=== PATIENT | female | born 1940 | race Caucasian/White ===

== ENCOUNTER → 2017-11-03 10:44 | Outpatient (CLI) | payer MEDICARE, SELFPAY ==
[2017-11-03 11:20] LABS: Absolute Lymphocyte Count 1.75 X10^3/ul (0.83-4.51); Absolute Neutrophil Count 3.2 X10^3/uL (2.0-7.7); Basophil# 0.01 X10^3/uL; Basophil% 0.2 % (0-1); Eosinophil# 0.13 X10^3/uL; Eosinophils% 2.4 % (0-5); Hematocrit 44.3 % (37-47); Hemoglobin 14.5 g/dl (12.0-15.0); Lymphocyte # 1.75 X10^3/ul (4.0); Lymphocyte % 32.1 % (19-41); Mean Corp Hgb Conc 32.7 g/gl (32-36); Mean Corpuscular Hgb 30.4 pg (27.0-32.0); Mean Corpuscular Volume 92.9 fL (81-99); Mean Platelet Vol. 10.4 fl (6.2-12.0); Monocyte# 0.38 X10^3/uL; Neutrophil # 3.17 X10^3/uL (2.7-7.7); Neutrophil % 58.1 % (47-70); Platelet Count 202 K/mm3 (150-450); RBC Distribution Width CV 13.4 % (11.6-14.6); RBC Distribution Width SD 45.2 fl (35.1-43.9); Red Blood Count 4.77 M/mm3 (4.2-5.4); White Blood Count 5.5 K/mm3 (4.4-11.0)
[2017-11-03 11:26] LABS: POSITIVE COUNT NO; POSITIVE DIFFERENTIAL NO; POSITIVE MORPHOLOGY NO
[2017-11-03 11:46] LABS: ALB/GLOB Ratio 0.9 RATIO (0.9-2.4); AST(SGOT) 18 U/L (15-37); Alanine Aminotransfer ALT/SGPT 24 U/L (12-78); Albumin, Serum 3.7 g/dL (3.4-5.0); Alkaline Phosphatase 88 U/L (45-117); Anion Gap 8 (5-15); BUN 14 mg/dL (7-18); BUN/Creat Ratio 12.4 RATIO (10-20); Calcium,Total 9.3 mg/dL (8.5-10.1); Chloride 106 mmol/L (98-107); Creatinine, Serum 1.13 mg/dL (0.55-1.02); EST Glomerular Filtration Rate 50 mL/min (>60); Est Glom Filt Rate - Afr Amer 60 mL/min (>60); Glucose 92 mg/dL (70-110); Potassium 3.8 mmol/L (3.5-5.1); Protein, Total 7.7 g/dL (6.4-8.2); Sodium Level 141 mmol/L (136-145)
== END ==
PROVIDERS: Family Provider Family Medicine; PCP Family Medicine; Visit Provider Internal Medicine Rheumatology
DX: M06.4 Inflammatory polyarthropathy (principal); I10 Essential (primary) hypertension; I25.10 Atherosclerotic heart disease of native coronary artery without angina pectoris; E03.9 Hypothyroidism, unspecified
CPT/HCPCS: 36415; 80053; 85025

== ENCOUNTER → 2017-12-07 15:24 | Outpatient (CLI) | payer MEDICARE, SELFPAY ==
[2017-12-07 17:51] LABS: T4 Free Direct 1.36 ng/dL (0.76-1.46); Thyroid Stim Hormone (TSH) 2.36 uIU/mL (0.358-3.74); Vitamin D,25 Hydroxy 38.1 ng/mL (29.95-100.01)
== END ==
PROVIDERS: Family Provider Family Medicine; PCP Family Medicine; Visit Provider Family Medicine
DX: I48.91 Unspecified atrial fibrillation (principal); E03.9 Hypothyroidism, unspecified; E55.9 Vitamin D deficiency, unspecified
CPT/HCPCS: 36415; 82306; 84439; 84443

== ENCOUNTER → 2017-12-27 12:55 | Outpatient (CLI) | payer MEDICARE, SELFPAY ==
--- NOTE | 2017-12-27 12:57 | CDU_ITS ---
Reason For Study: Carotid stenosis Rt. Velocities/BP Lt. Velocities/BP Prox CCA 86.8/15.8 cm/sec. Prox CCA 90.9/24.0 cm/sec. Mid CCA 82.7/15.8 cm/sec. Mid CCA 97.9/22.9 cm/sec. Dist CCA 70.9/14.7 cm/sec. Dist CCA 82.1/17.6 cm/sec. Prox ICA 59.2/21.7 cm/sec. Prox ICA 59.8/17.6 cm/sec. Mid ICA 62.1/16.6 cm/sec. Mid ICA 56.9/18.8 cm/sec. Dist ICA 87.9/27.3 cm/sec. Dist ICA 52.9/13.5 cm/sec. Rt. ICA/CCA = 1.1. Lt. ICA/CCA = .61. Prox ECA 63.3/3.5 cm/sec. Prox ECA 86.8/11.1 cm/sec. Rt. Vert. 81.5/17.7 cm/sec. Lt. Vert. 46.9/12.3 cm/sec. Right Extracranial There is intimal thickening but no significant atherosclerotic plaque noted in the right common carotid artery. There is intimal thickening but no significant atherosclerotic plaque noted in the right internal carotid artery. There is intimal thickening but no significant atherosclerotic plaque noted in the right external carotid artery. Antegrade flow is noted in the right vertebral artery. Left Extracranial There is intimal thickening but no significant atherosclerotic plaque noted in the left common carotid artery. There is intimal thickening but no significant atherosclerotic plaque noted in the left internal carotid artery. There is heterogeneous, irregular atherosclerotic plaque noted in the left external carotid artery. Antegrade flow is noted in the left vertebral artery. There is heterogeneous, irregular atherosclerotic plaque noted in the left bulb. Procedure Carotid Duplex [id number]. Exam performed in department. Interpretation Summary No significant atherosclerotic plaque or stenosis noted in the internal carotid arteries bilaterally. Flow within the vertebral arteries is antegrade bilaterally. Ordering Physician: Bon Abraham Referring Physician: Bon Abraham Performed By: Linda Rocha RVT
== END ==
PROVIDERS: Family Provider Family Medicine; PCP Family Medicine; Visit Provider Family Medicine
DX: I65.23 Occlusion and stenosis of bilateral carotid arteries (principal)
CPT/HCPCS: 93880

== ENCOUNTER → 2018-01-27 13:10 | Outpatient (CLI) | payer MEDICARE, SELFPAY ==
--- NOTE | 2018-01-27 13:13 | BI_ITS ---
MAMMOGRAPHY - BILATERAL SCREENING REASON FOR EXAM: Female, 77 years old. Routine annual screening examination. PERTINENT HISTORY: Non-contributory. TECHNIQUE: Digital bilateral breast eben (3D mammographic acquisition) in the CC and MLO projections. 2-D mediolateral oblique (MLO) and craniocaudad (CC) views of both breasts were obtained. CAD: Full Field Digital Mammography with Computer Added Detection was performed. COMPARISON: Comparison is made with prior study dated December 30, 2016 and December 29, 2015. FINDINGS: Breast Composition: The breasts are heterogeneously dense, which may obscure small masses. There are no dominant masses or suspicious calcifications. A pacemaker device is seen in the left axillary region. Stable bilateral vascular calcifications. No other significant abnormalities are identified. There has been no significant change since the prior study. BI/SCREENING MAMM (CAD), BILAT IMPRESSION: Stable bilateral screening mammogram. Yearly follow-up mammogram recommended. (A) ASSESSMENT CATEGORY: BIRADS Category 2: Benign. A letter regarding these results will be sent to the patient by the facility within 30 days. Approximately 10% of breast cancers are not detected by mammography. A normal mammogram should not delay biopsy of a clinically suspicious abnormality. [id number] Electronically Signed: Adam Fisher MD at 15:11 EDT Tel [phone], Service support ,
== END ==
PROVIDERS: Family Provider Family Medicine; PCP Family Medicine; Visit Provider Family Medicine
DX: Z12.31 Encounter for screening mammogram for malignant neoplasm of breast (principal)
CPT/HCPCS: 77063; 77067

== ENCOUNTER → 2018-04-17 09:21 | Outpatient (CLI) | payer MEDICARE, SELFPAY ==
[2018-04-17 12:12] LABS: Absolute Lymphocyte Count 1.22 X10^3/ul (0.83-4.51); Basophil# 0.01 X10^3/uL; Basophil% 0.3 % (0-1); Eosinophil# 0.13 X10^3/uL; Eosinophils% 3.4 % (0-5); Hematocrit 41.3 % (37-47); Lymphocyte # 1.22 X10^3/ul (4.0); Lymphocyte % 32.2 % (19-41); Mean Corp Hgb Conc 33.9 g/gl (32-36); Mean Corpuscular Hgb 31.5 pg (27.0-32.0); Mean Corpuscular Volume 92.8 fL (81-99); Mean Platelet Vol. 10.4 fl (6.2-12.0); Monocyte# 0.38 X10^3/uL; Neutrophil # 2.04 X10^3/uL (2.7-7.7); Neutrophil % 53.8 % (47-70); Platelet Count 221 K/mm3 (150-450); RBC Distribution Width CV 12.9 % (11.6-14.6); RBC Distribution Width SD 42.7 fl (35.1-43.9); Red Blood Count 4.45 M/mm3 (4.2-5.4); White Blood Count 3.8 K/mm3 (4.4-11.0)
[2018-04-17 12:13] LABS: ALB/GLOB Ratio 0.9 RATIO (0.9-2.4); AST(SGOT) 22 U/L (15-37); Alanine Aminotransfer ALT/SGPT 24 U/L (13-56); Albumin, Serum 3.5 g/dL (3.2-5.0); Alkaline Phosphatase 85 U/L (45-117); Anion Gap 8 (5-15); BUN 18 mg/dL (7-18); BUN/Creat Ratio 15.8 RATIO (10-20); Calcium,Total 8.9 mg/dL (8.5-10.1); Chloride 105 mmol/L (98-107); Creatinine, Serum 1.14 mg/dL (0.55-1.02); EST Glomerular Filtration Rate 49 mL/min (>60); Est Glom Filt Rate - Afr Amer 59 mL/min (>60); Globulin 3.9 g/dL (2.2-4.2); Glucose 93 mg/dL (74-106); Potassium 4.1 mmol/L (3.5-5.1); Protein, Total 7.4 g/dL (6.4-8.2); Sodium Level 141 mmol/L (136-145)
[2018-04-17 12:25] LABS: POSITIVE COUNT NO; POSITIVE DIFFERENTIAL NO; POSITIVE MORPHOLOGY NO
== END ==
PROVIDERS: Family Provider Family Medicine; PCP Family Medicine; Visit Provider Internal Medicine Rheumatology
DX: M06.4 Inflammatory polyarthropathy (principal); M16.0 Bilateral primary osteoarthritis of hip; I10 Essential (primary) hypertension; I25.10 Atherosclerotic heart disease of native coronary artery without angina pectoris; E03.9 Hypothyroidism, unspecified
CPT/HCPCS: 36415; 80053; 85025

== ENCOUNTER → 2018-06-27 06:42 | Outpatient (CLI) | payer MEDICARE, SELFPAY ==
--- NOTE | 2018-06-27 07:16 | RAD_ITS ---
STUDY: X-RAY CHEST REASON FOR EXAM: Female, 78 years old. Chest pain TECHNIQUE: PA and lateral views of the chest. COMPARISON: 03/07/2017 FINDINGS: There is a multilead permanent pacemaker. The lungs are clear and hyper expanded. There is no demonstrated pleural abnormality. Normal size heart. Coronary artery stent. Normal mediastinum and jewel. Normal visualized pulmonary arteries. Normal visualized aortic arch and descending thoracic aorta. Age-appropriate thoracic spine. Normal visualized ribs, clavicles, and shoulders. There is no demonstrated abnormality of the visualized soft tissue structures of the upper abdomen. RAD/Chest PA and Lateral IMPRESSION: Stable hyper inflation. Stable postsurgical changes. No pulmonary edema, congestive heart failure or confluent pneumonia. Electronically Signed: Angelica Ruiz MD at 23:55 EDT , Service support ,
--- NOTE | 2018-06-27 09:39 | STRESSREP ---
Stress Test Report Date: 06/27/2018 Procedure: Pharmacologic stress nuclear imaging study Indications: Chest pain; CAD; PCI; atrial fibrillation/flutter; permanent pacemaker Consent: Per the patient Procedure: The patient underwent pharmacologic (Regadenoson) evaluation with a peak heart rate of 127 beats per minute (88 predicted maximal heart rate) and a peak blood pressure of 128/84 mmHg. The baseline ECG demonstrated atrial fibrillation/flutter. The peak pharmacologic ECG demonstrated no obvious ECG changes. There were occasional PVCs pretest and during recovery. There was no complaint of chest discomfort during pharmacologic infusion or recovery. The examination was discontinued secondary to completion of protocol. Impression: 1. Pharmacologic (Regadenoson) evaluation 2. Peak pharmacologic ECG with continued atrial fibrillation/flutter with no obvious ECG changes. 3. There were occasional PVCs pretest and during recovery 4. Nuclear images pending Myocardial perfusion imaging study: Technique: The patient was injected with 10.8 millicuries of technetium 99m Cardiolite and subsequently rest SPECT Cardiolite nuclear imaging was obtained in the horizontal long, vertical long, and short axis views. The patient underwent pharmacologic (Regadenoson) evaluation with a peak heart rate of 127 beats per minute (88 % percent predicted maximal heart rate) and a peak blood pressure of 128/84 mmHg. The patient was injected with 31.6 millicuries of technetium 99m Cardiolite and subsequently stress SPECT Cardiolite nuclear imaging was obtained in the horizontal long, vertical long, and short axis views. A gated Cardiolite study at peak stress was obtained. Interpretation: Rest and stress SPECT Cardiolite nuclear imaging status post realignment, normalization, and attenuation correction demonstrate at rest the appearance of extracardiac/gastrointestinal tracer uptake near the inferior segments. Otherwise, there appears to be relative uniform tracer uptake at rest and status post stress. There is end systolic thickening and brightening. The gated Cardiolite study demonstrates myocardial thickening and inward wall motion. The reported LVEF is 83 %. Impression: 1. Rest and stress SPECT Cardiolite nuclear imaging demonstrate at rest the appearance of extracardiac/gastrointestinal tracer uptake near the inferior segments, otherwise, there appears to be relative uniform tracer uptake at rest and stress with no myocardial perfusion changes considered diagnostic for stress-induced myocardial ischemia. 2. The gated Cardiolite study reports an LVEF of 83 %. This note was generated with [employer] software. It may contain incorrect words, spelling, and punctuation that were not noted in checking the note before signing.
--- NOTE | 2018-06-27 09:42 | STRESSREP_ITS ---
Stress Test Report Date: 06/27/2018 Procedure: Pharmacologic stress nuclear imaging study Indications: Chest pain; CAD; PCI; atrial fibrillation/flutter; permanent pacemaker Consent: Per the patient Procedure: The patient underwent pharmacologic (Regadenoson) evaluation with a peak heart rate of 127 beats per minute (88 predicted maximal heart rate) and a peak blood pressure of 128/84 mmHg. The baseline ECG demonstrated atrial fibrillation/flutter. The peak pharmacologic ECG demonstrated no obvious ECG changes. There were occasional PVCs pretest and during recovery. There was no complaint of chest discomfort during pharmacologic infusion or recovery. The examination was discontinued secondary to completion of protocol. Impression: 1. Pharmacologic (Regadenoson) evaluation 2. Peak pharmacologic ECG with continued atrial fibrillation/flutter with no obvious ECG changes. 3. There were occasional PVCs pretest and during recovery 4. Nuclear images pending Myocardial perfusion imaging study: Technique: The patient was injected with 10.8 millicuries of technetium 99m Cardiolite and subsequently rest SPECT Cardiolite nuclear imaging was obtained in the horizontal long, vertical long, and short axis views. The patient underwent pharmacologic (Regadenoson) evaluation with a peak heart rate of 127 beats per minute (88 % percent predicted maximal heart rate) and a peak blood pressure of 128/84 mmHg. The patient was injected with 31.6 millicuries of technetium 99m Cardiolite and subsequently stress SPECT Cardiolite nuclear imaging was obtained in the horizontal long, vertical long, and short axis views. A gated Cardiolite study at peak stress was obtained. Interpretation: Rest and stress SPECT Cardiolite nuclear imaging status post realignment, normalization, and attenuation correction demonstrate at rest the appearance of extracardiac/gastrointestinal tracer uptake near the inferior segments. Otherwise, there appears to be relative uniform tracer uptake at rest and status post stress. There is end systolic thickening and brightening. The gated Cardiolite study demonstrates myocardial thickening and inward wall motion. The reported LVEF is 83 %. Impression: 1. Rest and stress SPECT Cardiolite nuclear imaging demonstrate at rest the appearance of extracardiac/gastrointestinal tracer uptake near the inferior segments, otherwise, there appears to be relative uniform tracer uptake at rest and stress with no myocardial perfusion changes considered diagnostic for stress -induced myocardial ischemia. 2. The gated Cardiolite study reports an LVEF of 83 %. This note was generated with [employer] software. It may contain incorrect words, spelling, and punctuation that were not noted in checking the note before signing.
== END ==
PROVIDERS: Family Provider Family Medicine; PCP Family Medicine; Visit Provider Nurse Practitioner Family
DX: R07.9 Chest pain, unspecified (principal); I25.10 Atherosclerotic heart disease of native coronary artery without angina pectoris; I48.0 Paroxysmal atrial fibrillation; Z98.61 Coronary angioplasty status
CPT/HCPCS: 71046; 78452; 93017; A9500; A4216; J2785

== ENCOUNTER → 2018-10-05 12:08 | Outpatient (CLI) | payer MEDICARE, SELFPAY ==
[2018-10-05 14:16] LABS: Absolute Lymphocyte Count 1.42 X10^3/ul (0.83-4.51); Absolute Neutrophil Count 3.6 X10^3/uL (2.0-7.7); Basophil# 0.01 X10^3/uL; Basophil% 0.2 % (0-1); Eosinophils% 1.7 % (0-5); Hematocrit 38.2 % (37-47); Hemoglobin 12.2 g/dl (12.0-15.0); Lymphocyte # 1.42 X10^3/ul (4.0); Lymphocyte % 24.2 % (19-41); Mean Corp Hgb Conc 31.9 g/gl (32-36); Mean Corpuscular Hgb 29.6 pg (27.0-32.0); Mean Corpuscular Volume 92.7 fL (81-99); Mean Platelet Vol. 10.1 fl (6.2-12.0); Monocyte# 0.69 X10^3/uL; Monocyte% 11.8 % (0-10); Neutrophil # 3.64 X10^3/uL (2.7-7.7); Neutrophil % 61.9 % (47-70); Platelet Count 284 K/mm3 (150-450); RBC Distribution Width CV 13.1 % (11.6-14.6); RBC Distribution Width SD 44.6 fl (35.1-43.9); Red Blood Count 4.12 M/mm3 (4.2-5.4); White Blood Count 5.9 K/mm3 (4.4-11.0)
[2018-10-05 14:20] LABS: POSITIVE COUNT NO; POSITIVE DIFFERENTIAL NO; POSITIVE MORPHOLOGY NO
[2018-10-05 14:29] LABS: ALB/GLOB Ratio 0.8 RATIO (0.9-2.4); AST(SGOT) 13 U/L (15-37); Alanine Aminotransfer ALT/SGPT 19 U/L (13-56); Albumin, Serum 3.2 g/dL (3.2-5.0); Alkaline Phosphatase 72 U/L (45-117); Anion Gap 9 (5-15); BUN 18 mg/dL (7-18); BUN/Creat Ratio 17.1 RATIO (10-20); Calcium,Total 9.1 mg/dL (8.5-10.1); Chloride 105 mmol/L (98-107); Creatinine, Serum 1.05 mg/dL (0.55-1.02); EST Glomerular Filtration Rate 54 mL/min (>60); Est Glom Filt Rate - Afr Amer 65 mL/min (>60); Globulin 4.2 g/dL (2.2-4.2); Glucose 119 mg/dL (74-106); Potassium 3.8 mmol/L (3.5-5.1); Protein, Total 7.4 g/dL (6.4-8.2); Sodium Level 143 mmol/L (136-145)
== END ==
PROVIDERS: Family Provider Family Medicine; PCP Family Medicine; Referring Provider Internal Medicine Rheumatology; Visit Provider Internal Medicine Rheumatology
DX: M06.4 Inflammatory polyarthropathy (principal)
CPT/HCPCS: 36415; 80053; 85025

== ENCOUNTER → 2019-01-02 12:03 | Outpatient (CLI) | payer MEDICARE, SELFPAY ==
[2018-12-27 13:12] VITALS: BMI 22.8
[2019-01-02 14:00] LABS: Absolute Lymphocyte Count 1.68 X10^3/ul (0.83-4.51); Absolute Neutrophil Count 3.5 X10^3/uL (2.0-7.7); Basophil# 0.02 X10^3/uL; Basophil% 0.3 % (0-1); Eosinophils% 1.7 % (0-5); Hematocrit 37.9 % (37-47); Hemoglobin 11.7 g/dl (12.0-15.0); Lymphocyte # 1.68 X10^3/ul (4.0); Lymphocyte % 28.6 % (19-41); Mean Corp Hgb Conc 30.9 g/gl (32-36); Mean Corpuscular Hgb 29.2 pg (27.0-32.0); Mean Corpuscular Volume 94.5 fL (81-99); Monocyte# 0.61 X10^3/uL; Monocyte% 10.4 % (0-10); Neutrophil # 3.45 X10^3/uL (2.7-7.7); Neutrophil % 58.8 % (47-70); Platelet Count 264 K/mm3 (150-450); RBC Distribution Width SD 46.2 fl (35.1-43.9); Red Blood Count 4.01 M/mm3 (4.2-5.4); White Blood Count 5.9 K/mm3 (4.4-11.0)
[2019-01-02 14:07] LABS: POSITIVE COUNT NO; POSITIVE DIFFERENTIAL NO; POSITIVE MORPHOLOGY NO
[2019-01-02 14:25] LABS: ALB/GLOB Ratio 0.8 RATIO (0.9-2.4); AST(SGOT) 12 U/L (15-37); Alanine Aminotransfer ALT/SGPT 21 U/L (13-56); Albumin, Serum 3.2 g/dL (3.2-5.0); Alkaline Phosphatase 90 U/L (45-117); Anion Gap 7 (5-15); BUN 18 mg/dL (7-18); BUN/Creat Ratio 19.8 RATIO (10-20); Chloride 105 mmol/L (98-107); Creatinine, Serum 0.91 mg/dL (0.55-1.02); EST Glomerular Filtration Rate 64 mL/min (>60); Est Glom Filt Rate - Afr Amer 77 mL/min (>60); Glucose 122 mg/dL (74-106); Potassium 4.1 mmol/L (3.5-5.1); Protein, Total 7.2 g/dL (6.4-8.2); Sodium Level 141 mmol/L (136-145); T4 Free Direct 1.58 ng/dL (0.76-1.46); Thyroid Stim Hormone (TSH) 0.13 uIU/mL (0.358-3.74)
== END ==
PROVIDERS: Family Provider Family Medicine; PCP Family Medicine; Referring Provider Internal Medicine Rheumatology; Visit Provider Internal Medicine Rheumatology
DX: M06.4 Inflammatory polyarthropathy (principal); M16.0 Bilateral primary osteoarthritis of hip; I10 Essential (primary) hypertension; I25.10 Atherosclerotic heart disease of native coronary artery without angina pectoris; E03.9 Hypothyroidism, unspecified
CPT/HCPCS: 80053; 84439; 84443; 85025

== ENCOUNTER → 2019-01-16 | Outpatient (CLI) | payer MEDICARE, SELFPAY ==
[2018-12-27 13:12] VITALS: BMI 22.8
--- NOTE | 2019-01-16 14:04 | ECHOD_ITS ---
Reason For Study: ARRHYTHMIA Procedure This was a 2D Doppler, Color Flow transthoracic echocardiogram. Exam performed in department. Left Ventricle Normal LV size. Left ventricular systolic function is normal. The estimated ejection fraction is 60 %. Unable to assess diastolic dysfunction. No regional wall motion abnormalities noted. Right Ventricle Normal RV size. Normal systolic function. Atria The left atrium is severely enlarged. The right atrium is mildly enlarged. No doppler evidence for ASD. Mitral Valve There is no mitral annular calcification. Normal mitral valve. Moderate (2+) mitral valve insufficiency. Tricuspid Valve Normal tricuspid valve. Moderate (2+) tricuspid valve insufficiency. Right ventricular systolic pressure estimated to be 28 mmHg. Aortic Valve Trisinus/trileaflet aortic valve. Mild diffuse aortic valve thickening. Mild focal aortic valve calcification. Mild aortic stenosis. Trivial aortic valve insufficiency. Pulmonic Valve The pulmonic valve is not well visualized. Trivial pulmonic valve insufficiency. Great Vessels Normal sized aortic root. Pericardium/Pleural Trivial pericardial effusion. There are no echocardiographic indications of cardiac tamponade. MMode/2D Measurements & Calculations LVIDd: 4.1 cm IVSd: 0.91 cm LVOT diam: 1.8 cm LVIDs: 3.0 cm LVPWd: 0.88 cm LVOT area: 2.6 cm2 RVDd: 2.9 cm FS: 28.3 % Ao root diam: 3.0 cm LAV(MOD-bp): 59.5 ml LA A4 area: 20.3 cm2 LAV(MOD-bp) Indexed: 38.9 ml/m2 LAV(MOD-sp2): 53.3 ml LAV(MOD-sp4): 54.3 ml LA dimension(2D): 3.7 cm RA A4 area: 14.4 cm2 Time Measurements MV dec time: 0.15 sec Doppler Measurements & Calculations MV E max pavan: 89.2 cm/sec Ao V2 max: 98.7 cm/sec AI max pavan: 430.6 cm/sec Ao max P.9 mmHg AI max P.2 mmHg LARISA(V,D): 1.6 cm2 AI dec slope: 254.4 cm/sec2 AI P1/2t: 495.7 msec LV V1 max: 62.7 cm/sec PA V2 max: 61.9 cm/sec PI end-d pavan: 79.4 cm/sec LV V1 max P.6 mmHg TR max pavan: 249.0 cm/sec TR max P.8 mmHg Interpretation Summary Left ventricular systolic function is normal. The estimated ejection fraction is 60 %. The left atrium is severely enlarged. The right atrium is mildly enlarged. Moderate (2+) mitral valve insufficiency. Moderate (2+) tricuspid valve insufficiency. Mild aortic stenosis. Trivial aortic valve insufficiency. Trivial pulmonic valve insufficiency. Trivial pericardial effusion. There are no echocardiographic indications of cardiac tamponade. Right ventricular systolic pressure estimated to be 28 mmHg. Unable to assess diastolic dysfunction. Ordering Physician: Nixon Moreno/Marcus Malhotra Referring Physician: BRIDGETTE REILLY Performed By: Natacha Gutierrez, SAYRA, RVT
== END | disposition home or self-care (01) ==
LOC: CVS 14:01
PROVIDERS: Family Provider Family Medicine; PCP Family Medicine; Referring Provider Nurse Practitioner Family; Visit Provider Nurse Practitioner Family
DX: I25.10 Atherosclerotic heart disease of native coronary artery without angina pectoris (principal); I48.91 Unspecified atrial fibrillation; I10 Essential (primary) hypertension; R53.83 Other fatigue; Z95.0 Presence of cardiac pacemaker
CPT/HCPCS: 93306

== ENCOUNTER 2019-02-03 23:03 | Emergency (ER) | payer MEDICARE, SELFPAY ==
[2018-12-27 13:12] VITALS: BMI 22.8
[2019-02-03 23:06] VITALS: BP 145/101; PULSE 120; RESP 16; TEMP 36.6; O2SAT 987; BMI 23.0
--- NOTE | 2019-02-03 23:22 | ED.VIS.GEN ---
History of Present Illness Chief Complaint: Edema Informant: Patient Narrative: Patient stated that today she noticed some swelling and discomfort in her left lateral foot and ankle. She has never had this before. No injury. It does not significantly hurt to move. She is some ice which helped it. Current severity is mild. Worsened by nothing. - Past Medical History (1) Atrial fibrillation Status: Chronic (2) Coronary atherosclerosis of [place] coronary vessel Status: Chronic (3) Coronary atherosclerosis of [place] coronary vessel Status: Chronic Comment: S/P stenting to LAD in January 2007; (4) Diabetes mellitus type 2, controlled Status: Chronic (5) Dizziness Status: Chronic (6) Fatigue Status: Chronic (7) History of gastroesophageal reflux (GERD) Status: Chronic (8) History of left heart catheterization Status: Chronic Comment: also 01/2007,06/2007,07/2008 (9) History of percutaneous transluminal coronary angioplasty Status: Chronic Comment: Stent to mid LAD (10) History of permanent cardiac pacemaker placement Status: Chronic (11) Hyperlipidemia Status: Chronic (12) Hypertension Status: Chronic (13) Mitral valve disorder Status: Chronic (14) Occlusion and stenosis of carotid 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 Status: Chronic (15) Paroxysmal atrial fibrillation Status: Chronic (16) Presence of cardiac pacemaker Status: Chronic (17) Sick sinus syndrome Status: Chronic (18) History of transient ischemic attack (TIA) Status: Resolved (19) UTI (urinary tract infection) Status: Resolved Past Medical History - Allergies and Home Meds Allergies/Adverse Reactions: Allergies Penicillins Allergy (Verified 02/03/19 23:09) Hives Yavstdj-Giy-Did Reductase Inhibitor Adverse Reaction (Intermediate, Verified 02/03/19 23:09) myalgias Primary Care Physician: Bon Abraham MD [Primary Care Provider] - Prior records reviewed: Yes Past Medical History: - - Reviewed Surgical History: no surgical history Smoking Status: Never smoker Alcohol: None Drugs: None Review of Systems General: Denies: Chills, Fever, Sweats Eyes: Denies: Visual changes - bilaterally, Diplopia ENT: Denies: Rhinorrhea, Sore throat Cardiovascular: Denies: Chest pain, Palpitations Respiratory: Denies: Dyspnea, Cough, Dyspnea on exertion Gastrointestinal: Denies: Abdominal pain, Nausea, Vomiting, Diarrhea, Melena, Hematochezia Genitourinary: Denies: Dysuria, Hematuria, Frequency Musculoskeletal: Reports: Extremity Pain. Denies: Back pain Skin: Denies: Rash, Wounds Neurological: Denies: Headache, Weakness, Numbness Physical Exam Vital Signs/Narrative: Vital Signs Temp Pulse Resp BP Pulse Ox 02/03/19 23:06 97.9 F 120 H 16 145/101 H 987 General: Well nourished, Well developed, No Acute Distress Head: Normocephalic, Atraumatic Eyes: Perrl, EOMI ENT: Moist mucous membranes, No rhinorrhea Neck: Supple, Nontender Cardiovascular: Regular rate, Regular rhythm, No murmurs Respiratory: No distress, CTA bilaterally, Chest nontender Abdomen: Soft, Nontender, Nondistended, Normal bowel sounds Back: Nontender, Normal Inspection Extremities: Nontender, No edema Skin: Normal color, No rash, - - Patient has a very mild cellulitis on the left lateral ankle. Foot exam is normal. Normal pulses. The cellulitis area measures 4 x 5 cm. Neurological: Alert, Oriented x3, Cranial nerves II-XII grossly intact, Normal Strength, Normal Sensation Psychological: Normal affect, Normal Mood Diagnostic/Tx/Re-eval - Medical Decision Making Patient nontoxic resting comfortably. Will be given Keflex. I do not feel she needs lab work or imaging or IV fluids. She is not septic. She refused x-ray. I do not think she has in traumatic injury. I do not think she needs Bactrim. On the low suspicion for MRSA. This appears like a mild skin cellulitis. She understands it may get worse and that she will need to follow-up or return if it does. She will use Tylenol ED Disposition - Plan for ED Patient: Disposition: [facility] Diagnosis: Ankle cellulitis Instructions: Cellulitis - Causes,Symptoms,Treating Prescriptions: Cephalexin [Keflex] 500 mg PO Q6 #40 cap Referrals: Bon Abraham MD [Primary Care Provider] -
--- NOTE | 2019-02-03 23:25 | ED.DCSUM_ITS ---
History of Present Illness Chief Complaint: Edema Informant: Patient Narrative: Patient stated that today she noticed some swelling and discomfort in her left lateral foot and ankle. She has never had this before. No injury. It does not significantly hurt to move. She is some ice which helped it. Current severity is mild. Worsened by nothing. - Past Medical History (1) Atrial fibrillation Status: Chronic (2) Coronary atherosclerosis of [place] coronary vessel Status: Chronic (3) Coronary atherosclerosis of [place] coronary vessel Status: Chronic Comment: S/P stenting to LAD in January 2007; (4) Diabetes mellitus type 2, controlled Status: Chronic (5) Dizziness Status: Chronic (6) Fatigue Status: Chronic (7) History of gastroesophageal reflux (GERD) Status: Chronic (8) History of left heart catheterization Status: Chronic Comment: also 01/2007,06/2007,07/2008 (9) History of percutaneous transluminal coronary angioplasty Status: Chronic Comment: Stent to mid LAD (10) History of permanent cardiac pacemaker placement Status: Chronic (11) Hyperlipidemia Status: Chronic (12) Hypertension Status: Chronic (13) Mitral valve disorder Status: Chronic (14) Occlusion and stenosis of carotid 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 Status: Chronic (15) Paroxysmal atrial fibrillation Status: Chronic (16) Presence of cardiac pacemaker Status: Chronic (17) Sick sinus syndrome Status: Chronic (18) History of transient ischemic attack (TIA) Status: Resolved (19) UTI (urinary tract infection) Status: Resolved Past Medical History - Allergies and Home Meds Allergies/Adverse Reactions: Allergies Penicillins Allergy (Verified 02/03/19 23:09) Hives Uemvvot-Lxn-Xwf Reductase Inhibitor Adverse Reaction (Intermediate, Verified 02/03/19 23:09) myalgias Primary Care Physician: Bon Abraham MD [Primary Care Provider] - Prior records reviewed: Yes Past Medical History: - - Reviewed Surgical History: no surgical history Smoking Status: Never smoker Alcohol: None Drugs: None Review of Systems General: Denies: Chills, Fever, Sweats Eyes: Denies: Visual changes - bilaterally, Diplopia ENT: Denies: Rhinorrhea, Sore throat Cardiovascular: Denies: Chest pain, Palpitations Respiratory: Denies: Dyspnea, Cough, Dyspnea on exertion Gastrointestinal: Denies: Abdominal pain, Nausea, Vomiting, Diarrhea, Melena, Hematochezia Genitourinary: Denies: Dysuria, Hematuria, Frequency Musculoskeletal: Reports: Extremity Pain. Denies: Back pain Skin: Denies: Rash, Wounds Neurological: Denies: Headache, Weakness, Numbness Physical Exam Vital Signs/Narrative: Vital Signs Temp Pulse Resp BP Pulse Ox 02/03/19 23:06 97.9 F 120 H 16 145/101 H 987 General: Well nourished, Well developed, No Acute Distress Head: Normocephalic, Atraumatic Eyes: Perrl, EOMI ENT: Moist mucous membranes, No rhinorrhea Neck: Supple, Nontender Cardiovascular: Regular rate, Regular rhythm, No murmurs Respiratory: No distress, CTA bilaterally, Chest nontender Abdomen: Soft, Nontender, Nondistended, Normal bowel sounds Back: Nontender, Normal Inspection Extremities: Nontender, No edema Skin: Normal color, No rash, - - Patient has a very mild cellulitis on the left lateral ankle. Foot exam is normal. Normal pulses. The cellulitis area measures 4 x 5 cm. Neurological: Alert, Oriented x3, Cranial nerves II-XII grossly intact, Normal Strength, Normal Sensation Psychological: Normal affect, Normal Mood Diagnostic/Tx/Re-eval - Medical Decision Making Patient nontoxic resting comfortably. Will be given Keflex. I do not feel she needs lab work or imaging or IV fluids. She is not septic. She refused x-ray. I do not think she has in traumatic injury. I do not think she needs Bactrim. On the low suspicion for MRSA. This appears like a mild skin cellulitis. She understands it may get worse and that she will need to follow-up or return if it does. She will use Tylenol ED Disposition - Plan for ED Patient: Disposition: [facility] Diagnosis: Ankle cellulitis Instructions: Cellulitis - Causes,Symptoms,Treating Prescriptions: Cephalexin [Keflex] 500 mg PO Q6 #40 cap Referrals: Bon Abraham MD [Primary Care Provider] -
[2019-02-03] MEDS: Cephalexin 250 MG Capsule 500 MG PO (23:30)
[2019-02-03 23:47] VITALS: BP 141/78; PULSE 87; RESP 21; O2SAT 98
== END 2019-02-03 23:46 | disposition home or self-care (01) ==
LOC: ED 23:32
PROVIDERS: Emergency Provider Emergency Medicine; Family Provider Family Medicine; PCP Family Medicine
DX: L03.116 Cellulitis of left lower limb (principal); I25.10 Atherosclerotic heart disease of native coronary artery without angina pectoris; E11.9 Type 2 diabetes mellitus without complications; K21.9 Gastro-esophageal reflux disease without esophagitis; E78.5 Hyperlipidemia, unspecified; I10 Essential (primary) hypertension; I05.9 Rheumatic mitral valve disease, unspecified; I65.29 Occlusion and stenosis of unspecified carotid artery; I48.0 Paroxysmal atrial fibrillation; I49.5 Sick sinus syndrome; Z86.73 Personal history of transient ischemic attack (TIA), and cerebral infarction without residual deficits; Z87.440 Personal history of urinary (tract) infections; Z95.5 Presence of coronary angioplasty implant and graft; Z95.0 Presence of cardiac pacemaker; Z79.82 Long term (current) use of aspirin; Z79.01 Long term (current) use of anticoagulants; Z79.899 Other long term (current) drug therapy
CPT/HCPCS: 99283

== ENCOUNTER → 2019-02-16 13:28 | Outpatient (CLI) | payer MEDICARE, SELFPAY ==
[2018-12-27 13:12] VITALS: BMI 22.8
[2019-02-03 23:06] VITALS: BMI 23.0
--- NOTE | 2019-02-16 13:32 | BI_ITS ---
MAMMOGRAPHY - BILATERAL SCREENING REASON FOR EXAM: Female, 78 years old. Routine annual screening examination. PERTINENT HISTORY: Non-contributory. TECHNIQUE: Digital bilateral breast eben (3D mammographic acquisition) in the CC and MLO projections. 2-D mediolateral oblique (MLO) and craniocaudad (CC) views of both breasts were obtained. CAD: Full Field Digital Mammography with Computer Added Detection was performed. COMPARISON: Comparison is made with prior study dated January 27, 2018 and December 30, 2016. FINDINGS: Breast Composition: The breasts are heterogeneously dense, which may obscure small masses. There are no dominant masses or suspicious calcifications. Stable bilateral secretory calcifications. A battery pack from a pacemaker is seen in the left axillary region. No other significant abnormalities are identified. There has been no significant change since the prior study. BI/SCREENING MAMM (CAD), BILAT IMPRESSION: Stable bilateral screening mammogram. Yearly follow-up mammogram recommended. (A) ASSESSMENT CATEGORY: BIRADS Category 2: Benign. A letter regarding these results will be sent to the patient by the facility within 30 days. Approximately 10% of breast cancers are not detected by mammography. A normal mammogram should not delay biopsy of a clinically suspicious abnormality. [id number] Electronically Signed: Adam Fisher, at 15:11 EDT , Service support ,
== END ==
PROVIDERS: Family Provider Family Medicine; PCP Family Medicine; Referring Provider Family Medicine; Visit Provider Family Medicine
DX: Z12.31 Encounter for screening mammogram for malignant neoplasm of breast (principal)
CPT/HCPCS: 77063; 77067

== ENCOUNTER → 2019-02-27 13:51 | Outpatient (CLI) | payer MEDICARE, SELFPAY ==
[2019-02-03 23:06] VITALS: BMI 23.0
[2019-02-27 16:07] LABS: Hemoglobin A1c 6.9 % (4.2-6.3)
[2019-02-27 16:24] LABS: T4 Free Direct 1.32 ng/dL (0.76-1.46)
== END ==
PROVIDERS: Family Provider Family Medicine; PCP Family Medicine; Referring Provider Family Medicine; Visit Provider Family Medicine
DX: R73.01 Impaired fasting glucose (principal); E03.9 Hypothyroidism, unspecified
CPT/HCPCS: 36415; 83036; 84439; 84443

== ENCOUNTER → 2019-03-14 | Outpatient (CLI) | payer MEDICARE, SELFPAY ==
--- NOTE | 2019-03-14 14:10 | VDLE_ITS ---
Reason For Study: Swelling, Redness LLE RIGHT LEFT CFV is compressible, spontaneous, phasic, GSV is normal. competent and demonstrates normal CFV is compressible, spontaneous, phasic, augmentation. competent, and demonstrates normal Procedure augmentation. Exam performed in department. FV is compressible, spontaneous, phasic, A preliminary report was called and/or faxed competent and demonstrates normal to Dr. Elam. augmentation. POP V is compressible, spontaneous, phasic, competent and demonstrates normal augmentation. T/P Trunk is compressible. PTV is compressible. LT PerV is compressible. Interpretation Summary Deep veins of the left lower extremity are patent and compressible segmentally. There is no evidence of left lower extremity deep vein thrombosis. Valvular competence appears intact within the proximal deep venous system on the left . The left greater saphenous vein appears patent and compressible segmentally. Ordering Physician: Hellen Elam Referring Physician: Bon Abraham Performed By: Kristin Moreno, SAYRA, RVT
== END | disposition home or self-care (01) ==
LOC: CVS 14:07
PROVIDERS: Family Provider Family Medicine; PCP Family Medicine; Referring Provider Family Medicine; Visit Provider Family Medicine
DX: M79.89 Other specified soft tissue disorders (principal)
CPT/HCPCS: 93971

== ENCOUNTER → 2019-05-03 11:40 | Outpatient (CLI) | payer MEDICARE, SELFPAY ==
[2019-04-02 15:02] VITALS: BMI 23.0
[2019-05-03 14:13] LABS: Absolute Lymphocyte Count 1.71 X10^3/uL (0.83-4.51); Absolute Neutrophil Count 3.7 X10^3/uL (2.0-7.7); Basophil# 0.03 X10^3/uL; Basophil% 0.5 % (0-1); Eosinophil# 0.07 X10^3/uL; Eosinophils% 1.2 % (0-5); Hematocrit 38.2 % (37-47); Lymphocyte # 1.71 X10^3/ul (4.0); Lymphocyte % 28.3 % (19-41); Mean Corp Hgb Conc 31.4 g/dL (32-36); Mean Platelet Vol. 10.1 fl (6.2-12.0); Monocyte# 0.54 X10^3/uL; Monocyte% 8.9 % (0-10); NRBC Flagged by Analyzer 0 % (0-5); Neutrophil # 3.69 X10^3/uL (2.7-7.7); Neutrophil % 60.9 % (47-70); Platelet Count 299 K/mm3 (150-450); RBC Distribution Width CV 14.1 % (11.6-14.6); RBC Distribution Width SD 45.4 fl (35.1-43.9); Red Blood Count 4.29 M/mm3 (4.2-5.4); White Blood Count 6.1 K/mm3 (4.4-11.0)
[2019-05-03 14:22] LABS: ALB/GLOB Ratio 0.7 RATIO (0.9-2.4); AST(SGOT) 12 U/L (15-37); Alanine Aminotransfer ALT/SGPT 16 U/L (13-56); Albumin, Serum 3.1 g/dL (3.2-5.0); Alkaline Phosphatase 90 U/L (45-117); Anion Gap 9 (5-15); BUN 15 mg/dL (7-18); Calcium,Total 9.4 mg/dL (8.5-10.1); Chloride 103 mmol/L (98-107); Creatinine, Serum 0.88 mg/dL (0.55-1.02); EST Glomerular Filtration Rate 66 mL/min (>60); Est Glom Filt Rate - Afr Amer 80 mL/min (>60); Globulin 4.6 g/dL (2.2-4.2); Glucose 106 mg/dL (74-106); Potassium 3.7 mmol/L (3.5-5.1); Protein, Total 7.7 g/dL (6.4-8.2); Sodium Level 141 mmol/L (136-145)
== END ==
PROVIDERS: Family Provider Family Medicine; PCP Family Medicine; Referring Provider Internal Medicine Rheumatology; Visit Provider Internal Medicine Rheumatology
DX: M06.4 Inflammatory polyarthropathy (principal); M16.0 Bilateral primary osteoarthritis of hip; I10 Essential (primary) hypertension; I25.10 Atherosclerotic heart disease of native coronary artery without angina pectoris; E03.9 Hypothyroidism, unspecified
CPT/HCPCS: 36415; 80053; 85025

== ENCOUNTER 2019-05-11 13:00 | Outpatient (RCR) | payer MEDICARE, SELFPAY ==
[2019-04-02 15:02] VITALS: BMI 23.0
--- NOTE | 2019-04-24 12:53 | HP.PTEVAL ---
Patient's Visit Information ARNIE COKER is a 78 year old F referred to Physical Therapy by Bon Abraham MD with a diagnosis of chronic vertigo. Date of Evaluation: 04/24/19 Physical Therapist: [place], DILMA, OCS, CSCS - Visit Plan Frequency: 1x/Week Duration: 4-6 Weeks Plan: weekly as needed x 4-6 for positional treatments adn balance if needed. - Subjective Findings: Intermittent dizzyness. Looking up makes her dizzy, spinning adn lasts as long as she is looking up. If looks back down it goes away. Feels mostly good in between episode. Sometimes gets dizzy with walking and lasts all day to a little while. Been dizzy daily for long time and has had this for a year. Insidious onset. Uses walker all the time and has for a year or longer due to OA to stay stable. Cannot walk wellw ithout it not due to dizzyness but OA in hips and kneesbone on bone. Sleeps great lying on R side because she spins if lies other directions. Not employed. Would work around house and yard a lot more due to OA and dizzyness. Spends day doing light housework but needs frequent breaks from standing due to OA. Basic ADLs are mostly I with dressing adn bathroom and cooking a little bit. Lives with daughter. Steps at home to basement with railing. - Objective Walks with wh walker mod I, slow and doesn't use wheels but lifts walker. Trasnfers slow but I and careful with head movement. Safe with walker on firm flat surface. Unable to tolerate FGA due to OA/dizzyness. Able to ambulate with extreme care adn short steps wtihout AD but poor confidence. C/s AROM WFL and symmetricala dn without pain. - R hallpike. + L hallpike for 10 second up torsional nystagmus. Treated with L David then - L Hallpike. 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 Rehabilitation Potential: Good - Anticipated Interventions Patient/Client Instruction: Educate patient on: Condition, Plan of Care For the Purpose of:: To increase tolerance to activity/condition/position, To improve ability of physical actions for home/community/work/leisure Comment: adaptation and balance as needed. For the Purpose of:: To increase tolerance to activity/condition/position, To improve ability of physical actions for home/community/work/leisure Thank you for the opportunity to evaluate your patient. For Medicare and Medicare HMO plans, please review the plan of care and approve it. It will need to be FAXED BACK to us at [phone] for Medicare purposes. For Medicare only, by signing this I certify the plan of care. Please let me know if there are questions or concerns regarding this plan of care. Physician Signature: Date:
--- NOTE | 2019-05-11 13:27 | HP.PTDCSUM ---
HP - PT D/C Summary It has been my pleasure to treat ARNIE COKER under orders from Bon Abraham MD, for the diagnosis of chronic vertigo for a total of 2 visit(s). Discharge Date: 05/11/19 Please see the following information for a summary of their discharge status. - Subjective Subjective: No dizzyness. Near 100% better. No spinning but head might feel funny at times. Balance is normal, needs walker due to OA. Can turn head and walk without difficulty. - Overall Improvement % Improvement: 99 - Objective Objective/Function: - R hallpike,. Slight + L hallpike and treated with David. Gait is safe with wh walker and looks better than last session(not lifting walker and more confident). She does not wish to have balance treated or further f/u for dizzyness(99% better) - Goals Goal 1:: abolish vertigo for 3 days Goal Progress: Goal Met Goal 2:: Pateint feel dizzyness is 90% better and able to increase activtly levels Goal Progress: Goal Met Goal 3:: DHI down by 20% Goal Progress: Goal Met - Plan Plan: d/c pt request - D/C Information Discharge Comments: Pt doing well and wants to be discharged vs further f/u to ensure complete abolishment of dizzyness. If there are questions or concerns regarding this patient's physical therapy, please feel free to call me at [phone]. Thank you for the referral of this patient. Sincerely, Espinoza Park, DPT, OCS, CSCS
== END 2019-05-11 19:00 | disposition home or self-care (01) ==
LOC: PT 13:00
PROVIDERS: Family Provider Family Medicine; PCP Family Medicine; Referring Provider Family Medicine; Visit Provider Family Medicine
DX: H81.10 Benign paroxysmal vertigo, unspecified ear (principal)
CPT/HCPCS: 97110; 97162; 97530

== ENCOUNTER → 2019-12-05 14:06 | Outpatient (CLI) | payer MEDICARE, SELFPAY ==
[2019-04-02 15:02] VITALS: BMI 23.0
[2019-12-05 14:12] LABS: Bacteria 0 SEEN /hpf (None Seen)
[2019-12-05 15:47] LABS: Absolute Lymphocyte Count 1.06 X10^3/uL (0.83-4.51); Basophil# 0.05 X10^3/uL; Eosinophils% 9.6 % (0-5); Hematocrit 39.2 % (37-47); Hemoglobin 12.8 g/dL (12.0-15.0); Lymphocyte # 1.06 X10^3/ul (4.0); Lymphocyte % 20.3 % (19-41); Mean Corp Hgb Conc 32.7 g/dL (32-36); Mean Corpuscular Hgb 28.6 pg (27.0-32.0); Mean Corpuscular Volume 87.5 fL (81-99); Mean Platelet Vol. 9.7 fl (6.2-12.0); Monocyte# 0.58 X10^3/uL; Monocyte% 11.1 % (0-10); NRBC Flagged by Analyzer 0 % (0-5); Neutrophil % 57.6 % (47-70); Platelet Count 346 K/mm3 (150-450); RBC Distribution Width SD 41.4 fl (35.1-43.9); Red Blood Count 4.48 M/mm3 (4.2-5.4); White Blood Count 5.2 K/mm3 (4.4-11.0)
[2019-12-05 16:01] LABS: Vitamin D,25 Hydroxy 47.9 ng/mL
[2019-12-05 16:18] LABS: ALB/GLOB Ratio 0.7 RATIO (0.9-2.4); AST(SGOT) 14 U/L (15-37); Alanine Aminotransfer ALT/SGPT 20 U/L (13-56); Albumin, Serum 2.9 g/dL (3.2-5.0); Alkaline Phosphatase 70 U/L (45-117); Anion Gap 6 (5-15); BUN 23 mg/dL (7-18); BUN/Creat Ratio 20.9 RATIO (10-20); Calcium,Total 9.6 mg/dL (8.5-10.1); Chloride 104 mmol/L (98-107); EST Glomerular Filtration Rate 51 mL/min (>60); Est Glom Filt Rate - Afr Amer 62 mL/min (>60); Globulin 4.4 g/dL (2.2-4.2); Glucose 164 mg/dL (74-106); Iron 32 ug/dL (50-170); Magnesium 2.1 mg/dL (1.6-2.6); Potassium 3.9 mmol/L (3.5-5.1); Protein, Total 7.3 g/dL (6.4-8.2); Sodium Level 138 mmol/L (136-145); T4 Free Direct 1.46 ng/dL (0.76-1.46); Thyroid Stim Hormone (TSH) 0.96 uIU/mL (0.358-3.74)
[2019-12-05 17:05] LABS: Color, Urine Yellow (Yellow); Glucose, Dipstick Normal (Normal); Ketone-Dipstick Negative (Negative); Leukocyte Esterase-Dipstick 25 /ul (Negative); Nitrite-Dipstick Negative (Negative); Occult Blood-Urine 250 /ul (Negative); Protein-Dipstick 30 mg/dl (Negative); Specific Gravity, Urine 1.025 (1.002-1.030); Urine Clarity Sl. Cloudy (Clear); Urine Urobilinogen Normal (Normal)
[2019-12-05 17:10] LABS: Urine Bilirubin Dipstick 1 mg/dL (Negative)
[2019-12-05 18:03] LABS: Red Blood Cells-Urine 50-100 SEEN /hpf (0-5)
[2019-12-05 18:04] LABS: Mucous, Urine RARE /hpf (<or=2+); Squamous Epithelial Cells - UA 0-5 SEEN /hpf (5-10); White Blood Cells 0-5 SEEN /hpf (0-5)
== END ==
PROVIDERS: PCP Family Medicine; Visit Provider Family Medicine
DX: R73.01 Impaired fasting glucose (principal); E03.9 Hypothyroidism, unspecified; I10 Essential (primary) hypertension; E55.9 Vitamin D deficiency, unspecified; I48.91 Unspecified atrial fibrillation; R35.0 Frequency of micturition
CPT/HCPCS: 36415; 80053; 81001; 82306; 83540; 83735; 84439; 84443; 85025; 87086; 87088; 87186

== ENCOUNTER → 2020-07-23 16:25 | Outpatient (CLI) | payer MEDICARE, SELFPAY ==
[2019-12-21 15:04] VITALS: BMI 20.4
[2020-07-23 17:23] LABS: Absolute Lymphocyte Count 1.81 X10^3/uL (0.83-4.51); Absolute Neutrophil Count 3.3 X10^3/uL (2.0-7.7); Basophil# 0.03 X10^3/uL; Basophil% 0.5 % (0-1); Eosinophil# 0.14 X10^3/uL; Eosinophils% 2.3 % (0-5); Hematocrit 40.7 % (37-47); Hemoglobin 12.9 g/dL (12.0-15.0); Lymphocyte # 1.81 X10^3/ul (4.0); Mean Corp Hgb Conc 31.7 g/dL (32-36); Mean Corpuscular Hgb 29.4 pg (27.0-32.0); Mean Corpuscular Volume 92.7 fL (81-99); Mean Platelet Vol. 10.3 fl (6.2-12.0); Monocyte# 0.69 X10^3/uL; Monocyte% 11.4 % (0-10); NRBC Flagged by Analyzer 0 % (0-5); Neutrophil # 3.33 X10^3/uL (2.7-7.7); Neutrophil % 55.3 % (47-70); Platelet Count 278 K/mm3 (150-450); RBC Distribution Width CV 13.1 % (11.6-14.6); RBC Distribution Width SD 44.2 fl (35.1-43.9); Red Blood Count 4.39 M/mm3 (4.2-5.4)
[2020-07-23 18:08] LABS: Vitamin B12 740 pg/mL (211-911); Vitamin D,25 Hydroxy 42.6 ng/mL
[2020-07-23 18:13] LABS: Iron 36 ug/dL (50-170); T4 Free Direct 1.27 ng/dL (0.76-1.46); Thyroid Stim Hormone (TSH) 1.34 uIU/mL (0.358-3.74)
== END ==
PROVIDERS: PCP Family Medicine; Visit Provider Family Medicine
DX: E03.9 Hypothyroidism, unspecified (principal); N18.9 Chronic kidney disease, unspecified; E55.9 Vitamin D deficiency, unspecified; D64.9 Anemia, unspecified
CPT/HCPCS: 36415; 82306; 82607; 83540; 84439; 84443; 85025

== ENCOUNTER → 2020-12-17 15:11 | Outpatient (CLI) | payer MEDICARE, SELFPAY ==
[2019-12-21 15:04] VITALS: BMI 20.4
[2020-12-17 16:56] LABS: Absolute Lymphocyte Count 1.86 X10^3/uL (0.83-4.51); Absolute Neutrophil Count 2.8 X10^3/uL (2.0-7.7); Basophil# 0.02 X10^3/uL; Basophil% 0.4 % (0-1); Eosinophil# 0.14 X10^3/uL; Eosinophils% 2.6 % (0-5); Hematocrit 41.3 % (37-47); Hemoglobin 13.1 g/dL (12.0-15.0); Lymphocyte # 1.86 X10^3/ul (4.0); Lymphocyte % 34.4 % (19-41); Mean Corp Hgb Conc 31.7 g/dL (32-36); Mean Corpuscular Hgb 28.3 pg (27.0-32.0); Mean Corpuscular Volume 89.2 fL (81-99); Mean Platelet Vol. 10.3 fl (6.2-12.0); Monocyte# 0.55 X10^3/uL; Monocyte% 10.2 % (0-10); NRBC Flagged by Analyzer 0 % (0-5); Neutrophil # 2.81 X10^3/uL (2.7-7.7); Platelet Count 296 K/mm3 (150-450); RBC Distribution Width CV 13.9 % (11.6-14.6); RBC Distribution Width SD 45.1 fl (35.1-43.9); Red Blood Count 4.63 M/mm3 (4.2-5.4); White Blood Count 5.4 K/mm3 (4.4-11.0)
[2020-12-17 17:31] LABS: Vitamin B12 429 pg/mL (211-911); Vitamin D,25 Hydroxy 36.2 ng/mL
[2020-12-17 17:40] LABS: ALB/GLOB Ratio 0.8 RATIO (0.9-2.4); AST(SGOT) 17 U/L (15-37); Alanine Aminotransfer ALT/SGPT 18 U/L (13-56); Albumin, Serum 3.3 g/dL (3.2-5.0); Alkaline Phosphatase 103 U/L (45-117); Anion Gap 6 (5-15); BUN 20 mg/dL (7-18); BUN/Creat Ratio 18.9 RATIO (10-20); Calcium,Total 9.1 mg/dL (8.5-10.1); Chloride 106 mmol/L (98-107); Creatinine, Serum 1.06 mg/dL (0.55-1.02); EST Glomerular Filtration Rate 53 mL/min (>60); Est Glom Filt Rate - Afr Amer 64 mL/min (>60); Globulin 4.3 g/dL (2.2-4.2); Glucose 157 mg/dL (74-106); Iron 46 ug/dL (50-170); Magnesium 2.4 mg/dL (1.6-2.6); Potassium 3.6 mmol/L (3.5-5.1); Protein, Total 7.6 g/dL (6.4-8.2); Sodium Level 141 mmol/L (136-145); T4 Free Direct 1.43 ng/dL (0.76-1.46); Thyroid Stim Hormone (TSH) 0.55 uIU/mL (0.358-3.74)
== END ==
PROVIDERS: PCP Family Medicine; Visit Provider Family Medicine
DX: E03.9 Hypothyroidism, unspecified (principal); E55.9 Vitamin D deficiency, unspecified; N18.30 Chronic kidney disease, stage 3 unspecified; D64.9 Anemia, unspecified
CPT/HCPCS: 36415; 80053; 82306; 82607; 83540; 83735; 84439; 84443; 85025

== ENCOUNTER 2022-03-08 10:23 | Emergency (ER) | payer MEDICARE, SELFPAY ==
[2022-03-08 10:24] VITALS: BP 158/106; PULSE 79; RESP 18; TEMP 37.2; O2SAT 98; BMI 21.7
--- NOTE | 2022-03-08 10:39 | CT_ITS ---
HISTORY: RLQ pain. TECHNIQUE: Helically acquired images were obtained of the abdomen and pelvis without oral or IV contrast. A radiation dose optimization technique was used for this scan. 423 images. COMPARISON: 01/12/2017. FINDINGS: LOWER CHEST: Cardiomegaly with pacemaker. Mild pericardial effusion. Mild septal thickening with bronchiectasis. Calcified granulomas in the lower lobes. BOWEL: Bowel nondilated. Appendix not identified. No focal pericolonic inflammatory change. PERITONEUM: No significant free fluid. LIVER: Unremarkable. GALLBLADDER/BILIARY TREE: Gallbladder present. SPLEEN: Calcified granulomas. PANCREAS: Atrophic. KIDNEYS AND URETERS: No nephrolithiasis. Bilateral extrarenal pelves with mild hydronephrosis but no hydroureter on the right. ADRENAL GLANDS: No nodules. VESSELS: No abdominal aortic aneurysm. Atherosclerosis of the abdominal aorta and its major branches. PELVIC ORGANS: Unremarkable. ABDOMINAL WALL: Tiny fat-containing umbilical hernia. BONES: Severe bilateral hip arthritis. CT/Abdomen/Pelvis without Cont IMPRESSION: Mild right hydronephrosis without obstructing ureteral calculus identified. Mild pericardial effusion. Mild interstitial opacities in the lung bases, which may be secondary to mild interstitial edema or inflammation. Electronically Signed: Wanda Ramirez MD at 11:56 EDT ,
--- NOTE | 2022-03-08 10:43 | EX.ED.DYSGE1 ---
HPI History of Present Illness Chief Complaint: Abd Pain Informant: patient Onset/Context/Timing Onset: Today Current Severity: Mild Maximum Severity: Moderate Narrative Narrative: Patient presents secondary to right lower quadrant abdominal pain. She states shortly after she got up this morning she had rather abrupt sharp pain in the right lower quadrant. It is only eased slightly. She did have some dry heaves. No fever or chills. She has no urinary or bowel symptoms. [facility] Medical History (Updated 03/08/22 @ 14:[address] Jael Araujo MD) Atherosclerotic heart disease of [place] coronary artery without angina pectoris Atrial fibrillation Diabetes mellitus type 2, controlled Essential hypertension History of gastroesophageal reflux (GERD) History of left heart catheterization (08/16/06) History of transient ischemic attack (TIA) Irritable bowel syndrome (IBS) Longstanding persistent atrial fibrillation Mitral valve disorder Occlusion and stenosis of carotid 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 Paroxysmal atrial fibrillation Presence of cardiac pacemaker Presence of stent in coronary artery (~01/25/07) Pure hypercholesterolemia Sick sinus syndrome UTI (urinary tract infection) Home Medications aspirin 81 mg PO DAILY@0800 01/03/15 [History Last Taken Unknown] cyanocobalamin (vitamin B-12) 500 mcg PO DAILY 01/03/15 [History Last Taken Unknown] omega-3 fatty acids-fish oil 2 ea PO DAILY 01/03/15 [History Last Taken Unknown] calcium citrate 315 mg calcium-vitamin D3 6.25 mcg (250 unit) tablet 1 tab PO DAILY 12/21/19 [History Last Taken Unknown] cholecalciferol (vitamin D3) 25 mcg (1,000 unit) capsule 25 mcg PO DAILY 12/21/19 [History Last Taken Unknown] lactobacillus combination no.9 4 billion cell capsule 4,000 mmu cells PO DAILY 12/21/19 [History Last Taken Unknown] levothyroxine 75 mcg tablet 75 mcg PO .COMPLEX 12/21/19 [History Last Taken Unknown] multivitamin 1 tab PO DAILY 12/21/19 [History Last Taken Unknown] nitroglycerin 0.4 mg sublingual tablet 0.4 mg SUBLINGUAL Q5-15M PRN #100 tab 06/17/20 [Rx Last Taken Unknown] metoprolol succinate 50 mg tablet,extended release 24 hr 50 mg PO DAILY #90 tab 08/28/20 [Rx Last Taken Unknown] rivaroxaban 15 mg tablet 15 mg PO DAILY #90 tab 01/21/22 [Rx Last Taken Unknown] isosorbide mononitrate 30 mg tablet,extended release 24 hr 30 mg PO DAILY #90 tab 02/16/22 [Rx Last Taken Unknown] cephalexin 500 mg PO Q12 #6 cap 03/08/22 [Rx Last Taken Unknown] Allergy/AdvReac Type Severity Reaction Status Date / Time Penicillins Allergy Hives Verified 03/08/22 10:26 [id number]-[id number] Reductase AdvReac Intermediate myalgias Verified 03/08/22 10:26 Inhibitor [Uhhwjyo-Rri-Vjg Reductase Inhibitor] Family History Father , Age 72 Diabetes Myocardial infarction Mother CAD (coronary artery disease) Diabetes Hypertension Brother CAD (coronary artery disease) COPD (chronic obstructive pulmonary disease) Primary pulmonary fibrosis Brother Kidney disease Brother CAD (coronary artery disease) Sister Cancer Sister CVA (cerebral vascular accident) Surgical History History of percutaneous transluminal coronary angioplasty (08/16/06) History of permanent cardiac pacemaker placement (~03/2015) Presence of coronary angioplasty implant and graft (~01/25/07) Social History Smoking Status: Never smoker alcohol intake: never caffeine: No ROS ROS ED Constitutional Constitutional ED: Denies chills or fever(s) Eyes Eyes: Denies change in vision ENT ENT ED: Denies sore throat Cardiovascular Cardiovascular: Denies chest pain Respiratory/Chest Respiratory/Chest: Denies cough or dyspnea Gastrointestinal Gastrointestinal: Reports abdominal pain and nausea; Denies diarrhea or vomiting Genitourinary Genitourinary ED: Denies dysuria or hematuria Musculoskeletal Musculoskeletal: Denies back pain Integumentary Denies rash Neurologic Neurologic: Denies headache(s) or weakness Allergic/Immunologic Allergic/Immunologic ED: Denies urticaria EXAM Physical Exam Const Vital Signs: 03/08/22 10:24 Temperature 98.9 F Temperature Source Temporal Pulse Rate 79 Respiratory Rate 18 Blood Pressure 158/106 H Blood Pressure Mean 123 Pulse Ox 98 Oxygen Delivery Method Room Air Positive well nourished and well developed General Appearance ED: well developed HEENT Reports moist mucous membranes Eyes PERRL and EOMs intact bilaterally Neck supple Chest Wall inspection of chest normal and palpation of chest normal Resp normal respiratory effort and clear to auscultation bilaterally Cardio regular rate and regular rhythm GI GI Narrative: No palpable hernia. Auscultation: hypoactive bowel sounds Palpation: soft and tender RLQ Extremity normal to inspection Neuro oriented x3 Sensorium / Orientation: alert Psych mental status grossly normal Skin no rashes or lesions noted MDM MDM MDM Narrative Medical decision making narrative: Lab work, urinalysis, CT flank obtained. Patient given 2 mg of morphine for pain along with Zofran and IV fluids. Lab Data Attestation: I reviewed the patient's lab results. Labs: Laboratory Results - last 24 hr 03/08/22 03/08/22 03/08/22 11:00 11:00 13:05 WBC 8.1 RBC 4.58 Hgb 13.9 Hct 42.0 MCV 91.7 MCH 30.3 MCHC 33.1 RDW Std Deviation 46.5 H RDW Coeff of Baltazar 13.8 Plt Count 250 MPV 10.3 Immature Gran % (Auto) 0.500 Neut % (Auto) 81.1 H Lymph % (Auto) 12.9 L [place] % (Auto) 4.5 Eos % (Auto) 0.6 Baso % (Auto) 0.4 Absolute Neuts (auto) 6.6 Absolute Lymphs (auto) 1.04 Nucleated RBC % 0 Sodium 140 Potassium 4.2 Chloride 108 H Carbon Dioxide 26.0 Anion Gap 6 BUN 24 H Creatinine 1.16 H Estim Creat Clear Calc 32.00 Est GFR (MDRD) Af Amer 58 L Est GFR (MDRD) Non-Af 48 L BUN/Creatinine Ratio 20.7 H Glucose 140 H Calcium 9.5 Urine Color Nicolasa Urine Clarity Clear Urine pH 6.0 Ur Specific [place] 1.025 Urine Protein 100 H Urine Glucose (UA) Normal Urine Ketones Negative Urine Occult Blood 250 H Urine Nitrite Negative Urine Bilirubin Negative Urine Urobilinogen Normal Ur Leukocyte Esterase 25 H Urine RBC 25-50 SEEN Urine WBC 0-5 SEEN Ur Squamous Epith Cells 0-5 SEEN Urine Bacteria 2+ Urine Mucus 0 SEEN Radiography Diagnostic Testing: Clinical Impression(s) from Imaging Studies Abdomen/Pelvis CT 03/08/22 10:39 IMPRESSION: Mild right hydronephrosis without obstructing ureteral calculus identified. Mild pericardial effusion. Mild interstitial opacities in the lung bases, which may be secondary to mild interstitial edema or inflammation. Electronically Signed: Wanda Ramirez MD at 11:56 EDT , Treatment and Re-Evaluation Narrative: On repeat evaluation patient feeling much improved. She denies pain at this time. Lab work reveals normal CBC. Chemistry studies reveal normal renal function. Urinalysis does show blood with 25-50 RBCs and 2+ bacteria. No white cells are noted and no nitrates. No crystals appreciated. CT of the abdomen and pelvis shows right hydronephrosis but no evidence of a definite calculus. I did discuss with the patient that she may have a noncalcified kidney stone or may have passed 1 recently. With patient having 2+ bacteria I also discussed the possibility of hemorrhagic cystitis although I do not see white cells in her urine at this time. She is on Xarelto leading to easy her bleeding. She will be treated with 3 days of an antibiotic to clear the bacteria from her urine. She is to follow-up with her PCP later this week for repeat evaluation and ensure she is improving. She is given instructions for which to return to the emergency room. Discharge Plan Triage Chief Complaint: Abd Pain ED Provider: Jael Araujo Dx/Rx/DC Orders Clinical Impression: Acute right flank pain, Hematuria Instructions: ED Flank Pain, Uncertain Cause, ED Hematuria Prescriptions: New cephalexin 500 mg capsule 500 mg PO Q12 Qty: 6 RF: 0 No Action levothyroxine 75 mcg tablet 75 mcg PO .COMPLEX RF: 0 Adult 50 Plus Probiotic 4 billion cell capsule 4,000 mmu cells PO DAILY RF: 0 calcium citrate-vitamin D3 [Citracal + D Maximum] 315 mg- 250 unit tablet 1 tab PO DAILY RF: 0 multivitamin Tablet 1 tab PO DAILY RF: 0 cholecalciferol (vitamin D3) 25 mcg (1,000 unit) capsule 25 mcg PO DAILY RF: 0 cyanocobalamin (vitamin B-12) 1,000 MCG tablet 500 mcg PO DAILY RF: 0 aspirin 81 MG tablet,chewable 81 mg PO DAILY@0800 RF: 0 omega-3 fatty acids-fish oil 1 EACH capsule 2 ea PO DAILY RF: 0 nitroglycerin 0.4 mg tablet, sublingual 0.4 mg Sublingual Q5-15M PRN (Reason: Chest Pain) Qty: 100 RF: 3 metoprolol succinate 50 mg tablet extended release 24 hr 50 mg PO DAILY Qty: 90 RF: 3 rivaroxaban 15 mg tablet 15 mg PO DAILY Qty: 90 RF: 3 isosorbide mononitrate 30 mg tablet extended release 24 hr 30 mg PO DAILY Qty: 90 RF: 3 Primary Care Provider: Bon Abraham Referrals: Bon Abraham MD [Primary Care Provider] - 1 Week Disposition Disposition: Home, Self Care
[2022-03-08] MEDS: 0.9% Normal Saline 1,000 ML 150 ML IV (10:52)
[2022-03-08] MEDS: Morphine 2 MG/ML Syringe IV (10:53)
[2022-03-08] MEDS: Ondansetron 4 MG/2 ML Vial IV (10:53)
[2022-03-08 11:06] LABS: Absolute Lymphocyte Count 1.04 X10^3/uL (0.83-4.51); Absolute Neutrophil Count 6.6 X10^3/uL (2.0-7.7); Basophil# 0.03 X10^3/uL; Basophil% 0.4 % (0-1); Eosinophil# 0.05 X10^3/uL; Eosinophils% 0.6 % (0-5); Hemoglobin 13.9 g/dL (12.0-15.0); Lymphocyte # 1.04 X10^3/ul (0.83-4.51); Lymphocyte % 12.9 % (19-41); Mean Corp Hgb Conc 33.1 g/dL (32-36); Mean Corpuscular Hgb 30.3 pg (27.0-32.0); Mean Corpuscular Volume 91.7 fL (81-99); Mean Platelet Vol. 10.3 fl (6.2-12.0); Monocyte# 0.36 X10^3/uL; Monocyte% 4.5 % (0-10); NRBC Flagged by Analyzer 0 % (0-5); Neutrophil # 6.56 X10^3/uL (2.7-7.7); Neutrophil % 81.1 % (47-70); Platelet Count 250 K/mm3 (150-450); RBC Distribution Width CV 13.8 % (11.6-14.6); RBC Distribution Width SD 46.5 fl (35.1-43.9); Red Blood Count 4.58 M/mm3 (4.2-5.4); White Blood Count 8.1 K/mm3 (4.4-11.0)
[2022-03-08 11:19] LABS: Anion Gap 6 (5-15); BUN 24 mg/dL (7-18); BUN/Creat Ratio 20.7 RATIO (10-20); Calcium,Total 9.5 mg/dL (8.5-10.1); Chloride 108 mmol/L (98-107); Creatinine, Serum 1.16 mg/dL (0.55-1.02); EST Glomerular Filtration Rate 48 mL/min (>60); Est Glom Filt Rate - Afr Amer 58 mL/min (>60); Glucose 140 mg/dL (74-106); Potassium 4.2 mmol/L (3.5-5.1); Sodium Level 140 mmol/L (136-145)
[2022-03-08 13:10] LABS: Mucous, Urine 0 SEEN /hpf (<or=2+)
[2022-03-08 13:22] LABS: Color, Urine Amber (Yellow); Glucose, Dipstick Normal (Normal); Ketone-Dipstick Negative (Negative); Leukocyte Esterase-Dipstick 25 /ul (Negative); Nitrite-Dipstick Negative (Negative); Occult Blood-Urine 250 /ul (Negative); Protein-Dipstick 100 mg/dl (Negative); Specific Gravity, Urine 1.025 (1.002-1.030); Urine Bilirubin Dipstick Negative (Negative); Urine Clarity Clear (Clear); Urine Urobilinogen Normal (Normal)
[2022-03-08 13:29] LABS: Bacteria 2+ /hpf (None Seen); Red Blood Cells-Urine 25-50 SEEN /hpf (0-5); Squamous Epithelial Cells - UA 0-5 SEEN /hpf (5-10); White Blood Cells 0-5 SEEN /hpf (0-5)
[2022-03-08 14:24] VITALS: PULSE 75; RESP 19; O2SAT 99
[2022-03-08] MEDS: Cephalexin 250 MG Capsule 500 MG PO (14:31)
== END 2022-03-08 14:52 | disposition home or self-care (01) ==
PROVIDERS: Emergency Provider Emergency Medicine; PCP Family Medicine; Visit Provider Emergency Medicine
DX: R31.9 Hematuria, unspecified (principal); E11.9 Type 2 diabetes mellitus without complications; I10 Essential (primary) hypertension; R11.10 Vomiting, unspecified; E78.00 Pure hypercholesterolemia, unspecified; I25.10 Atherosclerotic heart disease of native coronary artery without angina pectoris
CPT/HCPCS: 74176; 80048; 81001; 85025; 96361; 96374; 96375; 99283; J7030; A4216; J2405

== ENCOUNTER 2022-03-13 14:18 | Emergency (ER) | payer MEDICARE, SELFPAY ==
[2022-03-13 14:19] VITALS: BP 155/79; PULSE 100; RESP 16; TEMP 36.4; O2SAT 99; BMI 21.7
--- NOTE | 2022-03-13 14:32 | CT_ITS ---
INDICATION: right flank pain AND HEMATURIA NOW RESOLVED EXAMINATION: CT ABDOMEN AND PELVIS WITHOUT CONTRAST - CT Abdomen And Pelvis W/O Contrast Injection TECHNIQUE: Helically acquired images were obtained of the abdomen and pelvis without oral or IV contrast. A radiation dose optimization technique was used for this scan. IV Contrast dosage and agent: None. Oral contrast: None. COMPARISON: 03/08/2022 FINDINGS: LOWER CHEST: Stable changes of bronchiectasis, no acute pulmonary findings. Stable trace pericardial effusion. LIVER: Homogeneous. No focal mass. GALLBLADDER AND BILIARY TREE: No calcified gallstones. No gallbladder distension or wall edema. No intra- or extrahepatic biliary ductal dilation. PANCREAS: No focal cystic or solid mass. SPLEEN: Normal size without focal cystic or solid mass. ADRENAL GLANDS: No nodules. KIDNEYS AND URETERS: Stable bilateral extrarenal pelves. Mild prominence of the right ureter with periureteric stranding. No calculus identified in the right ureter. PERITONEUM: No ascites or free air. BOWEL: Normal appendix. No stomach or bowel distension. Diffusely increased colonic fecal burden. LYMPH NODES: No enlarged mesenteric or retroperitoneal lymph nodes. VESSELS: Aorta is non-dilated. URINARY BLADDER: Unremarkable. REPRODUCTIVE ORGANS: No pelvic masses. ABDOMINAL WALL: Fat-containing umbilical hernia. BONES: No acute or aggressive abnormality.. Severe degenerative changes of the bilateral hips. CT/Abdomen/Pelvis without Cont IMPRESSION: Stable examination with abnormal appearance of the right ureter, no obstructing right ureteral calculus identified. Correlate to exclude ascending UTI. Consider urological consultation to evaluate for etiology of hematuria not demonstrated on this examination. Electronically Signed: Jesus Alberto Palacios MD at 16:04 EDT ,
--- NOTE | 2022-03-13 14:32 | EDS_ITS ---
HPI History of Present Illness Chief Complaint: Flank Pain Informant: patient Onset/Context/Timing Onset: Days Context: Gradual Onset Current Severity: Mild Maximum Severity: Moderate Narrative Narrative: Patient presents secondary to recurrent right flank pain. She was seen in the ER on March 08 after developing rather abrupt onset of right lower quadrant pain. She reports that she has been having intermittent hematuria. Work-up at that time indicated right-sided hydronephrosis but no obvious stone. Urinalysis revealed 2+ bacteria but no white cells. Blood was noted in her urinalysis. She was treated with 3 days of antibiotic. Patient states her pain improved until last evening and now complains of pain wrapping around the right flank region. She continues to note some blood in her urine. No fever or chills. No dysuria. She called her PCP for follow-up but they were unable to see her and they advised her to come back to the emergency room. [facility] Medical History Atherosclerotic heart disease of [place] coronary artery without angina pectoris Atrial fibrillation Diabetes mellitus type 2, controlled Essential hypertension History of gastroesophageal reflux (GERD) History of left heart catheterization (08/16/06) History of transient ischemic attack (TIA) Irritable bowel syndrome (IBS) Longstanding persistent atrial fibrillation Mitral valve disorder Occlusion and stenosis of carotid 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 Paroxysmal atrial fibrillation Presence of cardiac pacemaker Presence of stent in coronary artery (~01/25/07) Pure hypercholesterolemia Sick sinus syndrome UTI (urinary tract infection) Home Medications aspirin 81 mg PO DAILY@0800 01/03/15 [History Last Taken Unknown] cyanocobalamin (vitamin B-12) 500 mcg PO DAILY 01/03/15 [History Last Taken Unknown] omega-3 fatty acids-fish oil 2 ea PO DAILY 01/03/15 [History Last Taken Unknown] calcium citrate 315 mg calcium-vitamin D3 6.25 mcg (250 unit) tablet 1 tab PO DAILY 12/21/19 [History Last Taken Unknown] cholecalciferol (vitamin D3) 25 mcg (1,000 unit) capsule 25 mcg PO DAILY 12/21/19 [History Last Taken Unknown] lactobacillus combination no.9 4 billion cell capsule 4,000 mmu cells PO DAILY 12/21/19 [History Last Taken Unknown] levothyroxine 75 mcg tablet 75 mcg PO .COMPLEX 12/21/19 [History Last Taken Unknown] multivitamin 1 tab PO DAILY 12/21/19 [History Last Taken Unknown] nitroglycerin 0.4 mg sublingual tablet 0.4 mg SUBLINGUAL Q5-15M PRN #100 tab 06/17/20 [Rx Last Taken Unknown] metoprolol succinate 50 mg tablet,extended release 24 hr 50 mg PO DAILY #90 tab 08/28/20 [Rx Last Taken Unknown] rivaroxaban 15 mg tablet 15 mg PO DAILY #90 tab 01/21/22 [Rx Last Taken Unknown] isosorbide mononitrate 30 mg tablet,extended release 24 hr 30 mg PO DAILY #90 tab 02/16/22 [Rx Last Taken Unknown] cephalexin 500 mg PO Q12 #6 cap 03/08/22 [Rx Last Taken Unknown] Allergy/AdvReac Type Severity Reaction Status Date / Time Penicillins Allergy Hives Verified 03/13/22 14:22 Chdxmyf-PBN-ByZ Reductase AdvReac Intermediate myalgias Verified 03/13/22 14:22 Inhibitor [Lmufjrh-Uic-Vgb Reductase Inhibitor] Family History Father , Age 72 Diabetes Myocardial infarction Mother CAD (coronary artery disease) Diabetes Hypertension Brother CAD (coronary artery disease) COPD (chronic obstructive pulmonary disease) Primary pulmonary fibrosis Brother Kidney disease Brother CAD (coronary artery disease) Sister Cancer Sister CVA (cerebral vascular accident) Surgical History History of percutaneous transluminal coronary angioplasty (08/16/06) History of permanent cardiac pacemaker placement (~03/2015) Presence of coronary angioplasty implant and graft (~01/25/07) Social History Smoking Status: Never smoker alcohol intake: never caffeine: No ROS ROS ED Constitutional Constitutional ED: Denies chills or fever(s) Eyes Eyes: Denies change in vision ENT ENT ED: Denies sore throat Cardiovascular Cardiovascular: Denies chest pain Respiratory/Chest Respiratory/Chest: Denies cough or dyspnea Gastrointestinal Gastrointestinal: Reports abdominal pain; Denies diarrhea, nausea or vomiting Genitourinary Genitourinary ED: Reports hematuria; Denies dysuria Musculoskeletal Musculoskeletal: Reports back pain Integumentary Denies rash Neurologic Neurologic: Denies headache(s) or weakness Allergic/Immunologic Allergic/Immunologic ED: Denies urticaria EXAM Physical Exam Const Vital Signs: 03/13/22 14:19 Temperature 97.5 F L Temperature Source Temporal Pulse Rate 100 Respiratory Rate 16 Blood Pressure 155/79 H Blood Pressure Mean 104 Pulse Ox 99 Oxygen Delivery Method Room Air Positive well nourished and well developed General Appearance ED: well developed HEENT Reports moist mucous membranes Eyes PERRL and EOMs intact bilaterally Neck supple Chest Wall inspection of chest normal and palpation of chest normal Resp normal respiratory effort and clear to auscultation bilaterally Cardio regular rate and regular rhythm GI non-tender Palpation: soft Back/Spine no CVA tenderness Extremity normal to inspection Neuro oriented x3 Sensorium / Orientation: alert Psych mental status grossly normal Skin no rashes or lesions noted MDM MDM MDM Narrative Medical decision making narrative: Patient was ordered pain medication but declined stating she is not having significant pain at this time. Lab work, urinalysis, CT flank obtained. Lab Data Attestation: I reviewed the patient's lab results. Labs: Laboratory Results - last 24 hr 03/13/22 03/13/22 03/13/22 14:45 14:45 15:54 WBC 4.7 RBC 4.85 Hgb 14.5 Hct 44.6 MCV 92.0 MCH 29.9 MCHC 32.5 RDW Std Deviation 46.5 H RDW Coeff of [place] 13.8 Plt Count 263 MPV 9.6 Immature Gran % (Auto) 0.400 Neut % (Auto) 57.3 Lymph % (Auto) 31.0 [place] % (Auto) 7.8 Eos % (Auto) 2.7 Baso % (Auto) 0.8 Absolute Neuts (auto) 2.7 Absolute Lymphs (auto) 1.47 Nucleated RBC % 0 Sodium 141 Potassium 3.5 Chloride 108 H Carbon Dioxide 27.0 Anion Gap 6 BUN 17 Creatinine 1.06 H Estim Creat Clear Calc 35.02 Est GFR (MDRD) Af Amer 64 Est GFR (MDRD) Non-Af 53 L BUN/Creatinine Ratio 16.0 Glucose 95 Calcium 9.5 Urine Color SEE COMMENT BELOW Urine Clarity Sl. Cloudy Urine pH 6.5 Ur Specific [place] 1.010 Urine Protein 30 H Urine Glucose (UA) Normal Urine Ketones Negative Urine Occult Blood 250 H Urine Nitrite Negative Urine Bilirubin Negative Urine Urobilinogen Normal Ur Leukocyte Esterase 25 H Urine RBC 25-50 SEEN Urine WBC 0-5 SEEN Ur Squamous Epith Cells 0 SEEN Urine Bacteria 0 SEEN Urine Mucus 0 SEEN Radiography Diagnostic Testing: Clinical Impression(s) from Imaging Studies Abdomen/Pelvis CT 03/13/22 14:32 IMPRESSION: Stable examination with abnormal appearance of the right ureter, no obstructing right ureteral calculus identified. Correlate to exclude ascending UTI. Consider urological consultation to evaluate for etiology of hematuria not demonstrated on this examination. Electronically Signed: Jesus Alberto Palacios MD at 16:04 EDT Reading Location ID and State: [facility] / [place] Tel , Service support , Treatment and Re-Evaluation Narrative: Lab work unremarkable with normal renal function. Urinalysis continues to show 25-50 RBCs but no bacteria noted on today's sample. CT flank shows stable exam with abnormal appearance of the right ureter. There is no evidence of ureteral calculus. Test results discussed with patient and family at bedside. I will refer her to urology for follow-up. This time she has normal renal function with no sign of infection. I did note that she has quite a bit of stool on the right side of her abdomen and did recommend taking MiraLAX or something similar to help clean her out. This may help control some of her pain. Return instructions provided. Discharge Plan Triage Chief Complaint: Flank Pain ED Provider: Jael Araujo Dx/Rx/DC Orders Clinical Impression: Flank pain Instructions: ED Flank Pain, Uncertain Cause Prescriptions: No Action levothyroxine 75 mcg tablet 75 mcg PO .COMPLEX RF: 0 Adult 50 Plus Probiotic 4 billion cell capsule 4,000 mmu cells PO DAILY RF: 0 calcium citrate-vitamin D3 [Citracal + D Maximum] 315 mg- 250 unit tablet 1 tab PO DAILY RF: 0 multivitamin Tablet 1 tab PO DAILY RF: 0 cholecalciferol (vitamin D3) 25 mcg (1,000 unit) capsule 25 mcg PO DAILY RF: 0 cyanocobalamin (vitamin B-12) 1,000 MCG tablet 500 mcg PO DAILY RF: 0 aspirin 81 MG tablet,chewable 81 mg PO DAILY@0800 RF: 0 omega-3 fatty acids-fish oil 1 EACH capsule 2 ea PO DAILY RF: 0 cephalexin 500 mg capsule 500 mg PO Q12 Qty: 6 RF: 0 nitroglycerin 0.4 mg tablet, sublingual 0.4 mg Sublingual Q5-15M PRN (Reason: Chest Pain) Qty: 100 RF: 3 metoprolol succinate 50 mg tablet extended release 24 hr 50 mg PO DAILY Qty: 90 RF: 3 rivaroxaban 15 mg tablet 15 mg PO DAILY Qty: 90 RF: 3 isosorbide mononitrate 30 mg tablet extended release 24 hr 30 mg PO DAILY Qty: 90 RF: 3 Primary Care Provider: Bon Abraham Referrals: Segun Yeh MD [STAFF PHYSICIAN] - As Needed Bon Abraham MD [Primary Care Provider] - Disposition Disposition: Home, Self Care
--- NOTE | 2022-03-13 14:54 | ED.RN ---
Addendum entered by Dedrick Og 03/13/22 14:56: Morphine wasted with AYUSH Galeano. Original Note: Patient is not having any pain at this time and would like to hold off on morphine and zofran. Dr. Araujo notified.
[2022-03-13 14:57] LABS: Absolute Lymphocyte Count 1.47 X10^3/uL (0.83-4.51); Absolute Neutrophil Count 2.7 X10^3/uL (2.0-7.7); Basophil# 0.04 X10^3/uL; Basophil% 0.8 % (0-1); Eosinophil# 0.13 X10^3/uL; Eosinophils% 2.7 % (0-5); Hematocrit 44.6 % (37-47); Hemoglobin 14.5 g/dL (12.0-15.0); Lymphocyte # 1.47 X10^3/ul (0.83-4.51); Mean Corp Hgb Conc 32.5 g/dL (32-36); Mean Corpuscular Hgb 29.9 pg (27.0-32.0); Mean Platelet Vol. 9.6 fl (6.2-12.0); Monocyte# 0.37 X10^3/uL; Monocyte% 7.8 % (0-10); NRBC Flagged by Analyzer 0 % (0-5); Neutrophil # 2.71 X10^3/uL (2.7-7.7); Neutrophil % 57.3 % (47-70); Platelet Count 263 K/mm3 (150-450); RBC Distribution Width CV 13.8 % (11.6-14.6); RBC Distribution Width SD 46.5 fl (35.1-43.9); Red Blood Count 4.85 M/mm3 (4.2-5.4); White Blood Count 4.7 K/mm3 (4.4-11.0)
[2022-03-13 15:13] LABS: Anion Gap 6 (5-15); BUN 17 mg/dL (7-18); Calcium,Total 9.5 mg/dL (8.5-10.1); Chloride 108 mmol/L (98-107); Creatinine, Serum 1.06 mg/dL (0.55-1.02); EST Glomerular Filtration Rate 53 mL/min (>60); Est Glom Filt Rate - Afr Amer 64 mL/min (>60); Estimated Creatinine Clearance 35.02 ml/min; Glucose 95 mg/dL (74-106); Potassium 3.5 mmol/L (3.5-5.1); Sodium Level 141 mmol/L (136-145)
[2022-03-13 16:01] LABS: Bacteria 0 SEEN /hpf (None Seen); Mucous, Urine 0 SEEN /hpf (<or=2+); Squamous Epithelial Cells - UA 0 SEEN /hpf (5-10)
[2022-03-13 16:04] LABS: Glucose, Dipstick Normal (Normal); Ketone-Dipstick Negative (Negative); Leukocyte Esterase-Dipstick 25 /ul (Negative); Nitrite-Dipstick Negative (Negative); Occult Blood-Urine 250 /ul (Negative); Protein-Dipstick 30 mg/dl (Negative); Urine Bilirubin Dipstick Negative (Negative); Urine Clarity Sl. Cloudy (Clear); Urine Urobilinogen Normal (Normal); Urine pH 6.5 (5.0 - 8.0)
[2022-03-13 16:30] LABS: Color, Urine SEE COMMENT BELOW (Yellow)
[2022-03-13 16:31] LABS: Red Blood Cells-Urine 25-50 SEEN /hpf (0-5); White Blood Cells 0-5 SEEN /hpf (0-5)
== END 2022-03-13 16:56 | disposition home or self-care (01) ==
PROVIDERS: Emergency Provider Emergency Medicine; PCP Family Medicine; Visit Provider Emergency Medicine
DX: R31.9 Hematuria, unspecified (principal); I48.0 Paroxysmal atrial fibrillation; I49.5 Sick sinus syndrome; E11.9 Type 2 diabetes mellitus without complications; I10 Essential (primary) hypertension; I25.10 Atherosclerotic heart disease of native coronary artery without angina pectoris; E78.00 Pure hypercholesterolemia, unspecified; Z86.73 Personal history of transient ischemic attack (TIA), and cerebral infarction without residual deficits; Z95.1 Presence of aortocoronary bypass graft; K58.9 Irritable bowel syndrome, unspecified; Z87.440 Personal history of urinary (tract) infections; Z79.82 Long term (current) use of aspirin; Z79.01 Long term (current) use of anticoagulants; Z79.899 Other long term (current) drug therapy; Z95.0 Presence of cardiac pacemaker; K21.9 Gastro-esophageal reflux disease without esophagitis; R10.9 Unspecified abdominal pain
CPT/HCPCS: 74176; 80048; 81001; 85025; 99283; A4216; J2405

== ENCOUNTER → 2022-04-05 | Outpatient (CLI) | payer MEDICARE, SELFPAY ==
--- NOTE | 2022-04-05 | CYSPIN_PTH ---
PATIENT: ARNIE COKER LOC: [facility] U#:[id number] AGE/SX: 81/F ROOM: RE04/05/[address]: Dr. Annalisa More MD : [id number] BED: DIS: 04/05/2022 SPEC #: [id number] RECD: 04/05/22 15:00 STATUS: CAROLINA GALLEGO #: [id number] ASHWIN: 04/05/22 00:[address]: Annalisa More DEPT: CYTOLOGY RECD BY: Faith Cabrera ENTERED: 04/06/22 07:03 SP TYPE: CYSPIN FL OTHR DR: Dr. Bon Abraham MD Tissues: Urine Procedures: Pap Stain (control) Special Stain Group II Cytospin Fluid HEADER OPERATION: Not noted PRE-OP DIAGNOSIS: Gross hematuria TISSUE SUBMITTED: Urine for cytology DIAGNOSIS CYTOLOGY Urine for cytology (cytospin): A few clusters of atypical urothelial cells noted. Acute inflammation. See comment. SJ:enoch 04/06/2022 COMMENT RBC?s are also noted in the specimen. Clinical correlation and appropriate follow up are necessary. CYTOLOGY STUDY Slides are reviewed. CYTOLOGY GROSS Received is 10 ml of cloudy brown fluid labeled with the patient's name and and designated per the requisition as urine. Submitted for cytology preparation. / enoch 04/05/2022 TC:3 CPT: 01956
[2022-04-05 16:08] LABS: Cytology, Body Fluid / CSF SEE PATHOLOGY REPORT
== END | disposition home or self-care (01) ==
PROVIDERS: PCP Family Medicine; Visit Provider Urology
DX: R31.0 Gross hematuria (principal)
CPT/HCPCS: 88108; 88313

== ENCOUNTER 2022-04-09 22:19 | Emergency (ER) | payer MEDICARE, SELFPAY ==
[2022-04-09 22:22] VITALS: BP 177/80; PULSE 47; RESP 18; TEMP 37.1; O2SAT 96; BMI 22.4
[2022-04-09] MEDS: Morphine 2 MG/ML Syringe IV (23:07)
[2022-04-09] MEDS: Ondansetron 4 MG/2 ML Vial IV (23:07)
[2022-04-09 23:21] LABS: Mucous, Urine 0 SEEN /hpf (<or=2+)
[2022-04-09 23:24] LABS: Absolute Lymphocyte Count 1.31 X10^3/uL (0.83-4.51); Absolute Neutrophil Count 5.3 X10^3/uL (2.0-7.7); Basophil# 0.04 X10^3/uL; Basophil% 0.5 % (0-1); Eosinophil# 0.15 X10^3/uL; Hematocrit 38.8 % (37-47); Hemoglobin 12.5 g/dL (12.0-15.0); Lymphocyte # 1.31 X10^3/ul (0.83-4.51); Lymphocyte % 17.8 % (19-41); Mean Corp Hgb Conc 32.2 g/dL (32-36); Mean Corpuscular Hgb 29.8 pg (27.0-32.0); Mean Corpuscular Volume 92.6 fL (81-99); Mean Platelet Vol. 9.9 fl (6.2-12.0); Monocyte% 6.8 % (0-10); NRBC Flagged by Analyzer 0 % (0-5); Neutrophil # 5.32 X10^3/uL (2.7-7.7); Neutrophil % 72.4 % (47-70); Platelet Count 263 K/mm3 (150-450); RBC Distribution Width CV 13.3 % (11.6-14.6); RBC Distribution Width SD 44.7 fl (35.1-43.9); Red Blood Count 4.19 M/mm3 (4.2-5.4); White Blood Count 7.4 K/mm3 (4.4-11.0)
[2022-04-09 23:40] LABS: Color, Urine Red (Yellow); Glucose, Dipstick Normal (Normal); Ketone-Dipstick 5 mg/dl (Negative); Leukocyte Esterase-Dipstick 100 /ul (Negative); Nitrite-Dipstick Negative (Negative); Occult Blood-Urine 250 /ul (Negative); Protein-Dipstick 500 mg/dl (Negative); Specific Gravity, Urine 1.015 (1.002-1.030); Urine Bilirubin Dipstick Negative (Negative); Urine Clarity Turbid (Clear); Urine Urobilinogen Normal (Normal); Urine pH 6.5 (5.0 - 8.0)
[2022-04-09 23:49] LABS: AST(SGOT) 17 U/L (15-37); Alanine Aminotransfer ALT/SGPT 15 U/L (13-56); Albumin, Serum 3.2 g/dL (3.2-5.0); Alkaline Phosphatase 83 U/L (45-117); Anion Gap 7 (5-15); BUN 20 mg/dL (7-18); BUN/Creat Ratio 18.5 RATIO (10-20); Bilirubin, Direct 0.14 mg/dL (0.00-0.30); Calcium,Total 9.4 mg/dL (8.5-10.1); Chloride 106 mmol/L (98-107); Creatinine, Serum 1.08 mg/dL (0.55-1.02); EST Glomerular Filtration Rate 52 mL/min (>60); Est Glom Filt Rate - Afr Amer 63 mL/min (>60); Estimated Creatinine Clearance 34.37 ml/min; Globulin 4.3 g/dL (2.2-4.2); Glucose 168 mg/dL (74-106); Lipase 67 U/L (73-393); Protein, Total 7.5 g/dL (6.4-8.2); Sodium Level 140 mmol/L (136-145)
[2022-04-09 23:56] LABS: Bacteria 3+ /hpf (None Seen); Red Blood Cells-Urine > 100 SEEN /hpf (0-5); Squamous Epithelial Cells - UA 0-5 SEEN /hpf (5-10); White Blood Cells 10-25 SEEN /hpf (0-5)
[2022-04-10 00:22] VITALS: RESP 18; O2SAT 97
[2022-04-10] MEDS: Ceftriaxone 1 GM/50 ML BAG IV (00:26)
--- NOTE | 2022-04-10 00:50 | EDS_ITS ---
HPI History of Present Illness Chief Complaint: Abd Pain Narrative Narrative: Patient is an 81-year-old female who has been having intermittent right lower quadrant abdominal pain for approximately 1 month. She has been seen in the ER secondary to this and has had [address] scan showed prominence of the right ureter without obvious obstructive process. Patient states that she is scheduled to have follow-up testing done next week. She states that over the last day she has been having increased pain in that same region and the pain is not improved with ypvp-[id number]-lwljfjp medication so she presents for evaluation. [facility] Medical History Atherosclerotic heart disease of [place] coronary artery without angina pectoris Atrial fibrillation Diabetes mellitus type 2, controlled Essential hypertension History of gastroesophageal reflux (GERD) History of left heart catheterization (08/16/06) History of transient ischemic attack (TIA) Irritable bowel syndrome (IBS) Longstanding persistent atrial fibrillation Mitral valve disorder Occlusion and stenosis of carotid 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 Paroxysmal atrial fibrillation Presence of cardiac pacemaker Presence of stent in coronary artery (~01/25/07) Pure hypercholesterolemia Sick sinus syndrome UTI (urinary tract infection) Home Medications aspirin 81 mg chewable tablet 81 mg PO DAILY@0800 01/03/15 [History Last Taken Unknown] cyanocobalamin (vitamin B-12) 1,000 mcg tablet 500 mcg PO DAILY 01/03/15 [History Last Taken Unknown] omega-3 fatty acids-fish oil 300 mg-1,000 mg capsule 2 ea PO DAILY 01/03/15 [History Last Taken Unknown] calcium citrate 315 mg calcium-vitamin D3 6.25 mcg (250 unit) tablet (Citracal + Vitamin D Maximum) 1 tab PO DAILY 12/21/19 [History Last Taken Unknown] lactobacillus combination no.9 4 billion cell capsule (Adult 50 Plus Probiotic) 4,000 mmu cells PO DAILY 12/21/19 [History Last Taken Unknown] levothyroxine 75 mcg tablet 75 mcg PO .COMPLEX 12/21/19 [History Last Taken Unknown] multivitamin 1 tab PO DAILY 12/21/19 [History Last Taken Unknown] metoprolol succinate 50 mg tablet,extended release 24 hr 50 mg PO DAILY #90 tabs 08/28/20 [Rx Last Taken Unknown] rivaroxaban 15 mg tablet 15 mg PO DAILY #90 tabs 01/21/22 [Rx Last Taken Unknown] isosorbide mononitrate 30 mg tablet,extended release 24 hr 30 mg PO DAILY #90 tabs 02/16/22 [Rx Last Taken Unknown] cholecalciferol (vitamin D3) 125 mcg (5,000 unit) tablet 125 mcg PO DAILY 03/18/22 [History Last Taken Unknown] nitroglycerin 0.4 mg sublingual tablet 0.4 mg sublingual Q5-15M PRN Chest Pain #100 tabs 03/18/22 [Rx Last Taken Unknown] sulfamethoxazole 800 mg-trimethoprim 160 mg tablet (Bactrim DS) 1 tab PO BID 7 days #14 tabs 04/10/22 [Rx Last Taken Unknown] Allergy/AdvReac Type Severity Reaction Status Date / Time Penicillins Allergy Hives Verified 04/09/22 22:25 Tyvlntv-ZFE-SdS Reductase AdvReac Intermediate myalgias Verified 04/09/22 22:25 Inhibitor [Gskgyup-Pjk-Mxo Reductase Inhibitor] Family History Father , Age 72 Diabetes Myocardial infarction Mother CAD (coronary artery disease) Diabetes Hypertension Brother CAD (coronary artery disease) COPD (chronic obstructive pulmonary disease) Primary pulmonary fibrosis Brother Kidney disease Brother CAD (coronary artery disease) Sister Cancer Sister CVA (cerebral vascular accident) Surgical History History of percutaneous transluminal coronary angioplasty (08/16/06) History of permanent cardiac pacemaker placement (~03/2015) Presence of coronary angioplasty implant and graft (~01/25/07) Social History Smoking Status: Never smoker alcohol intake: never caffeine: No ROS ROS ED Constitutional Constitutional ED: Denies chills or fever(s) ENT ENT ED: Denies sore throat Cardiovascular Cardiovascular: Denies chest pain Respiratory/Chest Respiratory/Chest: Denies cough or dyspnea Gastrointestinal Gastrointestinal: Reports abdominal pain; Denies diarrhea, nausea or vomiting Genitourinary Genitourinary ED: Reports hematuria; Denies dysuria Musculoskeletal Musculoskeletal: Denies back pain or myalgias Integumentary Denies rash Neurologic Neurologic: Denies headache(s) Hematologic/Lymphatic Hematologic/Lymphatic: Reports easy bleeding and easy bruising EXAM Physical Exam Const Vital Signs: 04/09/22 22:22 04/10/22 00:22 04/10/22 01:02 Temperature 98.7 F Temperature Source Oral Pulse Rate 47 L 74 Respiratory Rate 18 18 18 Blood Pressure 177/80 H 150/83 H Blood Pressure Mean 112 Pulse Ox 96 97 98 Oxygen Delivery Method Room Air Room Air Positive well nourished and well developed General Appearance ED: well developed Eyes PERRL and EOMs intact bilaterally Neck supple Resp normal respiratory effort and clear to auscultation bilaterally Cardio regular rate and regular rhythm Rate: other Other Details: Radial pulses are plus 2 out of 4 bilaterally are equal and symmetric GI non-distended GI Narrative: Abdomen is soft and nondistended with normoactive bowel sounds. There is mild pain with palpation in the suprapubic to right lower quadrant region without voluntary guarding or rigidity. No pulsatile mass or fluid wave Auscultation: normoactive bowel sounds Palpation: soft Back/Spine no CVA tenderness Extremity normal to inspection Neuro oriented x3 and CN's II-XII intact bilaterally Sensorium / Orientation: alert Psych mental status grossly normal Skin no rashes or lesions noted MDM MDM MDM Narrative Medical decision making narrative: Patient presented to the ER slightly hypertensive but otherwise with stable vitals. She reported this pain has been intermittent for approximately 1 month and she is already had 2 CT scans for it. Therefore do not feel need for emergent imaging studies but did elect to repeat basic blood work. Patient has no leukocytosis and no signs of acute kidney injury and there is no anemia present. Her urine does show +3 bacteria without contamination and a large keli unt of red blood cell. Patient typically has red blood cells in her urine but they are greater today. She does not have flank pain and therefore I feel the hematuria worsening is due to the infectious process. However as she does not have signs of acute kidney injury or urosepsis there is no need for admission. Patient was given Rocephin and the urine was sent for culture. As she has a penicillin allergy should be placed on Bactrim for home. She did report complete resolution of her pain with 2 mg of morphine in the ER. Therefore at this time as she has a stable H&H normal kidney function and no signs of urosepsis there is no need for further work-up and patient will be discharged and she can keep her outpatient appointments to further work-up the cause of her intermittent right lower quadrant pain Lab Data Attestation: I reviewed the patient's lab results. Labs: Laboratory Results - last 24 hr 04/09/22 04/09/22 04/09/22 23:15 23:15 23:15 WBC 7.4 RBC 4.19 L Hgb 12.5 Hct 38.8 MCV 92.6 MCH 29.8 MCHC 32.2 RDW Std Deviation 44.7 H RDW Coeff of [place] 13.3 Plt Count 263 MPV 9.9 Immature Gran % (Auto) 0.500 Neut % (Auto) 72.4 H Lymph % (Auto) 17.8 L [place] % (Auto) 6.8 Eos % (Auto) 2.0 Baso % (Auto) 0.5 Absolute Neuts (auto) 5.3 Absolute Lymphs (auto) 1.31 Nucleated RBC % 0 Sodium 140 Potassium 4.0 Chloride 106 Carbon Dioxide 27.0 Anion Gap 7 BUN 20 H Creatinine 1.08 H Estim Creat Clear Calc 34.37 Est GFR (MDRD) Af Amer 63 Est GFR (MDRD) Non-Af 52 L BUN/Creatinine Ratio 18.5 Glucose 168 H Calcium 9.4 Total Bilirubin 0.30 Direct Bilirubin 0.14 AST 17 ALT 15 Alkaline Phosphatase 83 Total Protein 7.5 Albumin 3.2 Globulin 4.3 H Lipase 67 L Urine Color Red Urine Clarity Turbid Urine pH 6.5 Ur Specific [place] 1.015 Urine Protein 500 H Urine Glucose (UA) Normal Urine Ketones 5 H Urine Occult Blood 250 H Urine Nitrite Negative Urine Bilirubin Negative Urine Urobilinogen Normal Ur Leukocyte Esterase 100 H Urine RBC > 100 SEEN Urine WBC 10-25 SEEN Ur Squamous Epith Cells 0-5 SEEN Urine Bacteria 3+ Urine Mucus 0 SEEN Discharge Plan Triage Chief Complaint: Abd Pain ED Provider: Chip Garrett Dx/Rx/DC Orders Clinical Impression: UTI (urinary tract infection), Diabetes mellitus type 2, controlled, 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 Instructions: Urinary Tract Infections in Women Prescriptions: New sulfamethoxazole-trimethoprim [Bactrim DS] 800-160 mg tablet 1 tab PO BID 7 Days Qty: 14 0RF No Action levothyroxine 75 mcg tablet 75 mcg PO .COMPLEX Rx Instructions: 75 mcg PO one tab PO Sun,M,T,Th,Sat and one half tab the other days; Adult 50 Plus Probiotic 4 billion cell capsule 4,000 mmu cells PO DAILY Rx Instructions: administer with a meal calcium citrate-vitamin D3 [Citracal + D Maximum] 315 mg- 250 unit tablet 1 tab PO DAILY multivitamin Tablet 1 tab PO DAILY cholecalciferol (vitamin D3) 125 mcg (5,000 unit) tablet 125 mcg PO DAILY nitroglycerin 0.4 mg tablet, sublingual 0.4 mg Sublingual Q5-15M PRN (Reason: Chest Pain) Qty: 100 3RF cyanocobalamin (vitamin B-12) 1,000 MCG tablet 500 mcg PO DAILY Label Comments: SUPPLEMENT aspirin 81 MG tablet,chewable 81 mg PO DAILY@0800 Label Comments: [facility] omega-3 fatty acids-fish oil 1 EACH capsule 2 ea PO DAILY Label Comments: SUPPLEMENT metoprolol succinate 50 mg tablet extended release 24 hr 50 mg PO DAILY Qty: 90 3RF rivaroxaban 15 mg tablet 15 mg PO DAILY Qty: 90 3RF isosorbide mononitrate 30 mg tablet extended release 24 hr 30 mg PO DAILY Qty: 90 3RF Primary Care Provider: Bon Abraham Referrals: Bon Abraham MD [Primary Care Provider] - Disposition Disposition: Home, Self Care Discharge Date/Time: 04/10/22 01:03
[2022-04-10 01:02] VITALS: BP 150/83; PULSE 74; RESP 18; O2SAT 98
== END 2022-04-10 01:03 | disposition home or self-care (01) ==
PROVIDERS: Emergency Provider Emergency Medicine; PCP Family Medicine; Visit Provider Emergency Medicine
DX: N39.0 Urinary tract infection, site not specified (principal); I48.0 Paroxysmal atrial fibrillation; E11.9 Type 2 diabetes mellitus without complications; I25.10 Atherosclerotic heart disease of native coronary artery without angina pectoris; R10.31 Right lower quadrant pain; Z79.01 Long term (current) use of anticoagulants; E78.00 Pure hypercholesterolemia, unspecified; I10 Essential (primary) hypertension; Z86.73 Personal history of transient ischemic attack (TIA), and cerebral infarction without residual deficits
CPT/HCPCS: 80048; 80076; 81001; 83690; 85025; 87086; 87088; 99283; J7030; A4216; J2405

== ENCOUNTER 2022-04-14 21:27 | Emergency (ER) | payer MEDICARE, SELFPAY ==
[2022-04-14 21:28] VITALS: BP 145/61; PULSE 60; RESP 15; TEMP 36.6; O2SAT 96; BMI 22.4
--- NOTE | 2022-04-14 22:46 | EKG12_ITS ---
Test Reason : abdominal pain Blood Pressure : / mmHG Vent. Rate : 061 BPM Atrial Rate : 061 BPM P-R Int : 194 ms QRS Dur : 082 ms QT Int : 418 ms P-R-T Axes : 047 004 -05 degrees QTc Int : 420 ms Normal sinus rhythm Normal ECG Confirmed by JORGE CLARK, KAIDEN ([id number]), online editor LISY COTTER ([id number]) on 04/17/2022 9:33:18 AM Referred By: Leigha Powell Confirmed By:KAIDEN PATEL MD
--- NOTE | 2022-04-14 22:46 | ED.VIS.GI ---
HPI HPI - GI History of Present Illness Chief Complaint: Abd Pain Informant: patient and family Abdominal Pain/Flank Pain Onset: Today Context: - (Unclear onset patient does not know) Timing: Continuous Quality: Aching Location: Right Flank Current Severity: Mild (Only in right lower quadrant) Maximum Severity: Severe Worsened by: Nothing Relieved by: Nothing (Only trying xelw-ncm-deknuay medications for pain) Nausea/Vomiting/Emesis GI Symptom: Positive for Nausea and Vomiting Diarrhea/Melena/Hematochezia GI Symptom: Negative for Diarrhea, Melena or Hematochezia Associated Symptoms Associated Symptoms: Positive for Hematuria; Negative for Dysuria, Frequency or Urgency Narrative Narrative: Patient is been having this pain in her right flank off and on almost every other day or so since the end of February, for the past 1.5 months. She has had multiple ER visits here for the same. Symptoms were recurrent tonight, same symptoms including nausea and vomiting associated with the right flank pain, she has had hematuria off and on today. The pain became severe so she asked to be brought to the ER because of this. Now without specific treatment, the pain is barely there and in her right lower quadrant only. It goes from her right low back around to her right lower quadrant when she has it. She has had CTs that showed abnormal right ureter without an obstruction or stone, she is on rivaroxaban as well as a baby aspirin, with a history of a remote stent multiple years ago and her coronary artery and persistent atrial fibrillation. She denies any new symptoms. She was put on an antibiotic when she was here last week for an abnormal urinalysis, no prescription pain medications. She is still taking the antibiotic. [facility] Medical History Atherosclerotic heart disease of [place] coronary artery without angina pectoris Atrial fibrillation Diabetes mellitus type 2, controlled Essential hypertension History of gastroesophageal reflux (GERD) History of left heart catheterization (08/16/06) History of transient ischemic attack (TIA) Irritable bowel syndrome (IBS) Longstanding persistent atrial fibrillation Mitral valve disorder Occlusion and stenosis of carotid 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 Paroxysmal atrial fibrillation Presence of cardiac pacemaker Presence of stent in coronary artery (~01/25/07) Pure hypercholesterolemia Sick sinus syndrome UTI (urinary tract infection) Home Medications aspirin 81 mg chewable tablet 81 mg PO DAILY@0800 01/03/15 [History Last Taken Unknown] cyanocobalamin (vitamin B-12) 1,000 mcg tablet 500 mcg PO DAILY 01/03/15 [History Last Taken Unknown] omega-3 fatty acids-fish oil 300 mg-1,000 mg capsule 2 ea PO DAILY 01/03/15 [History Last Taken Unknown] calcium citrate 315 mg calcium-vitamin D3 6.25 mcg (250 unit) tablet (Citracal + Vitamin D Maximum) 1 tab PO DAILY 12/21/19 [History Last Taken Unknown] lactobacillus combination no.9 4 billion cell capsule (Adult 50 Plus Probiotic) 4,000 mmu cells PO DAILY 12/21/19 [History Last Taken Unknown] levothyroxine 75 mcg tablet 75 mcg PO .COMPLEX 12/21/19 [History Last Taken Unknown] multivitamin 1 tab PO DAILY 12/21/19 [History Last Taken Unknown] metoprolol succinate 50 mg tablet,extended release 24 hr 50 mg PO DAILY #90 tabs 08/28/20 [Rx Last Taken Unknown] rivaroxaban 15 mg tablet 15 mg PO DAILY #90 tabs 01/21/22 [Rx Last Taken Unknown] isosorbide mononitrate 30 mg tablet,extended release 24 hr 30 mg PO DAILY #90 tabs 02/16/22 [Rx Last Taken Unknown] cholecalciferol (vitamin D3) 125 mcg (5,000 unit) tablet 125 mcg PO DAILY 03/18/22 [History Last Taken Unknown] nitroglycerin 0.4 mg sublingual tablet 0.4 mg sublingual Q5-15M PRN Chest Pain #100 tabs 03/18/22 [Rx Last Taken Unknown] hydrocodone-acetaminophen 5-325mg 5mg-325mg 1 - 2 tab PO Q6H PRN PRN Pain 3 days #18 TABLETS 04/15/22 [Rx Last Taken Unknown] sulfamethoxazole 800 mg-trimethoprim 160 mg tablet (Bactrim DS) 1 tab PO BID 5 days #10 tabs 04/15/22 [Rx Last Taken Unknown] Allergy/AdvReac Type Severity Reaction Status Date / Time Penicillins Allergy Hives Verified 04/14/22 21:28 [id number] Reductase AdvReac Intermediate myalgias Verified 04/14/22 21:28 Inhibitor [Jbopsjx-Upa-Trj Reductase Inhibitor] Family History Father , Age 72 Diabetes Myocardial infarction Mother CAD (coronary artery disease) Diabetes Hypertension Brother CAD (coronary artery disease) COPD (chronic obstructive pulmonary disease) Primary pulmonary fibrosis Brother Kidney disease Brother CAD (coronary artery disease) Sister Cancer Sister CVA (cerebral vascular accident) Surgical History History of percutaneous transluminal coronary angioplasty (08/16/06) History of permanent cardiac pacemaker placement (~03/2015) Presence of coronary angioplasty implant and graft (~01/25/07) Social History Smoking Status: Never smoker alcohol intake: never caffeine: No ROS ROS ED Constitutional Constitutional ED: Denies chills or fever(s) Eyes Eyes: Denies change in vision or diplopia ENT ENT ED: Denies rhinorrhea or sore throat Cardiovascular Cardiovascular: Denies chest pain or palpitations Respiratory/Chest Respiratory/Chest: Denies cough or dyspnea Gastrointestinal Gastrointestinal: Reports abdominal pain, nausea and vomiting; Denies diarrhea Genitourinary Genitourinary ED: Reports flank pain and hematuria; Denies dysuria Musculoskeletal Musculoskeletal: Reports back pain; Denies neck pain Integumentary Denies abscess or rash Neurologic Neurologic: Denies headache(s), paresthesias or weakness Psychiatric Psychiatric: Denies anxiety or suicidal thoughts EXAM Physical Exam Const Vital Signs: 04/14/22 21:28 Temperature 97.9 F Temperature Source Temporal Pulse Rate 60 Respiratory Rate 15 Blood Pressure 145/61 H Blood Pressure Mean 89 Pulse Ox 96 Oxygen Delivery Method Room Air Positive well nourished and well developed Constitutional Narrative: Well-appearing in no distress General Appearance ED: well developed and NAD HEENT Reports moist mucous membranes normocephalic and atraumatic Eyes PERRL and EOMs intact bilaterally Neck full ROM and supple Resp normal respiratory effort and clear to auscultation bilaterally Cardio regular rate, regular rhythm and no murmurs GI non-tender and non-distended Auscultation: normoactive bowel sounds Palpation: soft Back/Spine no CVA tenderness General Back: other FROM Extremity normal to inspection General Extremety ED: Negative for edema, pulses abnormal or tenderness General Extremity: Negative for edema or pulses abnormal Neuro oriented x3, CN's II-XII intact bilaterally and no sensory deficits noted Sensorium / Orientation: awake and alert Motor Exam: strength 5/5 throughout Skin no rashes or lesions noted and no wounds MDM MDM MDM Narrative Medical decision making narrative: Patient's creatinine is up slightly from 1.08-1.46, making her EGFR now 37. She has a scan scheduled for tomorrow afternoon that I think is a CT with delayed IV contrast. I am concerned about her getting this due to her kidney function being down a little. She was given a [place] here as well as some Zofran she is feeling much better. She does not have a leukocytosis but again her urine shows signs of infection worse than the last one, her culture was negative before that. Since that of having her discontinue the antibiotic and can have her continue until the culture comes back and I will give her a prescription to extend it, she has 2 days worth left after today. I discussed with Dr. More who she is following up with, she states before she goes for the scan, her office will call her in the morning and we are okay to discharge her home. She recommends continuing the anticoagulant she is on for now which we discussed. I am also given her a prescription for analgesic to use as needed. Lab Data Attestation: I reviewed the patient's lab results. Labs: Laboratory Results - last 24 hr 04/14/22 04/14/22 04/14/22 22:50 22:50 23:23 WBC 6.7 RBC 3.85 L Hgb 11.6 L Hct 34.9 L MCV 90.6 MCH 30.1 MCHC 33.2 RDW Std Deviation 44.0 H RDW Coeff of [place] 13.5 Plt Count 236 MPV 10.0 Immature Gran % (Auto) 0.400 Neut % (Auto) 80.8 H Lymph % (Auto) 12.4 L [place] % (Auto) 5.4 Eos % (Auto) 0.7 Baso % (Auto) 0.3 Absolute Neuts (auto) 5.4 Absolute Lymphs (auto) 0.83 Nucleated RBC % 0 Sodium 138 Potassium 4.2 Chloride 105 Carbon Dioxide 25.0 Anion Gap 8 BUN 23 H Creatinine 1.46 H Estim Creat Clear Calc 25.42 Est GFR (MDRD) Af Amer 44 L Est GFR (MDRD) Non-Af 37 L BUN/Creatinine Ratio 15.8 Glucose 128 H Calcium 9.4 Urine Color Yellow Urine Clarity Cloudy Urine pH 6.0 Ur Specific [place] 1.015 Urine Protein 100 H Urine Glucose (UA) Normal Urine Ketones 5 H Urine Occult Blood 250 H Urine Nitrite Negative Urine Bilirubin Negative Urine Urobilinogen Normal Ur Leukocyte Esterase 500 H Urine RBC > 100 SEEN Urine WBC 25-50 SEEN Ur Squamous Epith Cells 0-5 SEEN Amorphous Sediment 1+ Urine Bacteria 1+ Urine Mucus 0 SEEN Rhythm Strip Rhythm Strip: Sinus Rhythm Rate: 65 Ectopy: None EKG Initial EKG: Attestation: I personally reviewed and interpreted this EKG as follows: Interpretation: Sinus Rhythm and No Acute Injury Pattern Discharge Plan Triage Chief Complaint: Abd Pain ED Provider: Kendall Powell Dx/Rx/DC Orders Clinical Impression: Acute right flank pain, Abnormal computed tomography of ureter, Acute kidney injury, Current use of custodial anticoagulation, Hematuria Instructions: ED Flank Pain, Uncertain Cause Prescriptions: New hydrocodone-acetaminophen [hydrocodone-acetaminophen] 1 TABLET tablet 1 - 2 tab PO Q6H PRN PRN (Reason: Pain) 3 Days Qty: 18 0RF Continued levothyroxine 75 mcg tablet 75 mcg PO .COMPLEX Rx Instructions: 75 mcg PO one tab PO Sun,M,T,Th,Sat and one half tab the other days; Adult 50 Plus Probiotic 4 billion cell capsule 4,000 mmu cells PO DAILY Rx Instructions: administer with a meal calcium citrate-vitamin D3 [Citracal + D Maximum] 315 mg- 250 unit tablet 1 tab PO DAILY multivitamin Tablet 1 tab PO DAILY cholecalciferol (vitamin D3) 125 mcg (5,000 unit) tablet 125 mcg PO DAILY nitroglycerin 0.4 mg tablet, sublingual 0.4 mg Sublingual Q5-15M PRN (Reason: Chest Pain) Qty: 100 3RF cyanocobalamin (vitamin B-12) 1,000 MCG tablet 500 mcg PO DAILY Label Comments: SUPPLEMENT aspirin 81 MG tablet,chewable 81 mg PO DAILY@0800 Label Comments: [facility]ALTH omega-3 fatty acids-fish oil 1 EACH capsule 2 ea PO DAILY Label Comments: SUPPLEMENT sulfamethoxazole-trimethoprim [Bactrim DS] 800-160 mg tablet 1 tab PO BID 5 Days Qty: 10 0RF metoprolol succinate 50 mg tablet extended release 24 hr 50 mg PO DAILY Qty: 90 3RF rivaroxaban 15 mg tablet 15 mg PO DAILY Qty: 90 3RF isosorbide mononitrate 30 mg tablet extended release 24 hr 30 mg PO DAILY Qty: 90 3RF Primary Care Provider: Bon Abraham Referrals: Annalisa More MD [STAFF PHYSICIAN] - (Office should call you tomorrow for further instructions regarding your scan, make sure you talk to them before you get it.) Bon Abraham MD [Primary Care Provider] - Activity Restrictions/Additional Instructions: Continue your medications including antibiotic as previously prescribed. You may take one of the new prescription pain medications/pills as needed for pain. Avoid ibuprofen since you are on a blood thinner. Continue taking your antibiotic and when it is finished, start the new prescription which is the same 1, until you are told to discontinue it; otherwise, take it until completed. Disposition Disposition: Home, Self Care
[2022-04-14] MEDS: Ondansetron ODT 4 MG Tablet 8 MG PO (22:51)
[2022-04-14] MEDS: HYDROcodone Bitartrate/Apap 5/325 Tablet PO (22:52)
[2022-04-14 22:57] LABS: Absolute Lymphocyte Count 0.83 X10^3/uL (0.83-4.51); Absolute Neutrophil Count 5.4 X10^3/uL (2.0-7.7); Basophil# 0.02 X10^3/uL; Basophil% 0.3 % (0-1); Eosinophil# 0.05 X10^3/uL; Eosinophils% 0.7 % (0-5); Hematocrit 34.9 % (37-47); Hemoglobin 11.6 g/dL (12.0-15.0); Lymphocyte # 0.83 X10^3/ul (0.83-4.51); Lymphocyte % 12.4 % (19-41); Mean Corp Hgb Conc 33.2 g/dL (32-36); Mean Corpuscular Hgb 30.1 pg (27.0-32.0); Mean Corpuscular Volume 90.6 fL (81-99); Monocyte# 0.36 X10^3/uL; Monocyte% 5.4 % (0-10); NRBC Flagged by Analyzer 0 % (0-5); Neutrophil # 5.41 X10^3/uL (2.7-7.7); Neutrophil % 80.8 % (47-70); Platelet Count 236 K/mm3 (150-450); RBC Distribution Width CV 13.5 % (11.6-14.6); Red Blood Count 3.85 M/mm3 (4.2-5.4); White Blood Count 6.7 K/mm3 (4.4-11.0)
[2022-04-14 23:15] LABS: Anion Gap 8 (5-15); BUN 23 mg/dL (7-18); BUN/Creat Ratio 15.8 RATIO (10-20); Calcium,Total 9.4 mg/dL (8.5-10.1); Chloride 105 mmol/L (98-107); Creatinine, Serum 1.46 mg/dL (0.55-1.02); EST Glomerular Filtration Rate 37 mL/min (>60); Est Glom Filt Rate - Afr Amer 44 mL/min (>60); Estimated Creatinine Clearance 25.42 ml/min; Glucose 128 mg/dL (74-106); Potassium 4.2 mmol/L (3.5-5.1); Sodium Level 138 mmol/L (136-145)
[2022-04-14 23:38] LABS: Mucous, Urine 0 SEEN /hpf (<or=2+)
[2022-04-14 23:49] LABS: Color, Urine Yellow (Yellow); Glucose, Dipstick Normal (Normal); Ketone-Dipstick 5 mg/dl (Negative); Leukocyte Esterase-Dipstick 500 /ul (Negative); Nitrite-Dipstick Negative (Negative); Occult Blood-Urine 250 /ul (Negative); Protein-Dipstick 100 mg/dl (Negative); Specific Gravity, Urine 1.015 (1.002-1.030); Urine Bilirubin Dipstick Negative (Negative); Urine Clarity Cloudy (Clear); Urine Urobilinogen Normal (Normal)
[2022-04-14 23:58] LABS: Amorphous Sediment 1+; Bacteria 1+ /hpf (None Seen)
[2022-04-15] LABS: Red Blood Cells-Urine > 100 SEEN /hpf (0-5); White Blood Cells 25-50 SEEN /hpf (0-5)
[2022-04-15 00:01] LABS: Squamous Epithelial Cells - UA 0-5 SEEN /hpf (5-10)
== END 2022-04-15 00:26 | disposition home or self-care (01) ==
PROVIDERS: Emergency Provider Emergency Medicine; PCP Family Medicine; Visit Provider Emergency Medicine
DX: R10.9 Unspecified abdominal pain (principal); N17.9 Acute kidney failure, unspecified; I48.91 Unspecified atrial fibrillation; E11.9 Type 2 diabetes mellitus without complications; I10 Essential (primary) hypertension; Z79.01 Long term (current) use of anticoagulants; E78.00 Pure hypercholesterolemia, unspecified; R11.2 Nausea with vomiting, unspecified; R31.9 Hematuria, unspecified; I25.10 Atherosclerotic heart disease of native coronary artery without angina pectoris; Z95.5 Presence of coronary angioplasty implant and graft; Z86.73 Personal history of transient ischemic attack (TIA), and cerebral infarction without residual deficits; Z95.0 Presence of cardiac pacemaker
CPT/HCPCS: 80048; 81001; 85025; 87086; 87088; 93005; 99283; A4216

== ENCOUNTER → 2022-04-15 | Outpatient (CLI) | payer MEDICARE, SELFPAY ==
[2022-04-15 15:27] LABS: Anion Gap 6 (5-15); BUN 23 mg/dL (7-18); BUN/Creat Ratio 14.6 RATIO (10-20); Calcium,Total 9.5 mg/dL (8.5-10.1); Chloride 101 mmol/L (98-107); Creatinine, Serum 1.58 mg/dL (0.55-1.02); EST Glomerular Filtration Rate 33 mL/min (>60); Est Glom Filt Rate - Afr Amer 40 mL/min (>60); Glucose 89 mg/dL (74-106); Potassium 4.2 mmol/L (3.5-5.1); Sodium Level 135 mmol/L (136-145)
== END | disposition home or self-care (01) ==
LOC: CT 13:06
PROVIDERS: PCP Family Medicine; Referring Provider Urology; Visit Provider Urology
DX: R31.0 Gross hematuria (principal); N13.30 Unspecified hydronephrosis; R10.9 Unspecified abdominal pain
CPT/HCPCS: 36415; 80048

== ENCOUNTER 2022-04-22 15:57 | Observation (INO) | payer MEDICARE, SELFPAY ==
[2022-04-22] VITALS (13 sets, daily range): BP systolic 140–180; BP diastolic 58–89; PULSE 59–96; RESP 16; TEMP 35.5–37.4; O2SAT 92–98; BMI 21.4
[2022-04-22] MEDS: Lactated Ringers 1,000 ML 15 ML IV (08:46)
[2022-04-22] MEDS: Cefazolin 2 GM in 0.9% Normal Saline 100 ML IV (09:40)
--- NOTE | 2022-04-22 09:40 | CYSPIN_PTH ---
PATIENT: ARNIE COKER LOC: [facility] U#:[id number] AGE/SX: 81/F ROOM: [facility] RE04/22/[address]: Dr. Annalisa More MD : [id number] BED: 1 DIS: 04/25/2022 SPEC #: [id number] RECD: 04/22/22 10:50 STATUS: [place] REAleyda #: [id number] ASHWIN: 04/22/22 09:[address]: Annalisa More DEPT: CYTOLOGY RECD BY: Marianne Wesley ENTERED: 04/22/22 11:07 SP TYPE: CYSPIN FL OTHR DR: Dr. Bon Abraham MD Tissues: A - Urine B - Urine Procedures: Pap Stain (control) Special Stain Group II Cytospin Fluid HEADER OPERATION: Cysto, ureteroscopy, retro, stent, selective cytology PRE-OP DIAGNOSIS: Gross hematuria, renal insufficiency TISSUE SUBMITTED: A ? Urine, left ureter for cytology, B - Urine, right ureter for cytology DIAGNOSIS CYTOLOGY A. Urine, left ureter for cytology (cytospin): Clusters of mildly atypical urothelial cells noted. B. Urine, right ureter for cytology (cytospin): Clusters of atypical urothelial cells noted, highly suspicious for malignancy. SJ:enoch 04/22/2022 COMMENT Correlation with clinical, radiologic findings and appropriate follow up are necessary. Please make reference to previous specimen ([id number]) urine for cytology with diagnosis of ?a few clusters of atypical urothelial cells noted.? Case has been reviewed in consultation with Dr. Chapa who concurs with the above diagnosis. IDC:AM CYTOLOGY STUDY Slides are reviewed. CYTOLOGY GROSS A - Received is 4 ml of dark red cloudy fluid labeled with the patient's name and and designated per the requisition as urine. Submitted for cytology preparation. B - Received is 2 ml of light red cloudy fluid labeled with the patient's name and and designated per the requisition as urine. Submitted for cytology preparation. / enoch 04/22/2022 TC:5 CPT: 37811 x2
--- NOTE | 2022-04-22 10:49 | DCINST_ITS ---
Discharge Instructions Diet Discharge Diet: No restrictions Activity Discharge Activity: Return to Normal Activity Dressing / Incision Call your doctor if you observe: Fever of 101 or Higher, Inability to urinate and Inability to have a bowel movement Follow Up Care Please Follow Up With: Annalisa More MD When: Call the office for an appointment to be seen in 2 weeks Test Results: Test results from this visit will be discussed in further detail at your follow- up appointment, if applicable. Discharge Plan Admission Attending Provider: Annalisa More Primary Care Provider: Bon Abraham Discharge Orders/Prescriptions Prescriptions: New acetaminophen-codeine [acetaminophen-codeine] 300-30 mg tablet 1 - 2 tab PO Q6H PRN PRN (Reason: Pain Score 6-10/10) 3 Days Qty: 10 0RF phenazopyridine [phenazopyridine] 100 mg tablet 100 mg PO TID PRN (Reason: bladder spasms) Qty: 30 0RF Continued levothyroxine 75 mcg tablet 75 mcg PO .COMPLEX Rx Instructions: 75 mcg PO one tab PO Sun,M,,,Sat and one half tab the other days; Adult 50 Plus Probiotic 4 billion cell capsule 4,000 mmu cells PO DAILY Rx Instructions: administer with a meal calcium citrate-vitamin D3 [Citracal + D Maximum] 315 mg- 250 unit tablet 1 tab PO DAILY cholecalciferol (vitamin D3) 125 mcg (5,000 unit) tablet 125 mcg PO DAILY cyanocobalamin (vitamin B-12) 1,000 MCG tablet 500 mcg PO DAILY Label Comments: SUPPLEMENT aspirin 81 MG tablet,chewable 81 mg PO DAILY@0800 Label Comments: [facility] omega-3 fatty acids-fish oil 1 EACH capsule 2 ea PO DAILY Label Comments: SUPPLEMENT Xarelto 15 mg tablet 15 mg PO DAILY metoprolol succinate 50 mg tablet extended release 24 hr 50 mg PO DAILY Qty: 90 3RF isosorbide mononitrate 30 mg tablet extended release 24 hr 30 mg PO DAILY Qty: 90 3RF Referrals / Follow Up: Bon Abraham MD [Primary Care Provider] - Disposition Disposition (needs filled in before D/C Order can be placed): Home, Self Care
--- NOTE | 2022-04-22 10:52 | PCM.OPRPT ---
Problems Associated Problem List Diagnoses (1) Acute kidney injury: (2) Hematuria: (3) Hydronephrosis: Report of Operation Date of Procedure: 04/22/22 Pre-Operative Diagnosis: Gross hematuria, renal insufficiency, bilateral hydronephrosis Post-Operative Diagnosis: Same Surgery/Procedure Performed:: Cystoscopy with bilateral selective cytology, bilateral retrograde pyelograms, bilateral ureteral stent insertions Surgeon: Annalisa More Type of Anesthesia: General Specimen's removed: Bilateral urine for cytology Description of Procedure: The patient is an 81-year-old female whose been having gross hematuria with an increase in her creatinine. She was evaluated in the office with a cystoscopy which revealed no evidence of bladder mucosal abnormality. She now presents for further evaluation with bilateral selective cytologies, ureteroscopy and bilateral ureteral stent insertion. Informed consent was obtained. The patient was taken to the operating room and placed on the operating room table in a supine position. She was appropriately padded and secured to the table. Anesthesia monitored the head, neck, airway, IV access and vital signs throughout the case. Once anesthesia was appropriately ministered the patient was placed into dorsolithotomy position was prepped and draped in usual sterile fashion. A Ray-Keyur was inserted into the vaginal canal for reduction of her prolapse. At this time the cystoscope was inserted through the urethra under direct visualization into the urinary bladder. Using a 70 degree lens the bladder mucosa was once again visualized and found to be within normal limits. Using a Pollick catheter, and a 0.035 Glidewire, access to the distal left ureter was obtained. The ureteral meatus was very small. Contrast was injected in retrograde fashion under fluoroscopic visualization revealing no evidence of filling defect. At the ureteropelvic junction there is a very narrowed area of anatomy consistent with a UPJ obstruction. At this time the contrast was flushed and urine was sent for cytologic evaluation. The 0.035 Glidewire was then reinserted through the Pollick catheter which was removed. A 6 [place] 24 cm JJ stent was then placed over the Glidewire with good positioning and curling in the renal pelvis as well as the urinary bladder. This exact procedure was repeated on the patient's right side with the same findings. Both sides appear to be hydronephrotic, and urine flowed following placement of the stents. Bilateral bloody urine was obtained for the cytology. At this time the patient's bladder was emptied. The cystoscope was removed and the case was terminated. The gauze was removed from her vaginal canal. She was awakened and taken to the recovery room in good condition. There were no complications during this procedure. Grafts/Implants Used: 6 x 24 JJ stent x2 Complications None Admit VTE Documentation VTE Present on Admission: Yes VTE Mechan Device Prophylaxis: SCD's VTE Pharm Prophylaxis ordered?: Yes
[2022-04-22 14:42] LABS: Hemoglobin 11.5 g/dL (12.0-15.0); Mean Corp Hgb Conc 32.9 g/dL (32-36); Mean Corpuscular Hgb 30.2 pg (27.0-32.0); Mean Corpuscular Volume 91.9 fL (81-99); Mean Platelet Vol. 9.6 fl (6.2-12.0); Platelet Count 275 K/mm3 (150-450); RBC Distribution Width CV 13.6 % (11.6-14.6); RBC Distribution Width SD 45.4 fl (35.1-43.9); Red Blood Count 3.81 M/mm3 (4.2-5.4); White Blood Count 6.1 K/mm3 (4.4-11.0)
[2022-04-22 14:56] LABS: Anion Gap 5 (5-15); BUN 19 mg/dL (7-18); BUN/Creat Ratio 13.1 RATIO (10-20); Calcium,Total 9.1 mg/dL (8.5-10.1); Chloride 105 mmol/L (98-107); Creatinine, Serum 1.45 mg/dL (0.55-1.02); EST Glomerular Filtration Rate 37 mL/min (>60); Est Glom Filt Rate - Afr Amer 45 mL/min (>60); Glucose 136 mg/dL (74-106); Potassium 4.9 mmol/L (3.5-5.1); Sodium Level 136 mmol/L (136-145)
[2022-04-22] MEDS: proCHLORPERazine 10 MG/2 ML Vial 5 MG IV ×2 (16:24→20:25)
--- NOTE | 2022-04-22 16:48 | PN.HOSP_ITS ---
Documented by User: Kenzie Donnelly NP, [employer]END[employer]-C 04/22/22 17:06 Subjective Subjective Patient seen and examined in PACU. Underwent cystoscopy with bilateral ureteral stent placement. Notable hematuria. Patient drowsy. Hospitalist services consulted for medical management. Objective Data Objective Data Vital Signs: Vital Signs Temp Pulse Resp BP Pulse Ox O2 Del Method 98.9 F 59 L 16 170/58 H 92 Room Air 04/22/22 16:09 04/22/22 16:09 04/22/22 16:09 04/22/22 16:09 04/22/22 16:09 04/22/22 16:09 Oxygen Delivery Method Room Air Weight: 121 lb 4.068 oz Body Mass Index (BMI) 21.4 Intake & Output: Intake and Output for Last 24 Hours 04/20/22 04/21/22 04/22/22 23:59 23:59 23:59 Intake Total 110 / 110 Balance 110 / 110 Lab / Micro Data Result Diagrams: 04/22/22 14:38 04/22/22 14:38 Labs: Laboratory Results - last 24 hr 04/22/22 14:38: WBC 6.1, RBC 3.81 L, Hgb 11.5 L, Hct 35.0 L, MCV 91.9, MCH 30.2, MCHC 32.9, RDW Std Deviation 45.4 H, RDW Coeff of Baltazar 13.6, Plt Count 275, MPV 9.6 04/22/22 14:38: Sodium 136, Potassium 4.9, Chloride 105, Carbon Dioxide 26.0, Anion Gap 5, BUN 19 H, Creatinine 1.45 H, Estim Creat Clear Calc 25.60, Est GFR (MDRD) Af Amer 45 L, Est GFR (MDRD) Non-Af 37 L, BUN/Creatinine Ratio 13.1, Glucose 136 H, Calcium 9.1 Physical Exam Const Constitutional Narrative: Drowsy- post op/PACU HEENT normocephalic Mouth: dry mucous membranes Eyes PERRL, EOMs intact bilaterally and conjunctivae normal Neck no lymphadenopathy Resp normal respiratory effort and clear to auscultation bilaterally Cardio regular rate, regular rhythm and no murmurs Peripheral Pulses: pulses 2+ throughout GI normal to inspection, nondistended, normoactive bowel sounds, non-tender and non-distended Extremity normal to inspection Skin no rashes or lesions noted Lesions: no lesions Rashes: no rashes Trauma: no lacerations or abrasions Neuro CN's II-XII intact bilaterally, no focal motor deficits, no sensory deficits noted and deep tendon reflexes 2+ bilaterally Psych mental status grossly normal and affect normal Assessment & Plan Assessment/Plan (1) Presence of stent in coronary artery: (2) Longstanding persistent atrial fibrillation: (3) Pure hypercholesterolemia: PLAN: Plan 1. Gross hematuria, bilateral hydronephrosis-underwent cystoscopy with bilateral ureteral stent placement 04/22/2022. Management per urology. 2. Acute blood loss anemia-secondary to ongoing hematuria. Hold aspirin, Xar elto. Will discuss with cardiology. Trend BMP. 3. Chronic kidney disease stage IIIb-Baseline creatinine around 1.1. No BRAXTON. Trend BMP. 4. CAD with history of remote PCI (2006)-continue metoprolol. Hold aspirin, Xarelto. Allergy to statin. 5. Longstanding persistent atrial fibrillation-hold Xarelto as noted above. Continue metoprolol. 6. Sick sinus syndrome status post pacemaker placement 7. Hyperlipidemia-statin allergy. 8. Hypothyroidism-continue Synthroid regimen. DVT prophylaxis-SCDs This patient was seen by Kenzie Donnelly NP-Carlos under the supervision of Dr. Flores. Time spent examining patient, reviewing data and subsequent management of care: 13 minutes Documented by User: Dr. Michael Flores DO 04/22/22 17:35 Objective Data Lab / Micro Data Result Diagrams: 04/22/22 14:38 04/22/22 14:38 Assessment & Plan Assessment/Plan (1) Presence of stent in coronary artery: (2) Longstanding persistent atrial fibrillation: (3) Pure hypercholesterolemia: Charges/Coding Addendum Addendum: Patient was seen and examined independently of Kenzie Donnelly, I received a request for consultation with the hospitalist service by urology (Dr. More) following insertion of bilateral ureteral stents due to gross hematuria and bilateral kidney obstruction. Urology stated that they were not able to determine the etiology of the kidney obstruction, patient was seen in PACU after undergoing the procedure today. Patient's chronic medical problems include atrial fibrillation, coronary artery disease, mitral valve disease, type 2 diabetes controlled with diet, and stage IIIb chronic kidney disease. Patient appears comfortable at the time my examination. On examination she appeared somnolent in PACU, she does not appear to be in any distress-she awakens easily to verbal stimuli and answers questions appropriately. Vital signs as documented. Skin warm and dry and without overt rashes. Neck without JVD, thyroid appears normal, trachea is midline, neck is supple. Lungs clear, normal air movement was noted. Heart exam notable for regular rhythm, normal sounds and absence of murmurs, rubs or gallops. Abdomen unremarkable and without evidence of organomegaly, masses, or abdominal aortic enlargement, bowel sounds are present in all 4 quadrants, no abdominal tenderness was noted. Extremities nonedematous, no cyanosis was noted, no clubbing was noted. Neuro: Cranial nerves II through XII are grossly intact, no focal motor deficits were noted, sensation to light touch and pinprick is intact, motor exam 5/5 throughout. Psych: Patient is somnolent but answers questions appropriately to verbal cues, she does not appear anxious or depressed, she does not appear agitated. Impression: #1 paroxysmal atrial fibrillation-patient appears to be in sinus rhythm at this time, patient is usually on Xarelto but this will be held secondary to the patient's hematuria. #2 coronary artery disease-I recommended that her aspirin be held at this time due to her severe hematuria however. #3 mitral valve insufficiency-complicates care, management, recovery, and prognosis #4 hypothyroidism-patient is on Synthroid #5 hyperlipidemia-patient lists an allergy to statins due to myalgias, she is on omega-3 fatty acids #6 hematuria-etiology unclear, again I recommend holding Xarelto and aspirin at this time, patient will have labs monitored. Case was discussed with , I have reviewed Kenzie Donnelly's progress note including her medical assessment and plan of care and endorse it. Total clinical time spent by myself addressing the patient's medical issues, reviewing the data, and collaborating with the patient's care team: 25-minute Visit Charges Inpatient E&M: 84276 Subs Hosp L3
[2022-04-22] MEDS: Dextrose 5%-Lactated Ringers 1,000 ML 100 ML IV (18:27)
[2022-04-22] MEDS: Ondansetron 4 MG/2 ML Vial IV (18:40)
[2022-04-22] MEDS: 0.9% Saline Lock 10 ML Syringe IV ×3 (18:40→22:34)
[2022-04-22] MEDS: Cefazolin 1 GM/50 ML BAG IV (21:04)
[2022-04-22] MEDS: hydrALAZINE 20 MG/ML Vial 10 MG IV (22:31)
[2022-04-22] MEDS: Acetaminophen 325 MG Tablet 650 MG PO (22:34)
[2022-04-23 02:30] VITALS: BP 140/61; PULSE 102; RESP 16; TEMP 36.6; O2SAT 98
[2022-04-23] MEDS: Dextrose 5%-Lactated Ringers 1,000 ML 100 ML IV ×2 (04:00→15:03)
[2022-04-23] MEDS: Levothyroxine 75 MCG Tablet 37.5 MCG PO (04:59)
[2022-04-23] MEDS: Acetaminophen 325 MG Tablet 650 MG PO (05:00)
[2022-04-23 05:59] LABS: Absolute Lymphocyte Count 1.13 X10^3/uL (0.83-4.51); Absolute Neutrophil Count 7.4 X10^3/uL (2.0-7.7); Hematocrit 32.8 % (37-47); Hemoglobin 10.6 g/dL (12.0-15.0); Lymphocyte # 1.13 X10^3/ul (0.83-4.51); Lymphocyte % 12.2 % (19-41); Mean Corp Hgb Conc 32.3 g/dL (32-36); Mean Corpuscular Hgb 30.1 pg (27.0-32.0); Mean Corpuscular Volume 93.2 fL (81-99); Mean Platelet Vol. 9.6 fl (6.2-12.0); Monocyte# 0.71 X10^3/uL; Monocyte% 7.6 % (0-10); NRBC Flagged by Analyzer 0 % (0-5); Neutrophil # 7.41 X10^3/uL (2.7-7.7); Neutrophil % 79.7 % (47-70); Platelet Count 251 K/mm3 (150-450); RBC Distribution Width CV 13.9 % (11.6-14.6); RBC Distribution Width SD 46.7 fl (35.1-43.9); Red Blood Count 3.52 M/mm3 (4.2-5.4); White Blood Count 9.3 K/mm3 (4.4-11.0)
[2022-04-23 06:25] LABS: Anion Gap 7 (5-15); BUN 21 mg/dL (7-18); Calcium,Total 8.6 mg/dL (8.5-10.1); Chloride 105 mmol/L (98-107); Creatinine, Serum 1.62 mg/dL (0.55-1.02); EST Glomerular Filtration Rate 32 mL/min (>60); Est Glom Filt Rate - Afr Amer 39 mL/min (>60); Estimated Creatinine Clearance 22.91 ml/min; Glucose 237 mg/dL (74-106); Potassium 4.4 mmol/L (3.5-5.1); Sodium Level 135 mmol/L (136-145)
[2022-04-23 07:53] LABS: Cytology, Body Fluid / CSF SEE PATHOLOGY REPORT
[2022-04-23 07:54] LABS: Cytology, Body Fluid / CSF SEE PATHOLOGY REPORT
[2022-04-23 08:30] VITALS: BP 114/49; PULSE 66; RESP 18; TEMP 36.8; O2SAT 100
[2022-04-23 08:47] VITALS: PULSE 66
[2022-04-23] MEDS: Isosorbide Mononitrate 30 MG Tablet PO (08:47)
[2022-04-23] MEDS: Omega-3 Acid Ethyl Esters 1 GM Capsule 2 GM PO (08:47)
[2022-04-23] MEDS: Metoprolol(XL)Succ 50 MG Tablet PO (08:47)
[2022-04-23] MEDS: Cyanocobalamin 500 MCG Tablet PO (08:47)
--- NOTE | 2022-04-23 08:49 | PCM.PN.GU ---
Subjective Subjective Patient is sitting up in bed, feeling much better this morning. Her nausea and abdominal pain have resolved. Daughter is at bedside. She has not had anything to eat but has been drinking fluids without difficulty. Objective Data Objective Data Vital Signs: Vital Signs Temp Pulse Resp BP Pulse Ox O2 Del Method 98.2 F 66 18 114/49 L 100 Room Air 04/23/22 08:30 04/23/22 08:30 04/23/22 08:30 04/23/22 08:30 04/23/22 08:30 04/23/22 08:30 Oxygen Delivery Method Room Air Weight: 55 kg Body Mass Index (BMI) 21.4 Intake & Output: Intake and Output for Last 24 Hours 04/21/22 04/22/22 04/23/22 23:59 23:59 23:59 Intake Total 573.67 / 573.67 993.33 / 993.33 Output Total 400 / 400 Balance 573.67 / 573.67 593.33 / 593.33 Lab / Micro Data Result Diagrams: 04/23/22 05:44 04/23/22 05:44 Labs: Laboratory Results - last 24 hr 04/22/22 10:19: Miscellaneous Cytology SEE PATHOLOGY REPORT 04/22/22 10:26: Miscellaneous Cytology SEE PATHOLOGY REPORT 04/22/22 14:38: WBC 6.1, RBC 3.81 L, Hgb 11.5 L, Hct 35.0 L, MCV 91.9, MCH 30.2, MCHC 32.9, RDW Std Deviation 45.4 H, RDW Coeff of Baltazar 13.6, Plt Count 275, MPV 9.6 04/22/22 14:38: Sodium 136, Potassium 4.9, Chloride 105, Carbon Dioxide 26.0, Anion Gap 5, BUN 19 H, Creatinine 1.45 H, Estim Creat Clear Calc 25.60, Est GFR (MDRD) Af Amer 45 L, Est GFR (MDRD) Non-Af 37 L, BUN/Creatinine Ratio 13.1, Glucose 136 H, Calcium 9.1 04/23/22 05:44: WBC 9.3, RBC 3.52 L, Hgb 10.6 L, Hct 32.8 L, MCV 93.2, MCH 30.1, MCHC 32.3, RDW Std Deviation 46.7 H, RDW Coeff of Baltazar 13.9, Plt Count 251, MPV 9.6, Immature Gran % (Auto) 0.500, Neut % (Auto) 79.7 H, Lymph % (Auto) 12.2 L, [place] % (Auto) 7.6, Eos % (Auto) 0.0, Baso % (Auto) 0.0, Absolute Neuts (auto) 7.4, Absolute Lymphs (auto) 1.13, Nucleated RBC % 0 04/23/22 05:44: Sodium 135 L, Potassium 4.4, Chloride 105, Carbon Dioxide 23.0, Anion Gap 7, BUN 21 H, Creatinine 1.62 H, Estim Creat Clear Calc 22.91, Est GFR (MDRD) Af Amer 39 L, Est GFR (MDRD) Non-Af 32 L, BUN/Creatinine Ratio 13.0, Glucose 237 H, Calcium 8.6 Physical Exam Const alert, oriented x3 and no apparent distress General Appearance: cooperative and comfortable HEENT normocephalic and head/scalp atraumatic Eyes General Eye: normal appearance of both eyes Neck supple General: trachea midline Lymph Lymphatic: no lymphedema noted Chest inspection of chest normal Resp normal respiratory effort, normal air movement and no retractions Cardio regular rate GI soft to palpation, non-tender and non-distended Narrative: The urine is [place] in the catheter tubing with the CBI essentially off. Once the CBI is turned on and even to a slow drip she easily clears. The CBI rate was increased this morning. Bladder / Kidney Exam: catheter in place Back/Spine no CVA tenderness Extremity normal to inspection Skin no rashes or lesions noted Neuro oriented x3 and CN's II-XII intact bilaterally Psych mental status grossly normal, thought process normal and cooperative Assessment & Plan Assessment/Plan (1) Hydronephrosis: (2) Longstanding persistent atrial fibrillation: (3) Gross hematuria: PLAN: I feel that this is likely secondary to the upper collecting systems or the kidneys. The bladder is clear. This will make it more difficult to actively control with surgical intervention. With the bilateral stents in place, I was expecting that the creatinine would drop however this has not been the case yet. PLAN: Plan Continue to hold Xarelto and aspirin Diet today Continue CBI today Repeat labs in the morning Ultimately she will need to have ureteroscopy in approximately 2 weeks once the ureteral stents dilate the ureters enough to accommodate the ureteroscope. Imaging with contrast eventually would be helpful as well however her creatinine remains elevated. Continue supportive care Appreciate medicine input and management
[2022-04-23] MEDS: Cefazolin 1 GM/50 ML BAG IV ×2 (08:53→20:37)
--- NOTE | 2022-04-23 09:19 | PN.HOSP_ITS ---
Documented by User: Kenzie Donnelly NP, [employer] 04/23/22 09:23 Subjective Subjective Patient seen and examined. Resting in chair. Daughter at bedside. Patient denies pain. Reports mild lightheadedness upon standing to use the restroom this morning. Now resolved. Denies other symptoms or complaints. Objective Data Objective Data Vital Signs: Vital Signs Temp Pulse Resp BP Pulse Ox O2 Del Method 98.2 F 66 18 114/49 L 100 Room Air 04/23/22 08:30 04/23/22 08:47 04/23/22 08:30 04/23/22 08:30 04/23/22 08:30 04/23/22 08:30 Oxygen Delivery Method Room Air Weight: 121 lb 4.068 oz Body Mass Index (BMI) 21.4 Intake & Output: Intake and Output for Last 24 Hours 04/21/22 04/22/22 04/23/22 23:59 23:59 23:59 Intake Total 573.67 / 573.67 1485.00 / 1485.00 Output Total 400 / 400 Balance 573.67 / 573.67 1085.00 / 1085.00 Lab / Micro Data Result Diagrams: 04/23/22 05:44 04/23/22 05:44 Labs: Laboratory Results - last 24 hr 04/22/22 10:19: Miscellaneous Cytology SEE PATHOLOGY REPORT 04/22/22 10:26: Miscellaneous Cytology SEE PATHOLOGY REPORT 04/22/22 14:38: WBC 6.1, RBC 3.81 L, Hgb 11.5 L, Hct 35.0 L, MCV 91.9, MCH 30.2, MCHC 32.9, RDW Std Deviation 45.4 H, RDW Coeff of Baltazar 13.6, Plt Count 275, MPV 9.6 04/22/22 14:38: Sodium 136, Potassium 4.9, Chloride 105, Carbon Dioxide 26.0, Anion Gap 5, BUN 19 H, Creatinine 1.45 H, Estim Creat Clear Calc 25.60, Est GFR (MDRD) Af Amer 45 L, Est GFR (MDRD) Non-Af 37 L, BUN/Creatinine Ratio 13.1, Gluc ose 136 H, Calcium 9.1 04/23/22 05:44: WBC 9.3, RBC 3.52 L, Hgb 10.6 L, Hct 32.8 L, MCV 93.2, MCH 30.1, MCHC 32.3, RDW Std Deviation 46.7 H, RDW Coeff of Baltazar 13.9, Plt Count 251, MPV 9.6, Immature Gran % (Auto) 0.500, Neut % (Auto) 79.7 H, Lymph % (Auto) 12.2 L, [place] % (Auto) 7.6, Eos % (Auto) 0.0, Baso % (Auto) 0.0, Absolute Neuts (auto) 7.4, Absolute Lymphs (auto) 1.13, Nucleated RBC % 0 04/23/22 05:44: Sodium 135 L, Potassium 4.4, Chloride 105, Carbon Dioxide 23.0, Anion Gap 7, BUN 21 H, Creatinine 1.62 H, Estim Creat Clear Calc 22.91, Est GFR (MDRD) Af Amer 39 L, Est GFR (MDRD) Non-Af 32 L, BUN/Creatinine Ratio 13.0, Glucose 237 H, Calcium 8.6 Physical Exam Const alert, oriented x3 and no apparent distress Orientation / Consciousness: awake, oriented to person, oriented to place and oriented to time HEENT normocephalic and moist oral mucous membranes Eyes PERRL, EOMs intact bilaterally and conjunctivae normal Neck no lymphadenopathy Resp normal respiratory effort and clear to auscultation bilaterally Cardio regular rate, regular rhythm and no murmurs Peripheral Pulses: pulses 2+ throughout GI normal to inspection, nondistended, normoactive bowel sounds, non-tender and non-distended Extremity normal to inspection Skin no rashes or lesions noted Lesions: no lesions Rashes: no rashes Trauma: no lacerations or abrasions Neuro CN's II-XII intact bilaterally, no focal motor deficits, no sensory deficits noted and deep tendon reflexes 2+ bilaterally Psych mental status grossly normal and affect normal Assessment & Plan Assessment/Plan (1) Gross hematuria: PLAN: Plan 1. Gross hematuria, bilateral hydronephrosis-underwent cystoscopy with bilateral ureteral stent placement 04/22/2022.? Management per urology. 2.? Acute blood loss anemia-secondary to ongoing hematuria.? Hold aspirin, Xarelto. Hemoglobin stable. Trend CBC. 3. Chronic kidney disease stage IIIb-Baseline creatinine around 1.1.? Creatinine slightly increased this morning. If creatinine continues to trend upwards, may consider nephrology consult. 4. CAD with history of remote PCI (2006)-continue metoprolol.? Hold aspirin, Xarelto.? Allergy to statin. 5. Longstanding persistent atrial fibrillation-hold Xarelto as noted above.? Continue metoprolol. 6. Sick sinus syndrome status post pacemaker placement 7. Hyperlipidemia-statin allergy. 8. Hypothyroidism-continue Synthroid regimen. DVT prophylaxis-SCDs This patient was seen by Kenzie Donnelly NP-Carlos under the supervision of Dr. Flores. Time spent examining patient, reviewing data and subsequent management of care: 12 minutes Documented by User: Dr. Michael Flores, DO 04/23/22 12:27 Objective Data Lab / Micro Data Result Diagrams: 04/23/22 05:44 04/23/22 05:44 Assessment & Plan Assessment/Plan (1) Gross hematuria: Charges/Coding Addendum Addendum: Patient was seen and examined today independently of Kenzie Donnelly, her daughter was in the room during the time of my examination. Patient's cr eatinine is slightly worse than yesterday, her hemoglobin appears stable however. There is less blood in her Lee today. I talked briefly with Dr. Malhotra (her snailer) and he agreed that her aspirin and Xarelto would need to be held due to the hematuria. On examination she appeared in good health and spirits, she does not appear to be in any distress. Vital signs as documented. Skin warm and dry and without overt rashes. Neck without JVD, thyroid appears normal, trachea is midline, neck is supple. Lungs clear, normal air movement was noted. Heart exam notable for regular rhythm, normal sounds and absence of murmurs, rubs or gallops. Abdomen unremarkable and without evidence of organomegaly, masses, or abdominal aortic enlargement, bowel sounds are present in all 4 quadrants, no abdominal tenderness was noted. Extremities nonedematous, no cyanosis was noted, no clubbing was noted. Neuro: Cranial nerves II through XII are grossly intact, no focal motor deficits were noted, sensation to light touch and pinprick is intact, motor exam 5/5 throughout. Psych: Patient is alert and oriented x3, she does not appear anxious or depressed, she does not appear agitated. Impression: #1 coronary artery disease-for now, patient will remain off her aspirin, she will need to follow-up as an outpatient regarding resuming this medication due to her hematuria. #2 paroxysmal atrial fibrillation-patient is off Xarelto at this time, again she will have to follow-up with cardiology as to when to resume this medication. #3 hyperlipidemia-patient is on fish oil supplementation, she is allergic to a statin #4 type 2 diabetes-blood sugars will be monitored #5 hypothyroidism-patient is on Synthroid #6 chronic kidney disease stage IIIb, labs will be monitored #7 hematuria-etiology unclear, again patient's aspirin and Xarelto are being held at this time I reviewed Kenzie Andrzej's progress note including her medical assessment and plan of care and with the above additions endorse it. Total clinical time spent by myself addressing the patient's medical issues, reviewing the data, and collaborating with patient's care team: 25 minutes Visit Charges Inpatient E&M: [id number] Subs Hosp L3
--- NOTE | 2022-04-23 14:51 | CASEMGMT ---
AYUSH CM in to discuss CLEMONS form with patient. RN CM explained CLEMONS form, patient voiced understanding. Pt signed form and filed in chart. Pt provided with a copy of signed CLEMONS form. Patient had no further questions or concerns at this time.
[2022-04-23 15:06] VITALS: BP 139/52; PULSE 65; RESP 16; TEMP 36.7; O2SAT 99
[2022-04-23 20:33] VITALS: BP 132/65; PULSE 64; RESP 16; TEMP 36.8; O2SAT 98
[2022-04-24] MEDS: Dextrose 5%-Lactated Ringers 1,000 ML 100 ML IV ×3 (00:12→20:59)
[2022-04-24 02:41] VITALS: BP 121/73; PULSE 94; RESP 16; TEMP 37.1; O2SAT 96
[2022-04-24] MEDS: Levothyroxine 75 MCG Tablet PO (05:19)
[2022-04-24 06:59] LABS: Absolute Lymphocyte Count 1.45 X10^3/uL (0.83-4.51); Absolute Neutrophil Count 4.1 X10^3/uL (2.0-7.7); Basophil# 0.02 X10^3/uL; Basophil% 0.3 % (0-1); Eosinophil# 0.03 X10^3/uL; Eosinophils% 0.5 % (0-5); Hematocrit 32.5 % (37-47); Hemoglobin 10.3 g/dL (12.0-15.0); Lymphocyte # 1.45 X10^3/ul (0.83-4.51); Lymphocyte % 23.1 % (19-41); Mean Corp Hgb Conc 31.7 g/dL (32-36); Mean Corpuscular Hgb 30.1 pg (27.0-32.0); Mean Platelet Vol. 9.9 fl (6.2-12.0); Monocyte% 9.6 % (0-10); NRBC Flagged by Analyzer 0 % (0-5); Neutrophil # 4.14 X10^3/uL (2.7-7.7); Neutrophil % 65.9 % (47-70); Platelet Count 244 K/mm3 (150-450); RBC Distribution Width CV 14.1 % (11.6-14.6); RBC Distribution Width SD 48.3 fl (35.1-43.9); Red Blood Count 3.42 M/mm3 (4.2-5.4); White Blood Count 6.3 K/mm3 (4.4-11.0)
[2022-04-24 07:27] VITALS: BP 132/90; PULSE 96; RESP 16; TEMP 36.6; O2SAT 94
[2022-04-24 07:37] LABS: Anion Gap 2 (5-15); BUN 15 mg/dL (7-18); Chloride 110 mmol/L (98-107); Creatinine, Serum 1.25 mg/dL (0.55-1.02); EST Glomerular Filtration Rate 44 mL/min (>60); Est Glom Filt Rate - Afr Amer 53 mL/min (>60); Estimated Creatinine Clearance 29.69 ml/min; Glucose 126 mg/dL (74-106); Potassium 4.1 mmol/L (3.5-5.1); Sodium Level 142 mmol/L (136-145)
--- NOTE | 2022-04-24 08:50 | PN.URO_ITS ---
Subjective Subjective She is sitting up in bed eating breakfast. She feels much better this morning. No complaints of pain. No events overnight. Ready to get the catheter out and walk around. Objective Data Objective Data Vital Signs: Vital Signs Temp Pulse Resp BP Pulse Ox O2 Del Method 97.9 F 96 16 132/90 H 94 Room Air 04/24/22 07:27 04/24/22 07:27 04/24/22 07:27 04/24/22 07:27 04/24/22 07:27 04/24/22 07:27 Oxygen Delivery Method Room Air Weight: 55 kg Body Mass Index (BMI) 21.4 Intake & Output: Intake and Output for Last 24 Hours 04/22/22 04/23/22 04/24/22 23:59 23:59 23:59 Intake Total 573.67 / 573.67 3010.00 / 3010.00 308.33 / 308.33 Output Total 3700 / 3700 Balance 573.67 / 573.67 -690.00 / -690.00 308.33 / 308.33 Lab / Micro Data Result Diagrams: 04/24/22 06:07 04/24/22 06:07 Labs: Laboratory Results - last 24 hr 04/24/22 06:07: WBC 6.3, RBC 3.42 L, Hgb 10.3 L, Hct 32.5 L, MCV 95.0, MCH 30.1, MCHC 31.7 L, RDW Std Deviation 48.3 H, RDW Coeff of Baltazar 14.1, Plt Count 244, MPV 9.9, Immature Gran % (Auto) 0.600, Neut % (Auto) 65.9, Lymph % (Auto) 23.1, [place] % (Auto) 9.6, Eos % (Auto) 0.5, Baso % (Auto) 0.3, Absolute Neuts (auto) 4.1, Absolute Lymphs (auto) 1.45, Nucleated RBC % 0 04/24/22 06:07: Sodium 142, Potassium 4.1, Chloride 110 H, Carbon Dioxide 30.0, Anion Gap 2 L, BUN 15, Creatinine 1.25 H, Estim Creat Clear Calc 29.69, Est GFR (MDRD) Af Amer 53 L, Est GFR (MDRD) Non-Af 44 L, BUN/Creatinine Ratio 12.0, Glucose 126 H, Calcium 9.0 Physical Exam Const alert, oriented x3 and no apparent distress HEENT normocephalic and head/scalp atraumatic Eyes General Eye: normal appearance of both eyes Neck supple General: trachea midline Lymph Lymphatic: no lymphedema noted Chest inspection of chest normal Resp normal respiratory effort, normal air movement and no retractions Effort and Inspection: able to speak in complete sentences Cardio regular rate GI soft to palpation, non-tender and non-distended no CVA tenderness Narrative: Urine is more clear than yesterday, clears almost immediately with the CBI turned up. No clots. Back/Spine no CVA tenderness Extremity normal to inspection Skin no rashes or lesions noted Neuro oriented x3, CN's II-XII intact bilaterally and moves all extremities Psych mental status grossly normal Assessment & Plan Assessment/Plan (1) Gross hematuria: (2) Hydronephrosis: (3) Renal insufficiency: PLAN: Plan Hemoglobin is remaining stable and she will continue likely to have some hematuria with her bilateral ureteral stents. Plan to remove the Lee catheter, postvoid residual today Increase activity with ambulation in the [place] Creatinine is significantly improved today We will plan for CT urogram sometime next week can be done as an outpatient, continue plans for ureteroscopy in approximately 2 weeks will be scheduled as an outpatient
[2022-04-24] MEDS: Omega-3 Acid Ethyl Esters 1 GM Capsule 2 GM PO (10:04)
[2022-04-24] MEDS: Cefazolin 1 GM/50 ML BAG IV ×2 (10:04→21:09)
[2022-04-24 10:05] VITALS: BP 132/90; PULSE 96
[2022-04-24] MEDS: Metoprolol(XL)Succ 50 MG Tablet PO (10:05)
[2022-04-24] MEDS: Isosorbide Mononitrate 30 MG Tablet PO (10:06)
[2022-04-24] MEDS: Cyanocobalamin 500 MCG Tablet PO (10:06)
--- NOTE | 2022-04-24 11:28 | PCM.PN.HOSP ---
Documented by User: Kenzie Donnelly NP, FINE PATCHER-C 04/24/22 11:30 Subjective Subjective Patient seen and examined. Denies symptoms or complaints. Lee catheter to be removed. No ongoing concerns from medical standpoint. Continue to hold aspirin, anticoagulation. Objective Data Objective Data Vital Signs: Vital Signs Temp Pulse Resp BP Pulse Ox O2 Del Method 97.9 F 96 16 132/90 H 94 Room Air 04/24/22 07:27 04/24/22 10:05 04/24/22 07:27 04/24/22 10:05 04/24/22 07:27 04/24/22 07:27 Oxygen Delivery Method Room Air Weight: 121 lb 4.068 oz Body Mass Index (BMI) 21.4 Intake & Output: Intake and Output for Last 24 Hours 04/22/22 04/23/22 04/24/22 23:59 23:59 23:59 Intake Total 573.67 / 573.67 3010.00 / 3010.00 1356.66 / 1356.66 Output Total 3700 / 3700 Balance 573.67 / 573.67 -690.00 / -690.00 1356.66 / 1356.66 Lab / Micro Data Result Diagrams: 04/24/22 06:07 04/24/22 06:07 Labs: Laboratory Results - last 24 hr 04/24/22 06:07: WBC 6.3, RBC 3.42 L, Hgb 10.3 L, Hct 32.5 L, MCV 95.0, MCH 30.1, MCHC 31.7 L, RDW Std Deviation 48.3 H, RDW Coeff of Baltazar 14.1, Plt Count 244, MPV 9.9, Immature Gran % (Auto) 0.600, Neut % (Auto) 65.9, Lymph % (Auto) 23.1, Aiken % (Auto) 9.6, Eos % (Auto) 0.5, Baso % (Auto) 0.3, Absolute Neuts (auto) 4.1, Absolute Lymphs (auto) 1.45, Nucleated RBC % 0 04/24/22 06:07: Sodium 142, Potassium 4.1, Chloride 110 H, Carbon Dioxide 30.0, Anion Gap 2 L, BUN 15, Creatinine 1.25 H, Estim Creat Clear Calc 29.69, Est GFR (MDRD) Af Amer 53 L, Est GFR (MDRD) Non-Af 44 L, BUN/Creatinine Ratio 12.0, Glucose 126 H, Calcium 9.0 Physical Exam Const alert, oriented x3 and no apparent distress Orientation / Consciousness: awake, oriented to person, oriented to place and oriented to time HEENT normocephalic and moist oral mucous membranes Eyes PERRL, EOMs intact bilaterally and conjunctivae normal Neck no lymphadenopathy Resp normal respiratory effort and clear to auscultation bilaterally Cardio regular rate, regular rhythm and no murmurs Peripheral Pulses: pulses 2+ throughout GI normal to inspection, nondistended, normoactive bowel sounds, non-tender and non-distended Extremity normal to inspection Skin no rashes or lesions noted Lesions: no lesions Rashes: no rashes Trauma: no lacerations or abrasions Neuro CN's II-XII intact bilaterally, no focal motor deficits, no sensory deficits noted and deep tendon reflexes 2+ bilaterally Psych mental status grossly normal and affect normal Assessment & Plan Assessment/Plan (1) Gross hematuria: PLAN: Plan 1. Gross hematuria, bilateral hydronephrosis-underwent cystoscopy with bilateral ureteral stent placement 04/22/2022.? Management per urology. 2.? Acute blood loss anemia-secondary to ongoing hematuria.? Hold aspirin, Xarelto.? Hemoglobin stable.? Trend CBC. 3. Chronic kidney disease stage IIIb-Baseline creatinine around 1.1.? Initial creatinine above baseline, now improved. Trend BMP. 4. CAD with history of remote PCI (2006)-continue metoprolol.? Hold aspirin, Xarelto.? Allergy to statin. 5. Longstanding persistent atrial fibrillation-hold Xarelto as noted above.? Continue metoprolol. 6. Sick sinus syndrome status post pacemaker placement 7. Hyperlipidemia-statin allergy. 8. Hypothyroidism-continue Synthroid regimen. DVT prophylaxis-SCDs This patient was seen by MICKEY Hough under the supervision of Dr. Flores. Time spent examining patient, reviewing data and subsequent management of care: 12 minutes Documented by User: Dr. Michael Flores, 04/24/22 13:23 Objective Data Lab / Micro Data Result Diagrams: 04/24/22 06:07 04/24/22 06:07 Assessment & Plan Assessment/Plan (1) Gross hematuria: Charges/Coding Addendum Addendum: Patient was seen and examined today, her hemoglobin has remained stable, I talked briefly with urology about her care, urology stated that they would remove her catheter today and consider discharging her today or tomorrow. Patient's creatinine has improved-it appears that she is at her baseline at the present time. On examination she appeared in good health and spirits, she does not appear to be in any distress. Vital signs as documented. Skin warm and dry and without overt rashes. Neck without JVD, thyroid appears normal, trachea is midline, neck is supple. Lungs clear, normal air movement was noted. Heart exam notable for regular rhythm, normal sounds and absence of murmurs, rubs or gallops. Abdomen unremarkable and without evidence of organomegaly, masses, or abdominal aortic enlargement, bowel sounds are present in all 4 quadrants, no abdominal tenderness was noted. Extremities nonedematous, no cyanosis was noted, no clubbing was noted. Neuro: Cranial nerves II through XII are grossly intact, no focal motor deficits were noted, sensation to light touch and pinprick is intact, motor exam 5/5 throughout. Psych: Patient is alert and oriented x3, she does not appear anxious or depressed, she does not appear agitated. #1 paroxysmal atrial fibrillation-patient appears to be in sinus rhythm at this time, her Xarelto has been stopped due to her hematuria #2 coronary artery disease-patient's aspirin has been stopped due to her hematuria #3 mitral valve insufficiency-complicates care, management, recovery, and prognosis #4 hypothyroidism-patient is on Synthroid #5 hyperlipidemia-patient lists an allergy to statins due to myalgias, she is on omega-3 fatty acids #6 hematuria-etiology unclear I have reviewed Kenzie Donnelly's progress note including her medical assessment and plan of care and with the above additions endorse it. Total clinical time spent by myself addressing the patient's medical issues, reviewing the data, and collaborating with patient's care team: 25 minutes Visit Charges Inpatient E&M: 57889 Subs Hosp L3
[2022-04-24 14:00] VITALS: BP 130/79; PULSE 88; RESP 18; TEMP 36.7; O2SAT 97
[2022-04-24 20:00] VITALS: BP 135/70; PULSE 89; RESP 16; TEMP 37.2; O2SAT 98
[2022-04-25 02:00] VITALS: BP 153/74; PULSE 89; RESP 16; TEMP 37.3; O2SAT 97
[2022-04-25] MEDS: Levothyroxine 75 MCG Tablet PO (05:52)
[2022-04-25 06:21] LABS: Absolute Lymphocyte Count 1.53 X10^3/uL (0.83-4.51); Basophil# 0.02 X10^3/uL; Basophil% 0.3 % (0-1); Eosinophil# 0.16 X10^3/uL; Eosinophils% 2.5 % (0-5); Hematocrit 33.7 % (37-47); Hemoglobin 10.6 g/dL (12.0-15.0); Lymphocyte # 1.53 X10^3/ul (0.83-4.51); Lymphocyte % 23.6 % (19-41); Mean Corp Hgb Conc 31.5 g/dL (32-36); Mean Corpuscular Hgb 29.9 pg (27.0-32.0); Mean Corpuscular Volume 94.9 fL (81-99); Mean Platelet Vol. 9.8 fl (6.2-12.0); Monocyte# 0.77 X10^3/uL; Monocyte% 11.9 % (0-10); NRBC Flagged by Analyzer 0 % (0-5); Neutrophil # 3.97 X10^3/uL (2.7-7.7); Neutrophil % 61.1 % (47-70); Platelet Count 236 K/mm3 (150-450); RBC Distribution Width CV 13.6 % (11.6-14.6); RBC Distribution Width SD 47.5 fl (35.1-43.9); Red Blood Count 3.55 M/mm3 (4.2-5.4); White Blood Count 6.5 K/mm3 (4.4-11.0)
[2022-04-25] MEDS: Dextrose 5%-Lactated Ringers 1,000 ML 100 ML IV (06:52)
[2022-04-25 06:55] LABS: Anion Gap 4 (5-15); BUN 11 mg/dL (7-18); BUN/Creat Ratio 9.4 RATIO (10-20); Calcium,Total 8.8 mg/dL (8.5-10.1); Chloride 109 mmol/L (98-107); Creatinine, Serum 1.17 mg/dL (0.55-1.02); EST Glomerular Filtration Rate 47 mL/min (>60); Est Glom Filt Rate - Afr Amer 57 mL/min (>60); Estimated Creatinine Clearance 31.72 ml/min; Glucose 123 mg/dL (74-106); Potassium 3.9 mmol/L (3.5-5.1); Sodium Level 141 mmol/L (136-145)
--- NOTE | 2022-04-25 07:34 | CT_ITS ---
STUDY: CT ABDOMEN AND PELVIS WITH AND WITHOUT CONTRAST REASON FOR EXAM: Female, 81 years old. Hematuria RADIATION DOSAGE (If Supplied By Facility): CTDIvol = ( 14.95 ) mGy, DLP = ( 1736.67 ) mGycm TECHNIQUE: Transaxial images were obtained from the dome of the diaphragm to the symphysis pubis without oral contrast. IV 100mL Isovue-300 was administered. Sagittal and coronal images were reconstructed. Individualized dose optimization techniques were used for this CT. COMPARISON: 03/13/2022 FINDINGS: There are chronic interstitial fibrotic changes of the lung bases. Pacer leads seen along the base of the heart. Normal liver. Normal gallbladder and extrahepatic biliary system. Normal spleen. Normal pancreas. Normal bilateral adrenal glands. Bilateral JJ stents noted in satisfactory position. There is mild bilateral hydronephrosis and hydroureter along with mild periureteral inflammatory stranding likely due to the presence of the stents. No obstructing calculus is noted. Normal visualized stomach. Normal small intestine. Retained stool noted throughout the colon with scattered sigmoid diverticula but no CT evidence of acute diverticulitis. There is non-visualization of the appendix. There is diffuse atherosclerotic calcification of the abdominal aorta, without a demonstrated aneurysm. Normal inferior vena cava. Normal retroperitoneum. Normal urinary bladder. Uterus is present, the endometrium cannot be accurately evaluated with CT. There is a small umbilical hernia containing fat. Degenerative changes noted throughout the lumbar spine with a grade 1 spondylolisthesis at L4-5. Severe bilateral hip arthrosis with plain film changes of AVN including acetabular protrusio. No demonstrated fracture CT/CT Abd/Pelvis W/WO Contrast IMPRESSION: Bilateral JJ stents in satisfactory position. There is mild bilateral hydronephrosis and hydroureter with periureteral inflammatory stranding likely due to the stents. No obstructing stone is noted. Scattered colonic diverticulosis without CT evidence of acute diverticulitis Uterus is present, the endometrium cannot be accurately evaluated with CT. No free intraperitoneal fluid, air, or suspicious adenopathy Severe bilateral hip joint arthrosis with plain film changes of AVN. Electronically Signed: Aston Thompson MD at 8:49 EDT ,
[2022-04-25 08:15] VITALS: BP 140/78; PULSE 88; RESP 18; TEMP 36.7; O2SAT 98
--- NOTE | 2022-04-25 09:50 | PCM.PN.HOSP ---
Documented by User: Kenzie Donnelly NP, WHALE TRAINER-C 04/25/22 09:56 Subjective Subjective Plan for DC home per urology. Patient denies new symptoms or complaints. Voiding without difficulty. Okay for discharge home from hospitalist standpoint. Objective Data Objective Data Vital Signs: Vital Signs Temp Pulse Resp BP Pulse Ox O2 Del Method 98.0 F 88 18 140/78 H 98 Room Air 04/25/22 08:15 04/25/22 08:15 04/25/22 08:15 04/25/22 08:15 04/25/22 08:15 04/25/22 08:15 Oxygen Delivery Method Room Air Weight: 121 lb 4.068 oz Body Mass Index (BMI) 21.4 Intake & Output: Intake and Output for Last 24 Hours 04/23/22 04/24/22 04/25/22 23:59 23:59 23:59 Intake Total 3010.00 / 3010.00 2424.99 / 2424.99 921.67 / 921.67 Output Total 3700 / 3700 805 / 805 400 / 400 Balance -690.00 / -690.00 1619.99 / 1619.99 521.67 / 521.67 Lab / Micro Data Result Diagrams: 04/25/22 05:40 04/25/22 05:40 Labs: Laboratory Results - last 24 hr 04/25/22 05:40: WBC 6.5, RBC 3.55 L, Hgb 10.6 L, Hct 33.7 L, MCV 94.9, MCH 29.9, MCHC 31.5 L, RDW Std Deviation 47.5 H, RDW Coeff of Baltazar 13.6, Plt Count 236, MPV 9.8, Immature Gran % (Auto) 0.600, Neut % (Auto) 61.1, Lymph % (Auto) 23.6, [place] % (Auto) 11.9 H, Eos % (Auto) 2.5, Baso % (Auto) 0.3, Absolute Neuts (auto) 4.0, Absolute Lymphs (auto) 1.53, Nucleated RBC % 0 04/25/22 05:40: Sodium 141, Potassium 3.9, Chloride 109 H, Carbon Dioxide 28.0, Anion Gap 4 L, BUN 11, Creatinine 1.17 H, Estim Creat Clear Calc 31.72, Est GFR (MDRD) Af Amer 57 L, Est GFR (MDRD) Non-Af 47 L, BUN/Creatinine Ratio 9.4 L, Glucose 123 H, Calcium 8.8 Radiography Diagnostic Testing: Radiology Impression Abdomen/Pelvis CT 04/25/22 07:34 IMPRESSION: Bilateral JJ stents in satisfactory position. There is mild bilateral hydronephrosis and hydroureter with periureteral inflammatory stranding likely due to the stents. No obstructing stone is noted. Scattered colonic diverticulosis without CT evidence of acute diverticulitis Uterus is present, the endometrium cannot be accurately evaluated with CT. No free intraperitoneal fluid, air, or suspicious adenopathy Severe bilateral hip joint arthrosis with plain film changes of AVN. Electronically Signed: Aston Thompson MD at 8:49 EDT , Physical Exam Const alert, oriented x3 and no apparent distress Orientation / Consciousness: awake, oriented to person, oriented to place and oriented to time HEENT normocephalic and moist oral mucous membranes Eyes PERRL, EOMs intact bilaterally and conjunctivae normal Neck no lymphadenopathy Resp normal respiratory effort and clear to auscultation bilaterally Cardio regular rate, regular rhythm and no murmurs Peripheral Pulses: pulses 2+ throughout GI normal to inspection, nondistended, normoactive bowel sounds, non-tender and non-distended Extremity normal to inspection Skin no rashes or lesions noted Lesions: no lesions Rashes: no rashes Trauma: no lacerations or abrasions Neuro CN's II-XII intact bilaterally, no focal motor deficits, no sensory deficits noted and deep tendon reflexes 2+ bilaterally Psych mental status grossly normal and affect normal Assessment & Plan Assessment/Plan (1) Gross hematuria: PLAN: Plan 1. Gross hematuria, bilateral hydronephrosis-underwent cystoscopy with bilateral ureteral stent placement 04/22/2022.? Management per urology. 2.? Acute blood loss anemia-secondary to ongoing hematuria.? Hold aspirin, Xarelto.? Hemoglobin stable.? 3. Chronic kidney disease stage IIIb-Baseline creatinine around 1.1.? Initial creatinine above baseline, now back to baseline. 4. CAD with history of remote PCI (2006)-continue metoprolol.? Hold aspirin, Xarelto.? Allergy to statin. 5. Longstanding persistent atrial fibrillation-hold Xarelto as noted above.? Continue metoprolol. Follow-up with cardiology for ongoing discussion regarding anticoagulation. 6. Sick sinus syndrome status post pacemaker placement 7. Hyperlipidemia-statin allergy. 8. Hypothyroidism-continue Synthroid regimen. DVT prophylaxis-SCDs This patient was seen by Kenzie Donnelly NP-C under the supervision of Dr. Flores. Time spent examining patient, reviewing data and subsequent management of care: 12 minutes Documented by User: Dr. Michael Flores DO 04/25/22 11:28 Objective Data Lab / Micro Data Result Diagrams: 04/25/22 05:40 04/25/22 05:40 Assessment & Plan Assessment/Plan (1) Gross hematuria: Charges/Coding Addendum Addendum: She was seen and examined independently of Kenzie Donnelly, her hemoglobin is improved as well as her creatinine today on her labs. Patient had a CT of her abdomen and [id number] showed her stents in satisfactory position, there was mild bilateral hydronephrosis and hydroureter with periureteral ureteral inflammatory stranding likely due to stenting. No obstructing stone was noted. I talked briefly with urology before I ordered the CT today. On examination she appeared in good health and spirits, she does not appear to be in any distress. Vital signs as documented. Skin warm and dry and without overt rashes. Neck without JVD, thyroid appears normal, trachea is midline, neck is supple. Lungs clear, normal air movement was noted. Heart exam notable for regular rhythm, normal sounds and absence of murmurs, rubs or gallops. Abdomen unremarkable and without evidence of organomegaly, masses, or abdominal aortic enlargement, bowel sounds are present in all 4 quadrants, no abdominal tenderness was noted. Extremities nonedematous, no cyanosis was noted, no clubbing was noted. Neuro: Cranial nerves II through XII are grossly intact, no focal motor deficits were noted, sensation to light touch and pinprick is intact, motor exam 5/5 throughout. Psych: Patient is alert and oriented x3, she does not appear anxious or depressed, she does not appear agitated. #1 paroxysmal atrial fibrillation-patient appears to be in sinus rhythm at this time, her Xarelto has been stopped due to her hematuria, I instructed that the patient should not resume her Xarelto when she goes home, she should asked for direction from cardiology in the near future when to resume the Xarelto. I told her that it was my opinion if the stents were going to stay in for a prolonged period of time, after a couple of weeks she could resume her Xarelto and aspirin-again I asked for her to talk to Dr. Malhotra for guidance concerning this. #2 coronary artery disease-patient's aspirin has been stopped due to her hematuria #3 mitral valve insufficiency-complicates care, management, recovery, and prognosis #4 hypothyroidism-patient is on Synthroid #5 hyperlipidemia-patient lists an allergy to statins due to myalgias, she is on omega-3 fatty acids #6 hematuria-etiology unclear, patient's hemoglobin has remained stable #7 acute blood loss anemia-secondary to hematuria-mild, not requiring blood transfusion I have reviewed Kenzie Donnelly's progress note including her medical assessment and plan of care and with the above additions endorse it. Total clinical time spent by myself addressing the patient's medical issues, reviewing the data, and collaborating with patient's care team: 25 minutes Visit Charges Inpatient E&M: 60372 Subs Hosp L3
[2022-04-25] MEDS: Cefazolin 1 GM/50 ML BAG IV (10:23)
[2022-04-25 10:24] VITALS: PULSE 86
[2022-04-25] MEDS: Metoprolol(XL)Succ 50 MG Tablet PO (10:24)
[2022-04-25] MEDS: Omega-3 Acid Ethyl Esters 1 GM Capsule 2 GM PO (10:24)
[2022-04-25] MEDS: Isosorbide Mononitrate 30 MG Tablet PO (10:24)
[2022-04-25] MEDS: Cyanocobalamin 500 MCG Tablet PO (10:25)
--- NOTE | 2022-04-25 13:16 | DCINST_ITS ---
Discharge Instructions Diet Discharge Diet: No restrictions Activity Discharge Activity: Return to Normal Activity and May Shower Dressing / Incision Call your doctor if you observe: Fever of 101 or Higher, Inability to urinate and Inability to have a bowel movement Follow Up Care Please Follow Up With: Annalisa More MD When: call for appt Test Results: Test results from this visit will be discussed in further detail at your follow- up appointment, if applicable. Discharge Plan Admission Admit Date/Time: 04/22/22 15:57 Attending Provider: Annalisa More Primary Care Provider: Bon Abraham Consulting Providers: Michael Flores Discharge Orders/Prescriptions Prescriptions: New acetaminophen-codeine [acetaminophen-codeine] 300-30 mg tablet 1 - 2 tab PO Q6H PRN PRN (Reason: Pain Score 6-10/10) 3 Days Qty: 10 0RF phenazopyridine [phenazopyridine] 100 mg tablet 100 mg PO TID PRN (Reason: bladder spasms) Qty: 30 0RF Continued levothyroxine 75 mcg tablet 75 mcg PO .COMPLEX Rx Instructions: 75 mcg PO one tab PO Sun,M,T,Th,Sat and one half tab the other days; Adult 50 Plus Probiotic 4 billion cell capsule 4,000 mmu cells PO DAILY Rx Instructions: administer with a meal calcium citrate-vitamin D3 [Citracal + D Maximum] 315 mg- 250 unit tablet 1 tab PO DAILY cholecalciferol (vitamin D3) 125 mcg (5,000 unit) tablet 125 mcg PO DAILY cyanocobalamin (vitamin B-12) 1,000 MCG tablet 500 mcg PO DAILY Label Comments: SUPPLEMENT omega-3 fatty acids-fish oil 1 EACH capsule 2 ea PO DAILY Label Comments: SUPPLEMENT metoprolol succinate 50 mg tablet extended release 24 hr 50 mg PO DAILY Qty: 90 3RF isosorbide mononitrate 30 mg tablet extended release 24 hr 30 mg PO DAILY Qty: 90 3RF Discontinued aspirin 81 MG tablet,chewable 81 mg PO DAILY@0800 Label Comments: [facility] Xarelto 15 mg tablet 15 mg PO DAILY Referrals / Follow Up: Bon Abraham MD [Primary Care Provider] - Disposition Disposition (needs filled in before D/C Order can be placed): Home, Self Care
== END 2022-04-25 14:37 | disposition home or self-care (01) ==
LOC: MS3 18:10
PROVIDERS: Admitting Provider Urology; PCP Family Medicine; Referring Provider Urology; Visit Provider Urology
PROC: 0TJ98ZZ Inspection of Ureter, Via Natural or Artificial Opening Endoscopic (ICD-10-PCS; CPT 52352; principal; 2022-04-22 09:30)
DX: R31.0 Gross hematuria (principal); N17.9 Acute kidney failure, unspecified; E11.22 Type 2 diabetes mellitus with diabetic chronic kidney disease; I48.11 Longstanding persistent atrial fibrillation; N18.32 Chronic kidney disease, stage 3b; D62 Acute posthemorrhagic anemia; Z79.01 Long term (current) use of anticoagulants; I25.10 Atherosclerotic heart disease of native coronary artery without angina pectoris; E78.5 Hyperlipidemia, unspecified; N13.30 Unspecified hydronephrosis; E03.9 Hypothyroidism, unspecified; R32 Unspecified urinary incontinence; I10 Essential (primary) hypertension; K21.9 Gastro-esophageal reflux disease without esophagitis; K58.9 Irritable bowel syndrome, unspecified; Z95.5 Presence of coronary angioplasty implant and graft; Z95.0 Presence of cardiac pacemaker; Z79.899 Other long term (current) drug therapy; Z79.82 Long term (current) use of aspirin; Z79.890 Hormone replacement therapy
CPT/HCPCS: 52332; 00910; 36415; 74178; 76000; 80048; 85025; 85027; 88108; 88313; 96361; 96365; 96366; 96375; 99218; 99251; J7120; Q9967; A4216; C2617; G0378; G0463; J2405

== ENCOUNTER → 2022-05-20 | Outpatient (CLI) | payer MEDICARE, SELFPAY ==
[2022-05-20 15:00] LABS: Hemoglobin 11.7 g/dL (12.0-15.0); Mean Corp Hgb Conc 32.5 g/dL (32-36); Mean Corpuscular Hgb 29.8 pg (27.0-32.0); Mean Corpuscular Volume 91.6 fL (81-99); Platelet Count 269 K/mm3 (150-450); RBC Distribution Width CV 13.1 % (11.6-14.6); Red Blood Count 3.93 M/mm3 (4.2-5.4)
[2022-05-20 15:13] LABS: Anion Gap 4 (5-15); BUN 21 mg/dL (7-18); BUN/Creat Ratio 19.3 RATIO (10-20); Calcium,Total 9.2 mg/dL (8.5-10.1); Chloride 107 mmol/L (98-107); Creatinine, Serum 1.09 mg/dL (0.55-1.02); EST Glomerular Filtration Rate 51 mL/min (>60); Est Glom Filt Rate - Afr Amer 62 mL/min (>60); Glucose 143 mg/dL (74-106); Potassium 4.3 mmol/L (3.5-5.1); Sodium Level 140 mmol/L (136-145)
== END | disposition home or self-care (01) ==
PROVIDERS: PCP Family Medicine; Referring Provider Urology; Visit Provider Urology
DX: R31.0 Gross hematuria (principal)
CPT/HCPCS: 36415; 80048; 85027

== ENCOUNTER 2022-05-27 08:05 | Day surgery (SDC) | payer MEDICARE, SELFPAY ==
[2022-05-27] VITALS (7 sets, daily range): BP systolic 137–165; BP diastolic 65–80; PULSE 59–67; RESP 16–18; TEMP 36.1–36.7; O2SAT 94–99; BMI 20.7
[2022-05-27] MEDS: Lactated Ringers 1,000 ML 15 ML IV ×2 (08:47→12:07)
[2022-05-27] MEDS: Cefazolin 2 GM in 0.9% Normal Saline 100 ML IV (11:03)
--- NOTE | 2022-05-27 12:10 | OP.PCM_ITS ---
Report of Operation Date of Procedure: 05/27/22 Pre-Operative Diagnosis: Gross hematuria, bilateral hydronephrosis Post-Operative Diagnosis: Same Surgery/Procedure Performed:: Cystoscopy, bilateral ureteroscopy with bilateral retrograde pyelograms, bilateral ureteral stent removal and bilateral ureteral stent insertion Surgeon: Annalisa More Type of Anesthesia: General Description of Procedure: The patient is an 82-year-old female whose had gross hematuria and has already undergone cystoscopy with bilateral ureteral washings and bilateral ureteral stent insertions. She now presents for bilateral ureteroscopy for further evaluation. Informed consent was obtained. The patient was taken to the operating room and placed on the operating room table. Anesthesia monitored the head, neck, airway, IV access and vital signs throughout the case. Once anesthesia was appropriately administered, the patient was placed into dorsal lithotomy position was prepped and draped in usual sterile fashion. Her cystocele was reduced with 2 4 x 4's placed into her vagina. The cystoscope was inserted through the urethra under direct visualization and the ureteral stent was grasped and pulled to the urethral orifice from her right side. The stent was then intubated with a 0.035 Glidewire and the stent was removed. Ureteroscopy was performed over the wire which was then removed. The uretero scope was a flexible scope and access was obtained all the way to the renal pelvis without difficulty. Each calyx was directly visualized. The only abnormality identified was redundancy which was to be expected given the degree of hydronephrosis. A retrograde pyelogram was performed through the ureteroscope revealing continued hydronephrosis despite the stent. At this time the process was repeated on the patient's left side. The the calyces were less distended on the patient's left side. There was no evidence of mass, erythema or active bleeding in any portion of the collecting system on the patient's left side. The decision was made to replace the ureteral stents due to the degree of hydronephrosis and to proceed with work on emptying of the bladder in the office which is likely more difficult given her cystocele. A 0.035 Glidewire was inserted into each ureteral orifice and turn with positioning in the renal pelvis and a fresh 6 x 24 JJ stent was inserted over the wire. Good positioning on each side was obtained. At this time the patient's bladder was emptied. The cystoscope was removed. The gauze from the vagina was removed, both of them. The patient was then awakened and taken to the recovery room in good condition. There were no complications during this procedure. Grafts/Implants Used: 6 x 24 cm JJ stent x2 Complications None Admit VTE Documentation VTE Present on Admission: Yes VTE Mechan Device Prophylaxis: SCD's VTE Pharm Prophylaxis ordered?: No Reason prophylaxis not ordered:: Treatment Not Indicated
--- NOTE | 2022-05-27 12:15 | DCINST_ITS ---
Discharge Instructions Diet Discharge Diet: No restrictions Activity Discharge Activity: Return to Normal Activity Dressing / Incision Call your doctor if you observe: Fever of 101 or Higher, Inability to urinate and Inability to have a bowel movement Follow Up Care Please Follow Up With: Annalisa More MD When: Next week in the office for pessary fitting Test Results: Test results from this visit will be discussed in further detail at your follow- up appointment, if applicable. Discharge Plan Admission Attending Provider: Annalisa More Primary Care Provider: Bon Abraham Discharge Orders/Prescriptions Prescriptions: New cephalexin [cephalexin] 500 mg capsule 500 mg PO Q12 3 Days Qty: 6 0RF Continued Adult 50 Plus Probiotic 4 billion cell capsule 4,000 mmu cells PO DAILY Rx Instructions: administer with a meal calcium citrate-vitamin D3 [Citracal + D Maximum] 315 mg- 250 unit tablet 1 tab PO DAILY cholecalciferol (vitamin D3) 125 mcg (5,000 unit) tablet 125 mcg PO DAILY omega-3 fatty acids-fish oil 1 EACH capsule 2 ea PO DAILY Label Comments: SUPPLEMENT phenazopyridine 100 mg tablet 100 mg PO TID PRN (Reason: bladder spasms) Qty: 30 0RF levothyroxine [Synthroid] 75 mcg Tablet 75 mcg PO SUMOTUWETH levothyroxine [Synthroid] 75 mcg Tablet 37.5 mcg PO FRSA vitamin B complex Capsule 1 cap PO DAILY metoprolol succinate 50 mg tablet extended release 24 hr 50 mg PO DAILY Qty: 90 3RF isosorbide mononitrate 30 mg tablet extended release 24 hr 30 mg PO DAILY Qty: 90 3RF Referrals / Follow Up: Bon Abraham MD [Primary Care Provider] - Disposition Disposition (needs filled in before D/C Order can be placed): Home, Self Care
== END 2022-05-27 14:30 | disposition home or self-care (01) ==
LOC: SDC 08:08 → AC 08:08
PROVIDERS: PCP Family Medicine; Referring Provider Urology; Visit Provider Urology
PROC: (CPT 52353; principal; 2022-05-27 09:35)
DX: N13.30 Unspecified hydronephrosis (principal); I48.91 Unspecified atrial fibrillation; E11.9 Type 2 diabetes mellitus without complications; R31.0 Gross hematuria; I10 Essential (primary) hypertension; K21.9 Gastro-esophageal reflux disease without esophagitis; Z95.0 Presence of cardiac pacemaker; E78.00 Pure hypercholesterolemia, unspecified; N39.0 Urinary tract infection, site not specified; N28.9 Disorder of kidney and ureter, unspecified
CPT/HCPCS: 52332; 52351; 00910; 76000; J7120; C2617; J2405

== ENCOUNTER → 2022-06-17 | Outpatient (CLI) | payer MEDICARE, SELFPAY ==
--- NOTE | 2022-06-17 14:52 | US_ITS ---
STUDY: RENAL ULTRASOUND - COMPLETE REASON FOR EXAM: Female, 82 years old hydronephrosis. Bilateral ureteral stents. TECHNIQUE: Ultrasound evaluation of the kidneys was performed with real-time and static steele-scale imaging. COMPARISON: None. FINDINGS: RIGHT KIDNEY: Normal location of the right kidney, which is normal in size. The right kidney measures 8.4 cm. There is a normal cortex of the right kidney. The renal cortex measures 1.0 cm. There is no right renal mass or cyst. There are no right renal calculi. There is mild hydronephrosis of the right kidney. DISTAL RIGHT URETER: There is non-visualization of the distal right ureter. There is no demonstrated right ureterovesical junction calculus. There is no demonstrated right ureteral jet. LEFT KIDNEY: Normal location of the left kidney, which is normal in size. The left kidney measures 8.2 cm. There is a normal cortex of the left kidney. The renal cortex measures 2.8 cm. There is no left renal mass or cyst. There are no left renal calculi. There is no left hydronephrosis. The upper portion of the left ureteral stent is seen in the renal pelvis. DISTAL LEFT URETER: There is non-visualization of the distal left ureter. There is no demonstrated left ureterovesical junction calculus. There is no demonstrated left ureteral jet. BLADDER: The portable distended urinary bladder has a volume of 48 ml. No renal calculi or mass. Ureteral stents are seen within the urinary bladder. US/Kidney and Bladder IMPRESSION: 1. Ureteral stents. 2. Mild right hydronephrosis. 3. Left extrarenal pelvis versus mild hydronephrosis. Electronically Signed: Akira Chapman DO at 21:39 EDT Reading Location ID and State: [id number] Tel [phone], Service support ,
== END | disposition home or self-care (01) ==
PROVIDERS: PCP Family Medicine; Referring Provider Urology; Visit Provider Urology
DX: N13.30 Unspecified hydronephrosis (principal)
CPT/HCPCS: 76770

== ENCOUNTER → 2022-07-15 | Outpatient (CLI) | payer MEDICARE, SELFPAY ==
--- NOTE | 2022-07-15 11:46 | US_ITS ---
STUDY: RENAL ULTRASOUND - COMPLETE REASON FOR EXAM: Female, 82 years old. UTI TECHNIQUE: Ultrasound evaluation of the kidneys was performed with real-time and static steele-scale imaging. COMPARISON: None. FINDINGS: RIGHT KIDNEY: Normal location of the right kidney, which is normal in size. The right kidney measures 8.5 cm in length. There is a normal cortex of the right kidney. . There is mild hydronephrosis of the right kidney. DISTAL RIGHT URETER: There is non-visualization of the distal right ureter. There is no demonstrated right ureterovesical junction calculus. There is a visualized right ureteral jet. LEFT KIDNEY: Normal location of the left kidney, which is normal in size. The left kidney measures 8.5 cm in length. There is a normal cortex of the left kidney. There is no left renal mass or cyst. There are no left renal calculi. There is mild hydronephrosis of the left kidney. DISTAL LEFT URETER: There is non-visualization of the distal left ureter. There is no demonstrated left ureterovesical junction calculus. There is a visualized left ureteral jet. BLADDER: The distended urinary bladder has a volume of 196.1 ml. The empty urinary bladder has a volume of 60.7 ml. There is a normal wall thickness of the distended urinary bladder. There is a focal outpouching within the anterior bladder wall measuring up to 8.8 mm which appears to be a diverticulum. There is no demonstrated mass within the urinary bladder. There are no demonstrated bladder calculi. There is a shadowing echogenic focus posterior to the uterus which may better reflect uterine calcifications. There is fluid within the endometrial cavity. US/Kidney and Bladder IMPRESSION: Bilateral mild hydronephrosis. Fluid within the endometrial cavity, may be secondary to cervical stenosis. Electronically Signed: Danae Disla MD at 8:11 EDT ,
== END | disposition home or self-care (01) ==
PROVIDERS: PCP Family Medicine; Referring Provider Urology; Visit Provider Urology
DX: N39.0 Urinary tract infection, site not specified (principal)
CPT/HCPCS: 76770

== ENCOUNTER → 2022-08-04 | Outpatient (CLI) | payer MEDICARE, SELFPAY ==
--- NOTE | 2022-08-04 12:20 | CDU_ITS ---
Reason For Study: Lt Carotid Bruit Rt. Velocities/BP Lt. Velocities/BP Prox CCA 78/9 cm/sec. Prox CCA 97/17 cm/sec. Mid CCA 79/10 cm/sec. Mid CCA 84/19 cm/sec. Dist CCA 47/6 cm/sec. Dist CCA 81/15 cm/sec. Prox ICA 57/12 cm/sec. Prox ICA 51/12 cm/sec. Mid ICA 117/21 cm/sec. Mid ICA 69/20 cm/sec. Dist ICA 125/27 cm/sec. Dist ICA 80/23 cm/sec. Rt. ICA/CCA = 1.6. Lt. ICA/CCA = 0.9. Prox ECA 74 cm/sec. Prox ECA 91 cm/sec. Rt. Vert. 75/15 cm/sec. Lt. Vert. 41/9 cm/sec. Right Extracranial There is intimal thickening but no significant atherosclerotic plaque noted in the right common carotid artery. There is heterogeneous, irregular atherosclerotic plaque noted in the right internal carotid artery. The right internal carotid artery is very tortuous. There is intimal thickening but no significant atherosclerotic plaque noted in the right external carotid artery. Antegrade flow is noted in the right vertebral artery. Left Extracranial There is heterogeneous, smooth atherosclerotic plaque noted in the left common carotid artery. There is intimal thickening but no significant atherosclerotic plaque noted in the left internal carotid artery. The left internal carotid artery is very tortuous. There is heterogeneous, irregular atherosclerotic plaque noted in the left external carotid artery. Antegrade flow is noted in the left vertebral artery. Procedure Carotid Duplex [id number]. This is a Carotid Duplex examination using B-mode, color flow and specral Doppler. Exam performed in department. VL/Carotid Duplex Ultrasound Interpretation Summary Moderate (50-69%) stenosis right extracranial internal carotid. Normal left extracranial internal carotid. Patent and antegrade vertebrals bilaterally. Ordering Physician: Savana Leon Referring Physician: Bon Abraham Performed By: Kristin Moreno, SAYRA, RVT
== END | disposition home or self-care (01) ==
PROVIDERS: PCP Family Medicine; Referring Provider Physician Assistant Medical; Visit Provider Physician Assistant Medical
DX: R42 Dizziness and giddiness (principal)
CPT/HCPCS: 93880

== ENCOUNTER → 2022-09-22 | Outpatient (CLI) | payer MEDICARE, SELFPAY ==
[2022-09-22 13:10] LABS: Vitamin D,25 Hydroxy 38.7 ng/mL
[2022-09-22 13:20] LABS: ALB/GLOB Ratio 0.9 RATIO (0.9-2.4); AST(SGOT) 16 U/L (15-37); Alanine Aminotransfer ALT/SGPT 20 U/L (13-56); Albumin, Serum 3.6 g/dL (3.2-5.0); Alkaline Phosphatase 89 U/L (45-117); Anion Gap 8 (5-15); BUN 19 mg/dL (7-18); BUN/Creat Ratio 19.4 RATIO (10-20); Calcium,Total 9.8 mg/dL (8.5-10.1); Chloride 104 mmol/L (98-107); Creatinine, Serum 0.98 mg/dL (0.55-1.02); EST Glomerular Filtration Rate 58 mL/min (>60); Est Glom Filt Rate - Afr Amer 70 mL/min (>60); Globulin 4.2 g/dL (2.2-4.2); Glucose 96 mg/dL (74-106); Potassium 3.7 mmol/L (3.5-5.1); Protein, Total 7.8 g/dL (6.4-8.2); Sodium Level 140 mmol/L (136-145); T4 Free Direct 1.23 ng/dL (0.76-1.46); Thyroid Stim Hormone (TSH) 2.32 uIU/mL (0.358-3.74)
== END | disposition home or self-care (01) ==
LOC: BFHLAB 10:47
PROVIDERS: PCP Family Medicine; Visit Provider Family Medicine
DX: E03.9 Hypothyroidism, unspecified (principal); E55.9 Vitamin D deficiency, unspecified; R73.01 Impaired fasting glucose; N18.9 Chronic kidney disease, unspecified
CPT/HCPCS: 36415; 80053; 82306; 84439; 84443

== ENCOUNTER → 2022-10-21 | Outpatient (CLI) | payer MEDICARE, SELFPAY ==
[2022-10-21 15:15] LABS: Absolute Lymphocyte Count 1.76 X10^3/uL (0.83-4.51); Absolute Neutrophil Count 2.9 X10^3/uL (2.0-7.7); Basophil# 0.05 X10^3/uL; Basophil% 0.9 % (0-1); Eosinophil# 0.33 X10^3/uL; Eosinophils% 5.9 % (0-5); Hematocrit 40.1 % (37-47); Hemoglobin 12.7 g/dL (12.0-15.0); Lymphocyte # 1.76 X10^3/ul (0.83-4.51); Lymphocyte % 31.5 % (19-41); Mean Corp Hgb Conc 31.7 g/dL (32-36); Mean Corpuscular Hgb 28.7 pg (27.0-32.0); Mean Corpuscular Volume 90.5 fL (81-99); Mean Platelet Vol. 10.6 fl (6.2-12.0); Monocyte# 0.57 X10^3/uL; Monocyte% 10.2 % (0-10); NRBC Flagged by Analyzer 0 % (0-5); Neutrophil # 2.87 X10^3/uL (2.7-7.7); Neutrophil % 51.3 % (47-70); Platelet Count 252 K/mm3 (150-450); RBC Distribution Width CV 14.1 % (11.6-14.6); RBC Distribution Width SD 46.8 fl (35.1-43.9); Red Blood Count 4.43 M/mm3 (4.2-5.4); White Blood Count 5.6 K/mm3 (4.4-11.0)
[2022-10-21 16:14] LABS: Vitamin B12 329 pg/mL (211-911)
== END | disposition home or self-care (01) ==
PROVIDERS: PCP Family Medicine; Visit Provider Family Medicine
DX: F01.50 Vascular dementia, unspecified severity, without behavioral disturbance, psychotic disturbance, mood disturbance, and anxiety (principal)
CPT/HCPCS: 36415; 82607; 85025

== ENCOUNTER → 2022-10-28 | Outpatient (CLI) | payer MEDICARE, SELFPAY ==
--- NOTE | 2022-10-28 10:48 | ECHOD_ITS ---
Reason For Study: ASHD Procedure This was a 2D Doppler, Color Flow transthoracic echocardiogram. The exam was of adequate technical quality. Exam performed in department. Left Ventricle Normal size and thickness. Left ventricular systolic function is normal. The estimated ejection fraction is 65 %. Diastolic function is indeterminate. No regional wall motion abnormalities noted. Right Ventricle Normal RV size. ICD or pacer leads identified within the right ventricle. Normal systolic function. Atria The left atrium is mildly enlarged. Normal right atrium. ICD or pacer leads identified within the right atrium. No doppler evidence for ASD. Mitral Valve There is no mitral annular calcification. Normal mitral valve. Mild-Moderate (1-2+) mitral valve insufficiency. Tricuspid Valve Normal tricuspid valve. Mild tricuspid valve insufficiency. Right ventricular systolic pressure estimated to be 29 mmHg. Aortic Valve Trisinus/trileaflet aortic valve. Mild diffuse aortic valve thickening. Moderate focal aortic valve calcification. Mild aortic stenosis. Trivial aortic valve insufficiency. Pulmonic Valve The pulmonic valve is not well visualized. Trivial pulmonic valve insufficiency. Great Vessels Normal sized aortic root. Pericardium/Pleural No pericardial effusion. MMode/2D Measurements & Calculations LVIDd: 4.3 cm IVSd: 1.1 cm LVOT diam: 2.0 cm LVIDs: 2.9 cm LVPWd: 1.1 cm LVOT area: 3.1 cm2 RVDd: 3.1 cm FS: 33.0 % Ao root diam: 3.5 cm LAV(MOD-bp): 57.1 ml LVAd ap4: 16.1 cm2 LAV(MOD-bp) Indexed: 37.2 ml/m2 LVLd ap4: 6.5 cm LAV(MOD-sp2): 51.1 ml EDV(MOD-sp4): 34.4 ml LAV(MOD-sp4): 56.7 ml EDV(sp4-el): 34.0 ml LVAs ap4: 9.4 cm2 LVLs ap4: 5.9 cm ESV(MOD-sp4): 13.6 ml ESV(sp4-el): 12.7 ml EF(MOD-sp4): 60.3 % EF(sp4-el): 62.5 % LVAd ap2: 12.9 cm2 SV(MOD-sp4): 20.8 ml SV(MOD-sp2): 15.2 ml LVLd ap2: 6.3 cm EDV(MOD-sp2): 22.9 ml EDV(sp2-el): 22.3 ml LVAs ap2: 6.4 cm2 LVLs ap2: 5.4 cm ESV(MOD-sp2): 7.7 ml ESV(sp2-el): 6.4 ml EF(MOD-sp2): 66.3 % SV(sp4-el): 21.2 ml LA dimension(2D): 3.4 cm LA A4 area: 20.0 cm2 RA A4 area: 12.8 cm2 Time Measurements MV dec time: 0.24 sec Doppler Measurements & Calculations MV E max viraj: 53.4 cm/sec Lat Peak E' Viraj: 5.9 cm/sec Med Peak E' Viraj: 5.5 cm/sec MV A max viraj: 69.0 cm/sec E/E' lat: 9.1 E/E' med: 9.7 MV E/A: 0.77 Ao V2 max: 134.5 cm/sec LV V1 max: 73.9 cm/sec MV dec slope: 229.4 cm/sec2 Ao max P.2 mmHg LV V1 max P.2 mmHg Ao V2 mean: 93.8 cm/sec LV V1 mean P.1 mmHg Ao mean P.0 mmHg LV V1 mean: 48.8 cm/sec Ao V2 VTI: 34.8 cm LV V1 VTI: 18.5 cm AV (velocity ratio): 0.53 LARISA(I,D): 1.6 cm2 LARISA(V,D): 1.7 cm2 SV(LVOT): 56.7 ml PA V2 max: 75.7 cm/sec TR max viraj: 253.2 cm/sec TR max P.7 mmHg ECHO/Echo Complete Interpretation Summary Left ventricular systolic function is normal. The estimated ejection fraction is 65 %. The left atrium is mildly enlarged. Mild-Moderate (1-2+) mitral valve insufficiency. Mild tricuspid valve insufficiency. Mild aortic stenosis. Trivial aortic valve insufficiency. Trivial pulmonic valve insufficiency. Right ventricular systolic pressure estimated to be 29 mmHg. Diastolic function is indeterminate. Ordering Physician: Marcus Malhotra Referring Physician: Hellen Elam Performed By: Polly Booth, SAYRA, RVT
== END | disposition home or self-care (01) ==
PROVIDERS: PCP Family Medicine; Visit Provider Internal Medicine Cardiovascular Disease
DX: I25.10 Atherosclerotic heart disease of native coronary artery without angina pectoris (principal); I48.11 Longstanding persistent atrial fibrillation; I49.5 Sick sinus syndrome; Z95.5 Presence of coronary angioplasty implant and graft; E78.00 Pure hypercholesterolemia, unspecified; Z95.0 Presence of cardiac pacemaker; I05.9 Rheumatic mitral valve disease, unspecified; I35.0 Nonrheumatic aortic (valve) stenosis
CPT/HCPCS: 93306

== ENCOUNTER 2022-11-22 11:04 | Day surgery (SDC) | payer MEDICARE, SELFPAY ==
--- NOTE | 2022-11-18 11:22 | RAD_ITS ---
EXAM: XR CHEST, 2 VIEWS CLINICAL INDICATION: for PPM generator change TECHNIQUE: Frontal and lateral views of the chest. This report was created using [employer] report generation technology. COMPARISON: 06/27/2018. FINDINGS: LUNGS AND PLEURAL SPACES: Emphysema. No pneumothorax. No effusion. HEART: Unremarkable. Cardiac silhouette not enlarged. MEDIASTINUM: Central airways and mediastinal contour are unremarkable. BONES/JOINTS: Unremarkable. SOFT TISSUES: Unremarkable. TUBES, LINES AND DEVICES: No change pacemaker. RAD/Chest PA and Lateral IMPRESSION: 1. No change pacemaker. 2. Emphysema. No acute abnormality. Electronically Signed: Tony Carbajal MD at 2:04 EST ,
[2022-11-18 12:36] LABS: Hematocrit 40.2 % (37-47); Mean Corp Hgb Conc 32.3 g/dL (32-36); Mean Corpuscular Hgb 29.4 pg (27.0-32.0); Mean Platelet Vol. 10.6 fl (6.2-12.0); Platelet Count 237 K/mm3 (150-450); RBC Distribution Width SD 46.3 fl (35.1-43.9); Red Blood Count 4.42 M/mm3 (4.2-5.4); White Blood Count 5.6 K/mm3 (4.4-11.0)
[2022-11-18 12:46] LABS: Color, Urine Yellow (Yellow); Glucose, Dipstick Normal (Normal); Ketone-Dipstick 5 mg/dl (Negative); Leukocyte Esterase-Dipstick 500 /ul (Negative); Nitrite-Dipstick Positive (Negative); Occult Blood-Urine 25 /ul (Negative); Protein-Dipstick 30 mg/dl (Negative); Urine Bilirubin Dipstick 1 mg/dL (Negative); Urine Clarity Cloudy (Clear); Urine Urobilinogen Normal (Normal)
[2022-11-18 12:47] LABS: International Normalized Ratio 1.3; Prothrombin Time (Protime)PT. 15.8 SECONDS (11.7-14.9)
[2022-11-18 12:57] LABS: Bacteria 4+ /hpf (None Seen); Mucous, Urine 1+ /hpf (<or=2+); Red Blood Cells-Urine 0-5 SEEN /hpf (0-5); Squamous Epithelial Cells - UA 0-5 SEEN /hpf (5-10); White Blood Cells 50-100 SEEN /hpf (0-5)
[2022-11-18 13:13] LABS: Anion Gap 6 (5-15); BUN 20 mg/dL (7-18); BUN/Creat Ratio 18.7 RATIO (10-20); Calcium,Total 9.8 mg/dL (8.5-10.1); Chloride 107 mmol/L (98-107); Creatinine, Serum 1.07 mg/dL (0.55-1.02); EST Glomerular Filtration Rate 52 mL/min (>60); Est Glom Filt Rate - Afr Amer 63 mL/min (>60); Glucose 99 mg/dL (74-106); Potassium 3.6 mmol/L (3.5-5.1); Sodium Level 143 mmol/L (136-145)
--- NOTE | 2022-11-22 11:30 | HP_ITS ---
HPI HPI History of Present Illness Surgical H&P: Yes Details: ARNIE COKER, is a 82 F who presents to the office today for a cardiovascular outpatient follow-up visit. She has a history of coronary artery disease status post stenting to her LAD in January 2007,atrial fibrillation/flutter, SSS, s/p PPM placement (approaching LORI), valvular heart disease / aortic valve stenosis and mitral valve disorder, hyperlipidemia, and hypertension. At present time she presents in her wheelchair for further evaluation. Her daughter is with her. She states that she is becoming more forgetful over time. She did have her carotid artery duplex study performed on 08-04-2022. Per the report she had moderate stenosis in the right extracranial internal carotid. There was a normal left extracranial internal carotid. The vertebrals were reported as patent. Her device has reached LORI. She will be undergoing a generator change on 11/22/[address]amontes. From a cardiac standpoint, the patient is doing well. She denies any palpitations, chest pain, pressure or heaviness. She denies SOB, Orthopnea, and PND. She does not have bleeding issues; no blood in urine, stool or nosebleeds. She denies any decrease in energy level, myalgias, or claudication. She does not have edema, or sudden weight gain. She does have an occasional dizziness/lightheadedness. She denies syncopal or near syncopal episodes, and headaches. 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 Required: No Accompanied by: Daughter Is patient in pain?: No Allergies Penicillins Allergy (Verified 11/18/22 10:40) Hives Zbxpcie-VHH-CxR Reductase Inhibitor [Csxgwhk-Nny-Psg Reductase Inhibitor] Adverse Reaction (Intermediate, Verified 11/18/22 10:40) myalgias Medications calcium citrate 315 mg calcium-vitamin D3 6.25 mcg (250 unit) tablet (Citracal + Vitamin D Maximum) 1 tab PO DAILY 12/21/19 [History Confirmed 11/18/22] lactobacillus combination no.9 4 billion cell capsule (Adult 50 Plus Probiotic) 4,000 mmu cells PO DAILY 12/21/19 [History Confirmed 11/18/22] metoprolol succinate 50 mg tablet,extended release 24 hr 50 mg PO DAILY #90 tabs 08/28/20 [Rx Confirmed 11/18/22] cholecalciferol (vitamin D3) 125 mcg (5,000 unit) tablet 125 mcg PO DAILY 03/18/22 [History Confirmed 11/18/22] levothyroxine 75 mcg tablet (Synthroid) 37.5 mcg PO FRSA 05/25/22 [History Confirmed 11/18/22] levothyroxine 75 mcg tablet (Synthroid) 75 mcg PO SUMOTUWETH 05/25/22 [History Confirmed 11/18/22] vitamin B complex 1 cap PO DAILY 05/25/22 [History Confirmed 11/18/22] apixaban 2.5 mg tablet (Eliquis) 2.5 mg PO BID #60 tabs 07/01/22 [Rx Confirmed 11/18/22] omega-3 fatty acids 1,000 mg capsule 5,000 mg PO DAILY 07/01/22 [History Confirmed 11/18/22] phenazopyridine 100 mg tablet 100 mg PO TID PRN bladder spasms 10/15/22 [History Confirmed 11/18/22] PFS Medical History Atherosclerotic heart disease of [place] coronary artery without angina pectoris Atrial fibrillation Cardiology follow-up encounter Diabetes mellitus type 2, controlled Essential hypertension Forgetfulness Gross hematuria History of echocardiogram History of left heart catheterization (08/16/06) History of stress test History of transient ischemic attack (TIA) Hydronephrosis Irritable bowel syndrome (IBS) Longstanding persistent atrial fibrillation Mitral valve disorder Occlusion and stenosis of carotid 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 Paroxysmal atrial fibrillation Poor historian Presence of cardiac pacemaker Presence of stent in coronary artery (~01/25/07) Pure hypercholesterolemia Renal insufficiency Sick sinus syndrome Stenosis of right carotid artery Thyroid disease UTI (urinary tract infection) Walker as ambulation aid Wears glasses Surgical History History of cystoscopy History of percutaneous transluminal coronary angioplasty (08/16/06) History of permanent cardiac pacemaker placement (~03/2015) Presence of coronary angioplasty implant and graft (~01/25/07) Family History Father , Age 72 Diabetes Myocardial infarction Mother CAD (coronary artery disease) Diabetes Hypertension Brother CAD (coronary artery disease) COPD (chronic obstructive pulmonary disease) Primary pulmonary fibrosis Brother Kidney disease Brother CAD (coronary artery disease) Sister Cancer Sister CVA (cerebral vascular accident) Social History Smoking Status: Never smoker alcohol intake: never substance use type: does not use caffeine: No ROS Const Const: Negative for fatigue, weakness, headache(s), frequent falls, night sweats, daytime sleepiness, difficulty sleeping or excessive sweating Eyes Eyes: Negative for change in vision ( ) ENT ENT: Positive for dizziness (Intermittent. Daily. ) and balance problems (Uses walker); Negative for headache(s) Cardio Chest Pain: No Palpitations: No Edema: None Muscle aches with walking: None Resp Respiratory: Negative for SOB with activity, SOB at rest, SOB orthopnea\SOB lying down or Cough GI GI: Negative nausea, vomiting, heartburn or black,tarry stools : Negative for hematuria or frequent nighttime urination/ nocturia Musc Musc: Positive for joint pain (B/l hip and knee) and balance problems (Uses walker); Negative for muscle aches/ myalgia or muscle weakness Skin Skin: Negative non-healing lesions or rash Neuro Neuro: Positive for dizziness (Intermittent. Daily. ) and lightheadedness (Intermittent. Daily. ); Negative for near syncope, syncope, frequent falls, headache(s) or weakness Carlos Hematologic/Lymphatic: Negative for easy bleeding or easy bruising Endo Endo: Negative for fatigue or excessive sweating Psych Psych: Positive for depression (Slightly per daughter.); Negative for anxiety Allergy Allergy/Immunology: Negative for rash Cardiology Exam Const Appearance: cooperative, healthy appearing, comfortable, no acute distress, well developed, well groomed and other (examined in the wheelchair) Nutritional Appearance: thin Orientation: alert, awake and oriented x3 Head Head: normal to inspection, normocephalic and atraumatic Ears: hearing grossly normal bilaterally Nose: external nose normal Face and Sinus: face symmetric Eyes Eyelids: eyelids normal Conjunctivae: conjunctivae normal Pupils: PERRL EOM: EOM intact bilaterally Neck Neck: normal visual inspection and full ROM Carotids: normal carotid upstroke Chest Chest inspection: normal inspection of the chest, symmetric chest movement and normal respiratory effort Auscultation: Bilateral: Clear to Auscultation Cardio Palpation: normal PMI Rate: regular rate Rhythm: irregular rhythm Heart sounds: S1 normal and S2 normal GI GI: normal to inspection Neuro General: patient alert, patient awake, patient oriented x3 and moves all extremities Skin Skin: no rashes or lesions noted Extremities Pulses: Normal: Right Radial Pulse and Left Radial Pulse Lower Extremity Edema: None: Bilateral Psych Psychological: normal affect Supplemental Info Supplemental Information Echocardiogram 10/28/2022: Interpretation Summary Left ventricular systolic function is normal. The estimated ejection fraction is 65 %. The left atrium is mildly enlarged. Mild-Moderate (1-2+) mitral valve insufficiency. Mild tricuspid valve insufficiency. Mild aortic stenosis. Trivial aortic valve insufficiency. Trivial pulmonic valve insufficiency. Right ventricular systolic pressure estimated to be 29 mmHg. Diastolic function is indeterminate. Echocardiogram: 01-16-2019 Interpretation Summary Left ventricular systolic function is normal. The estimated ejection fraction is 60 %. The left atrium is severely enlarged. The right atrium is mildly enlarged. Moderate (2+) mitral valve insufficiency. Moderate (2+) tricuspid valve insufficiency. Mild aortic stenosis. Trivial aortic valve insufficiency. Trivial pulmonic valve insufficiency. Trivial pericardial effusion. There are no echocardiographic indications of cardiac tamponade. Right ventricular systolic pressure estimated to be 28 mmHg. Unable to assess diastolic dysfunction. Nuclear stress test from 06/27/18: Impression: 1. Pharmacologic (Regadenoson) evaluation 2. Peak pharmacologic ECG with continued atrial fibrillation/flutter with no obvious ECG changes. 3. There were occasional PVCs pretest and during recovery 4. Nuclear images pending Impression: 1. Rest and stress SPECT Cardiolite nuclear imaging demonstrate at rest the appearance of extracardiac/gastrointestinal tracer uptake near the inferior segments, otherwise, there appears to be relative uniform tracer uptake at rest and stress with no myocardial perfusion changes considered diagnostic for stress-induced myocardial ischemia. 2. The gated Cardiolite study reports an LVEF of 83 %. Carotid duplex ultrasound from 12/27/17: Interpretation Summary No significant atherosclerotic plaque or stenosis noted in the internal carotid arteries bilaterally. Flow within the vertebral arteries is antegrade bilaterally. Carotid artery duplex study: 08-04-2022 Moderate (50-69%) stenosis right extracranial internal carotid Normal left extracranial internal carotid Patent and antegrade vertebrals bilaterally Heart catheterization from May 2011: Showed ejection fraction 65%, left main as angiographically normal, proximal LAD with minimal luminal irregularities, proximal LAD stent as patent with diffuse minimal luminal irregularities, LCx with the proximal 25% stenosis, and RCA that was a large dominant vessel with proximal to mid diffuse minimal luminal irregularities. Labs: LDL Cholesterol 243 mg/dL (0-130) H HDL Cholesterol 57 mg/dL (40-) Triglycerides 112 mg/dL (-199) VLDL Cholesterol 22 mg/dL (5-40) Diagnostics: Electrocardiogram Cardiac Tilt Table Test Echocardiogram Stress Echocardiogram Stress Test NM Stress Test Pacemaker Check Chest X-Ray Venous Doppler Study Pulmonary: Pulmonary Function Test Assessment and Plan Assessment and Plan (1) Presence of stent in coronary artery: Status: Chronic Comment: PCI/Stent to mid LAD 01/25/07 Plan: Patient has a history of coronary artery disease with stent placement to her mid LAD in 2006. Her most recent stress test from 06/2018 was negative for ischemia. She appears stable at this time, and denies any recent symptoms or events. She will continue with her current medical therapy, along with aggressive risk factor and lifestyle modifications. (2) Longstanding persistent atrial fibrillation: Status: Chronic Plan: Patient has a history of longstanding persistent atrial fibrillation. She will continue metoprolol succinate 50 mg daily, and apixaban 2.5 mg twice daily. She will continue to monitor for any concerning symptoms of atrial fibrillation. (3) Sick sinus syndrome: Status: Chronic Plan: Patient has a history of sick sinus syndrome. She does have a permanent cardiac pacemaker for this. (4) Presence of cardiac pacemaker: Status: Chronic Plan: Patient's pacemaker has reached LORI. She will undergo generator change on 11/22/[address] Viramontes. (5) Aortic valve stenosis, nonrheumatic: Status: Acute Plan: Patient has a history of nonrheumatic aortic valve stenosis. Her most recent echocardiogram from 10/28/2022 demonstrated mild aortic valve stenosis. She appears stable at this time. We will continue to monitor this with history, exam, and echocardiograms as deemed appropriate. (6) Mitral valve disorder: Status: Chronic Plan: Patient has a history of mitral valve disorder. Her most recent echocardiogram from 10/28/2022 demonstrated mild to moderate 1-2+ mitral valve insufficiency. She appears stable at this time. We will continue to monitor this with history, exam, and echocardiograms as deemed appropriate. (7) Pure hypercholesterolemia: Status: Chronic Plan: Patient has a history of hypercholesterolemia. Her PCP monitors this. A copy of her lipid labs will be appreciated for continuity of care. Orders: Orders 12 Lead EKG performed by [facility] Today I48.2 - Chronic atrial fibrillation Plan Details Additional Comments: Patient will follow up in 3 months, or sooner if needed. Thank you for allowing me to participate in the care of your patient. Please don't hesitate to call if any issues arise. This note was generated using a voice recognition system and there may be incorrect words, spelling, or punctuation that were not noted when reviewing the office note prior to saving. Portions of this documentation were copied and pasted from previous office visit notes to provide a cohesive continuity of the history. The note has been reviewed, edited, and updated, as necessary. Follow Up: Keep as is (KR) COVID (Procedure Consent) Procedure Criteria Procedure Criteria: Yes Elective The surgeon/proceduralist and patient have discussed in detail the risk of exposure to and/or potential harm posed by the COVID-19 virus with having a surgery/procedure at this time versus the risk of? delaying the surgery/procedure. It is not possible to know either the risk of delaying the surgery or procedure or chance of getting an infection with perfect accuracy, but a joint decision was made between the patient and the surgeon/proceduralist ?to proceed at this time with the scheduled surgery/procedure as indicated on the consent form. Coding Level of Care Code Off vis,est,level 4 Diagnoses Presence of stent in coronary artery Z95.5 Longstanding persistent atrial fibrillation I48.11 Sick sinus syndrome I49.5 Presence of cardiac pacemaker Z95.0 Aortic valve stenosis, nonrheumatic I35.0 Mitral valve disorder I05.9 Pure hypercholesterolemia E78.00 Coding Level of Care Code Off vis,est,level 4 Diagnoses Presence of stent in coronary artery Z95.5 Longstanding persistent atrial fibrillation I48.11 Sick sinus syndrome I49.5 Presence of cardiac pacemaker Z95.0 Aortic valve stenosis, nonrheumatic I35.0 Mitral valve disorder I05.9 Pure hypercholesterolemia E78.00
--- NOTE | 2022-11-22 13:44 | CL.IE_ITS ---
Patient: ARNIE COKER Study Date: 11/22/2022 Performing: Antonio Viramontes MD : 1940 Age: 82 Gender: female PROCEDURES PERFORMED LP07-([id number])BATTERY REMOVAL+REPLACEMENT PACER-DUAL LEAD INDICATIONS Sinoatrial node dysfunction/Sick sinus syndrome PROCEDURE DETAILS The patient was brought to the Catheterization Lab in the postabsorptive nonsedated state. Informed consent was obtained prior to the procedure. Local anesthetic was given subcutaneously to the left subclavian region with Lidocaine 2%. Incision was made to the left subclavicular area. PPM generator was then interrogated by the head of advertising. PPM generator was attached to the lead(s) and inserted into the pocket. Device pocket was irrigated with antibiotic. Subcutaneous closure was completed with 3-0 Vicryl. Skin closure was completed with 4-0 Vicryl. Steri-strips applied to left subclavicular incision. Instrument, sponge, and needle counts were noted to be normal. The patient tolerated the procedure well. Estimated Blood Loss: 15 ml's IMPLANTED / EX-PLANTED DEVICES IMPLANTED DEVICE(S): PPM Generator - [employer]: [employer], Model # [employer] DR Model L111 , Serial # [id number] DEVICE PARAMETERS DEVICE PARAMETERS: Mode- DDDR Lower rate- 60 Upper rate- 120 CONCLUSIONS / RECOMMENDATIONS Device Conclusions: Successful implantation of a dual chamber pacemaker battery change and replacement Device Recommendations: Follow up with Primary Care Physician PROCEDURE MEDICATIONS Versed 1 mg IV Oxygen: 2 L/min via nasal cannula Antibiotic given in appropriate timeframe. Clindamycin 900 mg IV 11/22/2022 13:00:14 Signed By Antonio Viramontes MD On 11/22/2022 13:44:10 Antonio Viramontes MD
== END 2022-11-22 14:40 | disposition home or self-care (01) ==
LOC: CLSP 11:05
PROVIDERS: Nurse Practitioner Gerontology; PCP Family Medicine; Referring Provider Internal Medicine Cardiovascular Disease; Visit Provider Internal Medicine Cardiovascular Disease
DX: I48.11 Longstanding persistent atrial fibrillation (principal); I49.5 Sick sinus syndrome; E11.9 Type 2 diabetes mellitus without complications; Z95.5 Presence of coronary angioplasty implant and graft; E78.00 Pure hypercholesterolemia, unspecified; I08.0 Rheumatic disorders of both mitral and aortic valves; I25.10 Atherosclerotic heart disease of native coronary artery without angina pectoris; I49.3 Ventricular premature depolarization; Z95.0 Presence of cardiac pacemaker; E07.9 Disorder of thyroid, unspecified; I10 Essential (primary) hypertension
CPT/HCPCS: 33228; 36415; 71046; 80048; 81001; 85027; 85610; 99152; 99153; J7050

== ENCOUNTER → 2023-01-27 | Outpatient (CLI) | payer MEDICARE, SELFPAY ==
[2023-01-27 12:51] LABS: Absolute Lymphocyte Count 1.59 X10^3/uL (0.83-4.51); Basophil# 0.03 X10^3/uL; Basophil% 0.6 % (0-1); Eosinophil# 0.23 X10^3/uL; Eosinophils% 4.4 % (0-5); Hematocrit 39.4 % (37-47); Hemoglobin 12.5 g/dL (12.0-15.0); Lymphocyte # 1.59 X10^3/ul (0.83-4.51); Lymphocyte % 30.3 % (19-41); Mean Corp Hgb Conc 31.7 g/dL (32-36); Mean Corpuscular Hgb 29.2 pg (27.0-32.0); Mean Corpuscular Volume 92.1 fL (81-99); Mean Platelet Vol. 10.5 fl (6.2-12.0); Monocyte# 0.41 X10^3/uL; Monocyte% 7.8 % (0-10); NRBC Flagged by Analyzer 0 % (0-5); Neutrophil # 2.95 X10^3/uL (2.7-7.7); Neutrophil % 56.3 % (47-70); Platelet Count 259 K/mm3 (150-450); RBC Distribution Width CV 13.7 % (11.6-14.6); RBC Distribution Width SD 45.8 fl (35.1-43.9); Red Blood Count 4.28 M/mm3 (4.2-5.4); White Blood Count 5.2 K/mm3 (4.4-11.0)
[2023-01-27 13:34] LABS: Anion Gap 1 (5-15); BUN 21 mg/dL (7-18); BUN/Creat Ratio 22.7 RATIO (10-20); Calcium,Total 9.5 mg/dL (8.5-10.1); Chloride 109 mmol/L (98-107); Creatinine, Serum 0.93 mg/dL (0.55-1.02); EST Glomerular Filtration Rate 62 mL/min (>60); Est Glom Filt Rate - Afr Amer 75 mL/min (>60); Glucose 106 mg/dL (74-106); Potassium 3.7 mmol/L (3.5-5.1); Sodium Level 140 mmol/L (136-145); Thyroid Stim Hormone (TSH) 1.28 uIU/mL (0.358-3.74)
== END | disposition home or self-care (01) ==
LOC: LAB 11:53
PROVIDERS: PCP Family Medicine; Referring Provider Nurse Practitioner Gerontology; Visit Provider Nurse Practitioner Gerontology
DX: R42 Dizziness and giddiness (principal); R53.83 Other fatigue
CPT/HCPCS: 36415; 80048; 84443; 85025

== ENCOUNTER → 2023-05-05 | Outpatient (CLI) | payer MEDICARE, SELFPAY | END | disposition home or self-care (01) | LOC: LABSPEC 09:03 | PROVIDERS: PCP Nurse Practitioner Family; Referring Provider Nurse Practitioner Family; Visit Provider Nurse Practitioner Family | DX: N39.0 Urinary tract infection, site not specified (principal) | CPT/HCPCS: 87077; 87086; 87088; 87186 ==

== ENCOUNTER → 2023-05-26 | Outpatient (CLI) | payer MEDICARE, SELFPAY ==
--- NOTE | 2023-05-26 14:56 | US_ITS ---
INDICATION: HYDRONEPHROSIS abnormal uterine bleeding. EXAMINATION: Ultrasound US Pelvis Non-OB Complete TECHNIQUE: Transabdominal pelvic ultrasound was performed. Grayscale, spectral waveform, and color flow Doppler evaluation of the adnexa. COMPARISON: FINDINGS: UTERUS: 5.9 cm length. Mildly heterogeneous. No definite fibroids. ENDOMETRIUM: Not thickened. 1.0 cm. Small amount of fluid distending the endometrial canal. OVARIES: Not visualized. Bowel gas in the region limits evaluation. FREE FLUID: None. US/Pelvic (Non ) IMPRESSION: Fluid distended endometrial canal. Nonspecific abnormal in a postmenopausal patient. No significant endometrial thickening. Nonvisualized ovaries. Electronically Signed: Natacha López MD at 0:07 EDT ,
--- NOTE | 2023-05-26 14:56 | US_ITS ---
STUDY: RENAL ULTRASOUND - COMPLETE REASON FOR EXAM: Female, 83 years old. HYDRONEPHROSIS TECHNIQUE: Ultrasound evaluation of the kidneys was performed with real-time and static steele-scale imaging. COMPARISON: None. FINDINGS: RIGHT KIDNEY: Normal location of the right kidney, which is normal in size. The right kidney measures 9.8 x 3.5 x 4.5 cm. There is a normal cortex of the right kidney. The renal cortex measures 1.9 cm. There is no right renal mass or cyst. There are no right renal calculi. There is no right hydronephrosis. DISTAL RIGHT URETER: There is non-visualization of the distal right ureter. There is no demonstrated right ureterovesical junction calculus. There is a visualized right ureteral jet. LEFT KIDNEY: Normal location of the left kidney, which is normal in size. The left kidney measures 9.9 x 3.7 x 4.7 cm. There is a normal cortex of the left kidney. The renal cortex measures 1 cm. There is no left renal mass or cyst. There are no left renal calculi. Mild left renal pelvocaliectasis and prominent extrarenal pelvis. DISTAL LEFT URETER: There is non-visualization of the distal left ureter. There is no demonstrated left ureterovesical junction calculus. There is a visualized left ureteral jet. Diffusely increased cortical echoes and prominence of renal pyramids which may be nonspecific renal parenchymal disease . BLADDER: The distended urinary bladder has a volume of 82.12 ml. There is a normal wall thickness of the distended urinary bladder. There is no demonstrated mass within the urinary bladder. There are no demonstrated bladder calculi. US/Kidney and Bladder IMPRESSION: Findings suggestive of nonspecific renal parenchymal disease.. Clinical correlation recommended Mild left renal pelvocaliectasis and prominent extrarenal pelvis Electronically Signed: Umesh Wilkinson MD at 22:25 EDT ,
== END | disposition home or self-care (01) ==
LOC: US 14:55
PROVIDERS: PCP Nurse Practitioner Family; Referring Provider Urology; Visit Provider Urology
DX: R33.9 Retention of urine, unspecified (principal); N13.30 Unspecified hydronephrosis; N93.9 Abnormal uterine and vaginal bleeding, unspecified
CPT/HCPCS: 76770; 76856

== ENCOUNTER → 2023-06-22 | Outpatient (CLI) | payer MEDICARE, SELFPAY ==
--- NOTE | 2023-06-22 | EMB_PTH ---
PATIENT: ARNIE COKER LOC: [facility] U#:[id number] AGE/SX: 83/F ROOM: RE06/22/[address]: MICKEY Higgins : 1940 BED: DIS: 06/22/2023 SPEC #: [id number] RECD: 06/22/23 15:02 STATUS: CAROLINA JULIÁN #: [id number] ASHWIN: 06/22/23 00:[address]: Iris Pang NP DEPT: SURGICAL PATHOLOGY RECD BY: Marianne Wesley ENTERED: 06/23/23 09:03 SP TYPE: ENDOM BX/C MELO DR: MICKEY Salazar Tissues: Endometrium, NOS Procedures: Surgery Specimen Level IV HEADER OPERATION: Endometrial biopsy PRE-OP DIAGNOSIS: Abnormal ultrasound, fluid in endometrial canal TISSUE SUBMITTED: Endometrial tissue MICROSCOPIC DIAGNOSIS Endometrium, biopsy: Strips of benign superficial glandular mucosa and benign epithelial cyst. See comment. AM:enoch 06/24/2023 COMMENT The specimen primarily consists of mucoid-like material. Clinical correlation is suggested. MICROSCOPIC DESCRIPTION Slides are reviewed. GROSS DESCRIPTION Received is one container labeled with the patient's name and not further designated. The specimen consists of multiple irregular fragments of tian mucoid tissue that in aggregate measure 2.5 x 0.5 x 0.1 cm. The specimen is totally submitted in one cassette. / SJ:enoch 06/23/2023 TC:5 CPT: 30088
== END | disposition home or self-care (01) ==
LOC: LABSPEC 15:07
PROVIDERS: PCP Nurse Practitioner Family; Referring Provider Nurse Practitioner Women's Health; Visit Provider Nurse Practitioner Women's Health
DX: R93.9 Diagnostic imaging inconclusive due to excess body fat of patient (principal)
CPT/HCPCS: 88305

== ENCOUNTER → 2023-07-06 | Outpatient (CLI) | payer MEDICARE, SELFPAY ==
[2023-07-06 15:11] LABS: Absolute Lymphocyte Count 1.26 X10^3/uL (0.83-4.51); Absolute Neutrophil Count 5.1 X10^3/uL (2.0-7.7); Basophil# 0.06 X10^3/uL; Basophil% 0.8 % (0-1); Eosinophil# 0.13 X10^3/uL; Eosinophils% 1.8 % (0-5); Hemoglobin 11.1 g/dL (12.0-15.0); Lymphocyte # 1.26 X10^3/ul (0.83-4.51); Lymphocyte % 17.5 % (19-41); Mean Corp Hgb Conc 30.8 g/dL (32-36); Mean Corpuscular Hgb 31.4 pg (27.0-32.0); Mean Corpuscular Volume 101.7 fL (81-99); Mean Platelet Vol. 10.6 fl (6.2-12.0); Monocyte% 6.9 % (0-10); NRBC Flagged by Analyzer 0 % (0-5); Neutrophil # 5.13 X10^3/uL (2.7-7.7); Neutrophil % 71.3 % (47-70); Platelet Count 328 K/mm3 (150-450); RBC Distribution Width CV 13.6 % (11.6-14.6); RBC Distribution Width SD 51.1 fl (35.1-43.9); Red Blood Count 3.54 M/mm3 (4.2-5.4); White Blood Count 7.2 K/mm3 (4.4-11.0)
[2023-07-06 15:55] LABS: Hemoglobin A1c 7.2 % (3.8-5.6)
[2023-07-06 15:57] LABS: ALB/GLOB Ratio 0.9 RATIO (0.9-2.4); AST(SGOT) 25 U/L (15-37); Alanine Aminotransfer ALT/SGPT 34 U/L (13-56); Albumin, Serum 3.5 g/dL (3.2-5.0); Alkaline Phosphatase 88 U/L (45-117); Anion Gap 4 (5-15); BUN 29 mg/dL (7-18); BUN/Creat Ratio 17.1 RATIO (10-20); Calcium,Total 9.2 mg/dL (8.5-10.1); Chloride 111 mmol/L (98-107); EST Glomerular Filtration Rate 31 mL/min (>60); Est Glom Filt Rate - Afr Amer 37 mL/min (>60); Globulin 3.8 g/dL (2.2-4.2); Glucose 121 mg/dL (74-106); Potassium 4.6 mmol/L (3.5-5.1); Protein, Total 7.3 g/dL (6.4-8.2); Sodium Level 139 mmol/L (136-145)
[2023-07-06 18:49] LABS: BNP,B-Type NATRIURETIC PEPTIDE 208.9 pg/mL (0-100)
== END | disposition home or self-care (01) ==
PROVIDERS: Nurse Practitioner Gerontology; PCP Internal Medicine; Visit Provider Internal Medicine
DX: R06.02 Shortness of breath (principal); I48.20 Chronic atrial fibrillation, unspecified; E11.9 Type 2 diabetes mellitus without complications; R53.83 Other fatigue; I35.0 Nonrheumatic aortic (valve) stenosis; I10 Essential (primary) hypertension; Z95.0 Presence of cardiac pacemaker; I05.9 Rheumatic mitral valve disease, unspecified
CPT/HCPCS: 36415; 80053; 83036; 83880; 84443; 85025

== ENCOUNTER → 2023-07-13 | Outpatient (CLI) | payer MEDICARE, SELFPAY ==
[2023-07-13 16:20] LABS: Anion Gap 5 (5-15); BUN 44 mg/dL (7-18); BUN/Creat Ratio 21.8 RATIO (10-20); Calcium,Total 9.1 mg/dL (8.5-10.1); Chloride 107 mmol/L (98-107); Creatinine, Serum 2.02 mg/dL (0.55-1.02); EST Glomerular Filtration Rate 25 mL/min (>60); Est Glom Filt Rate - Afr Amer 30 mL/min (>60); Glucose 175 mg/dL (74-106); Potassium 4.5 mmol/L (3.5-5.1); Sodium Level 139 mmol/L (136-145)
== END | disposition home or self-care (01) ==
LOC: LAB 14:57
PROVIDERS: PCP Internal Medicine; Referring Provider Nurse Practitioner Gerontology; Visit Provider Nurse Practitioner Gerontology
DX: Z51.81 Encounter for therapeutic drug level monitoring (principal); Z79.899 Other long term (current) drug therapy
CPT/HCPCS: 36415; 80048

== ENCOUNTER → 2023-07-22 | Outpatient (CLI) | payer MEDICARE, SELFPAY | END | disposition home or self-care (01) | LOC: MTLAB 16:34 | PROVIDERS: PCP Internal Medicine; Referring Provider Internal Medicine; Visit Provider Internal Medicine | DX: K92.2 Gastrointestinal hemorrhage, unspecified (principal) | CPT/HCPCS: 82274 ==

== ENCOUNTER → 2023-07-27 | Outpatient (CLI) | payer MEDICARE, SELFPAY ==
[2023-07-27 11:32] LABS: Anion Gap 5 (5-15); BUN 39 mg/dL (7-18); BUN/Creat Ratio 23.6 RATIO (10-20); Calcium,Total 9.3 mg/dL (8.5-10.1); Chloride 111 mmol/L (98-107); Creatinine, Serum 1.65 mg/dL (0.55-1.02); EST Glomerular Filtration Rate 32 mL/min (>60); Est Glom Filt Rate - Afr Amer 38 mL/min (>60); Glucose 155 mg/dL (74-106); Potassium 4.4 mmol/L (3.5-5.1); Sodium Level 140 mmol/L (136-145)
== END | disposition home or self-care (01) ==
LOC: LAB 10:27
PROVIDERS: PCP Internal Medicine; Referring Provider Nurse Practitioner Gerontology; Visit Provider Nurse Practitioner Gerontology
DX: R79.89 Other specified abnormal findings of blood chemistry (principal)
CPT/HCPCS: 36415; 80048

== ENCOUNTER → 2023-08-17 | Outpatient (CLI) | payer MEDICARE, SELFPAY ==
[2023-08-17 16:35] LABS: Absolute Lymphocyte Count 1.62 X10^3/uL (0.83-4.51); Absolute Neutrophil Count 2.7 X10^3/uL (2.0-7.7); Basophil# 0.03 X10^3/uL; Basophil% 0.6 % (0-1); Eosinophil# 0.23 X10^3/uL; Eosinophils% 4.5 % (0-5); Hematocrit 33.9 % (37-47); Hemoglobin 10.9 g/dL (12.0-15.0); Lymphocyte # 1.62 X10^3/ul (0.83-4.51); Lymphocyte % 31.8 % (19-41); Mean Corp Hgb Conc 32.2 g/dL (32-36); Mean Corpuscular Hgb 31.8 pg (27.0-32.0); Mean Corpuscular Volume 98.8 fL (81-99); Monocyte# 0.47 X10^3/uL; Monocyte% 9.2 % (0-10); NRBC Flagged by Analyzer 0 % (0-5); Neutrophil # 2.72 X10^3/uL (2.7-7.7); Neutrophil % 53.5 % (47-70); Platelet Count 279 K/mm3 (150-450); RBC Distribution Width CV 13.5 % (11.6-14.6); RBC Distribution Width SD 48.5 fl (35.1-43.9); Red Blood Count 3.43 M/mm3 (4.2-5.4); White Blood Count 5.1 K/mm3 (4.4-11.0)
[2023-08-17 16:50] LABS: ALB/GLOB Ratio 0.9 RATIO (0.9-2.4); AST(SGOT) 19 U/L (15-37); Alanine Aminotransfer ALT/SGPT 26 U/L (13-56); Albumin, Serum 3.4 g/dL (3.2-5.0); Alkaline Phosphatase 81 U/L (45-117); Anion Gap 7 (5-15); BUN 21 mg/dL (7-18); BUN/Creat Ratio 13.3 RATIO (10-20); Calcium,Total 9.5 mg/dL (8.5-10.1); Chloride 110 mmol/L (98-107); Creatinine, Serum 1.58 mg/dL (0.55-1.02); EST Glomerular Filtration Rate 33 mL/min (>60); Est Glom Filt Rate - Afr Amer 40 mL/min (>60); Globulin 3.8 g/dL (2.2-4.2); Glucose 112 mg/dL (74-106); Potassium 4.3 mmol/L (3.5-5.1); Protein, Total 7.2 g/dL (6.4-8.2); Sodium Level 141 mmol/L (136-145)
== END | disposition home or self-care (01) ==
LOC: BIMLAB 15:32
PROVIDERS: PCP Internal Medicine; Referring Provider Internal Medicine; Visit Provider Internal Medicine
DX: K92.2 Gastrointestinal hemorrhage, unspecified (principal)
CPT/HCPCS: 36415; 80053; 85025

== ENCOUNTER → 2023-08-24 | Outpatient (CLI) | payer MEDICARE, SELFPAY ==
[2023-08-24 07:39] LABS: Mucous, Urine 0 SEEN /hpf (<or=2+)
[2023-08-24 08:29] LABS: Glucose, Dipstick Normal (Normal); Ketone-Dipstick 5 mg/dl (Negative); Leukocyte Esterase-Dipstick 500 /ul (Negative); Nitrite-Dipstick Negative (Negative); Occult Blood-Urine 250 /ul (Negative); Protein-Dipstick 30 mg/dl (Negative); Specific Gravity, Urine 1.025 (1.002-1.030); Urine Bilirubin Dipstick Negative (Negative); Urine Urobilinogen Normal (Normal)
[2023-08-24 08:37] LABS: Color, Urine Yellow (Yellow)
[2023-08-24 08:38] LABS: Red Blood Cells-Urine 10-25 SEEN /hpf (0-5); Urine Clarity Cloudy (Clear); White Blood Cells 50-100 SEEN /hpf (0-5)
[2023-08-24 08:39] LABS: Bacteria 3+ /hpf (None Seen); Squamous Epithelial Cells - UA 0-5 SEEN /hpf (5-10)
== END | disposition home or self-care (01) ==
LOC: LABSPEC 07:37
PROVIDERS: PCP Internal Medicine; Referring Provider Internal Medicine; Visit Provider Internal Medicine
DX: R31.0 Gross hematuria (principal)
CPT/HCPCS: 81001

== ENCOUNTER 2023-08-30 13:50 | Emergency (ER) | payer MEDICARE, SELFPAY ==
[2023-08-30 13:53] VITALS: BP 123/76; PULSE 105; RESP 18; TEMP 36.8; O2SAT 97
--- NOTE | 2023-08-30 14:20 | EDS_ITS ---
HPI History of Present Illness Chief Complaint: General Illness Narrative Narrative: 83-year-old female presenting to the emergency room with a chief complaint of chills and fatigue. Patient states on Tuesday she was diagnosed with a urinary tract infection and started on antibiotics on Tuesday. She states that last night she felt chilled blah. She took 2 Tylenol and went to bed. Daughter states that she was flushed and appeared to have had a fever. Today she is not had an appetite and continued to feel ill. She notes urinary frequency. She denies vomiting diarrhea. Chronic rhinorrhea. She notes that she is about 20 pounds heavier than she typically is and that has been present since May. She is not on a diuretic but notes lower leg swelling and abdominal swelling and states that she feels like she is retaining a lot of water. She has a history of persistent atrial fibrillation and has known coronary artery disease. She has a pacemaker due to sick sinus syndrome as well as diabetes mellitus. She has chronic GI bleed last hemoglobin of 10.9. She is following up with Dr. mistry in a month. [facility] Medical History (Updated 08/30/23 @ 18:[address] Tony Brito, ) Atherosclerotic heart disease of [place] coronary artery without angina pectoris Atrial fibrillation Cardiology follow-up encounter Dementia Diabetes mellitus type 2, controlled Essential hypertension Forgetfulness GI bleed Gross hematuria History of echocardiogram History of left heart catheterization (08/16/06) History of stress test History of transient ischemic attack (TIA) Hydronephrosis Irritable bowel syndrome (IBS) Irritable bowel syndrome with diarrhea Longstanding persistent atrial fibrillation Mitral valve disorder Occlusion and stenosis of carotid 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 Osteoarthritis Paroxysmal atrial fibrillation Poor historian Presence of cardiac pacemaker Presence of stent in coronary artery (~01/25/07) Pure hypercholesterolemia Renal insufficiency Sick sinus syndrome Stenosis of right carotid artery Thyroid disease UTI (urinary tract infection) Walker as ambulation aid Wears glasses Home Medications calcium citrate 315 mg calcium-vitamin D3 6.25 mcg (250 unit) tablet (Citracal + Vitamin D Maximum) 1 tab PO DAILY 12/21/19 [History Last Taken 05/26/22] lactobacillus combination no.9 4 billion cell capsule (Adult 50 Plus Probiotic) 4,000 mmu cells PO DAILY 12/21/19 [History Last Taken 05/26/22] cholecalciferol (vitamin D3) 125 mcg (5,000 unit) tablet 125 mcg PO DAILY 03/18/22 [History Last Taken 05/26/22] levothyroxine 75 mcg tablet (Synthroid) 37.5 mcg PO FRSA 05/25/22 [History Last Taken 05/26/22] levothyroxine 75 mcg tablet (Synthroid) 75 mcg PO SUMOTUWETH 05/25/22 [History Last Taken 05/26/22] vitamin B complex 1 cap PO DAILY 05/25/22 [History Last Taken 05/26/22] aspirin 81 mg tablet,delayed release (Adult Low Dose Aspirin) 81 mg PO DAILY 01/27/23 [History Last Taken Unknown] apixaban 2.5 mg tablet (Eliquis) 2.5 mg PO BID #180 tabs 06/02/23 [Rx Last Taken Unknown] metoprolol succinate 50 mg tablet,extended release 24 hr 50 mg PO DAILY #90 tabs 06/02/23 [Rx Last Taken Unknown] cranberry extract 500 mg capsule (Cranberry Concentrate) 500 mg PO BID 06/22/23 [History Last Taken Unknown] donepezil 10 mg tablet 10 mg PO QHS #90 tabs 08/17/23 [Rx Last Taken Unknown] ferrous sulfate 325 mg (65 mg iron) tablet 325 mg PO Q OTHER DAY #90 tabs 08/17/23 [Rx Last Taken Unknown] cephalexin 500 mg capsule 500 mg PO TID #21 caps 08/26/23 [Rx Last Taken Unknown] furosemide 40 mg tablet (Lasix) 40 mg PO BID #10 tabs 08/30/23 [Rx Last Taken Unknown] Allergy/AdvReac Type Severity Reaction Status Date / Time Penicillins Allergy Hives Verified 08/30/23 13:53 Acmrlat-ZZQ-IiD Reductase AdvReac Intermediate myalgias Verified 08/30/23 13:53 Inhibitor [Oszgati-Dwo-Piv Reductase Inhibitor] Family History Father , Age 72 Diabetes Myocardial infarction Mother CAD (coronary artery disease) Diabetes Hypertension Brother CAD (coronary artery disease) COPD (chronic obstructive pulmonary disease) Primary pulmonary fibrosis Brother Kidney disease Brother CAD (coronary artery disease) Sister Cancer Sister CVA (cerebral vascular accident) Surgical History History of cystoscopy History of percutaneous transluminal coronary angioplasty (08/16/06) History of permanent cardiac pacemaker placement (~03/2015) Presence of coronary angioplasty implant and graft (~01/25/07) Social History household members: family housing: house current occupational status: retired Smoking Status: Never smoker alcohol intake: never substance use type: does not use caffeine: No seatbelt use: always do you feel safe at home: Yes additional social history: Lives with Daughter- Danyel ROS ROS ED ROS Narrative fatigue Constitutional Constitutional ED: Reports chills, fever(s) and subjective; Denies weight loss Eyes Eyes: Denies change in vision or diplopia ENT ENT ED: Reports rhinorrhea; Denies ear pain or sore throat Cardiovascular Cardiovascular: Denies chest pain, orthopnea, palpitations or racing heartbeat Respiratory/Chest Respiratory/Chest: Denies cough, dyspnea or orthopnea Gastrointestinal Gastrointestinal: Reports other Details: anorexia ; Denies abdominal pain, diarrhea, nausea or vomiting Genitourinary Genitourinary ED: Reports hematuria and urinary frequency; Denies dysuria Musculoskeletal Musculoskeletal: Denies arthralgias, back pain or myalgias Integumentary Denies abscess or rash Neurologic Neurologic: Denies headache(s) or weakness Psychiatric Psychiatric: Denies anxiety, depression, suicidal ideation or suicidal thoughts Endocrine Endocrinology: Denies polydipsia, polyphagia or polyuria Allergic/Immunologic Allergic/Immunologic ED: Denies mouth swelling, tongue swelling or urticaria EXAM Physical Exam Const Vital Signs: 08/30/23 13:53 08/30/23 14:18 08/30/23 15:23 Temperature 98.2 F 98 F Temperature Source Temporal Oral Pulse Rate 105 H 71 Respiratory Rate 18 14 Respiratory Effort Normal Non-Labored Respiratory Pattern Normal Blood Pressure 123/76 H 129/61 H Blood Pressure Mean 91 83 Pulse Ox 97 Oxygen Delivery Method Room Air Room Air 08/30/23 15:24 Temperature 98 F Temperature Source Oral Pulse Rate 70 Respiratory Rate 17 Respiratory Effort Respiratory Pattern Blood Pressure 129/61 H Blood Pressure Mean 83 Pulse Ox 100 Oxygen Delivery Method Room Air Positive well nourished and well developed General Appearance ED: well developed HEENT Reports normocephalic, head/scalp atraumatic and moist mucous membranes Eyes PERRL and EOMs intact bilaterally Neck no lymphadenopathy, supple and no JVD Resp normal respiratory effort and clear to auscultation bilaterally Cardio regular rate, regular rhythm and no murmurs Rate: tachycardic GI normal to inspection, nondistended, normoactive bowel sounds and non-tender Palpation: soft Back/Spine no CVA tenderness and normal ROM Extremity normal to inspection General Extremety ED: Negative for edema General Extremity: Negative for edema Neuro oriented x3 and CN's II-XII intact bilaterally Sensorium / Orientation: alert Motor Exam: strength 5/5 throughout Psych mental status grossly normal Mood & Affect: Negative for depressed or tearful Skin no rashes or lesions noted and no wounds MDM MDM MDM Narrative Medical decision making narrative: Patient's white count is 7.8. Normal lactic acid. Creatinine 1.52 with a BUN of 19. Troponins lightly elevated at 95 with a second troponin at 98. Beta natruretic peptide needed at 456. Urinalysis shows some white blood cells but no bacteria negative nitrates. This shows improvement over her last urinalysis. The patient was noted to be in A-fib with RVR on the monitor. Nurses were going to administer some metoprolol but the patient converted back to a normal sinus rhythm. My independent interpretation of the chest x-ray is no acute process/no pulmonary edema. Patient most likely has some diastolic CHF which makes me wonder how much time she is spending in A-fib with RVR. I am going to discharge her home with some Lasix. I hope is that we get some of the fluid off of her (recall she has had a 20 pound weight gain since May). This will hopefully put less stress on the heart and lead to less time in A-fib. However I told them that if she is worsening or not improving she may require hospitalization. I have asked that she follow-up with cardiology. History & Record Review Discussion w/independent historian: Patient and Family Additional record(s) reviewed:: Prior outpatient record, Prior ED visit and Prior labs Lab Data Attestation: I reviewed the patient's lab results. Labs: Laboratory Results - last 24 hr 08/30/23 08/30/23 08/30/23 14:20 14:45 16:05 WBC 7.8 RBC 3.77 L Hgb 12.0 Hct 36.6 L MCV 97.1 MCH 31.8 MCHC 32.8 RDW Std Deviation 47.2 H RDW Coeff of [place] 13.4 Plt Count 279 MPV 10.0 Immature Gran % (Auto) 0.300 Neut % (Auto) 67.4 Lymph % (Auto) 21.3 [place] % (Auto) 7.5 Eos % (Auto) 3.1 Baso % (Auto) 0.4 Absolute Neuts (auto) 5.3 Absolute Lymphs (auto) 1.67 Nucleated RBC % 0 PT 23.7 H INR 2.1 APTT 86.2 H Sodium 144 Potassium 3.6 Chloride 113 H Carbon Dioxide 23.0 Anion Gap 8 BUN 19 H Creatinine 1.52 H Est GFR (MDRD) Af Amer 42 L Est GFR (MDRD) Non-Af 35 L BUN/Creatinine Ratio 12.5 Glucose 157 H Lactic Acid 1.5 Calcium 9.1 Total Bilirubin 0.40 Direct Bilirubin 0.10 AST 18 ALT 24 Alkaline Phosphatase 97 Troponin I High Sens 95 H 98 H B-Natriuretic Peptide 456.2 H Total Protein 7.1 Albumin 3.3 Globulin 3.8 Urine Color Yellow Urine Clarity Clear Urine pH 5.0 Ur Specific [place] 1.020 Urine Protein 15 H Urine Glucose (UA) Normal Urine Ketones Negative Urine Occult Blood 25 H Urine Nitrite Negative Urine Bilirubin Negative Urine Urobilinogen Normal Ur Leukocyte Esterase 500 H Urine RBC 0-5 SEEN Urine WBC 25-50 SEEN Ur Squamous Epith Cells 5-10 SEEN Urine Bacteria 0 SEEN Urine Mucus 0 SEEN Radiography Diagnostic Testing: Clinical Impression(s) from Imaging Studies Chest X-Ray 08/30/23 15:07 IMPRESSION: No acute cardiopulmonary process identified. Electronically Signed: Wanda Ramirez MD at 15:19 EST , EKG Initial EKG: Attestation: I personally reviewed and interpreted this EKG as follows: Comments: Atrial fibrillation with a ventricular rate of 131 bpm. No definitive features of ACS noted. Differential Diagnosis Chest pain/SOB: pulmonary embolism, ACS, pneumothorax, pneumonia, aortic dis section, CHF and COPD Discharge Plan Triage Chief Complaint: General Illness ED Provider: Tony Brito Dx/Rx/DC Orders Clinical Impression: Atrial fibrillation with rapid ventricular response, Fatigue, Diastolic congestive heart failure, Acute UTI Instructions: AFib, ED Heart Failure, Congestive (CHF) Prescriptions: New furosemide [Lasix] 40 mg tablet 40 mg PO BID Qty: 10 0RF No Action Adult 50 Plus Probiotic 4 billion cell capsule 4,000 mmu cells PO DAILY Rx Instructions: administer with a meal calcium citrate-vitamin D3 [Citracal + D Maximum] 315 mg- 250 unit tablet 1 tab PO DAILY cholecalciferol (vitamin D3) 125 mcg (5,000 unit) tablet 125 mcg PO DAILY aspirin [Adult Low Dose Aspirin] 81 mg tablet,delayed release (DR/EC) 81 mg PO DAILY Eliquis 2.5 mg tablet 2.5 mg PO BID Qty: 180 3RF metoprolol succinate 50 mg tablet extended release 24 hr 50 mg PO DAILY Qty: 90 3RF cranberry extract [Cranberry Concentrate] 500 mg capsule 500 mg PO BID Rx Instructions: administer with meals donepezil 10 mg tablet 10 mg PO QHS Qty: 90 3RF ferrous sulfate 325 mg (65 mg iron) tablet 325 mg PO Q OTHER DAY Qty: 90 3RF levothyroxine [Synthroid] 75 mcg Tablet 75 mcg PO SUMOTUWETH levothyroxine [Synthroid] 75 mcg Tablet 37.5 mcg PO FRSA vitamin B complex Capsule 1 cap PO DAILY cephalexin 500 mg capsule 500 mg PO TID Qty: 21 0RF Primary Care Provider: Whitney Padilla Referrals: Antonio Viramontes MD [Med Staff - Active Staff] - As soon as possible Whitney Padilla MD [Primary Care Provider] - As soon as possible Disposition Disposition: Home, Self Care
[2023-08-30 14:36] LABS: Absolute Lymphocyte Count 1.67 X10^3/uL (0.83-4.51); Absolute Neutrophil Count 5.3 X10^3/uL (2.0-7.7); Basophil# 0.03 X10^3/uL; Basophil% 0.4 % (0-1); Eosinophil# 0.24 X10^3/uL; Eosinophils% 3.1 % (0-5); Hematocrit 36.6 % (37-47); Lymphocyte # 1.67 X10^3/ul (0.83-4.51); Lymphocyte % 21.3 % (19-41); Mean Corp Hgb Conc 32.8 g/dL (32-36); Mean Corpuscular Hgb 31.8 pg (27.0-32.0); Mean Corpuscular Volume 97.1 fL (81-99); Monocyte# 0.59 X10^3/uL; Monocyte% 7.5 % (0-10); NRBC Flagged by Analyzer 0 % (0-5); Neutrophil # 5.28 X10^3/uL (2.7-7.7); Neutrophil % 67.4 % (47-70); Platelet Count 279 K/mm3 (150-450); RBC Distribution Width CV 13.4 % (11.6-14.6); RBC Distribution Width SD 47.2 fl (35.1-43.9); Red Blood Count 3.77 M/mm3 (4.2-5.4); White Blood Count 7.8 K/mm3 (4.4-11.0)
[2023-08-30 14:39] LABS: International Normalized Ratio 2.1; Prothrombin Time (Protime)PT. 23.7 SECONDS (11.7-14.9)
[2023-08-30 14:42] LABS: Partial Thromboplast Time 86.2 Seconds (24.1-36.2)
[2023-08-30 14:50] LABS: AST(SGOT) 18 U/L (15-37); Alanine Aminotransfer ALT/SGPT 24 U/L (13-56); Albumin, Serum 3.3 g/dL (3.2-5.0); Alkaline Phosphatase 97 U/L (45-117); Anion Gap 8 (5-15); BUN 19 mg/dL (7-18); BUN/Creat Ratio 12.5 RATIO (10-20); Calcium,Total 9.1 mg/dL (8.5-10.1); Chloride 113 mmol/L (98-107); Creatinine, Serum 1.52 mg/dL (0.55-1.02); EST Glomerular Filtration Rate 35 mL/min (>60); Est Glom Filt Rate - Afr Amer 42 mL/min (>60); Globulin 3.8 g/dL (2.2-4.2); Glucose 157 mg/dL (74-106); Potassium 3.6 mmol/L (3.5-5.1); Protein, Total 7.1 g/dL (6.4-8.2); Sodium Level 144 mmol/L (136-145); Troponin-I HS 95 pg/mL (3.0-54.0)
[2023-08-30 14:51] LABS: Bacteria 0 SEEN /hpf (None Seen); Mucous, Urine 0 SEEN /hpf (<or=2+)
[2023-08-30 14:52] LABS: Color, Urine Yellow (Yellow); Glucose, Dipstick Normal (Normal); Ketone-Dipstick Negative (Negative); Leukocyte Esterase-Dipstick 500 /ul (Negative); Nitrite-Dipstick Negative (Negative); Occult Blood-Urine 25 /ul (Negative); Protein-Dipstick 15 mg/dl (Negative); Urine Bilirubin Dipstick Negative (Negative); Urine Clarity Clear (Clear); Urine Urobilinogen Normal (Normal)
[2023-08-30 14:57] LABS: Lactic Acid 1.5 mmol/L (0.4-1.9)
[2023-08-30 14:58] LABS: Red Blood Cells-Urine 0-5 SEEN /hpf (0-5); Squamous Epithelial Cells - UA 5-10 SEEN /hpf (5-10); White Blood Cells 25-50 SEEN /hpf (0-5)
--- NOTE | 2023-08-30 15:07 | RAD_ITS ---
HISTORY: CAD. TECHNIQUE: XR Chest 1 View. COMPARISON: 11/18/2022. FINDINGS: CARDIOMEDIASTINAL BORDERS: Cardiac silhouette within normal limits in size with pacemaker again seen. Mediastinal contour unremarkable. LUNGS: Chronic mild biapical and bibasilar scarring. PLEURA: No pleural effusion or pneumothorax seen. OSSEOUS STRUCTURES: Unremarkable. RAD/Chest 1 View (Portable) IMPRESSION: No acute cardiopulmonary process identified. Electronically Signed: Wanda Ramirez MD at 15:19 EST ,
[2023-08-30 15:21] VITALS: BMI 24.7
[2023-08-30 15:23] VITALS: BP 129/61; PULSE 71; RESP 14; TEMP 36.6
[2023-08-30 15:24] VITALS: BP 129/61; PULSE 70; RESP 17; TEMP 36.6; O2SAT 100
[2023-08-30 16:10] LABS: BNP,B-Type NATRIURETIC PEPTIDE 456.2 pg/mL (0-100)
[2023-08-30 16:35] LABS: Troponin-I HS 98 pg/mL (3.0-54.0)
[2023-08-30] MEDS: Furosemide 100 MG/10 ML Vial 60 MG IV (18:02)
[2023-08-30 18:11] VITALS: BP 137/61; PULSE 72
== END 2023-08-30 18:26 | disposition home or self-care (01) ==
PROVIDERS: Emergency Provider Emergency Medicine; PCP Internal Medicine; Visit Provider Emergency Medicine
DX: I48.19 Other persistent atrial fibrillation (principal); I11.0 Hypertensive heart disease with heart failure; I50.30 Unspecified diastolic (congestive) heart failure; E11.9 Type 2 diabetes mellitus without complications; E78.00 Pure hypercholesterolemia, unspecified; Z95.0 Presence of cardiac pacemaker; N39.0 Urinary tract infection, site not specified; I25.10 Atherosclerotic heart disease of native coronary artery without angina pectoris; R53.83 Other fatigue; Z95.5 Presence of coronary angioplasty implant and graft; Z79.899 Other long term (current) drug therapy; Z79.82 Long term (current) use of aspirin; Z79.01 Long term (current) use of anticoagulants
CPT/HCPCS: 71045; 80048; 80076; 81001; 83605; 83880; 84484; 85025; 85610; 85730; 87040; 87077; 87086; 87088; 87186; 87428; 93005; 96374; 99285; A4216; J1940

== ENCOUNTER 2023-09-04 16:36 | Inpatient (IN) | payer MEDICARE, SELFPAY ==
[2023-09-04] VITALS (15 sets, daily range): BP systolic 101–164; BP diastolic 47–103; PULSE 70–132; RESP 16–22; TEMP 36.6–36.9; O2SAT 93–98; BMI 23.8
--- NOTE | 2023-09-04 16:49 | EKG12_ITS ---
Test Reason : WEAKNESS Blood Pressure : / mmHG Vent. Rate : 119 BPM Atrial Rate : 000 BPM P-R Int : 000 ms QRS Dur : 096 ms QT Int : 336 ms P-R-T Axes : 000 -01 197 degrees QTc Int : 472 ms Atrial fibrillation with rapid ventricular response with premature ventricular or aberrantly conducte d complexes Left ventricular hypertrophy with repolarization abnormality ( R in aVL ) Abnormal ECG Confirmed by BRIDGETT CLARK, RIC ([id number]), assignment desk editor LISY COTTER ([id number]) on 09/06/2023 10:41:21 AM Referred By: Confirmed By:RIC URIAS MD
--- NOTE | 2023-09-04 17:00 | EKG12_ITS ---
Test Reason : AFIB Blood Pressure : / mmHG Vent. Rate : 122 BPM Atrial Rate : 000 BPM P-R Int : 000 ms QRS Dur : 088 ms QT Int : 324 ms P-R-T Axes : 000 -07 162 degrees QTc Int : 461 ms Atrial fibrillation with rapid ventricular response Minimal voltage criteria for LVH, may be normal variant ( R in aVL ) ST & T wave abnormality, consider inferolateral ischemia Abnormal ECG Confirmed by BRIDGETT CLARK, RIC ([id number]), staff editor LISY COTTER ([id number]) on 09/06/2023 10:36:36 AM Referred By: Confirmed By:RIC URIAS MD
--- NOTE | 2023-09-04 17:04 | EDS_ITS ---
HPI <CORNELL Cárdenas - Last Filed: 09/04/23 19:20> History of Present Illness Chief Complaint: Weakness Narrative Narrative: 83-year-old female with past medical history of HTN, A-fib, pacemaker, dementia presents with increasing weakness. Her daughters live with her states she was here on 08/30 for weakness. A few days prior to that she was diagnosed with UTI and is taking Keflex. She has 1 dose left. Over the last couple days PFS <CORNELL Cárdenas - Last Filed: 09/04/23 19:20> [facility] Medical History (Updated 09/04/23 @ 18:10 by CORNELL Cárdenas) Atherosclerotic heart disease of [place] coronary artery without angina pectoris Atrial fibrillation Cardiology follow-up encounter Dementia Diabetes mellitus type 2, controlled Essential hypertension Forgetfulness GI bleed Gross hematuria History of echocardiogram History of left heart catheterization (08/16/06) History of stress test History of transient ischemic attack (TIA) Hydronephrosis Irritable bowel syndrome (IBS) Irritable bowel syndrome with diarrhea Longstanding persistent atrial fibrillation Mitral valve disorder Occlusion and stenosis of carotid 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 Osteoarthritis Paroxysmal atrial fibrillation Poor historian Presence of cardiac pacemaker Presence of stent in coronary artery (~01/25/07) Pure hypercholesterolemia Renal insufficiency Sick sinus syndrome Stenosis of right carotid artery Thyroid disease UTI (urinary tract infection) Walker as ambulation aid Wears glasses Home Medications calcium citrate 315 mg calcium-vitamin D3 6.25 mcg (250 unit) tablet (Citracal + Vitamin D Maximum) 1 tab PO DAILY 12/21/19 [History Last Taken 05/26/22] lactobacillus combination no.9 4 billion cell capsule (Adult 50 Plus Probiotic) 4,000 mmu cells PO DAILY 12/21/19 [History Last Taken 05/26/22] cholecalciferol (vitamin D3) 125 mcg (5,000 unit) tablet 125 mcg PO DAILY 03/18/22 [History Last Taken 05/26/22] levothyroxine 75 mcg tablet (Synthroid) 37.5 mcg PO FRSA 05/25/22 [History Last Taken 05/26/22] levothyroxine 75 mcg tablet (Synthroid) 75 mcg PO SUMOTUWETH 05/25/22 [History Last Taken 05/26/22] vitamin B complex 1 cap PO DAILY 05/25/22 [History Last Taken 05/26/22] aspirin 81 mg tablet,delayed release (Adult Low Dose Aspirin) 81 mg PO DAILY 01/27/23 [History Last Taken Unknown] apixaban 2.5 mg tablet (Eliquis) 2.5 mg PO BID #180 tabs 06/02/23 [Rx Last Taken Unknown] metoprolol succinate 50 mg tablet,extended release 24 hr 50 mg PO DAILY #90 tabs 06/02/23 [Rx Last Taken Unknown] cranberry extract 500 mg capsule (Cranberry Concentrate) 500 mg PO BID 06/22/23 [History Last Taken Unknown] donepezil 10 mg tablet 10 mg PO QHS #90 tabs 08/17/23 [Rx Last Taken Unknown] ferrous sulfate 325 mg (65 mg iron) tablet 325 mg PO Q OTHER DAY #90 tabs 08/17/23 [Rx Last Taken Unknown] cephalexin 500 mg capsule 500 mg PO TID #21 caps 08/26/23 [Rx Last Taken Unknown] furosemide 40 mg tablet (Lasix) 40 mg PO BID #10 tabs 08/30/23 [Rx Last Taken Unknown] Allergy/AdvReac Type Severity Reaction Status Date / Time Penicillins Allergy Hives Verified 09/04/23 16:42 [id number] Reductase AdvReac Intermediate myalgias Verified 09/04/23 16:42 Inhibitor [Clkboev-Xjj-Vnl Reductase Inhibitor] Family History Father , Age 72 Diabetes Myocardial infarction Mother CAD (coronary artery disease) Diabetes Hypertension Brother CAD (coronary artery disease) COPD (chronic obstructive pulmonary disease) Primary pulmonary fibrosis Brother Kidney disease Brother CAD (coronary artery disease) Sister Cancer Sister CVA (cerebral vascular accident) Surgical History History of cystoscopy History of percutaneous transluminal coronary angioplasty (08/16/06) History of permanent cardiac pacemaker placement (~03/2015) Presence of coronary angioplasty implant and graft (~01/25/07) Social History household members: family housing: house current occupational status: retired Smoking Status: Never smoker alcohol intake: never substance use type: does not use caffeine: No seatbelt use: always do you feel safe at home: Yes additional social history: Lives with Daughter- Danyel ROSALES <CORNELL Cárdenas - Last Filed: 09/04/23 19:20> ROS ED ROS Narrative Constitutional: Negative for fever, chills. CVS: Negative for palpitations, chest pain, syncope. Respiratory: Negative for shortness of breath. GI: Negative for abdominal pain, nausea, vomiting. : Negative for dysuria. EXAM <CORNELL Cárdenas - Last Filed: 09/04/23 19:20> Physical Exam Narrative Exam Narrative: CONST: Patient sitting in no acute distress. EYES: Normal inspection. NECK: Normal inspection. RESP: No respiratory distress, CTAB. CVS: Tachycardic irregularly irregular rhythm, no murmur, no gallop. ABD: Soft and nontender, no guarding or rebound, nondistended. SKIN: Color normal, no rash, warm, dry, intact. EXTREMITIES: Normal appearance, no pedal edema. NEURO: Alert, follows commands, face symmetric. Moving all extremities. PSYCH: Normal affect. Const Vital Signs: 09/04/23 16:37 09/04/23 16:42 09/04/23 16:44 Temperature 97.8 F 97.8 F Temperature Source Oral Oral Pulse Rate 110 H 132 H Respiratory Rate 18 18 Respiratory Effort Normal Non-Labored Respiratory Pattern Normal Blood Pressure 164/81 H 164/81 H Blood Pressure Mean 108 108 Pulse Ox 94 98 Oxygen Delivery Method Room Air Room Air 09/04/23 17:16 09/04/23 18:16 09/04/23 18:40 Temperature 98.4 F Temperature Source Oral Pulse Rate 132 H 119 H 92 Respiratory Rate 16 17 19 H Respiratory Effort Respiratory Pattern Blood Pressure 134/91 H 135/103 H 113/58 L Blood Pressure Mean 105 113 76 Pulse Ox 98 98 96 Oxygen Delivery Method Room Air Room Air Room Air <Dr. Delano Kang MD - Last Filed: 09/04/23 17:18> Physical Exam Const Vital Signs: 09/04/23 16:37 09/04/23 16:42 09/04/23 16:44 Temperature 97.8 F 97.8 F Temperature Source Oral Oral Pulse Rate 110 H 132 H Respiratory Rate 18 18 Respiratory Effort Normal Non-Labored Respiratory Pattern Normal Blood Pressure 164/81 H 164/81 H Blood Pressure Mean 108 108 Pulse Ox 94 98 Oxygen Delivery Method Room Air Room Air 09/04/23 17:16 09/04/23 18:16 09/04/23 18:40 Temperature 98.4 F Temperature Source Oral Pulse Rate 132 H 119 H 92 Respiratory Rate 16 17 19 H Respiratory Effort Respiratory Pattern Blood Pressure 134/91 H 135/103 H 113/58 L Blood Pressure Mean 105 113 76 Pulse Ox 98 98 96 Oxygen Delivery Method Room Air Room Air Room Air [facility] <CORNELL Cárdenas - Last Filed: 09/04/23 19:20> [facility] Narrative Medical decision making narrative: History gathered from: Patient's daughters Patient is taking Keflex for UTI and according to her daughters has become weaker. She has history of dementia. She appears well and nontoxic. She is in A-fib RVR between 100?140, otherwise normal vital signs. Other than A-fib her exam is benign and she takes metoprolol and Eliquis for this. Labs show white count of 7.9, hemoglobin 11.7, sodium 133, potassium 2.6, BUN 25, creatinine 1.87. Creatinine is around her baseline. Glucose is 148 with normal CO2 and anion gap. EKG is A-fib RVR with no ischemic changes and troponin is 44 which is lower than previous visit. UA shows no evidence of UTI. She was treated with IV fluids, Cardizem, and potassium replacement (40 mEqs p.o. and 20 mEq IV). Initially she was given Cardizem 10 mg bolus but rate did not change so she was given additional 15 mg bolus and still remains in A-fib RVR in the 120s so I ordered a Cardizem drip at 5 mg/hour. CXR shows no acute process no signs of fluid overload. Nurse tried to walk the patient and she could barely take a couple steps to the commode and almost fell she had to assist her to sitting position. Daughters state this is a change from her baseline and don't feel safe taking her home. Case was discussed with the hospitalist for admission. External records reviewed: Urine culture on 08/30/2023 shows Proteus penneri I have personally performed a face to face assessment of the patient and have reviewed the VIANEY Note. I performed a substantive portion of the visit including all aspects of the following. My cervantes findings include: History is 83-year-old female with generalized weakness. She and her 2 daughters live the other home daughters help take care of her. She recently had a UTI and was placed on Keflex. Daughters deny any vomiting or diarrhea. No fever. Just generalized weakness. Exam is [83-year-old female vital signs are able to his tachycardic heart rate 1 30-1 40 range A-fib RVR on the monitor. No distress. HEENT exam unremarkable. Lungs clear to auscultation bilaterally. Heart irregular irregular rate of 140 consistent with A-fib RVR. Abdomen soft nontender. Moving all 4 extremit ies. Nontender no edema. Neurologically she is awake and alert with no focal motor deficits.] Medical Decision Making [elderly female with generalized weakness. Recent UTI she was on Keflex but the urine culture showed resistance to cephalosporins. Currently she is in A-fib RVR. Screening labs will be obtained.] Other additions or changes: [None] Lab Data Labs: Laboratory Results - last 24 hr 09/04/23 09/04/23 16:46 17:54 WBC 7.9 RBC 3.82 L Hgb 11.7 L Hct 35.1 L MCV 91.9 MCH 30.6 MCHC 33.3 RDW Std Deviation 42.6 RDW Coeff of [place]ta[place] 12.7 Plt Count 294 MPV 10.3 Immature Gran % (Auto) 0.600 Neut % (Auto) 55.5 Lymph % (Auto) 28.2 [place] % (Auto) 14.4 H Eos % (Auto) 0.9 Baso % (Auto) 0.4 Absolute Neuts (auto) 4.4 Absolute Lymphs (auto) 2.22 Nucleated RBC % 0 Sodium 133 L Potassium 2.6 L* Chloride 97 L Carbon Dioxide 24.0 Anion Gap 12 BUN 25 H Creatinine 1.87 H Est GFR (MDRD) Af Amer 33 L Est GFR (MDRD) Non-Af 27 L BUN/Creatinine Ratio 13.4 Glucose 148 H Calcium 9.0 Magnesium 1.8 Troponin I High Sens 44 Urine Color Yellow Urine Clarity Sl. Cloudy Urine pH 6.0 Ur Specific [place] 1.010 Urine Protein Negative Urine Glucose (UA) Normal Urine Ketones Negative Urine Occult Blood 10 H Urine Nitrite Negative Urine Bilirubin Negative Urine Urobilinogen Normal Ur Leukocyte Esterase Negative Urine RBC 0 SEEN Urine WBC 0-5 SEEN Ur Squamous Epith Cells 0-5 SEEN Amorphous Sediment 1+ URATE Urine Bacteria 0 SEEN Urine Mucus 0 SEEN Radiography Diagnostic Testing: Clinical Impression(s) from Imaging Studies Chest X-Ray 09/04/23 17:35 IMPRESSION: No acute findings in the chest. Electronically Signed: Cristian Simmons MD at 18:01 EST , ED attending interpretation of 1-view chest x-ray shows normal heart size, left- sided pacemaker, no acute infiltrate, edema, or effusion. EKG Initial EKG: Attestation: I personally reviewed and interpreted this EKG as follows: Comments: A-fib RVR at 119 bpm, occasional PVCs No acute STEMI criteria Repeat EKG after Cardizem 10 mg bolus still shows A-fib RVR at 122 bpm. No changes <Dr. Delano Kang MD - Last Filed: 09/04/23 17:18> MDM MDM Narrative Medical decision making narrative: External records reviewed: Urine culture on 08/30/2023 shows Proteus penneri I have personally performed a face to face assessment of the patient and have reviewed the VIANEY Note. I performed a substantive portion of the visit including all aspects of the following. My cervantes findings include: History is 83-year-old female with generalized weakness. She and her 2 daughters live the other home daughters help take care of her. She recently had a UTI and was placed on Keflex. Daughters deny any vomiting or diarrhea. No fever. Just generalized weakness. Exam is [83-year-old female vital signs are able to his tachycardic heart rate 1 30-1 40 range A-fib RVR on the monitor. No distress. HEENT exam unremarkable. Lungs clear to auscultation bilaterally. Heart irregular irregular rate of 140 consistent with A-fib RVR. Abdomen soft nontender. Moving all 4 extremities. Nontender no edema. Neurologically she is awake and alert with no focal motor deficits.] Medical Decision Making [elderly female with generalized weakness. Recent UTI she was on Keflex but the urine culture showed resistance to cephalosporins. Currently she is in A-fib RVR. Screening labs will be obtained.] Other additions or changes: [None] History & Record Review Discussion w/independent historian: Patient and Family Additional record(s) reviewed:: Prior inpatient record, Prior outpatient record, Prior ED visit, Prior labs and No prior records Lab Data Attestation: I reviewed the patient's lab results. Lab results narrative: CBC shows a white count 7.9. H&H 11.7 and 35.1. Her baseline anemia. Platelet count 294. Labs: Laboratory Results - last 24 hr 09/04/23 09/04/23 16:46 17:54 WBC 7.9 RBC 3.82 L Hgb 11.7 L Hct 35.1 L MCV 91.9 MCH 30.6 MCHC 33.3 RDW Std Deviation 42.6 RDW Coeff of [place] 12.7 Plt Count 294 MPV 10.3 Immature Gran % (Auto) 0.600 Neut % (Auto) 55.5 Lymph % (Auto) 28.2 [place] % (Auto) 14.4 H Eos % (Auto) 0.9 Baso % (Auto) 0.4 Absolute Neuts (auto) 4.4 Absolute Lymphs (auto) 2.22 Nucleated RBC % 0 Sodium 133 L Potassium 2.6 L* Chloride 97 L Carbon Dioxide 24.0 Anion Gap 12 BUN 25 H Creatinine 1.87 H Est GFR (MDRD) Af Amer 33 L Est GFR (MDRD) Non-Af 27 L BUN/Creatinine Ratio 13.4 Glucose 148 H Calcium 9.0 Magnesium 1.8 Troponin I High Sens 44 Urine Color Yellow Urine Clarity Sl. Cloudy Urine pH 6.0 Ur Specific [place] 1.010 Urine Protein Negative Urine Glucose (UA) Normal Urine Ketones Negative Urine Occult Blood 10 H Urine Nitrite Negative Urine Bilirubin Negative Urine Urobilinogen Normal Ur Leukocyte Esterase Negative Urine RBC 0 SEEN Urine WBC 0-5 SEEN Ur Squamous Epith Cells 0-5 SEEN Amorphous Sediment 1+ URATE Urine Bacteria 0 SEEN Urine Mucus 0 SEEN Radiography Diagnostic Testing: Clinical Impression(s) from Imaging Studies Chest X-Ray 09/04/23 17:35 IMPRESSION: No acute findings in the chest. Electronically Signed: Cristian Simmons MD at 18:01 EST Reading Location ID and State: [facility] / [place] , Service support , Discharge Plan Triage Chief Complaint: Weakness ED Midlevel Provider: Sydni Watters ED Provider: Delano Kang Dx/Rx/DC Orders Clinical Impression: Generalized weakness, Atrial fibrillation with rapid ventricular response, Acute hypokalemia Prescriptions: No Action Adult 50 Plus Probiotic 4 billion cell capsule 4,000 mmu cells PO DAILY Rx Instructions: administer with a meal calcium citrate-vitamin D3 [Citracal + D Maximum] 315 mg- 250 unit tablet 1 tab PO DAILY cholecalciferol (vitamin D3) 125 mcg (5,000 unit) tablet 125 mcg PO DAILY aspirin [Adult Low Dose Aspirin] 81 mg tablet,delayed release (DR/EC) 81 mg PO DAILY Eliquis 2.5 mg tablet 2.5 mg PO BID Qty: 180 3RF metoprolol succinate 50 mg tablet extended release 24 hr 50 mg PO DAILY Qty: 90 3RF cranberry extract [Cranberry Concentrate] 500 mg capsule 500 mg PO BID Rx Instructions: administer with meals donepezil 10 mg tablet 10 mg PO QHS Qty: 90 3RF ferrous sulfate 325 mg (65 mg iron) tablet 325 mg PO Q OTHER DAY Qty: 90 3RF levothyroxine [Synthroid] 75 mcg Tablet 75 mcg PO SUMOTUWETH levothyroxine [Synthroid] 75 mcg Tablet 37.5 mcg PO FRSA vitamin B complex Capsule 1 cap PO DAILY furosemide [Lasix] 40 mg tablet 40 mg PO BID Qty: 10 0RF cephalexin 500 mg capsule 500 mg PO TID Qty: 21 0RF Primary Care Provider: Whitney Padilla Referrals: Whitney Padilla MD [Primary Care Provider] -
[2023-09-04 17:08] LABS: Absolute Lymphocyte Count 2.22 X10^3/uL (0.83-4.51); Absolute Neutrophil Count 4.4 X10^3/uL (2.0-7.7); Basophil# 0.03 X10^3/uL; Basophil% 0.4 % (0-1); Eosinophil# 0.07 X10^3/uL; Eosinophils% 0.9 % (0-5); Hematocrit 35.1 % (37-47); Hemoglobin 11.7 g/dL (12.0-15.0); Lymphocyte # 2.22 X10^3/ul (0.83-4.51); Lymphocyte % 28.2 % (19-41); Mean Corp Hgb Conc 33.3 g/dL (32-36); Mean Corpuscular Hgb 30.6 pg (27.0-32.0); Mean Corpuscular Volume 91.9 fL (81-99); Mean Platelet Vol. 10.3 fl (6.2-12.0); Monocyte# 1.13 X10^3/uL; Monocyte% 14.4 % (0-10); NRBC Flagged by Analyzer 0 % (0-5); Neutrophil # 4.36 X10^3/uL (2.7-7.7); Neutrophil % 55.5 % (47-70); Platelet Count 294 K/mm3 (150-450); RBC Distribution Width CV 12.7 % (11.6-14.6); RBC Distribution Width SD 42.6 fl (35.1-43.9); Red Blood Count 3.82 M/mm3 (4.2-5.4); White Blood Count 7.9 K/mm3 (4.4-11.0)
[2023-09-04] MEDS: 0.9% Normal Saline (1000mL) 1,000 ML 999 ML IV (17:22)
[2023-09-04] MEDS: dilTIAZem 25 MG/5 ML Vial IV BOLUS (17:23)
[2023-09-04 17:34] LABS: Anion Gap 12 (5-15); BUN 25 mg/dL (7-18); BUN/Creat Ratio 13.4 RATIO (10-20); Chloride 97 mmol/L (98-107); Creatinine, Serum 1.87 mg/dL (0.55-1.02); EST Glomerular Filtration Rate 27 mL/min (>60); Est Glom Filt Rate - Afr Amer 33 mL/min (>60); Glucose 148 mg/dL (74-106); Potassium 2.6 mmol/L (3.5-5.1); Sodium Level 133 mmol/L (136-145)
--- NOTE | 2023-09-04 17:35 | RAD_ITS ---
EXAM: XR CHEST, 1 VIEW CLINICAL INDICATION: weakness TECHNIQUE: Frontal view of the chest. COMPARISON: 08/30/2023 FINDINGS: LUNGS AND PLEURAL SPACES: Unremarkable. No consolidation or edema. No pneumothorax. No effusion. HEART: Unremarkable. Cardiac silhouette not enlarged. MEDIASTINUM: Central airways and mediastinal contour are unremarkable. BONES/JOINTS: Unremarkable. No acute fracture. SOFT TISSUES: Unremarkable. TUBES, LINES AND DEVICES: There is a left sided pacemaker battery pack. RAD/Chest 1 View (Portable) IMPRESSION: No acute findings in the chest. Electronically Signed: Cristian Simmons MD at 18:01 EST ,
[2023-09-04 17:43] LABS: Troponin-I HS 44 pg/mL (3.0-54.0)
[2023-09-04 17:58] LABS: Bacteria 0 SEEN /hpf (None Seen); Mucous, Urine 0 SEEN /hpf (<or=2+); Red Blood Cells-Urine 0 SEEN /hpf (0-5)
[2023-09-04 18:04] LABS: Color, Urine Yellow (Yellow); Glucose, Dipstick Normal (Normal); Ketone-Dipstick Negative (Negative); Leukocyte Esterase-Dipstick Negative /ul (Negative); Nitrite-Dipstick Negative (Negative); Occult Blood-Urine 10 /ul (Negative); Protein-Dipstick Negative (Negative); Urine Bilirubin Dipstick Negative (Negative); Urine Clarity Sl. Cloudy (Clear); Urine Urobilinogen Normal (Normal)
[2023-09-04] MEDS: Potassium Chloride Oral Tablet 20 MEQ 40 MEQ PO ×2 (18:08→22:33)
[2023-09-04 18:12] LABS: Squamous Epithelial Cells - UA 0-5 SEEN /hpf (5-10); White Blood Cells 0-5 SEEN /hpf (0-5)
[2023-09-04 18:13] LABS: Amorphous Sediment 1+ URATE
[2023-09-04] MEDS: dilTIAZem 25 MG/5 ML Vial 15 MG IV BOLUS (18:16)
[2023-09-04 18:22] LABS: Magnesium 1.8 mg/dL (1.6-2.6)
[2023-09-04] MEDS: Potassium Chloride 10mEq/100mL 10 MEQ/100 ML IV.SOLN. 100 MEQ IV BOLUS ×2 (19:09→20:12)
--- NOTE | 2023-09-04 19:14 | HP.PCM.HOS_ITS ---
HPI - General General Date of Admission: 09/04/23 Date of Service: 09/04/23 Chief Complaint: Generalized weakness with ambulatory dysfunction HPI Narrative ARNIE COKER, is a 83 F with a past medical history of essential hypertension, hyperlipidemia, hypothyroidism, diabetes mellitus type 2; of unknown control, coronary artery disease; status post stent (2006), history of sick sinus syndrome; status post permanent pacemaker placement, chronic atrial fibrillation: on metoprolol and apixaban, history of right carotid artery stenosis, history of TIA, history aortic and mitral valve stenosis (nonrheumatic), history of irritable bowel syndrome; of diarrheal type, GERD, chronic dementia; on donepezil and recent UTI; treated with oral Keflex who presents to [facility] ER complaining of generalized weakness with ambulatory dysfunction. Ms. Coker is not a reliable historian at this time as information was gathered from chart, medical staff and computer. According to the records her symptoms began approximately 5 days prior to admission when her daughter brought her in the ER here for worsening generalized weakness and fatigue on 08/30/2023 culminating in her being diagnosed with acute cystitis for which she was treated with oral Keflex. Then over the past 2 days the patient continued to deteriorate so her daughters brought her in for further evaluation and treatment. There was no report of fever chills. There was no report of fever, chills, nausea or vomiting.There was no report of fever, chills, nausea or vomiting. In the ER she was noted to have atrial fibrillation with rapid ventricular response in the 140 bpm range requiring treatment with IV Cardizem bolus and drip complicated by laboratory evidence of severe hypokalemia 2.6 mmol/L present on admission with an associated acute kidney injury with elevated creatinine of 1.87 mg/dL with a BUN of 25 mg/dL present on admission (up from her baseline creatinine of 1.52 mg/dL and BUN of 19 mg/dL last week). However, her urinalysis was negative for infection this admission but she did have clinical evidence of acute delirium in the setting of chronic dementia compounded by generalized weakness with ambulatory dysfunction. She was then admitted to the PCU for ongoing care for status and is expected to be greater than 48 hours. [facility] Medical History Atherosclerotic heart disease of [place] coronary artery without angina pectoris Atrial fibrillation Cardiology follow-up encounter Dementia Diabetes mellitus type 2, controlled Essential hypertension Forgetfulness GI bleed Gross hematuria History of echocardiogram History of left heart catheterization (08/16/06) History of stress test History of transient ischemic attack (TIA) Hydronephrosis Irritable bowel syndrome (IBS) Irritable bowel syndrome with diarrhea Longstanding persistent atrial fibrillation Mitral valve disorder Occlusion and stenosis of carotid 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 Osteoarthritis Paroxysmal atrial fibrillation Poor historian Presence of cardiac pacemaker Presence of stent in coronary artery (~01/25/07) Pure hypercholesterolemia Renal insufficiency Sick sinus syndrome Stenosis of right carotid artery Thyroid disease UTI (urinary tract infection) Walker as ambulation aid Wears glasses Home Medications calcium citrate 315 mg calcium-vitamin D3 6.25 mcg (250 unit) tablet (Citracal + Vitamin D Maximum) 1 tab PO DAILY supplement 12/21/19 [History Last Taken 09/04/23] lactobacillus combination no.9 4 billion cell capsule (Adult 50 Plus Probiotic) 4,000 mmu cells PO DAILY supplement 12/21/19 [History Last Taken 09/04/23] cholecalciferol (vitamin D3) 125 mcg (5,000 unit) tablet 125 mcg PO DAILY supplem 03/18/22 [History Last Taken 09/04/23] levothyroxine 75 mcg tablet (Synthroid) 37.5 mcg PO FRSA 05/25/22 [History Last Taken 05/26/22] levothyroxine 75 mcg tablet (Synthroid) 75 mcg PO SUMOTUWETH 05/25/22 [History Last Taken 05/26/22] vitamin B complex 1 cap PO DAILY supp 05/25/22 [History Last Taken 09/04/23] apixaban 2.5 mg tablet (Eliquis) 2.5 mg PO BID #180 tabs 06/02/23 [Rx Last Taken Unknown] metoprolol succinate 50 mg tablet,extended release 24 hr 50 mg PO DAILY #90 tabs 06/02/23 [Rx Last Taken Unknown] cranberry extract 500 mg capsule (Cranberry Concentrate) 500 mg PO DAILY supplement 06/22/23 [History Last Taken 09/04/23] donepezil 10 mg tablet 10 mg PO QHS #90 tabs 08/17/23 [Rx Last Taken Unknown] ferrous sulfate 325 mg (65 mg iron) tablet 325 mg PO Q OTHER DAY #90 tabs 08/17/23 [Rx Last Taken Unknown] cephalexin 500 mg capsule 500 mg PO TID #21 caps 08/26/23 [Rx Last Taken 09/04/23] furosemide 40 mg tablet (Lasix) 40 mg PO BID #10 tabs 08/30/23 [Rx Last Taken Unknown] Allergy/AdvReac Type Severity Reaction Status Date / Time Penicillins Allergy Hives Verified 09/04/23 16:42 [id number]-PyM Reductase AdvReac Intermediate myalgias Verified 09/04/23 16:42 Inhibitor [Jzsgtnv-Pcr-Oro Reductase Inhibitor] Family History Father , Age 72 Diabetes Myocardial infarction Mother CAD (coronary artery disease) Diabetes Hypertension Brother CAD (coronary artery disease) COPD (chronic obstructive pulmonary disease) Primary pulmonary fibrosis Brother Kidney disease Brother CAD (coronary artery disease) Sister Cancer Sister CVA (cerebral vascular accident) Surgical History History of cystoscopy History of percutaneous transluminal coronary angioplasty (08/16/06) History of permanent cardiac pacemaker placement (~03/2015) Presence of coronary angioplasty implant and graft (~01/25/07) Social History household members: family housing: house current occupational status: retired Smoking Status: Never smoker alcohol intake: never substance use type: does not use caffeine: No seatbelt use: always do you feel safe at home: Yes additional social history: Lives with Daughter- Danyel Billingsley Full review of systems was not possible at this time due to patient's dementia. Vital Signs Vital Signs Vital Signs: 09/04/23 16:37 09/04/23 16:42 09/04/23 16:44 Temperature 97.8 F 97.8 F Temperature Source Oral Oral Pulse Rate 110 H 132 H Respiratory Rate 18 18 Respiratory Effort Normal Non-Labored Respiratory Pattern Normal Blood Pressure 164/81 H 164/81 H Blood Pressure Mean 108 108 Pulse Ox 94 98 Oxygen Delivery Method Room Air Room Air 09/04/23 17:16 09/04/23 18:16 09/04/23 18:40 Temperature 98.4 F Temperature Source Oral Pulse Rate 132 H 119 H 92 Respiratory Rate 16 17 19 H Respiratory Effort Respiratory Pattern Blood Pressure 134/91 H 135/103 H 113/58 L Blood Pressure Mean 105 113 76 Pulse Ox 98 98 96 Oxygen Delivery Method Room Air Room Air Room Air Physical Exam Narrative Patient is pleasantly confused. Her daughters are present at the bedside documented history. Const alert, no apparent distress, average body habitus and well nourished General Appearance: cooperative Orientation / Consciousness: confused HEENT normocephalic, head/scalp atraumatic, hearing grossly normal bilaterally and moist oral mucous membranes Eyes PERRL, EOMs intact bilaterally and conjunctivae normal Neck no lymphadenopathy and supple Resp normal respiratory effort, no retractions and no use of accessory muscles Cardio Cardio Narrative: Irregularly irregular and tachycardic in the 120 bpm range while on Cardizem drip. GI normal to inspection, nondistended, normoactive bowel sounds, soft to palpation, non-tender and non-distended Extremity normal to inspection, full ROM and no clubbing, cyanosis or edema Skin Skin Narrative: Patient has no evidence of rash at this time. Neuro CN's II-XII intact bilaterally, moves all extremities and no focal motor deficits Sensorium / Orientation: awake, alert, oriented to person and oriented to place Speech: speech normal Motor Exam: strength 5/5 throughout Psych affect normal Results Medical Records Data Attestation: I reviewed the patient's medical records Lab / Micro Data Attestation: I reviewed the patient's lab results. 09/04/23 16:46 09/04/23 16:46 Labs: Laboratory Results - last 24 hr 09/04/23 16:46: WBC 7.9, RBC 3.82 L, Hgb 11.7 L, Hct 35.1 L, MCV 91.9, MCH 30.6, MCHC 33.3, RDW Std Deviation 42.6, RDW Coeff of Baltzaar 12.7, Plt Count 294, MPV 10.3, Immature Gran % (Auto) 0.600, Neut % (Auto) 55.5, Lymph % (Auto) 28.2, [place] % (Auto) 14.4 H, Eos % (Auto) 0.9, Baso % (Auto) 0.4, Absolute Neuts (auto) 4.4, Absolute Lymphs (auto) 2.22, Nucleated RBC % 0, Sodium 133 L, Potassium 2.6 L*, Chloride 97 L, Carbon Dioxide 24.0, Anion Gap 12, BUN 25 H, Creatinine 1.87 H, Est GFR (MDRD) Af Amer 33 L, Est GFR (MDRD) Non-Af 27 L, BUN/Creatinine Ratio 13.4, Glucose 148 H, Calcium 9.0, Magnesium 1.8, Troponin I High Sens 44 09/04/23 17:54: Urine Color Yellow, Urine Clarity Sl. Cloudy, Urine pH 6.0, Ur Specific [place] 1.010, Urine Protein Negative, Urine Glucose (UA) Normal, Urine Ketones Negative, Urine Occult Blood 10 H, Urine Nitrite Negative, Urine Bilirubin Negative, Urine Urobilinogen Normal, Ur Leukocyte Esterase Negative, Urine RBC 0 SEEN, Urine WBC 0-5 SEEN, Ur Squamous Epith Cells 0-5 SEEN, Amorphous Sediment 1+ URATE, Urine Bacteria 0 SEEN, Urine Mucus 0 SEEN Micro: Microbiology 09/04/23 17:06 Nasal Secretion SARS-CoV-2 & FLU Antigen (Rapid) - Final Imagaing Radiology Impression Chest X-Ray 09/04/23 17:35 IMPRESSION: No acute findings in the chest. Electronically Signed: Cristian Simmons MD at 18:01 EST Reading Location ID and State: [facility] / [place] , Service support , Assessment & Plan Assessment/Plan (1) Acute hypokalemia: (2) Atrial fibrillation with rapid ventricular response: (3) Fatigue: QUALIFIERS: Fatigue type: chronic, unspecified Qualified Code(s): R53.82 - Chronic fatigue, unspecified (4) Dementia: QUALIFIERS: Dementia behavioral or psychological symptom: without behavioral, psychotic, or mood disturbance or anxiety Dementia severity: moderate Dementia type: unspecified type Qualified Code(s): F03.B0 - Unspecified dementia, moderate, without behavioral disturbance, psychotic disturbance, mood disturbance, and anxiety PLAN: Plan 1. Acute severe hypokalemia of 2.6 mmol/L present on admission complicated by mild acute kidney injury with elevated creatinine of 1.87 mg/dL present on admission (up from baseline of 1.52 mg/dL last admission) - Admit to PCU. Given supplemental potassium chloride orally and IV and then recheck BMP in the a.m. to ensure improvement. Also volume resuscitate, place Lee and follow strict I's and O's. 2. Atrial fibrillation with rapid ventricular response of approximately 140 bpm present on admission - Continue IV Cardizem drip to keep heart rate less than or equal to 100 bpm. Serialize troponin. Continue metoprolol and apixaban as previous. 3. Acute delirium complicating chronic dementia arising from #1 and #2 - Resume supportive care began in the ER and monitor for improvement. Check TSH. 4. Generalized weakness with ambulatory dysfunction due to #1 - #3 - PT/OT and case management to consult and treat this admission without appreciated in advance. 5. Recent acute cystitis - She has basically completed her course of oral Keflex UA negative for infection this admission. 6. Essential hypertension - Continue home medications plus give as needed IV hydralazine for systolic blood pressure greater than 160 mmHg. 7. Hyperlipidemia - Resume statin and check lipid profile this admission. 8. Hypothyroidism - Continue Synthroid as previous. 9. Diabetes mellitus type 2; of unknown control - ADA/Cardiac diet. Fingerstick blood sugars before every meal and at bedtime + scale insulin. Check hemoglobin A1c to objectively assess quality of diabetic control. 10. History of sick sinus syndrome; status post permanent pacemaker placement - Noted. cafeteria monitor reveals appropriate pacer spikes. 11. DVT prophylaxis - Patient is already on Apixaban for #2 which will be continued. Total time: Approximately 55 minutes. Charges/Coding Visit Charges Inpatient E&M: 29361 Init Hosp L2
[2023-09-04] MEDS: Diltiazem 125 MG in Dextrose 5%-Water (100mL Bag) 100 ML CONT INF (19:21)
--- NOTE | 2023-09-04 21:00 | EKG12_ITS ---
Test Reason : NSR CONVERT Blood Pressure : / mmHG Vent. Rate : 070 BPM Atrial Rate : 070 BPM P-R Int : 192 ms QRS Dur : 086 ms QT Int : 418 ms P-R-T Axes : 069 -02 037 degrees QTc Int : 451 ms Normal sinus rhythm Nonspecific ST abnormality Abnormal ECG When compared with ECG of 04-SEP-2023 17:54, MANUAL COMPARISON REQUIRED, DATA IS UNCONFIRMED Confirmed by BRIDGETT CLARK, RIC ([id number]), managing editor LISY COTTER ([id number]) on 09/06/2023 7:13:40 AM Referred By: Rojo Confirmed By:RIC URIAS MD
[2023-09-04] MEDS: dilTIAZem CD 240 MG Capsule PO (21:47)
[2023-09-04] MEDS: Donepezil HCl 10 MG Tablet PO (21:47)
[2023-09-04] MEDS: APIXABAN 2.5 MG TABLET (WCH) PO (21:47)
[2023-09-04 21:55] LABS: Bedside Glucose 141 mg/dL (74-106)
[2023-09-05] VITALS (8 sets, daily range): BP systolic 102–149; BP diastolic 53–83; PULSE 71–107; RESP 18–20; TEMP 36.3–37.1; O2SAT 93–100; BMI 23.9
[2023-09-05] MEDS: Levothyroxine 75 MCG Tablet PO (04:29)
[2023-09-05 05:00] LABS: Absolute Lymphocyte Count 1.21 X10^3/uL (0.83-4.51); Absolute Neutrophil Count 5.1 X10^3/uL (2.0-7.7); Basophil# 0.02 X10^3/uL; Basophil% 0.3 % (0-1); Eosinophil# 0.03 X10^3/uL; Eosinophils% 0.4 % (0-5); Hematocrit 35.7 % (37-47); Hemoglobin 11.2 g/dL (12.0-15.0); Lymphocyte # 1.21 X10^3/ul (0.83-4.51); Lymphocyte % 16.1 % (19-41); Mean Corp Hgb Conc 31.4 g/dL (32-36); Mean Corpuscular Hgb 31.3 pg (27.0-32.0); Mean Corpuscular Volume 99.7 fL (81-99); Mean Platelet Vol. 10.3 fl (6.2-12.0); Monocyte# 1.13 X10^3/uL; Monocyte% 15.1 % (0-10); NRBC Flagged by Analyzer 0 % (0-5); Neutrophil # 5.07 X10^3/uL (2.7-7.7); Neutrophil % 67.6 % (47-70); Platelet Count 277 K/mm3 (150-450); RBC Distribution Width CV 12.7 % (11.6-14.6); RBC Distribution Width SD 46.6 fl (35.1-43.9); Red Blood Count 3.58 M/mm3 (4.2-5.4); White Blood Count 7.5 K/mm3 (4.4-11.0)
[2023-09-05 05:51] LABS: ALB/GLOB Ratio 0.8 RATIO (0.9-2.4); AST(SGOT) 23 U/L (15-37); Alanine Aminotransfer ALT/SGPT 17 U/L (13-56); Albumin, Serum 2.9 g/dL (3.2-5.0); Alkaline Phosphatase 75 U/L (45-117); Anion Gap 12 (5-15); BUN 22 mg/dL (7-18); BUN/Creat Ratio 13.7 RATIO (10-20); Calcium,Total 8.1 mg/dL (8.5-10.1); Chloride 104 mmol/L (98-107); Creatinine, Serum 1.61 mg/dL (0.55-1.02); EST Glomerular Filtration Rate 33 mL/min (>60); Est Glom Filt Rate - Afr Amer 39 mL/min (>60); Estimated Creatinine Clearance 22.29 ml/min; Globulin 3.7 g/dL (2.2-4.2); Glucose 142 mg/dL (74-106); Magnesium 1.7 mg/dL (1.6-2.6); Phosphorus 2.7 mg/dL (2.5-4.9); Potassium 4.2 mmol/L (3.5-5.1); Protein, Total 6.6 g/dL (6.4-8.2); Sodium Level 135 mmol/L (136-145); Thyroid Stim Hormone (TSH) 3.08 uIU/mL (0.358-3.74)
[2023-09-05] MEDS: Vitamin B Comp W-C Capsule 1 CAP PO (07:58)
[2023-09-05] MEDS: APIXABAN 2.5 MG TABLET (WCH) PO ×2 (07:59→21:17)
[2023-09-05] MEDS: Calcium Carb/Vitamin D 1 TABLET Tablet PO (07:59)
[2023-09-05] MEDS: Metoprolol(XL)Succ 50 MG Tablet PO (07:59)
[2023-09-05] MEDS: Cholecalciferol (Vit D3) 125 MCG CAPSULE (5,000 UNITS) PO (07:59)
--- NOTE | 2023-09-05 09:37 | PCM.PN.HOSP ---
Reason for Visit Reason for Visit: Diagnoses Hypokalemia (09/04/23) Unspecified dementia, moderate, without behavioral disturbance, psychotic disturbance, mood disturbance, and anxiety (09/04/23) Unspecified atrial fibrillation (09/04/23) Chronic fatigue, unspecified (09/04/23) Subjective Subjective Patient feeling generally weak and achy, also feeling tired. Patient's been having very poor p.o. intake recently Objective Data Objective Data Vital Signs: Vital Signs Temp Pulse Resp BP Pulse Ox O2 Del Method 98.2 F 107 H 20 H 110/68 100 Room Air 09/05/23 07:54 09/05/23 07:59 09/05/23 07:54 09/05/23 07:59 09/05/23 07:54 09/05/23 08:00 Oxygen Delivery Method Room Air Weight: 61.3 kg Body Mass Index (BMI) 23.9 Intake & Output: Intake and Output for Last 24 Hours 09/03/23 09/04/23 09/05/23 23:59 23:59 23:59 Intake Total 1265.74 / 1265.74 0 / 0 Output Total 300 / 300 Balance 1265.74 / 1265.74 -300 / -300 Lab / Micro Data 09/05/23 04:40 09/05/23 04:40 Labs: Laboratory Results - last 24 hr 09/04/23 16:46: WBC 7.9, RBC 3.82 L, Hgb 11.7 L, Hct 35.1 L, MCV 91.9, MCH 30.6, MCHC 33.3, RDW Std Deviation 42.6, RDW Coeff of [place] 12.7, Plt Count 294, MPV 10.3, Immature Gran % (Auto) 0.600, Neut % (Auto) 55.5, Lymph % (Auto) 28.2, [place] % (Auto) 14.4 H, Eos % (Auto) 0.9, Baso % (Auto) 0.4, Absolute Neuts (auto) 4.4, Absolute Lymphs (auto) 2.22, Nucleated RBC % 0, Sodium 133 L, Potassium 2.6 L*, Chloride 97 L, Carbon Dioxide 24.0, Anion Gap 12, BUN 25 H, Creatinine 1.87 H, Est GFR (MDRD) Af Amer 33 L, Est GFR (MDRD) Non-Af 27 L, BUN/Creatinine Ratio 13.4, Glucose 148 H, Calcium 9.0, Magnesium 1.8, Troponin I High Sens 44 09/04/23 17:54: Urine Color Yellow, Urine Clarity Sl. Cloudy, Urine pH 6.0, Ur Specific [place] 1.010, Urine Protein Negative, Urine Glucose (UA) Normal, Urine Ketones Negative, Urine Occult Blood 10 H, Urine Nitrite Negative, Urine Bilirubin Negative, Urine Urobilinogen Normal, Ur Leukocyte Esterase Negative, Urine RBC 0 SEEN, Urine WBC 0-5 SEEN, Ur Squamous Epith Cells 0-5 SEEN, Amorphous Sediment 1+ URATE, Urine Bacteria 0 SEEN, Urine Mucus 0 SEEN 09/04/23 21:07: POC Glucose 141 H 09/05/23 04:40: WBC 7.5, RBC 3.58 L, Hgb 11.2 L, Hct 35.7 L, MCV 99.7 H D, MCH 31.3, MCHC 31.4 L D, RDW Std Deviation 46.6 H, RDW Coeff of [place] 12.7, Plt Count 277, MPV 10.3, Immature Gran % (Auto) 0.500, Neut % (Auto) 67.6, Lymph % (Auto) 16.1 L, [place] % (Auto) 15.1 H, Eos % (Auto) 0.4, Baso % (Auto) 0.3, Absolute Neuts (auto) 5.1, Absolute Lymphs (auto) 1.21, Nucleated RBC % 0, Sodium 135 L, Potassium 4.2, Chloride 104, Carbon Dioxide 19.0 L, Anion Gap 12, BUN 22 H, Creatinine 1.61 H, Estim Creat Clear Calc 22.29, Est GFR (MDRD) Af Amer 39 L, Est GFR (MDRD) Non-Af 33 L, BUN/Creatinine Ratio 13.7, Glucose 142 H, Calcium 8.1 L, Phosphorus 2.7, Magnesium 1.7, Total Bilirubin 0.80, AST 23, ALT 17, Alkaline Phosphatase 75, Total Protein 6.6, Albumin 2.9 L, Globulin 3.7, Albumin/Globulin Ratio 0.8 L, TSH 3.08 Micro: Microbiology 09/04/23 17:45 Urine, Clean Catch Urine Culture - Preliminary Gram negative karo 09/04/23 17:06 Nasal Secretion SARS-CoV-2 & FLU Antigen (Rapid) - Final Radiography Diagnostic Testing: Radiology Impression Chest X-Ray 09/04/23 17:35 IMPRESSION: No acute findings in the chest. Electronically Signed: Cristian Simmons MD at 18:01 EST Reading Location ID and State: [facility] / [place] , Service support , Physical Exam Narrative General: Alert, limited affect HEENT: Atraumatic, normocephalic Eyes: Anicteric, normal conjunctiva, extraocular movements grossly intact Neck: Supple Respiratory: No wheezes or rhonchi, normal respiratory effort Cardiovascular: Regular rate GI: Soft, nontender, nondistended Extremities: No significant pitting edema Musculoskeletal: Moving all extremities Neuro: No overt focal neurological deficits Skin: No rashes appreciated Psych: Very limited affect Assessment & Plan Assessment/Plan (1) Acute hypokalemia: (2) Atrial fibrillation with rapid ventricular response: (3) Fatigue: QUALIFIERS: Fatigue type: chronic, unspecified Qualified Code(s): R53.82 - Chronic fatigue, unspecified (4) Dementia: QUALIFIERS: Dementia behavioral or psychological symptom: without behavioral, psychotic, or mood disturbance or anxiety Dementia severity: moderate Dementia type: unspecified type Qualified Code(s): F03.B0 - Unspecified dementia, moderate, without behavioral disturbance, psychotic disturbance, mood disturbance, and anxiety PLAN: Plan 1. Acute severe hypokalemia of 2.6 mmol/L present on admission complicated by acute kidney injury with elevated creatinine of 1.87 mg/dL present on admission (up from baseline of 1.52 mg/dL last admission) - Admit to PCU. Given supplemental potassium chloride orally and IV and then recheck BMP in the a.m. to ensure improvement. Also volume resuscitate, place Lee and follow strict I's and O's. -09/05: [place] improving and potassium normalized 2. Atrial fibrillation with rapid ventricular response of approximately 140 bpm present on admission - Continue IV Cardizem drip to keep heart rate less than or equal to 100 bpm. Serialize troponin. Continue metoprolol and apixaban as previous. -09/05: Given mag of 1.7, goal would be 2, will give mag replacement. TSH 3.08, on metoprolol 50 mg daily, off Cardizem drip, increase metoprolol to 75 mg 3. Acute delirium complicating chronic dementia arising from #1 and #2 - Resume supportive care began in the ER and monitor for improvement. Check TSH. -09/05: TSH within normal limits, patient mentating but has a very restricted affect and not eating well 4. Generalized weakness with ambulatory dysfunction due to #1 - #3 - PT/OT and case management to consult and treat this admission without appreciated in advance. -09/05: We will check vitamin D, B12, folate, TSH within normal limits, add Ensure 5. Recent acute cystitis - She has basically completed her course of oral Keflex UA negative for infection this admission. 6. Essential hypertension - Continue home medications plus give as needed IV hydralazine for systolic blood pressure greater than 160 mmHg. 7. Hyperlipidemia - Resume statin and check lipid profile this admission. 8. Hypothyroidism - Continue Synthroid as previous. 9. Diabetes mellitus type 2; of unknown control - ADA/Cardiac diet. Fingerstick blood sugars before every meal and at bedtime + scale insulin. Check hemoglobin A1c to objectively assess quality of diabetic control. 10. History of sick sinus syndrome; status post permanent pacemaker placement - Noted. night monitor reveals appropriate pacer spikes. 11. Hx CAD s/p stenting and TIA: continue home medications #DVT prophylaxis - Patient is already on Apixaban for #2 which will be continued. Total time: Approximately 36 minutes. Charges/Coding Visit Charges Inpatient E&M: 05743 Subs Hosp L2
--- NOTE | 2023-09-05 10:35 | CASEMGMT ---
RN CM Face to Face with patient for initial transition planning/care coordination assessment. RN CM introduced self and role at [facility]. Patient lying in bed, alert and oriented, daughter and sister at bedside. Patient willing to participate in assessment and is able to answer all questions appropriately. Care providers, pharmacy, and demographics verified. Patient wishes to discharge home, will monitor progress with therapy for safe discharge disposition. Patient states she has no further needs or concerns at this time. CM to follow for discharge planning needs that may arise. PCP: Valerie Specialists: Ana M private eye; Argenis urologist Preferred Pharmacy: [facility] Insurance: [employer] Prescription Benefit: yes Living Will/HPOA: none LNOK: daughters Living Arrangements: Patient lives with daughters in a single story home with 2 steps to enter. Patient was independent at home. Transportation: daughters DME/HHC: Patient has walker at home. No previous HHC or SNF, will monitor progress with therapy. Disposition Plan: TBD, anticipate HHC vs SNF pending progress with therapy. Kim OROZCO, RN, CM
[2023-09-05] MEDS: Magnesium Sulfate 2 GM in Dextrose 5%-Water (100mL Bag) 100 ML IV (10:59)
[2023-09-05] MEDS: Metoprolol(XL)Succ 25 MG Tablet PO (10:59)
[2023-09-05 12:12] LABS: Bedside Glucose 189 mg/dL (74-106)
[2023-09-05] MEDS: Ensure Plus High Protein 120 ML LIQUID PO (13:14)
[2023-09-05 13:24] LABS: Vitamin B12 > 2000 pg/mL (211-911)
--- NOTE | 2023-09-05 15:05 | CASEMGMT ---
Discharge Planning A list of?SNF providers including quality and resource use data and consistent with the patient's preferred geographic region, medical needs, and insurance network was created in [employer] Guide.? This list was provided to the SW. Jaida Davidson Discharge Planning Asst.
--- NOTE | 2023-09-05 15:19 | CASEMGMT ---
Patient did not do well with therapy. Therapy is recommending patient go to a [facility] for [facility] term rehab. SW met with patient. Introduced self and role at [facility]. SW explained therapy's recommendations to patient. Patient said she would be agreeable to go somewhere for short term rehab. SW explained the SNF list to patient and they need to pick 3 places. Patient asked that SW call one of her daughters. SW called patient's daughter Sydni. SW left her a voice mail letting her know therapy's recommendations. SW also explained the list and that SW will leave it in patient's room. SW also left SW's phone number. Leslie Ambrose MSW JOCELYNE
[2023-09-05 17:10] LABS: Bedside Glucose 182 mg/dL (74-106)
[2023-09-05] MEDS: Insulin Lispro 100 UNIT/ML INSULN.PEN SC ×2 (18:01→21:23)
[2023-09-05] MEDS: Acetaminophen 325 MG Tablet 650 MG PO (20:19)
[2023-09-05] MEDS: Donepezil HCl 10 MG Tablet PO (21:17)
[2023-09-05 23:14] LABS: Bedside Glucose 330 mg/dL (74-106)
[2023-09-06] VITALS (7 sets, daily range): BP systolic 92–125; BP diastolic 61–78; PULSE 55–121; RESP 14–18; TEMP 36.1–37.7; O2SAT 91–98; BMI 23.6
[2023-09-06 06:12] LABS: Absolute Lymphocyte Count 0.44 X10^3/uL (0.83-4.51); Absolute Neutrophil Count 6.8 X10^3/uL (2.0-7.7); Basophil# 0.02 X10^3/uL; Basophil% 0.3 % (0-1); Eosinophil# 0.01 X10^3/uL; Eosinophils% 0.1 % (0-5); Hematocrit 31.5 % (37-47); Hemoglobin 10.1 g/dL (12.0-15.0); Lymphocyte # 0.44 X10^3/ul (0.83-4.51); Lymphocyte % 5.5 % (19-41); Mean Corp Hgb Conc 32.1 g/dL (32-36); Mean Corpuscular Hgb 30.1 pg (27.0-32.0); Mean Platelet Vol. 10.5 fl (6.2-12.0); Monocyte# 0.57 X10^3/uL; Monocyte% 7.2 % (0-10); NRBC Flagged by Analyzer 0 % (0-5); Neutrophil # 6.83 X10^3/uL (2.7-7.7); Neutrophil % 86.1 % (47-70); POSITIVE DIFFERENTIAL YES; Platelet Count 282 K/mm3 (150-450); RBC Distribution Width CV 12.8 % (11.6-14.6); Red Blood Count 3.35 M/mm3 (4.2-5.4); White Blood Count 7.9 K/mm3 (4.4-11.0)
[2023-09-06 06:27] LABS: Differential Indicated SCAN CRITERIA MET
[2023-09-06] MEDS: Insulin Lispro 100 UNIT/ML INSULN.PEN SC ×4 (06:34→21:58)
[2023-09-06] MEDS: Levothyroxine 75 MCG Tablet PO (06:37)
[2023-09-06 06:47] LABS: Anion Gap 9 (5-15); BUN 32 mg/dL (7-18); BUN/Creat Ratio 18.7 RATIO (10-20); Calcium,Total 8.5 mg/dL (8.5-10.1); Chloride 103 mmol/L (98-107); Creatinine, Serum 1.71 mg/dL (0.55-1.02); EST Glomerular Filtration Rate 30 mL/min (>60); Est Glom Filt Rate - Afr Amer 37 mL/min (>60); Estimated Creatinine Clearance 20.98 ml/min; Glucose 205 mg/dL (74-106); Potassium 3.7 mmol/L (3.5-5.1); Sodium Level 135 mmol/L (136-145)
[2023-09-06 06:48] LABS: Differential Comment SCANNED
[2023-09-06 07:05] LABS: Bedside Glucose 181 mg/dL (74-106)
[2023-09-06] MEDS: Vitamin B Comp W-C Capsule 1 CAP PO (07:56)
[2023-09-06] MEDS: Cholecalciferol (Vit D3) 125 MCG CAPSULE (5,000 UNITS) PO (07:56)
[2023-09-06] MEDS: Calcium Carb/Vitamin D 1 TABLET Tablet PO (07:56)
[2023-09-06] MEDS: Metoprolol(XL)Succ 25 MG Tablet 75 MG PO (07:57)
[2023-09-06] MEDS: Ensure Plus High Protein 120 ML LIQUID PO ×3 (07:57→17:10)
[2023-09-06] MEDS: APIXABAN 2.5 MG TABLET (WCH) PO ×2 (07:57→21:51)
--- NOTE | 2023-09-06 08:11 | PN.HOSP_ITS ---
Reason for Visit Reason for Visit: Diagnoses Hypokalemia (09/04/23) Unspecified dementia, moderate, without behavioral disturbance, psychotic disturbance, mood disturbance, and anxiety (09/04/23) Unspecified atrial fibrillation (09/04/23) Chronic fatigue, unspecified (09/04/23) Subjective Subjective Reports sleeping well but also reports eating well, minimally engaged, knows she is in the hospital when asked the year she says 1981, when further questioned patient closes her eyes and stops answering questions verbally but will continue to follow commands Objective Data Objective Data Vital Signs: Vital Signs Temp Pulse Resp BP Pulse Ox O2 Del Method 99.8 F H 121 H 14 94/63 91 Room Air 09/06/23 07:51 09/06/23 07:57 09/06/23 07:51 09/06/23 07:57 09/06/23 07:51 09/06/23 07:51 Oxygen Delivery Method Room Air Weight: 60.5 kg Body Mass Index (BMI) 23.6 Intake & Output: Intake and Output for Last 24 Hours 09/04/23 09/05/23 09/06/23 23:59 23:59 23:59 Intake Total 1265.74 / 1265.74 894 / 894 120 / 120 Output Total 420 / 420 Balance 1265.74 / 1265.74 474 / 474 120 / 120 Lab / Micro Data 09/06/23 05:35 09/06/23 05:35 Labs: Laboratory Results - last 24 hr 09/05/23 04:40: Folate 86.40 H 09/05/23 11:05: POC Glucose 189 H 09/05/23 12:35: Vitamin B12 > 2000 H, Vitamin D 25-Hydroxy 32.0 09/05/23 16:10: POC Glucose 182 H 09/05/23 21:22: POC Glucose 330 H 09/06/23 05:35: WBC 7.9, RBC 3.35 L, Hgb 10.1 L, Hct 31.5 L, MCV 94.0 D, MCH 30.1, MCHC 32.1, RDW Std Deviation 44.0 H, RDW Coeff of Baltazar 12.8, Plt Count 282, MPV 10.5, Immature Gran % (Auto) 0.800, Neut % (Auto) 86.1 H, Lymph % (Auto) 5.5 L, Barrow % (Auto) 7.2, Eos % (Auto) 0.1, Baso % (Auto) 0.3, Absolute Neuts (auto) 6.8, Absolute Lymphs (auto) 0.44 L, Nucleated RBC % 0, Differential Comment SCANNED, Sodium 135 L, Potassium 3.7, Chloride 103, Carbon Dioxide 23.0, Anion Gap 9, BUN 32 H, Creatinine 1.71 H, Estim Creat Clear Calc 20.98, Est GFR (MDRD) Af Amer 37 L, Est GFR (MDRD) Non-Af 30 L, BUN/Creatinine Ratio 18.7, Glucose 205 H, Calcium 8.5 09/06/23 06:32: POC Glucose 181 H Micro: Microbiology 09/04/23 17:45 Urine, Clean Catch Urine Culture - Preliminary Gram negative karo 09/04/23 17:06 Nasal Secretion SARS-CoV-2 & FLU Antigen (Rapid) - Final Physical Exam Narrative General: Alert, limited affect HEENT: Atraumatic, normocephalic Eyes: Anicteric, normal conjunctiva, extraocular movements grossly intact Neck: Supple Respiratory: No wheezes or rhonchi, normal respiratory effort Cardiovascular: Regular rate GI: Soft, nontender, nondistended Extremities: No significant pitting edema Musculoskeletal: Moving all extremities Neuro: No overt focal neurological deficits Skin: No rashes appreciated Psych: Very limited affect Assessment & Plan Assessment/Plan (1) Acute hypokalemia: (2) Atrial fibrillation with rapid ventricular response: (3) Fatigue: QUALIFIERS: Fatigue type: chronic, unspecified Qualified Code(s): R53.82 - Chronic fatigue, unspecified (4) Dementia: QUALIFIERS: Dementia type: unspecified type Dementia severity: moderate Dementia behavioral or psychological symptom: without behavioral, psychotic, or mood disturbance or anxiety Qualified Code(s): F03.B0 - Unspecified dementia, moderate, without behavioral disturbance, psychotic disturbance, mood disturbance, and anxiety PLAN: Plan #Acute delirium complicating chronic dementia arising from #1 and #2 - Resume supportive care began in the ER and monitor for improvement. Check TSH. -09/05: TSH within normal limits, patient mentating but has a very restricted affect and not eating well #Generalized weakness with ambulatory dysfunction due to #1 - #3 - PT/OT and case management to consult and treat this admission without appreciated in advance. We will check vitamin D, B12, folate, add Ensure -09/06: Lab work-up fairly unremarkable, query if patient's donepezil could be leading some to her depression and insomnia or her dementia itself could be causing these problems. Patient does seem to have a component of hypoactive delirium however so we will stop donepezil and begin Abilify, continue suppor tive care. Patient will need placed #Acute severe hypokalemia of 2.6 mmol/L present on admission complicated by acute kidney injury with elevated creatinine of 1.87 mg/dL present on admission (up from baseline of 1.52 mg/dL last admission) - Admit to PCU. Given supplemental potassium chloride orally and IV and then recheck BMP in the a.m. to ensure improvement. Also volume resuscitate, place Lee and follow strict I's and O's. -09/05: [place] improving and potassium normalized -09/06: Worsened slightly today, will check kidney and bladder ultrasound and urine studies #Atrial fibrillation with rapid ventricular response of approximately 140 bpm present on admission - Continue IV Cardizem drip to keep heart rate less than or equal to 100 bpm. Serialize troponin. Continue metoprolol and apixaban as previous. -09/05: Given mag of 1.7, goal would be 2, will give mag replacement. TSH 3.08, on metoprolol 50 mg daily, off Cardizem drip, increase metoprolol to 75 mg -09/06: Continue metoprolol at higher dose, patient seems to start to have increased rate towards the a.m. before morning dose of metoprolol, will consider splitting metoprolol dose #Recent acute cystitis - She has basically completed her course of oral Keflex UA negative for infection this admission. #Essential hypertension - Continue home medications plus give as needed IV hydralazine for systolic blood pressure greater than 160 mmHg. #Hyperlipidemia - Resume statin and check lipid profile this admission. #Hypothyroidism - Continue Synthroid as previous. #Diabetes mellitus type 2; of unknown control - ADA/Cardiac diet. Fingerstick blood sugars before every meal and at bedtime + scale insulin. Check hemoglobin A1c to objectively assess quality of diabetic control. #History of sick sinus syndrome; status post permanent pacemaker placement - Noted. surveillance monitor reveals appropriate pacer spikes. #Hx CAD s/p stenting and TIA: continue home medications #DVT prophylaxis - Patient is already on Apixaban for #2 which will be continued. Total time: Approximately 36 minutes. Charges/Coding Visit Charges Inpatient E&M: 82085 Subs Hosp L2
--- NOTE | 2023-09-06 08:30 | US_ITS ---
INDICATION: worsened kidney function EXAMINATION: Ultrasound US Kidney(s) complete (eg, kidneys and bladder) TECHNIQUE: Chase scale and color doppler images were obtained of the kidneys. COMPARISON: 05/26/2023 FINDINGS: RIGHT KIDNEY: 11.1 x 4.2 x 4.4 cm. Prominent extrarenal pelvis without definite hydronephrosis. No shadowing calculus, focal lesion or perinephric collection is demonstrated. LEFT KIDNEY: 10.5 x 4.2 x 3.8 cm. There is no hydronephrosis. No shadowing calculus, focal lesion or perinephric collection is demonstrated. URINARY BLADDER: Nondistended for evaluation. US/Kidney and Bladder IMPRESSION: Prominent right extrarenal pelvis without giovanna hydronephrosis. No left hydronephrosis. Electronically Signed: Jesus Alberto Palacios MD at 17:14 EST ,
[2023-09-06] MEDS: ARIPiprazole 2 MG Tablet PO (09:54)
[2023-09-06] MEDS: Acetaminophen 325 MG Tablet 650 MG PO (10:04)
--- NOTE | 2023-09-06 10:19 | CASEMGMT ---
SW met with patient's daughters and patient. MARGARITA introduced self and role at [facility]. Patient's daughter had the list of [facility] facilities. Their choices were [facility], [place], [facility], and [facility]. Family also brought up Hospice. MARGARITA explained patient cannot have rehab and Hospice at the same time. Insurance will pay for one or the other. MARGARITA explained if patient goes to a retirement on Hospice she would have to pay for room and board and insurance would pay for the Hospice care. Family was going to talk with the doctor about what would be most appropriate. At this time family would like patient to get stronger so she can return home. SW will work on referrals. MARGARITA asked Jaida d/c planning official to send referrals to those facilities. Leslie CASANOVA
--- NOTE | 2023-09-06 10:36 | CASEMGMT ---
Discharge Planning Referral sent to [facility], [facility], and [facility] via [facility]. Jaida Davidson, Discharge Planning Asst.
[2023-09-06] MEDS: Ferrous Sulfate 325 MG Tablet PO (12:25)
[2023-09-06 12:49] LABS: Bedside Glucose 278 mg/dL (74-106)
--- NOTE | 2023-09-06 14:14 | CASEMGMT ---
[facility] accepted patient and they will start pre-cert. MARGARITA went to patient's room and notified patient as well as her two daughters. MARGARITA explained patient will stay in the hospital until her insurance approves her. MARGARITA explained this will likely be tomorrow. Patient will be able to wear regular clothes. Patient's daughters stated they will be here tomorrow. They do not want patient moved without them knowing. MARGARITA assured them this will not happen. Plan: [facility] pending insurance approval. Leslie CASANOVA
[2023-09-06] MEDS: Menthol/Lanolin/Calamine/Znox 113 GM Tube 1 APPLIC TOPICAL ×2 (14:30→21:52)
[2023-09-06 15:13] LABS: Mucous, Urine 0 SEEN /hpf (<or=2+); Squamous Epithelial Cells - UA 0 SEEN /hpf (5-10)
[2023-09-06 15:17] LABS: Color, Urine Yellow (Yellow); Glucose, Dipstick Normal (Normal); Ketone-Dipstick 5 mg/dl (Negative); Leukocyte Esterase-Dipstick 100 /ul (Negative); Nitrite-Dipstick Positive (Negative); Occult Blood-Urine 250 /ul (Negative); Protein-Dipstick 30 mg/dl (Negative); Urine Bilirubin Dipstick Negative (Negative); Urine Clarity Sl. Cloudy (Clear); Urine Urobilinogen Normal (Normal)
[2023-09-06 15:24] LABS: Red Blood Cells-Urine 25-50 SEEN /hpf (0-5)
[2023-09-06 15:25] LABS: Bacteria 2+ /hpf (None Seen); Coarse Granular Cast 0-5 SEEN /lpf (0-5 /lpf); Hyaline Cast 0-5 SEEN /lpf (0-5); White Blood Cells 10-25 SEEN /hpf (0-5)
[2023-09-06 15:33] LABS: Urea Nitrogen, Urine 773 mg/dL (NO RANGE EST.); Urine Chloride 23 mmol/L (Not Establ.); Urine Sodium 10 mmol/L (Not Establ.)
[2023-09-06 16:12] LABS: Osmolality, Urine 473 mOsm/KG
[2023-09-06] MEDS: levoFLOXacin IV 750 MG/150 ML BAG 100 MG IV (17:10)
[2023-09-06] MEDS: 0.9% Saline Lock 10 ML Syringe IV (17:10)
[2023-09-06 17:25] LABS: Bedside Glucose 296 mg/dL (74-106)
[2023-09-06] MEDS: Metoprolol(XL)Succ 25 MG Tablet PO (21:52)
[2023-09-06 23:21] LABS: Bedside Glucose 289 mg/dL (74-106)
[2023-09-07 03:25] VITALS: BP 152/84; PULSE 96; RESP 16; TEMP 36.5; O2SAT 98
[2023-09-07 05:53] VITALS: BMI 23.8
[2023-09-07] MEDS: Menthol/Lanolin/Calamine/Znox 113 GM Tube 1 APPLIC TOPICAL ×2 (06:23→14:16)
[2023-09-07] MEDS: Levothyroxine 75 MCG Tablet PO (06:23)
[2023-09-07] MEDS: Insulin Lispro 100 UNIT/ML INSULN.PEN SC ×2 (06:23→11:20)
[2023-09-07 06:52] LABS: Bedside Glucose 154 mg/dL (74-106)
[2023-09-07 07:09] VITALS: O2SAT 95
[2023-09-07 07:31] LABS: BUN 41 mg/dL (7-18); Glucose 166 mg/dL (74-106)
[2023-09-07 07:32] LABS: Anion Gap 8 (5-15); BUN/Creat Ratio 26.6 RATIO (10-20); Calcium,Total 8.8 mg/dL (8.5-10.1); Chloride 102 mmol/L (98-107); Creatinine, Serum 1.54 mg/dL (0.55-1.02); EST Glomerular Filtration Rate 34 mL/min (>60); Est Glom Filt Rate - Afr Amer 41 mL/min (>60); Potassium 3.7 mmol/L (3.5-5.1); Sodium Level 133 mmol/L (136-145)
[2023-09-07 07:59] LABS: Absolute Lymphocyte Count 1.68 X10^3/uL (0.83-4.51); Absolute Neutrophil Count 10.4 X10^3/uL (2.0-7.7); Basophil# 0.07 X10^3/uL; Basophil% 0.5 % (0-1); Eosinophil# 0.17 X10^3/uL; Eosinophils% 1.3 % (0-5); Hematocrit 31.6 % (37-47); Hemoglobin 10.2 g/dL (12.0-15.0); Lymphocyte # 1.68 X10^3/ul (0.83-4.51); Lymphocyte % 12.6 % (19-41); Mean Corp Hgb Conc 32.3 g/dL (32-36); Mean Corpuscular Hgb 30.8 pg (27.0-32.0); Mean Corpuscular Volume 95.5 fL (81-99); Mean Platelet Vol. 10.8 fl (6.2-12.0); Monocyte# 0.87 X10^3/uL; Monocyte% 6.5 % (0-10); NRBC Flagged by Analyzer 0 % (0-5); Neutrophil # 10.42 X10^3/uL (2.7-7.7); Neutrophil % 78.3 % (47-70); Platelet Count 301 K/mm3 (150-450); RBC Distribution Width CV 12.6 % (11.6-14.6); RBC Distribution Width SD 43.7 fl (35.1-43.9); Red Blood Count 3.31 M/mm3 (4.2-5.4); White Blood Count 13.3 K/mm3 (4.4-11.0)
[2023-09-07 08:28] VITALS: BP 137/77; PULSE 86; RESP 16; TEMP 36.6; O2SAT 96
[2023-09-07 08:32] VITALS: PULSE 86
[2023-09-07] MEDS: Vitamin B Comp W-C Capsule 1 CAP PO (08:32)
[2023-09-07] MEDS: Calcium Carb/Vitamin D 1 TABLET Tablet PO (08:32)
[2023-09-07] MEDS: Ensure Plus High Protein 120 ML LIQUID PO ×2 (08:32→11:20)
[2023-09-07] MEDS: Cholecalciferol (Vit D3) 125 MCG CAPSULE (5,000 UNITS) PO (08:32)
[2023-09-07] MEDS: ARIPiprazole 2 MG Tablet PO (08:32)
[2023-09-07] MEDS: APIXABAN 2.5 MG TABLET (WCH) PO (08:32)
[2023-09-07] MEDS: Metoprolol(XL)Succ 50 MG Tablet PO (08:32)
[2023-09-07] MEDS: 0.9% Normal Saline (250mL Bag) 250 ML 999 ML IV (10:46)
[2023-09-07 11:49] LABS: Bedside Glucose 283 mg/dL (74-106)
--- NOTE | 2023-09-07 13:24 | CASEMGMT ---
Patient was approved to go to [facility]. SW notified physician, RN, patient, and her daughter. Plan: d/c to [facility] under skilled level of care. Leslie CASANOVA
[2023-09-07 14:09] VITALS: BP 110/63; PULSE 74; RESP 18; TEMP 37.1; O2SAT 96
--- NOTE | 2023-09-07 14:26 | TREXTCAR_ITS ---
Diet Diet Order/Speech Therapy: 09/04/23 19:44 Diet: Consistent Carb - Calorie Controlled Food consistency:: Regular Liquid Consistency:: Regular/Thin How many daily calories?: 1800 calorie Routine Orders/Code Status Suppository Type: Dulcolax 10mg Suppository Frequency: Daily PRN Routine Lab Work: [facility] (3 days) Code Status: Full Code Therapies Physical Therapy: Eval and Treat Occupational Therapy: Eval and Treat Problem/Diagnosis (1) Acute hypokalemia: Status: Acute Code(s): E87.6 - Hypokalemia (2) Atrial fibrillation with rapid ventricular response: Status: Acute Code(s): I48.91 - Unspecified atrial fibrillation (3) Fatigue: Status: Inactive Code(s): R53.83 - Other fatigue (4) Dementia: Status: Chronic Code(s): F03.90 - Unspecified dementia, unspecified severity, without behavioral disturbance, psychotic disturbance, mood disturbance, and anxiety (5) Diabetes mellitus type 2, controlled: Status: Chronic Code(s): E11.9 - Type 2 diabetes mellitus without complications Comment: Pt states board[place]line (6) Essential hypertension: Status: Chronic Code(s): I10 - Essential (primary) hypertension (7) History of gastroesophageal reflux (GERD): Status: Chronic Code(s): Z87.19 - Personal history of other diseases of the digestive system (8) Increase in creatinine: Status: Acute Code(s): R79.89 - Other specified abnormal findings of blood chemistry (9) Presence of stent in coronary artery: Status: Chronic Code(s): Z95.5 - Presence of coronary angioplasty implant and graft Comment: PCI/Stent to mid LAD 01/25/07 (10) UTI (urinary tract infection): Status: Acute Code(s): N39.0 - Urinary tract infection, site not specified Plan #Acute hypoactive delirium complicating chronic dementia #Acute hypokalemia-resolved #Gram negative UTI #Atrial fibrillation with rapid ventricular #Essential hypertension #Hyperlipidemia #CKD unclear subtype #Hypothyroidism #Diabetes mellitus type 2 #History of sick sinus syndrome; status post permanent pacemaker placement #Hx CAD s/p stenting and TIA ARNIE COKER, is a 83 F with a past medical history of essential hypertension, hyperlipidemia, hypothyroidism, diabetes mellitus type 2; of unknown control, coronary artery disease; status post stent (2006), history of sick sinus syndrome; status post permanent pacemaker placement, chronic atrial fibrillation: on metoprolol and apixaban, history of right carotid artery stenosis, history of TIA, history aortic and mitral valve stenosis (nonrheumatic), history of irritable bowel syndrome; of diarrheal type, GERD, chronic dementia; on donepezil and recent UTI; treated with oral Keflex who presented to [facility] ER 09/04 complaining of generalized weakness with ambulatory dysfunction. Patient was found to have a creatinine of 1.87 and hypokalemia of 2.6 and additionally was in A-fib with RVR. She was on IV Cardizem and transition to oral metoprolol and she was given gentle hydration and her potassium was corrected. Patient reported generalized fatigue and not eating well and had very limited affect, also felt achy all over and had some hypoactive delirium on top of baseline dementia. Stopped her donepezil and started small dose of Abilify which significantly broadened affect compared to previous and helped appetite and help delirium and patient's general aches and pains did begin to improve. She had fluctuation in kidney function but did have urine studies that suggested patient slightly volume down so she was given very gentle hydration. Additionally she had increased glucose, a left shift on CBC, and a downtrend in BP with uptrend in heart rate and there is concern for recurrence of UTI. Repeated UA and urine culture and UA suggestive of UTI, she had been treated for recent UTI with Keflex however upon reviewing she had grown Proteus resistant to cefazolin, she is growing gram-negative rods again and suspect this is likely Proteus, given limited sensitivity profile and kidney function started on Levaquin. Discharge instructions as followed: DISCHARGE INSTRUCTIONS PLEASE READ *Please take this with you to your next doctors appointment* - Recommend repeating BMP to assess kidney function and potassium in 3 to 4 days -Would recommend discontinuing donepezil and continuing Abilify short-term as this is helped with appetite, mood, and affect. Can weigh risks and benefits of long-term use moving forward -Recommend to continue strawberry boost with meals -You will continue 50 mg of metoprolol daily and 25 mg will be added at bedtime as your heart rate is fairly well controlled during the day but in midmorning shortly before your a.m. dose of metoprolol heart rate starts going up again so dose will be split -You will be discharged on additional 5 days of Levaquin, you will take 750 mg every 48 hours with next dose 09/08 -You were found to be somewhat dehydrated so your Lasix have been held, would recommend resuming it in 2 days at 40 mg daily dose -Weigh yourself every day. A sudden weight gain can mean you are retaining fluid. Weigh yourself at the same time of day and in the same kind of clothes. Ideally, weigh yourself first thing in the morning after you empty your bladder, but before you eat breakfast. -Please call your physician if your weight goes up by more than 2 pounds in 1 day or 5 pounds in 1 week. This can be a sign that you are retaining more fluid than you should be. Clues to weight gain include checking your ankles for swelling, or noticing you are short of breath when you lie down -Please limit your sodium intake to less than 3 g/day. Here are tips: Limit canned, dried, packaged, and fast foods. Don't add salt to your food at the table. Season foods with herbs instead of salt when you cook. When you eat out, ask that the passenger vessel chef not add any salt to your dish. Don't eat fried or greasy foods. Be careful of bottled beverages. They can contain a lot of salt -Call 911 right away if you have: -Severe shortness of breath, such that you can't catch your breath even while resting -Severe chest pain that does not resolve with rest or nitroglycerin -[place], foamy mucus with cough and shortness of breath -An ongoing rapid or irregular heartbeat -Passing out or fainting -Stroke symptoms such as sudden numbness or weakness on one side of your face, arm, or leg or sudden confusion, trouble speaking or vision changes -Please call your primary care provider's office upon discharge to schedule a hospital follow up within 1 week. -For any concerning signs or symptoms please call 911 or proceed to the nearest emergency department Allergies/Procedures Done in Hospital Allergies Penicillins Allergy (Verified 09/04/23 16:42) Hives Acweugd-AFT-PwS Reductase Inhibitor [Yrwanms-Rmz-Ncl Reductase Inhibitor] Adverse Reaction (Intermediate, Verified 09/04/23 16:42) myalgias Type of Care/Length of Stay Estimated LOS: Convalescent Care Less Than 30 days Type of Care Needed: Skilled Rehab Potential: Fair Prognosis: Fair Additional Orders/Day of Discharge Day of Discharge: 09/07/23 Discharge Plan Admission Admit Date/Time: 09/04/23 19:41 Primary Reason for Your Visit: Weakness and fatigue Attending Provider: Chen Osuna Primary Care Provider: Whitney Padilla Consulting Providers: Jamie Santana Instructions Patient Instructions: ED Fall Prevention Additional Instructions / Restrictions: DISCHARGE INSTRUCTIONS PLEASE READ *Please take this with you to your next doctors appointment* - Recommend repeating BMP to assess kidney function in 3 to 4 days -Would recommend discontinuing donepezil and continuing Abilify short-term as this is helped with appetite, mood, and affect. Can weigh risks and benefits of long-term use moving forward -Recommend to continue strawberry boost with meals -You will continue 50 mg of metoprolol daily and 25 mg will be added at bedtime as your heart rate is fairly well controlled during the day but in midmorning shortly before your a.m. dose of metoprolol heart rate starts going up again so dose will be split -You will be discharged on additional 5 days of Levaquin, you will take 750 mg every 48 hours with next dose 09/08 -You were found to be somewhat dehydrated so your Lasix have been held, would recommend resuming it in 2 days at 40 mg daily dose -Weigh yourself every day. A sudden weight gain can mean you are retaining fluid. Weigh yourself at the same time of day and in the same kind of clothes. Ideally, weigh yourself first thing in the morning after you empty your bladder, but before you eat breakfast. -Please call your physician if your weight goes up by more than 2 pounds in 1 day or 5 pounds in 1 week. This can be a sign that you are retaining more fluid than you should be. Clues to weight gain include checking your ankles for swelling, or noticing you are short of breath when you lie down -Please limit your sodium intake to less than 3 g/day. Here are tips: Limit canned, dried, packaged, and fast foods. Don't add salt to your food at the table. Season foods with herbs instead of salt when you cook. When you eat out, ask that the passenger vessel chef not add any salt to your dish. Don't eat fried or greasy foods. Be careful of bottled beverages. They can contain a lot of salt -Call 911 right away if you have: -Severe shortness of breath, such that you can't catch your breath even while resting -Severe chest pain that does not resolve with rest or nitroglycerin -[place], foamy mucus with cough and shortness of breath -An ongoing rapid or irregular heartbeat -Passing out or fainting -Stroke symptoms such as sudden numbness or weakness on one side of your face, arm, or leg or sudden confusion, trouble speaking or vision changes -Please call your primary care provider's office upon discharge to schedule a hospital follow up within 1 week. -For any concerning signs or symptoms please call 911 or proceed to the nearest emergency department Discharge Orders/Prescriptions Prescriptions: New metoprolol succinate 25 mg Tablet Extended Release 24 Hr 25 mg PO QHS 30 Days Qty: 30 0RF Rx Instructions: In addition to daytime 50mg aripiprazole 2 mg Tablet 2 mg PO DAILY 7 Days Qty: 0 0RF Ensure Plus High Protein 0.08 gram-1.5 kcal/mL Liquid 120 ml PO TIDCM Qty: 0 0RF levofloxacin 750 mg tablet 750 mg PO Q48H 5 Days Qty: 3 0RF Rx Instructions: Next dose 09/08 Continued Adult 50 Plus Probiotic 4 billion cell capsule 4,000 mmu cells PO DAILY Rx Instructions: administer with a meal calcium citrate-vitamin D3 [Citracal + D Maximum] 315 mg- 250 unit tablet 1 tab PO DAILY cholecalciferol (vitamin D3) 125 mcg (5,000 unit) tablet 125 mcg PO DAILY Eliquis 2.5 mg tablet 2.5 mg PO BID Qty: 180 3RF metoprolol succinate 50 mg tablet extended release 24 hr 50 mg PO DAILY Qty: 90 3RF cranberry extract [Cranberry Concentrate] 500 mg capsule 500 mg PO DAILY Rx Instructions: administer with meals ferrous sulfate 325 mg (65 mg iron) tablet 325 mg PO Q OTHER DAY Qty: 90 3RF levothyroxine [Synthroid] 75 mcg Tablet 75 mcg PO SUMOTUWETH levothyroxine [Synthroid] 75 mcg Tablet 37.5 mcg PO FRSA vitamin B complex Capsule 1 cap PO DAILY Held furosemide [Lasix] 40 mg tablet 40 mg PO BID Qty: 10 0RF Hold Instructions: Resume on 09/09/23. Would resume at 40 mg daily Discontinued donepezil 10 mg tablet 10 mg PO QHS Qty: 90 3RF cephalexin 500 mg capsule 500 mg PO TID Qty: 21 0RF Patient Comments: Only has 1 pill left to take then antibiotic is complete Referrals / Follow Up: Whitney Padilla MD [Primary Care Provider] - Within 1 Week Disposition Disposition (needs filled in before D/C Order can be placed): [facility] (3) Fatigue Qualifiers: Fatigue type: chronic, unspecified Qualified Code(s): R53.82 - Chronic fatigue, unspecified (4) Dementia Qualifiers: Dementia behavioral or psychological symptom: without behavioral, psychotic, or mood disturbance or anxiety Dementia severity: moderate Dementia type: unspecified type Qualified Code(s): F03.B0 - Unspecified dementia, moderate, without behavioral disturbance, psychotic disturbance, mood disturbance, and anxiety
--- NOTE | 2023-09-07 15:21 | DS.PCM_ITS ---
Providers Date of Admission: 09/04/23 Date of Discharge: 09/07/23 Primary Care Physician: Dr. Whitney Padilla MD Reason For Visit: SEVERE HYPOKALEMIA, gen weakness Diagnosis Discharge Diagnosis (1) Acute hypokalemia: Status: Acute Code(s): E87.6 - Hypokalemia (2) Atrial fibrillation with rapid ventricular response: Status: Acute Code(s): I48.91 - Unspecified atrial fibrillation (3) Fatigue: Status: Inactive Code(s): R53.83 - Other fatigue Qualifiers: Fatigue type: chronic, unspecified Qualified Code(s): R53.82 - Chronic fatigue, unspecified (4) Dementia: Status: Chronic Code(s): F03.90 - Unspecified dementia, unspecified severity, without behavioral disturbance, psychotic disturbance, mood disturbance, and anxiety Qualifiers: Dementia type: unspecified type Dementia severity: moderate Dementia behavioral or psychological symptom: without behavioral, psychotic, or mood disturbance or anxiety Qualified Code(s): F03.B0 - Unspecified dementia, moderate, without behavioral disturbance, psychotic disturbance, mood disturbance, and anxiety (5) Diabetes mellitus type 2, controlled: Status: Chronic Code(s): E11.9 - Type 2 diabetes mellitus without complications (6) Essential hypertension: Status: Chronic Code(s): I10 - Essential (primary) hypertension (7) History of gastroesophageal reflux (GERD): Status: Chronic Code(s): Z87.19 - Personal history of other diseases of the digestive system (8) Increase in creatinine: Status: Acute Code(s): R79.89 - Other specified abnormal findings of blood chemistry (9) Presence of stent in coronary artery: Status: Chronic Code(s): Z95.5 - Presence of coronary angioplasty implant and graft (10) UTI (urinary tract infection): Status: Acute Code(s): N39.0 - Urinary tract infection, site not specified Plan #Acute hypoactive delirium complicating chronic dementia #Acute hypokalemia-resolved #Gram negative UTI #Atrial fibrillation with rapid ventricular #Essential hypertension #Hyperlipidemia #CKD unclear subtype #Hypothyroidism #Diabetes mellitus type 2 #History of sick sinus syndrome; status post permanent pacemaker placement #Hx CAD s/p stenting and TIA Medications at Discharge Home Medications calcium citrate 315 mg calcium-vitamin D3 6.25 mcg (250 unit) tablet (Citracal + Vitamin D Maximum) 1 tab PO DAILY supplement 12/21/19 lactobacillus combination no.9 4 billion cell capsule (Adult 50 Plus Probiotic) 4,000 mmu cells PO DAILY supplement 12/21/19 cholecalciferol (vitamin D3) 125 mcg (5,000 unit) tablet 125 mcg PO DAILY supplem 03/18/22 levothyroxine 75 mcg tablet (Synthroid) 37.5 mcg PO FRSA 05/25/22 levothyroxine 75 mcg tablet (Synthroid) 75 mcg PO SUMOTUWETH 05/25/22 vitamin B complex 1 cap PO DAILY supp 05/25/22 apixaban 2.5 mg tablet (Eliquis) 2.5 mg PO BID #180 tabs 06/02/23 metoprolol succinate 50 mg tablet,extended release 24 hr 50 mg PO DAILY #90 tabs 06/02/23 cranberry extract 500 mg capsule (Cranberry Concentrate) 500 mg PO DAILY supplement 06/22/23 ferrous sulfate 325 mg (65 mg iron) tablet 325 mg PO Q OTHER DAY #90 tabs 08/17/23 furosemide 40 mg tablet (Lasix) 40 mg PO BID #10 tabs 08/30/23 aripiprazole 2 mg tablet 2 mg PO DAILY 7 days #0 tabs 09/07/23 food supplemt, lactose-reduced 0.08 gram-1.5 kcal/mL oral liquid (Ensure Plus High Protein) 120 ml PO TIDCM #0 mL 09/07/23 levofloxacin 750 mg tablet 750 mg PO Q48H 5 days #3 tabs 09/07/23 metoprolol succinate 25 mg tablet,extended release 24 hr 25 mg PO QHS 30 days #30 tabs 09/07/23 Hospital Course Procedures - (Kidney and bladder US) Summary of Care Provided Minutes Spent on Discharge: 35 Hospital Course: ARNIE COKER, is a 83 F with a past medical history of essential hypertension, hyperlipidemia, hypothyroidism, diabetes mellitus type 2; of unknown control, coronary artery disease; status post stent (2006), history of sick sinus syndrome; status post permanent pacemaker placement, chronic atrial fibrillation: on metoprolol and apixaban, history of right carotid artery sten osis, history of TIA, history aortic and mitral valve stenosis (nonrheumatic), history of irritable bowel syndrome; of diarrheal type, GERD, chronic dementia; on donepezil and recent UTI; treated with oral Keflex who presented to [facility] ER 09/04 complaining of generalized weakness with ambulatory dysfunction. Patient was found to have a creatinine of 1.87 and hypokalemia of 2.6 and additionally was in A-fib with RVR. She was on IV Cardizem and transition to oral metoprolol and she was given gentle hydration and her potassium was corrected. Patient reported generalized fatigue and not eating well and had very limited affect, also felt achy all over and had some hypoacti ve delirium on top of baseline dementia. Stopped her donepezil and started small dose of Abilify which significantly broadened affect compared to previous and helped appetite and help delirium and patient's general aches and pains did begin to improve. She had fluctuation in kidney function but did have urine studies that suggested patient slightly volume down so she was given very gentle hydration. Additionally she had increased glucose, a left shift on CBC, and a downtrend in BP with uptrend in heart rate and there is concern for recurrence of UTI. Repeated UA and urine culture and UA suggestive of UTI, she had been treated for recent UTI with Keflex however upon reviewing she had grown Proteus resistant to cefazolin, she is growing gram-negative rods again and suspect this is likely Proteus, given limited sensitivity profile and kidney function started on Levaquin. Discharge instructions as followed: DISCHARGE INSTRUCTIONS PLEASE READ *Please take this with you to your next doctors appointment* - Recommend repeating BMP to assess kidney function and potassium in 3 to 4 days -Would recommend discontinuing donepezil and continuing Abilify short-term as this is helped with appetite, mood, and affect. Can weigh risks and benefits of long-term use moving forward -Recommend to continue strawberry boost with meals -You will continue 50 mg of metoprolol daily and 25 mg will be added at bedtime as your heart rate is fairly well controlled during the day but in midmorning shortly before your a.m. dose of metoprolol heart rate starts going up again so dose will be split -You will be discharged on additional 5 days of Levaquin, you will take 750 mg every 48 hours with next dose 09/08 -You were found to be somewhat dehydrated so your Lasix have been held, would recommend resuming it in 2 days at 40 mg daily dose -Weigh yourself every day. A sudden weight gain can mean you are retaining fluid. Weigh yourself at the same time of day and in the same kind of clothes. Ideally, weigh yourself first thing in the morning after you empty your bladder, but before you eat breakfast. -Please call your physician if your weight goes up by more than 2 pounds in 1 day or 5 pounds in 1 week. This can be a sign that you are retaining more fluid than you should be. Clues to weight gain include checking your ankles for swelling, or noticing you are short of breath when you lie down -Please limit your sodium intake to less than 3 g/day. Here are tips: Limit canned, dried, packaged, and fast foods. Don't add salt to your food at the table. Season foods with herbs instead of salt when you cook. When you eat out, ask that the executive chef assistant not add any salt to your dish. Don't eat fried or greasy foods. Be careful of bottled beverages. They can contain a lot of salt -Call 911 right away if you have: -Severe shortness of breath, such that you can't catch your breath even while resting -Severe chest pain that does not resolve with rest or nitroglycerin -[place], foamy mucus with cough and shortness of breath -An ongoing rapid or irregular heartbeat -Passing out or fainting -Stroke symptoms such as sudden numbness or weakness on one side of your face, arm, or leg or sudden confusion, trouble speaking or vision changes -Please call your primary care provider's office upon discharge to schedule a hospital follow up within 1 week. -For any concerning signs or symptoms please call 911 or proceed to the nearest emergency department Physical Exam Narrative General: Alert, affect broader, awake and in no acute distress HEENT: Atraumatic, normocephalic Eyes: Anicteric, normal conjunctiva, extraocular movements grossly intact Neck: Supple Respiratory: No wheezes or rhonchi, normal respiratory effort Cardiovascular: Regular rate GI: Soft, nontender, nondistended Extremities: No significant pitting edema Musculoskeletal: Moving all extremities Neuro: No overt focal neurological deficits Skin: No rashes appreciated Psych: Awake and alert, cooperative Weight / BMI Weight Weight: 60.9 kg Body Mass Index (BMI) 23.8 ABG / Lab / Microbiology Data 09/07/23 06:05 09/07/23 06:05 Laboratory: Laboratory Results - last 24 hr 09/06/23 15:00: Urine RBC 25-50 SEEN, Urine WBC 10-25 SEEN, Ur Squamous Epith Cells 0 SEEN, Urine Bacteria 2+, Hyaline Casts 0-5 SEEN, Coarse Granular Casts 0-5 SEEN, Urine Mucus 0 SEEN, Urine Osmolality 473, Ur Random Sodium 10, Urine Creatinine 214.00, Urine Potassium 34.0, Urine Chloride 23, Urine Urea Nitrogen 773 09/06/23 17:06: POC Glucose 296 H 09/06/23 21:58: POC Glucose 289 H 09/07/23 06:05: WBC 13.3 H, RBC 3.31 L, Hgb 10.2 L, Hct 31.6 L, MCV 95.5, MCH 30.8, MCHC 32.3, RDW Std Deviation 43.7, RDW Coeff of [place] 12.6, Plt Count 301, MPV 10.8, Immature Gran % (Auto) 0.800, Neut % (Auto) 78.3 H, Lymph % (Auto) 12.6 L, [place] % (Auto) 6.5, Eos % (Auto) 1.3, Baso % (Auto) 0.5, Absolute Neuts (auto) 10.4 H, Absolute Lymphs (auto) 1.68, Nucleated RBC % 0, Sodium 133 L, Potassium 3.7, Chloride 102, Carbon Dioxide 23.0, Anion Gap 8, BUN 41 H, Creatinine 1.54 H, Estim Creat Clear Calc 23.30, Est GFR (MDRD) Af Amer 41 L, Est GFR (MDRD) Non-Af 34 L, BUN/Creatinine Ratio 26.6 H, Glucose 166 H, Calcium 8.8 09/07/23 06:21: POC Glucose 154 H 09/07/23 11:19: POC Glucose 283 H Microbiology: Microbiology 09/07/23 13:30 Nasal Secretion SARS-CoV-2 Antigen (Rapid) - Final 09/06/23 15:00 Urine, Catheterized Urine Culture - Preliminary Gram negative karo 09/04/23 17:45 Urine, Clean Catch Urine Culture - Final Gram negative karo 09/04/23 17:06 Nasal Secretion SARS-CoV-2 & FLU Antigen (Rapid) - Final Radiography Diagnostic Testing: Radiology Impression Renal Ultrasound 09/06/23 08:30 IMPRESSION: Prominent right extrarenal pelvis without giovanna hydronephrosis. No left hydronephrosis. Electronically Signed: Jesus Alberto Palacios MD at 17:14 EST , D/C Instructions Discharge Diet: - (-DASH diet, 3000 mg sodium restriction, 2 L fluid restriction) Meaningful Use Info Meaningful Use Diagnoses (Choose all that apply): None applicable Discharge Plan Admission Admit Date/Time: 09/04/23 19:41 Primary Reason for Your Visit: Weakness and fatigue Attending Provider: Chen Osuna Primary Care Provider: Whitney Padilla Consulting Providers: Jamie Santana Instructions Patient Instructions: ED Fall Prevention Additional Instructions / Restrictions: DISCHARGE INSTRUCTIONS PLEASE READ *Please take this with you to your next doctors appointment* - Recommend repeating BMP to assess kidney function in 3 to 4 days -Would recommend discontinuing donepezil and continuing Abilify short-term as this is helped with appetite, mood, and affect. Can weigh risks and benefits of long-term use moving forward -Recommend to continue strawberry boost with meals -You will continue 50 mg of metoprolol daily and 25 mg will be added at bedtime as your heart rate is fairly well controlled during the day but in midmorning shortly before your a.m. dose of metoprolol heart rate starts going up again so dose will be split -You will be discharged on additional 5 days of Levaquin, you will take 750 mg every 48 hours with next dose 09/08 -You were found to be somewhat dehydrated so your Lasix have been held, would recommend resuming it in 2 days at 40 mg daily dose -Weigh yourself every day. A sudden weight gain can mean you are retaining fluid. Weigh yourself at the same time of day and in the same kind of clothes. Ideally, weigh yourself first thing in the morning after you empty your bladder, but before you eat breakfast. -Please call your physician if your weight goes up by more than 2 pounds in 1 day or 5 pounds in 1 week. This can be a sign that you are retaining more fluid than you should be. Clues to weight gain include checking your ankles for swelling, or noticing you are short of breath when you lie down -Please limit your sodium intake to less than 3 g/day. Here are tips: Limit canned, dried, packaged, and fast foods. Don't add salt to your food at the table. Season foods with herbs instead of salt when you cook. When you eat out, ask that the executive chef assistant not add any salt to your dish. Don't eat fried or greasy foods. Be careful of bottled beverages. They can contain a lot of salt -Call 911 right away if you have: -Severe shortness of breath, such that you can't catch your breath even while resting -Severe chest pain that does not resolve with rest or nitroglycerin -[place], foamy mucus with cough and shortness of breath -An ongoing rapid or irregular heartbeat -Passing out or fainting -Stroke symptoms such as sudden numbness or weakness on one side of your face, arm, or leg or sudden confusion, trouble speaking or vision changes -Please call your primary care provider's office upon discharge to schedule a hospital follow up within 1 week. -For any concerning signs or symptoms please call 911 or proceed to the nearest emergency department Discharge Orders/Prescriptions Prescriptions: New metoprolol succinate 25 mg Tablet Extended Release 24 Hr 25 mg PO QHS 30 Days Qty: 30 0RF Rx Instructions: In addition to daytime 50mg aripiprazole 2 mg Tablet 2 mg PO DAILY 7 Days Qty: 0 0RF Ensure Plus High Protein 0.08 gram-1.5 kcal/mL Liquid 120 ml PO TIDCM Qty: 0 0RF levofloxacin 750 mg tablet 750 mg PO Q48H 5 Days Qty: 3 0RF Rx Instructions: Next dose 09/08 Continued Adult 50 Plus Probiotic 4 billion cell capsule 4,000 mmu cells PO DAILY Rx Instructions: administer with a meal calcium citrate-vitamin D3 [Citracal + D Maximum] 315 mg- 250 unit tablet 1 tab PO DAILY cholecalciferol (vitamin D3) 125 mcg (5,000 unit) tablet 125 mcg PO DAILY Eliquis 2.5 mg tablet 2.5 mg PO BID Qty: 180 3RF metoprolol succinate 50 mg tablet extended release 24 hr 50 mg PO DAILY Qty: 90 3RF cranberry extract [Cranberry Concentrate] 500 mg capsule 500 mg PO DAILY Rx Instructions: administer with meals ferrous sulfate 325 mg (65 mg iron) tablet 325 mg PO Q OTHER DAY Qty: 90 3RF levothyroxine [Synthroid] 75 mcg Tablet 75 mcg PO SUMOTUWETH levothyroxine [Synthroid] 75 mcg Tablet 37.5 mcg PO FRSA vitamin B complex Capsule 1 cap PO DAILY Held furosemide [Lasix] 40 mg tablet 40 mg PO BID Qty: 10 0RF Hold Instructions: Resume on 09/09/23. Would resume at 40 mg daily Discontinued donepezil 10 mg tablet 10 mg PO QHS Qty: 90 3RF cephalexin 500 mg capsule 500 mg PO TID Qty: 21 0RF Patient Comments: Only has 1 pill left to take then antibiotic is complete Referrals / Follow Up: Whitney Padilla MD [Primary Care Provider] - Within 1 Week Disposition Disposition (needs filled in before D/C Order can be placed): Assisted Facility Charges/Coding Visit Charges Inpatient E&M: 24197 Disch Hosp >30min
--- NOTE | 2023-09-07 15:36 | CASEMGMT ---
Patient discharged to [facility] under skilled level of care on a convalescent stay. Physicians will transport patient via cot. Leslie CASANOVA
--- NOTE | 2023-09-07 15:55 | CASEMGMT ---
Discharge Planning Discharge orders, signed med list, covid results, and transport time sent to [facility] via [facility]. [facility] transport patient by cot at 5p. Nursing, SW, patient, and her daughters updated. Jaida Davidson, Discharge Planning Asst.
[2023-09-07 16:31] VITALS: BP 123/82; PULSE 72; RESP 16; O2SAT 98
--- NOTE | 2023-09-07 17:11 | PHA.DC.MR.R ---
Pharmacy [place] Med Reconciliation Pharmacy Service has performed discharge medication reconciliation for this patient. The patient's discharge medication list was reviewed for discrepancies and discrepancies were resolved. Medications at Discharge Home Medications calcium citrate 315 mg calcium-vitamin D3 6.25 mcg (250 unit) tablet (Citracal + Vitamin D Maximum) 1 tab PO DAILY supplement 12/21/19 lactobacillus combination no.9 4 billion cell capsule (Adult 50 Plus Probiotic) 4,000 mmu cells PO DAILY supplement 12/21/19 cholecalciferol (vitamin D3) 125 mcg (5,000 unit) tablet 125 mcg PO DAILY supplem 03/18/22 levothyroxine 75 mcg tablet (Synthroid) 37.5 mcg PO FRSA 05/25/22 levothyroxine 75 mcg tablet (Synthroid) 75 mcg PO SUMOTUWETH 05/25/22 vitamin B complex 1 cap PO DAILY supp 05/25/22 apixaban 2.5 mg tablet (Eliquis) 2.5 mg PO BID #180 tabs 06/02/23 metoprolol succinate 50 mg tablet,extended release 24 hr 50 mg PO DAILY #90 tabs 06/02/23 cranberry extract 500 mg capsule (Cranberry Concentrate) 500 mg PO DAILY supplement 06/22/23 ferrous sulfate 325 mg (65 mg iron) tablet 325 mg PO Q OTHER DAY #90 tabs 08/17/23 furosemide 40 mg tablet (Lasix) 40 mg PO BID #10 tabs 08/30/23 aripiprazole 2 mg tablet 2 mg PO DAILY 7 days #0 tabs 09/07/23 food supplemt, lactose-reduced 0.08 gram-1.5 kcal/mL oral liquid (Ensure Plus High Protein) 120 ml PO TIDCM #0 mL 09/07/23 levofloxacin 750 mg tablet 750 mg PO Q48H 5 days #3 tabs 09/07/23 metoprolol succinate 25 mg tablet,extended release 24 hr 25 mg PO QHS 30 days #30 tabs 09/07/23
== END 2023-09-07 16:56 | disposition skilled nursing facility (03) | DRG 309 ==
LOC: ED 19:19 → PCU 19:46
PROVIDERS: Physician Assistant; Admitting Provider Internal Medicine; Emergency Provider Emergency Medicine; PCP Internal Medicine; Visit Provider Internal Medicine
DX: I48.91 Unspecified atrial fibrillation (principal); N17.9 Acute kidney failure, unspecified; F05 Delirium due to known physiological condition; N39.0 Urinary tract infection, site not specified; E11.22 Type 2 diabetes mellitus with diabetic chronic kidney disease; E03.9 Hypothyroidism, unspecified; B96.89 Other specified bacterial agents as the cause of diseases classified elsewhere; F03.90 Unspecified dementia, unspecified severity, without behavioral disturbance, psychotic disturbance, mood disturbance, and anxiety; F32.A Depression, unspecified; I12.9 Hypertensive chronic kidney disease with stage 1 through stage 4 chronic kidney disease, or unspecified chronic kidney disease; N18.9 Chronic kidney disease, unspecified; E87.6 Hypokalemia; I25.10 Atherosclerotic heart disease of native coronary artery without angina pectoris; E78.5 Hyperlipidemia, unspecified; F41.9 Anxiety disorder, unspecified; Z82.3 Family history of stroke; Z95.5 Presence of coronary angioplasty implant and graft; Z79.01 Long term (current) use of anticoagulants; Z87.19 Personal history of other diseases of the digestive system; R79.89 Other specified abnormal findings of blood chemistry; Z95.0 Presence of cardiac pacemaker; Z86.73 Personal history of transient ischemic attack (TIA), and cerebral infarction without residual deficits; R53.82 Chronic fatigue, unspecified
CPT/HCPCS: 36415; 71045; 76770; 80048; 80053; 81001; 82306; 82436; 82570; 82607; 82746; 82962; 83735; 83935; 84100; 84133; 84300; 84443; 84484; 84540; 85025; 87077; 87086; 87088; 87186; 87428; 87811; 93005; 94762; 97162; 97166; 97530; 97535; 99285; J7030; J7050; A4216

== ENCOUNTER 2023-09-11 22:38 | Inpatient (IN) | payer MEDICARE, SELFPAY ==
[2023-09-11 22:39] VITALS: BP 139/73; PULSE 83; RESP 15; TEMP 36.2; O2SAT 97; BMI 25.6
--- NOTE | 2023-09-11 22:51 | EKG12_ITS ---
Test Reason : DYSRHYTHMIA Blood Pressure : / mmHG Vent. Rate : 081 BPM Atrial Rate : 081 BPM P-R Int : 174 ms QRS Dur : 088 ms QT Int : 318 ms P-R-T Axes : 070 002 003 degrees QTc Int : 369 ms Sinus rhythm with sinus arrhythmia with occasional Premature ventricular complexes Nonspecific ST and T wave abnormality Abnormal ECG Confirmed by BRIDGETT CLARK, RIC ([id number]), editorial clerk STANISLAW ALMARAZ ([id number]) on 09/12/2023 11:02:03 AM Referred By: Espinoza Garcia Confirmed By:RIC URIAS MD
--- NOTE | 2023-09-11 22:55 | EX.ED.DYSGE1 ---
HPI History of Present Illness Chief Complaint: General Illness Informant: patient, family, EMS and SNF Narrative Narrative: 83-year-old female presenting to the emergency room out of concern for dehydration. Patient was admitted twice recently first with UTI (Proteus specimen), diastolic CHF, and A-fib RVR. She was readmitted with hypokalemia potassium of 2.6 and A-fib RVR. Antibiotics were changed to Levaquin and when she read demonstrated a new UTI. Urine culture was obtained which grew 50-80 K colony-forming units of E. coli. Family states that on Tuesday states she seemed to be doing pretty well. When they saw her today she has not been eating or drinking as much. They noted some dry lips. Patient states her toe is bothering her. However she then states her heel is bothering her. No reported fevers. The Levaquin last dose is scheduled to be given tomorrow. She also started Abilify. The patient chronically has diarrhea. She is unsure if she is noticed any change in the frequency of it. Family notes that she did test positive for blood in her stool several visits ago and they are supposed to follow-up with Dr. Teague for colonoscopy. Patient denies any significant abdominal pain. 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 Atrial fibrillation Cardiology follow-up encounter Dementia Diabetes mellitus type 2, controlled Essential hypertension Forgetfulness Generalized weakness GI bleed Gross hematuria History of echocardiogram History of left heart catheterization (08/16/06) History of stress test History of transient ischemic attack (TIA) Hydronephrosis Irritable bowel syndrome (IBS) Irritable bowel syndrome with diarrhea Longstanding persistent atrial fibrillation Mitral valve disorder Occlusion and stenosis of carotid 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 Osteoarthritis Paroxysmal atrial fibrillation Poor historian Presence of cardiac pacemaker Presence of stent in coronary artery (~01/25/07) Pure hypercholesterolemia Renal insufficiency Sick sinus syndrome Stenosis of right carotid artery Thyroid disease UTI (urinary tract infection) Walker as ambulation aid Wears glasses Home Medications calcium citrate 315 mg calcium-vitamin D3 6.25 mcg (250 unit) tablet (Citracal + Vitamin D Maximum) 1 tab PO DAILY supplement 12/21/19 [History Last Taken 09/04/23] lactobacillus combination no.9 4 billion cell capsule (Adult 50 Plus Probiotic) 4,000 mmu cells PO DAILY supplement 12/21/19 [History Last Taken 09/04/23] cholecalciferol (vitamin D3) 125 mcg (5,000 unit) tablet 125 mcg PO DAILY supplem 03/18/22 [History Last Taken 09/04/23] levothyroxine 75 mcg tablet (Synthroid) 37.5 mcg PO FRSA 05/25/22 [History Last Taken 05/26/22] levothyroxine 75 mcg tablet (Synthroid) 75 mcg PO SUMOTUWETH 05/25/22 [History Last Taken 05/26/22] vitamin B complex 1 cap PO DAILY supp 05/25/22 [History Last Taken 09/04/23] apixaban 2.5 mg tablet (Eliquis) 2.5 mg PO BID #180 tabs 06/02/23 [Rx Last Taken Unknown] metoprolol succinate 50 mg tablet,extended release 24 hr 50 mg PO DAILY #90 tabs 06/02/23 [Rx Last Taken Unknown] cranberry extract 500 mg capsule (Cranberry Concentrate) 500 mg PO DAILY supplement 06/22/23 [History Last Taken 09/04/23] ferrous sulfate 325 mg (65 mg iron) tablet 325 mg PO Q OTHER DAY #90 tabs 08/17/23 [Rx Last Taken Unknown] furosemide 40 mg tablet (Lasix) 40 mg PO BID #10 tabs 08/30/23 [Rx Last Taken Unknown] aripiprazole 2 mg tablet 2 mg PO DAILY 7 days #0 tabs 09/07/23 [Rx Last Taken Unknown] food supplemt, lactose-reduced 0.08 gram-1.5 kcal/mL oral liquid (Ensure Plus High Protein) 120 ml PO TIDCM #0 mL 09/07/23 [Rx Last Taken Unknown] levofloxacin 750 mg tablet 750 mg PO Q48H 5 days #3 tabs 09/07/23 [Rx Last Taken Unknown] metoprolol succinate 25 mg tablet,extended release 24 hr 25 mg PO QHS 30 days #30 tabs 09/07/23 [Rx Last Taken Unknown] Allergy/AdvReac Type Severity Reaction Status Date / Time Penicillins Allergy Hives Verified 09/11/23 22:46 Yffzlwc-SUW-YbN Reductase AdvReac Intermediate myalgias Verified 09/11/23 22:46 Inhibitor [Mtxkhyz-Gzi-Tgb Reductase Inhibitor] Family History Father , Age 72 Diabetes Myocardial infarction Mother CAD (coronary artery disease) Diabetes Hypertension Brother CAD (coronary artery disease) COPD (chronic obstructive pulmonary disease) Primary pulmonary fibrosis Brother Kidney disease Brother CAD (coronary artery disease) Sister Cancer Sister CVA (cerebral vascular accident) Surgical History History of cystoscopy History of percutaneous transluminal coronary angioplasty (08/16/06) History of permanent cardiac pacemaker placement (~03/2015) Presence of coronary angioplasty implant and graft (~01/25/07) Social History household members: family housing: house current occupational status: retired Smoking Status: Never smoker alcohol intake: never substance use type: does not use caffeine: No seatbelt use: always do you feel safe at home: Yes additional social history: Lives with Daughter- Danyel ROS ROS ED ROS Narrative Not eating and drinking like normal Constitutional Constitutional ED: Denies chills, fever(s) or weight loss Eyes Eyes: Denies change in vision or diplopia ENT ENT ED: Reports other Details: Dry lips ; Denies ear pain, rhinorrhea or sore throat Cardiovascular Cardiovascular: Denies chest pain, orthopnea, palpitations or racing heartbeat Respiratory/Chest Respiratory/Chest: Denies cough, dyspnea or orthopnea Gastrointestinal Gastrointestinal: Denies abdominal pain, diarrhea, nausea or vomiting Genitourinary Genitourinary ED: Denies dysuria, hematuria or urinary frequency Musculoskeletal Musculoskeletal: Reports other Details: Left heel pain ; Denies arthralgias, back pain or myalgias Integumentary Denies abscess or rash Neurologic Neurologic: Denies headache(s) or weakness Psychiatric Psychiatric: Denies anxiety, depression, suicidal ideation or suicidal thoughts Endocrine Endocrinology: Denies polydipsia, polyphagia or polyuria Allergic/Immunologic Allergic/Immunologic ED: Denies mouth swelling, tongue swelling or urticaria EXAM Physical Exam Const Vital Signs: 09/11/23 22:39 09/11/23 22:45 09/12/23 01:49 Temperature 97.2 F L Temperature Source Temporal Pulse Rate 83 85 Respiratory Rate 15 16 Respiratory Effort Normal Non-Labored Respiratory Pattern Normal Blood Pressure 139/73 H 134/55 H Blood Pressure Mean 95 81 Pulse Ox 97 95 Oxygen Delivery Method Room Air Room Air 09/12/23 01:49 09/12/23 01:50 Temperature 98.5 F 98.5 F Temperature Source Oral Pulse Rate 85 Respiratory Rate 12 Respiratory Effort Respiratory Pattern Blood Pressure 134/55 H Blood Pressure Mean 81 Pulse Ox 99 Oxygen Delivery Method Room Air Positive well nourished and well developed General Appearance ED: well developed HEENT Reports normocephalic, head/scalp atraumatic and moist mucous membranes HEENT Narrative: No evidence of thrush. Eyes PERRL and EOMs intact bilaterally Neck no lymphadenopathy, supple and no JVD Resp normal respiratory effort and clear to auscultation bilaterally Cardio no murmurs Rhythm: abnormal rhythm irregularly irregular GI normal to inspection, nondistended, normoactive bowel sounds and non-tender Palpation: soft Back/Spine no CVA tenderness and normal ROM Extremity Extremity Narrative: Left foot-when asked directly if she has pain to palpation of the heel/Achilles she says yes however with the same palpation while she is talking she does not have any pain. I do not appreciate any swelling or erythema. Functionally Achilles is intact. There is evidence of onychomycosis of the second left toe. General Extremety ED: Negative for edema General Extremity: Negative for edema Neuro oriented x3 and CN's II-XII intact bilaterally Sensorium / Orientation: alert Motor Exam: strength 5/5 throughout Psych mental status grossly normal Mood & Affect: Negative for depressed or tearful Skin no rashes or lesions noted and no wounds MDM MDM MDM Narrative Medical decision making narrative: Patient's white count curiously returns elevated at 19.3. No bandemia. Creatinine is elevated 1.87 with a BUN of 38. Potassium 3.0. Lactic acid is normal. Urinalysis shows that the infection that was being treated with Levaquin has resolved. My independent interpretation of the chest x-ray is no acute process. A CT of the abdomen pelvis was performed given the elevated white blood cell count with no obvious explanation. This demonstrates changes consistent with colitis of the colon. Given that she was on Keflex and has now been on Levaquin and has a elevated white count at 19 with changes of colitis throughout the intestines makes me wonder about C. difficile colitis. Patient's not been able to give us a specimen. She has no history of C. difficile. Patient received a oral dose of potassium. She also received 500 cc normal saline. I am trying to be judicious with her fluids given her history of diastolic heart failure. History & Record Review Discussion w/independent historian: Patient and Family Lab Data Attestation: I reviewed the patient's lab results. Labs: Laboratory Results - last 24 hr 09/11/23 09/11/23 09/11/23 22:57 23:07 23:43 WBC 19.3 H RBC 3.87 L Hgb 11.8 L Hct 35.7 L MCV 92.2 MCH 30.5 MCHC 33.1 RDW Std Deviation 42.9 RDW Coeff of Baltazar 12.7 Plt Count 423 MPV 9.2 Immature Gran % (Auto) 4.200 H Neut % (Auto) 80.0 H Lymph % (Auto) 7.7 L [place] % (Auto) 7.4 Eos % (Auto) 0.1 Baso % (Auto) 0.6 Absolute Neuts (auto) 15.4 H Absolute Lymphs (auto) 1.49 Nucleated RBC % 0 Sodium 131 L Potassium 3.0 L Chloride 89 L Carbon Dioxide 32.0 Anion Gap 10 BUN 38 H Creatinine 1.87 H Estim Creat Clear Calc 19.19 Est GFR (MDRD) Af Amer 33 L Est GFR (MDRD) Non-Af 27 L BUN/Creatinine Ratio 20.3 H Glucose 223 H Lactic Acid 1.8 Calcium 9.0 Total Bilirubin 0.50 AST 16 ALT 29 Alkaline Phosphatase 82 Total Protein 7.0 Albumin 2.6 L Globulin 4.4 H Albumin/Globulin Ratio 0.6 L Urine Color Yellow Urine Clarity Clear Urine pH 5.0 Ur Specific [place] 1.020 Urine Protein 15 H Urine Glucose (UA) Normal Urine Ketones Negative Urine Occult Blood 150 H Urine Nitrite Negative Urine Bilirubin Negative Urine Urobilinogen Normal Ur Leukocyte Esterase 25 H Urine RBC 0 SEEN Urine WBC 0-5 SEEN Ur Squamous Epith Cells 5-10 SEEN Urine Bacteria 0 SEEN Urine Mucus 0 SEEN Radiography Diagnostic Testing: Clinical Impression(s) from Imaging Studies Chest X-Ray 09/11/23 23:20 IMPRESSION: No active disease. Electronically Signed: Dedrick Pelayo MD at 23:58 EST , Abdomen/Pelvis CT 09/12/23 00:19 IMPRESSION: Findings are most consistent with diffuse colitis. The patient likely has diarrhea. Mild hepatomegaly. Probable sludge in the gallbladder. Stable bilateral pelviectasis without significant hydronephrosis. Bilateral renal atrophy. Advanced degenerative change of the bilateral lateral hip joints. Could consider avascular necrosis. Degenerative change of the thoracolumbar spine. Electronically Signed: Jessica Harden MD at 1:00 EST , EKG Initial EKG: Attestation: I personally reviewed and interpreted this EKG as follows: Comments: Atrial fibrillation with a ventricular rate of 81 bpm. Discharge Plan Dx/Rx/DC Orders Clinical Impression: Colitis, Leukocytosis, Acute hypokalemia Disposition Disposition: Acute Care Hospital [facility]
[2023-09-11 23:04] LABS: Absolute Lymphocyte Count 1.49 X10^3/uL (0.83-4.51); Absolute Neutrophil Count 15.4 X10^3/uL (2.0-7.7); Basophil# 0.11 X10^3/uL; Basophil% 0.6 % (0-1); Eosinophil# 0.01 X10^3/uL; Eosinophils% 0.1 % (0-5); Hematocrit 35.7 % (37-47); Hemoglobin 11.8 g/dL (12.0-15.0); Lymphocyte # 1.49 X10^3/ul (0.83-4.51); Lymphocyte % 7.7 % (19-41); Mean Corp Hgb Conc 33.1 g/dL (32-36); Mean Corpuscular Hgb 30.5 pg (27.0-32.0); Mean Corpuscular Volume 92.2 fL (81-99); Mean Platelet Vol. 9.2 fl (6.2-12.0); Monocyte# 1.42 X10^3/uL; Monocyte% 7.4 % (0-10); NRBC Flagged by Analyzer 0 % (0-5); Neutrophil # 15.42 X10^3/uL (2.7-7.7); Platelet Count 423 K/mm3 (150-450); RBC Distribution Width CV 12.7 % (11.6-14.6); RBC Distribution Width SD 42.9 fl (35.1-43.9); Red Blood Count 3.87 M/mm3 (4.2-5.4); White Blood Count 19.3 K/mm3 (4.4-11.0)
[2023-09-11] MEDS: 0.9% Normal Saline (500mL Bag) 500 ML 1000 ML IV (23:12)
[2023-09-11 23:17] LABS: ALB/GLOB Ratio 0.6 RATIO (0.9-2.4); AST(SGOT) 16 U/L (15-37); Alanine Aminotransfer ALT/SGPT 29 U/L (13-56); Albumin, Serum 2.6 g/dL (3.2-5.0); Alkaline Phosphatase 82 U/L (45-117); Anion Gap 10 (5-15); BUN 38 mg/dL (7-18); BUN/Creat Ratio 20.3 RATIO (10-20); Chloride 89 mmol/L (98-107); Creatinine, Serum 1.87 mg/dL (0.55-1.02); EST Glomerular Filtration Rate 27 mL/min (>60); Est Glom Filt Rate - Afr Amer 33 mL/min (>60); Estimated Creatinine Clearance 19.19 ml/min; Globulin 4.4 g/dL (2.2-4.2); Glucose 223 mg/dL (74-106); Sodium Level 131 mmol/L (136-145)
--- NOTE | 2023-09-11 23:20 | RAD_ITS ---
STUDY: X-RAY CHEST REASON FOR EXAM: Female, 83 years old. chf TECHNIQUE: Single AP portable view of the chest. COMPARISON: 09/04/2023 FINDINGS: Left subclavian pacemaker which is unchanged. The lungs are clear and expanded. Bilateral apical pleural thickening which is unchanged. There is moderate cardiac enlargement. Normal mediastinum and jewel. Normal visualized pulmonary arteries. There is atherosclerotic tortuosity of the aortic arch and descending thoracic aorta. Normal visualized thoracic spine. Normal visualized ribs, clavicles, and shoulders. There is no demonstrated abnormality of the visualized soft tissue structures of the upper abdomen. RAD/Chest 1 View (Portable) IMPRESSION: No active disease. Electronically Signed: Dedrick Pelayo MD at 23:58 EST ,
[2023-09-11 23:26] LABS: Bacteria 0 SEEN /hpf (None Seen); Mucous, Urine 0 SEEN /hpf (<or=2+); Red Blood Cells-Urine 0 SEEN /hpf (0-5)
[2023-09-11 23:30] LABS: Color, Urine Yellow (Yellow); Glucose, Dipstick Normal (Normal); Ketone-Dipstick Negative (Negative); Leukocyte Esterase-Dipstick 25 /ul (Negative); Nitrite-Dipstick Negative (Negative); Occult Blood-Urine 150 /ul (Negative); Protein-Dipstick 15 mg/dl (Negative); Urine Bilirubin Dipstick Negative (Negative); Urine Clarity Clear (Clear); Urine Urobilinogen Normal (Normal)
[2023-09-11] MEDS: 0.9% Normal Saline (500mL Bag) 500 ML 999 ML IV (23:44)
[2023-09-11 23:49] LABS: Squamous Epithelial Cells - UA 5-10 SEEN /hpf (5-10); White Blood Cells 0-5 SEEN /hpf (0-5)
[2023-09-12] VITALS (10 sets, daily range): BP systolic 134–162; BP diastolic 55–83; PULSE 72–86; RESP 12–16; TEMP 35.8–37.3; O2SAT 95–99; BMI 20.7
[2023-09-12 00:13] LABS: Lactic Acid 1.8 mmol/L (0.4-1.9)
--- NOTE | 2023-09-12 00:19 | CT_ITS ---
STUDY: CT ABDOMEN AND PELVIS WITHOUT CONTRAST REASON FOR EXAM: Female, 83 years old. Abdominal pain Worsening kidney function abdominal pain dehydration RADIATION DOSAGE (If Supplied By Facility): CTDIvol = ( 6.43 ) mGy, DLP = ( 311.51 ) mGycm TECHNIQUE: Transaxial images were obtained from the dome of the diaphragm to the symphysis pubis without oral contrast, and without intravenous contrast. Sagittal and coronal images were reconstructed. Individualized dose optimization techniques were used for this CT. COMPARISON: CT abdomen and pelvis April 25, 2022 FINDINGS: There is a small focus of calcific plaque within the left lung base. Interstitial markings are minimally prominent. There is a minimal focus of mucus plugging or peripheral bronchiectasis in the right lower lobe similar to the prior study. There is mild to moderate cardiac enlargement. There is coronary calcification. There are partially visualized pacer leads. There is a small pericardial effusion. There is an elongated appearance of the liver at the left hepatic lobe. There is a visualized focus of low-attenuation in the left hepatic lobe at the falciform fissure compatible focus of fatty infiltration stable since prior study. There is a slightly hyperdense appearance of the gallbladder which may represent sludge or stones. There is no evidence of inflammation. . Normal spleen. Normal pancreas. Normal bilateral adrenal glands. There is a distended appearance of the right renal pelvis similar to the prior study. The right-sided double-J stent has been removed since prior study. There is no hydronephrosis. There is left renal extrarenal pelvis or pelviectasis. Stable since prior study. There is mild bilateral atrophy. Normal visualized stomach. Normal small intestine. There is a mild wall thickened appearance of the colon with distention and air-fluid levels with a featureless appearance of the descending colon and sigmoid. There is wall thickening of the rectum. There is visualized air-fluid level within the rectum. There is presacral stranding. The appendix is visualized and appears normal. There is diffuse atherosclerotic calcification of the abdominal aorta with elongation and tortuosity, but without a demonstrated aneurysm. Normal inferior vena cava. Normal retroperitoneum. Normal urinary bladder. There is atrophy of the uterus. Normal abdominal wall. Advanced degenerative change of the bilateral hip joints with severe narrowing remodeling of the acetabulum and heterotopic bone formation without fracture is visualized degenerative change of the lumbar spine. At L4-L5 there is slight anterolisthesis. There is a broad disc bulge and mild neural foramina narrowing mild central stenosis. There is degenerative change at L5-S1 with mild neural foramina narrowing minimal central stenosis. CT/Abdomen/Pelvis without Cont IMPRESSION: Findings are most consistent with diffuse colitis. The patient likely has diarrhea. Mild hepatomegaly. Probable sludge in the gallbladder. Stable bilateral pelviectasis without significant hydronephrosis. Bilateral renal atrophy. Advanced degenerative change of the bilateral lateral hip joints. Could consider avascular necrosis. Degenerative change of the thoracolumbar spine. Electronically Signed: Jessica Harden MD at 1:00 EST ,
[2023-09-12] MEDS: Potassium Chloride Oral Soln 20 MEQ/15 ML UDC 40 MEQ PO (01:52)
--- NOTE | 2023-09-12 02:00 | ED.RN ---
attempted to call report to residential for pt. update regarding admission, no answer at this time
--- NOTE | 2023-09-12 02:22 | HP.PCM.HOS_ITS ---
HPI - General General Date of Admission: 09/12/23 Date of Service: 09/12/23 Chief Complaint: looking dehydrated HPI Narrative ARNIE COKER, is a 83 F who presents after appearing listless and reportedly dehydrated at the long term. Family was concerned and brought the patient's to the hospital. Patient denies really much in the way of any complaints but other than saying that she has not been eating much. She is not aware if she is having any diarrhea. Patient presented here and had a CAT scan that showed colitis. Patient was just discharged here with A-fib and a urinary tract infection was discharged with levofloxacin. Patient received IV fluids in the emergency room. Patient was hypokalemic and did receive potassium as well. Patient has no prior history of CHF. FORMERLY [facility], [facility] Medical History Atherosclerotic heart disease of [place] coronary artery without angina pectoris Atrial fibrillation Cardiology follow-up encounter Dementia Diabetes mellitus type 2, controlled Essential hypertension Forgetfulness Generalized weakness GI bleed Gross hematuria History of echocardiogram History of left heart catheterization (08/16/06) History of stress test History of transient ischemic attack (TIA) Hydronephrosis Irritable bowel syndrome (IBS) Irritable bowel syndrome with diarrhea Longstanding persistent atrial fibrillation Mitral valve disorder Occlusion and stenosis of carotid 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 Osteoarthritis Paroxysmal atrial fibrillation Poor historian Presence of cardiac pacemaker Presence of stent in coronary artery (~01/25/07) Pure hypercholesterolemia Renal insufficiency Sick sinus syndrome Stenosis of right carotid artery Thyroid disease UTI (urinary tract infection) Walker as ambulation aid Wears glasses Home Medications calcium citrate 315 mg calcium-vitamin D3 6.25 mcg (250 unit) tablet (Citracal + Vitamin D Maximum) 1 tab PO DAILY supplement 12/21/19 [History Last Taken 09/04/23] lactobacillus combination no.9 4 billion cell capsule (Adult 50 Plus Probiotic) 4,000 mmu cells PO DAILY supplement 12/21/19 [History Last Taken 09/04/23] cholecalciferol (vitamin D3) 125 mcg (5,000 unit) tablet 125 mcg PO DAILY supplem 03/18/22 [History Last Taken 09/04/23] levothyroxine 75 mcg tablet (Synthroid) 37.5 mcg PO FRSA 05/25/22 [History Last Taken 05/26/22] levothyroxine 75 mcg tablet (Synthroid) 75 mcg PO SUMOTUWETH 05/25/22 [History Last Taken 05/26/22] vitamin B complex 1 cap PO DAILY supp 05/25/22 [History Last Taken 09/04/23] apixaban 2.5 mg tablet (Eliquis) 2.5 mg PO BID #180 tabs 06/02/23 [Rx Last Taken Unknown] metoprolol succinate 50 mg tablet,extended release 24 hr 50 mg PO DAILY #90 tabs 06/02/23 [Rx Last Taken Unknown] cranberry extract 500 mg capsule (Cranberry Concentrate) 500 mg PO DAILY supplement 06/22/23 [History Last Taken 09/04/23] ferrous sulfate 325 mg (65 mg iron) tablet 325 mg PO Q OTHER DAY #90 tabs 08/17/23 [Rx Last Taken Unknown] furosemide 40 mg tablet (Lasix) 40 mg PO BID #10 tabs 08/30/23 [Rx Last Taken Unknown] aripiprazole 2 mg tablet 2 mg PO DAILY 7 days #0 tabs 09/07/23 [Rx Last Taken Unknown] food supplemt, lactose-reduced 0.08 gram-1.5 kcal/mL oral liquid (Ensure Plus Hi gh Protein) 120 ml PO TIDCM #0 mL 09/07/23 [Rx Last Taken Unknown] levofloxacin 750 mg tablet 750 mg PO Q48H 5 days #3 tabs 09/07/23 [Rx Last Taken Unknown] metoprolol succinate 25 mg tablet,extended release 24 hr 25 mg PO QHS 30 days #30 tabs 09/07/23 [Rx Last Taken Unknown] Allergy/AdvReac Type Severity Reaction Status Date / Time Penicillins Allergy Hives Verified 09/11/23 22:46 Mbfrwjl-GRK-HaD Reductase AdvReac Intermediate myalgias Verified 09/11/23 22:46 Inhibitor [Txrzzvt-Fhg-Waz Reductase Inhibitor] Family History Father , Age 72 Diabetes Myocardial infarction Mother CAD (coronary artery disease) Diabetes Hypertension Brother CAD (coronary artery disease) COPD (chronic obstructive pulmonary disease) Primary pulmonary fibrosis Brother Kidney disease Brother CAD (coronary artery disease) Sister Cancer Sister CVA (cerebral vascular accident) Surgical History History of cystoscopy History of percutaneous transluminal coronary angioplasty (08/16/06) History of permanent cardiac pacemaker placement (~03/2015) Presence of coronary angioplasty implant and graft (~01/25/07) Social History household members: family housing: house current occupational status: retired Smoking Status: Never smoker alcohol intake: never substance use type: does not use caffeine: No seatbelt use: always do you feel safe at home: Yes additional social history: Lives with Daughter- Danyel ROSALES Narrative Limited due to confusion. Patient essentially denies any real complaints other than not eating much. All review of systems were negative except as mentioned above in the history of present illness and the other review of systems. Vital Signs Vital Signs Vital Signs: 09/11/23 22:39 09/11/23 22:45 09/12/23 01:49 Temperature 36.2 C L Temperature Source Temporal Pulse Rate 83 85 Respiratory Rate 15 16 Respiratory Effort Normal Non-Labored Respiratory Pattern Normal Blood Pressure 139/73 H 134/55 H Blood Pressure Mean 95 81 Pulse Ox 97 95 Oxygen Delivery Method Room Air Room Air 09/12/23 01:49 09/12/23 01:50 Temperature 36.9 C 36.9 C Temperature Source Oral Pulse Rate 85 Respiratory Rate 12 Respiratory Effort Respiratory Pattern Blood Pressure 134/55 H Blood Pressure Mean 81 Pulse Ox 99 Oxygen Delivery Method Room Air Weight Weight: 65.7 kg Body Mass Index (BMI) 25.6 Physical Exam Const Constitutional Narrative: Alert to self and place. Month is October here is switched years on me. HEENT normocephalic and head/scalp atraumatic HEENT Narrative: Greenish coating on her tongue. No evidence of any thrush in her oropharynx. Eyes Eyes Narrative: No icterus Neck no lymphadenopathy Neck Narrative: No thyromegaly Resp normal respiratory effort, no retractions, no use of accessory muscles and clear to auscultation bilaterally Cardio regular rate, regular rhythm, S1 normal heart sound and S2 normal heart sound GI normal to inspection, nondistended, normoactive bowel sounds, soft to palpation, non-tender and non-distended Extremity normal to inspection and no clubbing, cyanosis or edema Neuro Sensorium / Orientation: awake and alert Speech: speech normal Psych affect normal Results Lab / Micro Data Attestation: I reviewed the patient's lab results. 09/11/23 22:57 09/11/23 22:57 Labs: Laboratory Results - last 24 hr 09/11/23 22:57: WBC 19.3 H, RBC 3.87 L, Hgb 11.8 L, Hct 35.7 L, MCV 92.2, MCH 30.5, MCHC 33.1, RDW Std Deviation 42.9, RDW Coeff of Baltazar 12.7, Plt Count 423, MPV 9.2, Immature Gran % (Auto) 4.200 H, Neut % (Auto) 80.0 H, Lymph % (Auto) 7.7 L, [place] % (Auto) 7.4, Eos % (Auto) 0.1, Baso % (Auto) 0.6, Absolute Neuts (auto) 15.4 H, Absolute Lymphs (auto) 1.49, Nucleated RBC % 0, Sodium 131 L, Potassium 3.0 L, Chloride 89 L, Carbon Dioxide 32.0, Anion Gap 10, BUN 38 H, Creatinine 1.87 H, Estim Creat Clear Calc 19.19, Est GFR (MDRD) Af Amer 33 L, Est GFR (MDRD) Non-Af 27 L, BUN/Creatinine Ratio 20.3 H, Glucose 223 H, Calcium 9.0, Total Bilirubin 0.50, AST 16, ALT 29, Alkaline Phosphatase 82, Total Protein 7.0, Albumin 2.6 L, Globulin 4.4 H, Albumin/Globulin Ratio 0.6 L 09/11/23 23:07: Urine Color Yellow, Urine Clarity Clear, Urine pH 5.0, Ur Specific [place] 1.020, Urine Protein 15 H, Urine Glucose (UA) Normal, Urine Ketones Negative, Urine Occult Blood 150 H, Urine Nitrite Negative, Urine Bilirubin Negative, Urine Urobilinogen Normal, Ur Leukocyte Esterase 25 H, Urine RBC 0 SEEN, Urine WBC 0-5 SEEN, Ur Squamous Epith Cells 5-10 SEEN, Urine Bacteria 0 SEEN, Urine Mucus 0 SEEN 09/11/23 23:43: Lactic Acid 1.8 Imagaing Radiology Impression Chest X-Ray 09/11/23 23:20 IMPRESSION: No active disease. Electronically Signed: Dedrick Pelayo MD at 23:58 EST , Abdomen/Pelvis CT 09/12/23 00:19 IMPRESSION: Findings are most consistent with diffuse colitis. The patient likely has diarrhea. Mild hepatomegaly. Probable sludge in the gallbladder. Stable bilateral pelviectasis without significant hydronephrosis. Bilateral renal atrophy. Advanced degenerative change of the bilateral lateral hip joints. Could consider avascular necrosis. Degenerative change of the thoracolumbar spine. Electronically Signed: Jessica Harden MD at 1:00 EST , Assessment & Plan Assessment/Plan (1) Colitis: PLAN: Etiology unclear but concern for fulminant C. difficile colitis. Patient is currently on antibiotics for urinary tract infection with levofloxacin. Patient has a Karson score of 2 given her age as well as her leukocytosis of 19,000. Will treat her right now with vancomycin primary twice a day orally and IV metronidazole 500 3 times daily. Check stool for C. difficile, enteric pathogen's. Other possibility could be ischemic colitis given her age. Will check lactic acid. Not concerned about sepsis at this point in time. (2) Acute kidney injury: PLAN: Secondary to what I suspect is probably diarrhea the patient is unaware of any of that. But also not eating much. IV fluids. Patient had a creatinine of 1.3 on September 09 and now it is 1.87. Hold furosemide. IV fluids. Monitor. (3) Hypokalemia: PLAN: May be due to suspected diarrhea but also concomitant use of furosemide. Placed in the emergency room. Follow-up in the morning as well as check a magnesium level. Replace magnesium if that is low as well. PLAN: Plan Chronic conditions * A-fib: Continue with apixaban and metoprolol succinate. * Hypothyroidism: Continue levothyroxine * Dementia: Appears appropriate at this time though she does not know the date. Avoid potentiating medications that could exacerbate delirium. * Chronic malnutrition: Continue with Ensure. * Recent UTI: Patient is still to continue with levofloxacin as originally ordered but I would hold that in light of the concern for C. difficile colitis. VTE prophylaxis: Not indicated as patient is on apixaban. CODE STATUS: Addressed with the patient and her daughters at bedside. Patient is to be full CODE STATUS. Disposition: To be determined. Anticipate patient requiring hospitalization at least 2 days given severity of her underlying illness therefore requiring treatment with antibiotics as mentioned previously but also additional workup may be necessary. Patient will likely require return to a nursing home facility when she is medically stabilized. Charges/Coding Visit Charges Inpatient E&M: 34857 Init Hosp L3
[2023-09-12] MEDS: 0.9% Normal Saline (1000mL) 1,000 ML 150 ML IV ×4 (03:05→22:54)
[2023-09-12 03:18] LABS: Lactic Acid 1.7 mmol/L (0.4-1.9)
[2023-09-12] MEDS: metroNIDAZOLE 500 MG/100 ML BAG 100 MG IV (05:33)
[2023-09-12] MEDS: Vancomycin HCl 250 MG Capsule 500 MG PO (05:34)
[2023-09-12] MEDS: Levothyroxine 75 MCG Tablet PO (05:34)
[2023-09-12 06:40] LABS: Absolute Lymphocyte Count 1.25 X10^3/uL (0.83-4.51); Absolute Neutrophil Count 11.7 X10^3/uL (2.0-7.7); Basophil# 0.08 X10^3/uL; Basophil% 0.5 % (0-1); Eosinophil# 0.01 X10^3/uL; Eosinophils% 0.1 % (0-5); Hematocrit 33.8 % (37-47); Hemoglobin 10.9 g/dL (12.0-15.0); Lymphocyte # 1.25 X10^3/ul (0.83-4.51); Lymphocyte % 8.5 % (19-41); Mean Corp Hgb Conc 32.2 g/dL (32-36); Mean Corpuscular Hgb 30.1 pg (27.0-32.0); Mean Corpuscular Volume 93.4 fL (81-99); Mean Platelet Vol. 9.6 fl (6.2-12.0); Monocyte# 1.19 X10^3/uL; Monocyte% 8.1 % (0-10); NRBC Flagged by Analyzer 0 % (0-5); Neutrophil # 11.68 X10^3/uL (2.7-7.7); Neutrophil % 79.6 % (47-70); Platelet Count 403 K/mm3 (150-450); RBC Distribution Width CV 12.6 % (11.6-14.6); RBC Distribution Width SD 43.3 fl (35.1-43.9); Red Blood Count 3.62 M/mm3 (4.2-5.4); White Blood Count 14.7 K/mm3 (4.4-11.0)
[2023-09-12 07:18] LABS: Anion Gap 8 (5-15); BUN 36 mg/dL (7-18); BUN/Creat Ratio 21.7 RATIO (10-20); Calcium,Total 8.5 mg/dL (8.5-10.1); Chloride 97 mmol/L (98-107); Creatinine, Serum 1.66 mg/dL (0.55-1.02); EST Glomerular Filtration Rate 31 mL/min (>60); Est Glom Filt Rate - Afr Amer 38 mL/min (>60); Estimated Creatinine Clearance 21.61 ml/min; Glucose 195 mg/dL (74-106); Magnesium 2.1 mg/dL (1.6-2.6); Potassium 3.1 mmol/L (3.5-5.1); Sodium Level 135 mmol/L (136-145)
[2023-09-12] MEDS: Ensure Plus High Protein 120 ML LIQUID PO ×3 (08:27→16:51)
[2023-09-12] MEDS: Ferrous Sulfate 325 MG Tablet PO (08:27)
[2023-09-12] MEDS: Potassium Chloride Oral Tablet 20 MEQ 40 MEQ PO (09:40)
[2023-09-12] MEDS: Calcium Carb/Vitamin D 1 TABLET Tablet PO (09:41)
[2023-09-12] MEDS: Metoprolol(XL)Succ 50 MG Tablet PO (09:41)
[2023-09-12] MEDS: APIXABAN 2.5 MG TABLET (WCH) PO ×2 (09:42→22:54)
[2023-09-12] MEDS: Cholecalciferol (Vit D3) 125 MCG CAPSULE (5,000 UNITS) PO (09:42)
--- NOTE | 2023-09-12 11:56 | CASEMGMT ---
Discharge Planning Updates sent to [facility] via [employer]. Asked if new precert will be needed. Awaiting response. Jaida Davidson, Discharge Planning Asst.
[2023-09-12] MEDS: Vancomycin 125 MG/5 ML Susp PO.SYRINGE PO ×3 (12:27→23:00)
--- NOTE | 2023-09-12 12:51 | CASEMGMT ---
MARGARITA called patient's daughter Sydni and asked if the plan is for patient to return to [place] at discharge. They would like patient to go to TCU if a bed opens and if not they would like her to go back to [place]. Leslie Ambrose LEASE [employer]CHASE TRUCK DRIVER JOCELYNE
--- NOTE | 2023-09-12 14:45 | PN_ITS ---
Subjective Subjective Patient seen and examined. She had no active complaints. She was admitted with a complaint of dehydration and patient not eating much. CAT scan on admission showed colitis. Patient been eating or drinking much. She denies any fever, chills, palpitations, dizziness, nausea vomiting or any other symptoms. Review of systems otherwise negative. She has remained hemodynamically stable. WBC was elevated at 19 on admission but has now trended down to 14. Objective Data Objective Data Vital Signs: Vital Signs Temp Pulse Resp BP Pulse Ox O2 Del Method 97.7 F L 79 16 154/83 H 99 Room Air 09/12/23 09:39 09/12/23 09:41 09/12/23 09:39 09/12/23 09:41 09/12/23 09:39 09/12/23 10:00 Oxygen Delivery Method Room Air Weight: 117 lb Body Mass Index (BMI) 20.7 Intake & Output: Intake and Output for Last 24 Hours 09/10/23 09/11/23 09/12/23 23:59 23:59 23:59 Intake Total 500 / 500 0 / 2050 Output Total 600 / 600 Balance 500 / 500 1450 / 1450 Lab / Micro Data 09/12/23 05:25 09/12/23 05:25 Labs: Laboratory Results - last 24 hr 09/11/23 22:57: WBC 19.3 H, RBC 3.87 L, Hgb 11.8 L, Hct 35.7 L, MCV 92.2, MCH 30.5, MCHC 33.1, RDW Std Deviation 42.9, RDW Coeff of [place]tazar 12.7, Plt Count 423, MPV 9.2, Immature Gran % (Auto) 4.200 H, Neut % (Auto) 80.0 H, Lymph % (Auto) 7.7 L, [place] % (Auto) 7.4, Eos % (Auto) 0.1, Baso % (Auto) 0.6, Absolute Neuts (auto) 15.4 H, Absolute Lymphs (auto) 1.49, Nucleated RBC % 0, Sodium 131 L, Potassium 3.0 L, Chloride 89 L, Carbon Dioxide 32.0, Anion Gap 10, BUN 38 H, Creatinine 1.87 H, Estim Creat Clear Calc 19.19, Est GFR (MDRD) Af Amer 33 L, Est GFR (MDRD) Non-Af 27 L, BUN/Creatinine Ratio 20.3 H, Glucose 223 H, Calcium 9.0, Total Bilirubin 0.50, AST 16, ALT 29, Alkaline Phosphatase 82, Total Protein 7.0, Albumin 2.6 L, Globulin 4.4 H, Albumin/Globulin Ratio 0.6 L 09/11/23 23:07: Urine Color Yellow, Urine Clarity Clear, Urine pH 5.0, Ur Specific [place] 1.020, Urine Protein 15 H, Urine Glucose (UA) Normal, Urine Ketones Negative, Urine Occult Blood 150 H, Urine Nitrite Negative, Urine Bilirubin Negative, Urine Urobilinogen Normal, Ur Leukocyte Esterase 25 H, Urine RBC 0 SEEN, Urine WBC 0-5 SEEN, Ur Squamous Epith Cells 5-10 SEEN, Urine B acteria 0 SEEN, Urine Mucus 0 SEEN 09/11/23 23:43: Lactic Acid 1.8 09/12/23 02:28: Lactic Acid 1.7 09/12/23 05:25: WBC 14.7 H, RBC 3.62 L, Hgb 10.9 L, Hct 33.8 L, MCV 93.4, MCH 30.1, MCHC 32.2, RDW Std Deviation 43.3, RDW Coeff of [place]tazar 12.6, Plt Count 403, MPV 9.6, Immature Gran % (Auto) 3.200 H, Neut % (Auto) 79.6 H, Lymph % (Auto) 8.5 L, [place] % (Auto) 8.1, Eos % (Auto) 0.1, Baso % (Auto) 0.5, Absolute Neuts (auto) 11.7 H, Absolute Lymphs (auto) 1.25, Nucleated RBC % 0, Sodium 135 L, Potassium 3.1 L, Chloride 97 L, Carbon Dioxide 30.0, Anion Gap 8, BUN 36 H, Creatinine 1.66 H, Estim Creat Clear Calc 21.61, Est GFR (MDRD) Af Amer 38 L, Est GFR (MDRD) Non-Af 31 L, BUN/Creatinine Ratio 21.7 H, Glucose 195 H, Calcium 8.5, Magnesium 2.1 Micro: Microbiology 09/12/23 02:50 Stool Enteric Bacteriology - Final 09/12/23 02:50 Stool C. difficile GDH Antigen & Toxins - Final Toxigenic C. difficile 09/12/23 02:50 Stool C. difficile DNA Amplification - Final Radiography Diagnostic Testing: Radiology Impression Chest X-Ray 09/11/23 23:20 IMPRESSION: No active disease. Electronically Signed: Dedrick Pelayo MD at 23:58 EST , Abdomen/Pelvis CT 09/12/23 00:19 IMPRESSION: Findings are most consistent with diffuse colitis. The patient likely has diarrhea. Mild hepatomegaly. Probable sludge in the gallbladder. Stable bilateral pelviectasis without significant hydronephrosis. Bilateral renal atrophy. Advanced degenerative change of the bilateral lateral hip joints. Could consider avascular necrosis. Degenerative change of the thoracolumbar spine. Electronically Signed: Jessica Harden MD at 1:00 EST , Physical Exam Const alert, oriented x3 and no apparent distress Constitutional Narrative: frail HEENT normocephalic, head/scalp atraumatic and oropharynx normal Mouth: dry mucous membranes Neck no lymphadenopathy and supple Lymph Lymphatic: no lymphadenopathy noted and no lymphedema noted Resp normal respiratory effort, normal air movement and clear to auscultation bilaterally Cardio regular rate, regular rhythm, S1 normal heart sound, S2 normal heart sound and no murmurs GI normal to inspection, nondistended, normoactive bowel sounds, soft to palpation, non-tender and non-distended Extremity normal capillary refill, no clubbing, cyanosis or edema and no calf tenderness General Extremity: no tenderness to palpation of joints or extremities Skin General Skin Exam: no breakdown Neuro CN's II-XII intact bilaterally, no focal motor deficits, no sensory deficits noted and deep tendon reflexes 2+ bilaterally Speech: speech normal Motor Exam: general weakness Psych thought process normal Appearance: appropriate Assessment & Plan Assessment/Plan (1) Leukocytosis: (2) Colitis: (3) C. difficile colitis: PLAN: Plan #Acute C diff colitis * CT of the abdomen showed diffuse colitis. WBC was elevated at 19, but trended down to 14. Creatinine was also elevated but patient has chronically elevated creatinine. * C diff test positive for C diff toxin * will dc vancomycin 500mg q6 and IV metronidazole; patient has severe C diff, but doesnt qualify as fulminant C diff * will give PO vancomycin 125mb q6 * hydrate gently with iVF and monitor * #Hypokalemia: K is 3.1. Will replace and trend # CKD stage III:Cr today is 1.6, with a baseline of ~ 1.3. Will monitor and trend. #A-fib: Metoprolol and Eliquis #Hypothyroidism: On Synthroid #Chronic malnutrition: Ensure. #UTI. Was being treated for UTI on outpatient basis with levofloxacin but this has been discontinued in light of his C. difficile infection. #CHronic malnutrition: on ensur supplements DVT prophylaxis: on eliquis. Charges/Coding Visit Charges Inpatient E&M: 31215 Subs Hosp L3
--- NOTE | 2023-09-12 15:03 | CHAPLAIN ---
Type of Pastoral Visit _x__ Initial Visit ___ Follow-up Visit ___ On-call Visit ___ General Patient Visit ___ Spiritual Assessment ___ Family Conference ___ Bereavement ___ Rapid Response ___ Code Blue ___ Other (describe below) Pastoral Care Referral From _x__ Patient ___ Family ___ Nurse ___ Physician ___ Computer Lab Aide ___ Art Handler ___ Other (describe below) Sacrament/Intervention _x__ Active listening ___ Anointing ___ Gnosticism ___ Bereavement ___ Communion _x__ Kyleigh exploration ___ ___ Life review _x__ Prayer ___ Reconciliation ___ Sacrament of Sick _x__ Supportive presence ___ Wedding ___ Other (describe below) Pastoral Comments sat at bedside with the patient to listen to hear needs and story; pt repeats that she does not have worries and is content with her situation; pt has support from two daughters that live with her
[2023-09-12] MEDS: ARIPiprazole 2 MG Tablet PO (15:44)
[2023-09-12] MEDS: Metoprolol(XL)Succ 25 MG Tablet PO (22:59)
[2023-09-13] VITALS (9 sets, daily range): BP systolic 115–150; BP diastolic 48–85; PULSE 60–76; RESP 14–16; TEMP 36.5–37.3; O2SAT 98–99
[2023-09-13] MEDS: 0.9% Normal Saline (1000mL) 1,000 ML 150 ML IV ×4 (05:47→20:15)
[2023-09-13] MEDS: Vancomycin 125 MG/5 ML Susp PO.SYRINGE PO ×3 (05:47→18:17)
[2023-09-13] MEDS: Levothyroxine 75 MCG Tablet PO (05:47)
[2023-09-13 08:46] LABS: Absolute Lymphocyte Count 1.32 X10^3/uL (0.83-4.51); Absolute Neutrophil Count 7.4 X10^3/uL (2.0-7.7); Basophil# 0.06 X10^3/uL; Basophil% 0.6 % (0-1); Eosinophil# 0.14 X10^3/uL; Eosinophils% 1.4 % (0-5); Hematocrit 29.3 % (37-47); Hemoglobin 9.4 g/dL (12.0-15.0); Lymphocyte # 1.32 X10^3/ul (0.83-4.51); Lymphocyte % 13.1 % (19-41); Mean Corp Hgb Conc 32.1 g/dL (32-36); Mean Corpuscular Hgb 30.4 pg (27.0-32.0); Mean Corpuscular Volume 94.8 fL (81-99); Mean Platelet Vol. 9.2 fl (6.2-12.0); Monocyte# 0.75 X10^3/uL; Monocyte% 7.4 % (0-10); NRBC Flagged by Analyzer 0 % (0-5); Neutrophil # 7.44 X10^3/uL (2.7-7.7); Neutrophil % 73.9 % (47-70); Platelet Count 357 K/mm3 (150-450); RBC Distribution Width CV 12.7 % (11.6-14.6); RBC Distribution Width SD 44.2 fl (35.1-43.9); Red Blood Count 3.09 M/mm3 (4.2-5.4); White Blood Count 10.1 K/mm3 (4.4-11.0)
[2023-09-13] MEDS: Ensure Plus High Protein 120 ML LIQUID PO ×3 (09:13→18:17)
[2023-09-13] MEDS: APIXABAN 2.5 MG TABLET (WCH) PO ×2 (09:17→21:41)
[2023-09-13] MEDS: Calcium Carb/Vitamin D 1 TABLET Tablet PO (09:18)
[2023-09-13] MEDS: ARIPiprazole 2 MG Tablet PO (09:18)
[2023-09-13] MEDS: Metoprolol(XL)Succ 50 MG Tablet PO (09:18)
[2023-09-13] MEDS: Cholecalciferol (Vit D3) 125 MCG CAPSULE (5,000 UNITS) PO (09:18)
[2023-09-13 09:29] LABS: Anion Gap 6 (5-15); BUN 24 mg/dL (7-18); BUN/Creat Ratio 23.5 RATIO (10-20); Calcium,Total 8.1 mg/dL (8.5-10.1); Chloride 107 mmol/L (98-107); Creatinine, Serum 1.02 mg/dL (0.55-1.02); EST Glomerular Filtration Rate 55 mL/min (>60); Est Glom Filt Rate - Afr Amer 67 mL/min (>60); Estimated Creatinine Clearance 35.18 ml/min; Glucose 120 mg/dL (74-106); Potassium 3.2 mmol/L (3.5-5.1); Sodium Level 136 mmol/L (136-145)
--- NOTE | 2023-09-13 10:15 | PN_ITS ---
Subjective Subjective Patient seen and examined. She was resting calmly. She hasnt had any more diarrhea. Review of systems is otherwise negative. She has remained hemodynamically stable. WBC is trending downwards. Objective Data Objective Data Vital Signs: Vital Signs Temp Pulse Resp BP Pulse Ox O2 Del Method 97.7 F L 67 16 147/69 H 98 Room Air 09/13/23 09:07 09/13/23 09:18 09/13/23 09:07 09/13/23 09:18 09/13/23 09:07 09/13/23 09:09 Oxygen Delivery Method Room Air Weight: 117 lb Body Mass Index (BMI) 20.7 Intake & Output: Intake and Output for Last 24 Hours 09/11/23 09/12/23 09/13/23 23:59 23:59 23:59 Intake Total 500 / 500 4320 / 4320 1000 / 1000 Output Total 600 / 600 Balance 500 / 500 3720 / 3720 1000 / 1000 Lab / Micro Data 09/13/23 08:30 09/13/23 08:30 Labs: Laboratory Results - last 24 hr 09/13/23 08:30: WBC 10.1, RBC 3.09 L, Hgb 9.4 L, Hct 29.3 L, MCV 94.8, MCH 30.4, MCHC 32.1, RDW Std Deviation 44.2 H, RDW Coeff of Baltazar 12.7, Plt Count 357, MPV 9.2, Immature Gran % (Auto) 3.600 H, Neut % (Auto) 73.9 H, Lymph % (Auto) 13.1 L , [place] % (Auto) 7.4, Eos % (Auto) 1.4, Baso % (Auto) 0.6, Absolute Neuts (auto) 7.4, Absolute Lymphs (auto) 1.32, Nucleated RBC % 0, Sodium 136, Potassium 3.2 L , Chloride 107, Carbon Dioxide 23.0, Anion Gap 6, BUN 24 H, Creatinine 1.02, Estim Creat Clear Calc 35.18, Est GFR (MDRD) Af Amer 67, Est GFR (MDRD) Non-Af 55 L, BUN/Creatinine Ratio 23.5 H, Glucose 120 H, Calcium 8.1 L Micro: Microbiology 09/12/23 02:50 Stool Enteric Bacteriology - Final 09/12/23 02:50 Stool C. difficile GDH Antigen & Toxins - Final Toxigenic C. difficile 09/12/23 02:50 Stool C. difficile DNA Amplification - Final Physical Exam Const alert, oriented x3 and no apparent distress Constitutional Narrative: frail HEENT normocephalic, head/scalp atraumatic and oropharynx normal Mouth: dry mucous membranes Eyes Eyes Narrative: No icterus Neck no lymphadenopathy and supple Neck Narrative: No thyromegaly Lymph Lymphatic: no lymphadenopathy noted and no lymphedema noted Resp normal respiratory effort, normal air movement, no retractions, no use of accessory muscles and clear to auscultation bilaterally Cardio regular rate, regular rhythm, S1 normal heart sound, S2 normal heart sound and no murmurs GI normal to inspection, nondistended, normoactive bowel sounds, soft to palpation, non-tender and non-distended Extremity normal to inspection, normal capillary refill, no clubbing, cyanosis or edema and no calf tenderness General Extremity: no tenderness to palpation of joints or extremities Skin General Skin Exam: no breakdown Neuro CN's II-XII intact bilaterally, no focal motor deficits, no sensory deficits noted and deep tendon reflexes 2+ bilaterally Sensorium / Orientation: awake and alert Speech: speech normal Motor Exam: general weakness Psych thought process normal, cooperative and affect normal Appearance: appropriate Assessment & Plan Assessment/Plan (1) Leukocytosis: (2) Colitis: (3) C. difficile colitis: PLAN: Plan #Severe acute C diff colitis * CT of the abdomen showed diffuse colitis. wbc is down from 19 on admission to 10 today. * Cr has trended down also. * C diff test positive for C diff toxin * on PO vancomycin 125mb q6 * hydrate gently with iVF and monitor * #Hypokalemia: K is 3.2. Will replace and trend # CKD stage III:Cr today is down to 1.02, with a baseline of ~ 1.3. Will monitor and trend. #A-fib: Metoprolol and Eliquis #Hypothyroidism: On Synthroid #Chronic malnutrition: Ensure. #UTI. Was being treated for UTI on outpatient basis with levofloxacin but this has been discontinued in light of her C. difficile infection. #CHronic malnutrition: on ensure supplements DVT prophylaxis: on eliquis. Disposition; anticipate discharge over next 24-48 hours. Charges/Coding Visit Charges Inpatient E&M: 14978 Subs Hosp L2
[2023-09-13] MEDS: Potassium Chloride Oral Tablet 20 MEQ 40 MEQ PO (12:07)
--- NOTE | 2023-09-13 15:06 | CASEMGMT ---
MARGARITA sent updates to [facility] and asked that they start the pre-cert. Plan: d/c back to [facility] pending insurance approval. Leslie CASANOVA
[2023-09-13] MEDS: Menthol/Lanolin/Calamine/Znox 113 GM Tube 1 APPLIC TOPICAL ×2 (18:17→21:41)
[2023-09-13] MEDS: Metoprolol(XL)Succ 25 MG Tablet PO (21:41)
[2023-09-14] VITALS (8 sets, daily range): BP systolic 121–149; BP diastolic 53–82; PULSE 72–76; RESP 16; TEMP 36.6–37.4; O2SAT 98–100
[2023-09-14] MEDS: Vancomycin 125 MG/5 ML Susp PO.SYRINGE PO ×4 (00:14→17:28)
[2023-09-14] MEDS: 0.9% Normal Saline (1000mL) 1,000 ML 150 ML IV ×2 (04:11→11:45)
[2023-09-14] MEDS: 0.9% Saline Lock 10 ML Syringe IV (04:12)
[2023-09-14] MEDS: Levothyroxine 75 MCG Tablet PO (06:40)
[2023-09-14] MEDS: Metoprolol(XL)Succ 50 MG Tablet PO (08:36)
[2023-09-14] MEDS: APIXABAN 2.5 MG TABLET (WCH) PO (08:36)
[2023-09-14] MEDS: Ferrous Sulfate 325 MG Tablet PO (08:37)
[2023-09-14] MEDS: Cholecalciferol (Vit D3) 125 MCG CAPSULE (5,000 UNITS) PO (08:37)
[2023-09-14] MEDS: ARIPiprazole 2 MG Tablet PO (08:37)
[2023-09-14] MEDS: Calcium Carb/Vitamin D 1 TABLET Tablet PO (08:37)
[2023-09-14] MEDS: Ensure Plus High Protein 120 ML LIQUID PO ×4 (08:38→17:28)
[2023-09-14] MEDS: Menthol/Lanolin/Calamine/Znox 113 GM Tube 1 APPLIC TOPICAL ×3 (08:38→17:28)
[2023-09-14 08:41] LABS: Absolute Lymphocyte Count 1.19 X10^3/uL (0.83-4.51); Absolute Neutrophil Count 7.1 X10^3/uL (2.0-7.7); Basophil# 0.04 X10^3/uL; Basophil% 0.4 % (0-1); Eosinophils% 1.1 % (0-5); Hematocrit 29.2 % (37-47); Hemoglobin 9.3 g/dL (12.0-15.0); Lymphocyte # 1.19 X10^3/ul (0.83-4.51); Lymphocyte % 12.6 % (19-41); Mean Corp Hgb Conc 31.8 g/dL (32-36); Mean Corpuscular Hgb 30.2 pg (27.0-32.0); Mean Corpuscular Volume 94.8 fL (81-99); Mean Platelet Vol. 9.4 fl (6.2-12.0); Monocyte% 8.5 % (0-10); NRBC Flagged by Analyzer 0 % (0-5); Neutrophil # 7.06 X10^3/uL (2.7-7.7); Neutrophil % 74.5 % (47-70); Platelet Count 363 K/mm3 (150-450); RBC Distribution Width SD 44.7 fl (35.1-43.9); Red Blood Count 3.08 M/mm3 (4.2-5.4); White Blood Count 9.5 K/mm3 (4.4-11.0)
[2023-09-14 09:05] LABS: Anion Gap 5 (5-15); BUN 15 mg/dL (7-18); BUN/Creat Ratio 17.5 RATIO (10-20); Chloride 111 mmol/L (98-107); Creatinine, Serum 0.86 mg/dL (0.55-1.02); EST Glomerular Filtration Rate 67 mL/min (>60); Est Glom Filt Rate - Afr Amer 81 mL/min (>60); Estimated Creatinine Clearance 41.72 ml/min; Glucose 136 mg/dL (74-106); Potassium 3.5 mmol/L (3.5-5.1); Sodium Level 137 mmol/L (136-145)
--- NOTE | 2023-09-14 13:16 | CASEMGMT ---
Patient was approved to return to [facility]. Physician will discharge patient today. Plan: d/c back to [facility] today under skilled level of care. Leslie Ang
--- NOTE | 2023-09-14 14:31 | PCM.TXEXTCAR ---
Diet Diet Order/Speech Therapy: 09/12/23 02:37 Diet: Regular - General Food consistency:: Regular Liquid Consistency:: Regular/Thin Is pt able to select menu?: Yes Routine Orders/Code Status Code Status: Full Code Wound(s) left buttock: Wound Type: Pressure Injury Therapies Weight Bearing: Full weight bearing Physical Therapy: Eval and Treat Occupational Therapy: Eval and Treat Problem/Diagnosis (1) Leukocytosis: Status: Acute Code(s): D72.829 - Elevated white blood cell count, unspecified (2) Colitis: Status: Acute Code(s): K52.9 - Noninfective gastroenteritis and colitis, unspecified (3) C. difficile colitis: Status: Acute Code(s): A04.72 - Enterocolitis due to Clostridium difficile, not specified as recurrent Plan 1. C. difficile colitis #2 hypokalemia #3 chronic kidney disease stage III #4 chronic A-fib Allergies/Procedures Done in Hospital Allergies Penicillins Allergy (Verified 09/11/23 22:46) Hives [id number] Reductase Inhibitor [Yonqzci-Upn-Ibb Reductase Inhibitor] Adverse Reaction (Intermediate, Verified 09/11/23 22:46) myalgias Procedures: None Type of Care/Length of Stay Estimated LOS: Convalescent Care Less Than 30 days Type of Care Needed: Skilled Rehab Potential: Good Prognosis: Good Additional Orders/Day of Discharge H&P will serve as current which was dated: 09/12/23 Day of Discharge: 09/14/23 Dietary and Speech Recommendations Dietitian Recommendations/Changes: Continue Regular diet to optimize oral intakes. Continue 120mL EPHP TID to provide supplemental energy and weight stabilization. Discharge Plan Admission Admit Date/Time: 09/12/23 02:07 Primary Reason for Your Visit: C. difficile colitis Attending Provider: Michael Flores Primary Care Provider: Whitney Padilla Consulting Providers: Espinoza Garcia; Anai Ortega Instructions Additional Instructions / Restrictions: Stop date for p.o. vancomycin 09/25/2023 Discharge Orders/Prescriptions Prescriptions: New acetaminophen 325 mg Tablet 650 mg PO Q6H PRN PRN (Reason: Pain 1-10 Or Fever >100.7) Qty: 0 0RF vancomycin [Firvanq] 25 mg/mL Recon Soln 125 mg PO Q6 Qty: 10 0RF Rx Instructions: stop date 09/25/23 Continued Adult 50 Plus Probiotic 4 billion cell capsule 4,000 mmu cells PO DAILY Rx Instructions: administer with a meal calcium citrate-vitamin D3 [Citracal + D Maximum] 315 mg- 250 unit tablet 1 tab PO DAILY cholecalciferol (vitamin D3) 125 mcg (5,000 unit) tablet 125 mcg PO DAILY Eliquis 2.5 mg tablet 2.5 mg PO BID Qty: 180 3RF metoprolol succinate 50 mg tablet extended release 24 hr 50 mg PO DAILY Qty: 90 3RF cranberry extract [Cranberry Concentrate] 500 mg capsule 500 mg PO DAILY Rx Instructions: administer with meals ferrous sulfate 325 mg (65 mg iron) tablet 325 mg PO Q OTHER DAY Qty: 90 3RF levothyroxine [Synthroid] 75 mcg Tablet 75 mcg PO SUMOTUWETH levothyroxine [Synthroid] 75 mcg Tablet 37.5 mcg PO FRSA vitamin B complex Capsule 1 cap PO DAILY metoprolol succinate 25 mg Tablet Extended Release 24 Hr 25 mg PO QHS 30 Days Qty: 30 0RF Rx Instructions: In addition to daytime 50mg aripiprazole 2 mg Tablet 2 mg PO DAILY 7 Days Qty: 0 0RF Ensure Plus High Protein 0.08 gram-1.5 kcal/mL Liquid 120 ml PO TIDCM Qty: 0 0RF furosemide [Lasix] 40 mg tablet 40 mg PO BID Qty: 10 0RF Hold Instructions: Resume on 09/09/23. Would resume at 40 mg daily Discontinued levofloxacin 750 mg tablet 750 mg PO Q48H 5 Days Qty: 3 0RF Rx Instructions: Next dose 09/08 Referrals / Follow Up: Whitney Padilla MD [Primary Care Provider] - Disposition Disposition (needs filled in before D/C Order can be placed): [facility]
--- NOTE | 2023-09-14 14:43 | PCM.DC.SUM ---
Providers Date of Admission: 09/12/23 Date of Discharge: 09/14/23 Primary Care Physician: Dr. Whitney Padilla MD Reason For Visit: COLITIS Diagnosis Discharge Diagnosis (1) Leukocytosis: Status: Resolved Code(s): D72.829 - Elevated white blood cell count, unspecified (2) Colitis: Status: Acute Code(s): K52.9 - Noninfective gastroenteritis and colitis, unspecified (3) C. difficile colitis: Status: Acute Code(s): A04.72 - Enterocolitis due to Clostridium difficile, not specified as recurrent Plan 1. C. difficile colitis #2 hypokalemia #3 chronic kidney disease stage III #4 chronic A-fib Medications at Discharge Home Medications calcium citrate 315 mg calcium-vitamin D3 6.25 mcg (250 unit) tablet (Citracal + Vitamin D Maximum) 1 tab PO DAILY supplement 12/21/19 lactobacillus combination no.9 4 billion cell capsule (Adult 50 Plus Probiotic) 4,000 mmu cells PO DAILY supplement 12/21/19 cholecalciferol (vitamin D3) 125 mcg (5,000 unit) tablet 125 mcg PO DAILY supplem 03/18/22 levothyroxine 75 mcg tablet (Synthroid) 37.5 mcg PO FRSA 05/25/22 levothyroxine 75 mcg tablet (Synthroid) 75 mcg PO SUMOTUWETH 05/25/22 vitamin B complex 1 cap PO DAILY supp 05/25/22 apixaban 2.5 mg tablet (Eliquis) 2.5 mg PO BID #180 tabs 06/02/23 metoprolol succinate 50 mg tablet,extended release 24 hr 50 mg PO DAILY #90 tabs 06/02/23 cranberry extract 500 mg capsule (Cranberry Concentrate) 500 mg PO DAILY supplement 06/22/23 ferrous sulfate 325 mg (65 mg iron) tablet 325 mg PO Q OTHER DAY #90 tabs 08/17/23 furosemide 40 mg tablet (Lasix) 40 mg PO BID #10 tabs 08/30/23 aripiprazole 2 mg tablet 2 mg PO DAILY 7 days #0 tabs 09/07/23 food supplemt, lactose-reduced 0.08 gram-1.5 kcal/mL oral liquid (Ensure Plus High Protein) 120 ml PO TIDCM #0 mL 09/07/23 metoprolol succinate 25 mg tablet,extended release 24 hr 25 mg PO QHS 30 days #30 tabs 09/07/23 acetaminophen 325 mg tablet 650 mg (2 x 325 mg) PO Q6H PRN PRN Pain 1-10 Or Fever >100.7 #0 tabs 09/14/23 vancomycin 25 mg/mL oral solution (Firvanq) 125 mg (5 mL) PO Q6 #10 mL 09/14/23 Hospital Course Operations None Procedures None Summary of Care Provided Minutes Spent on Discharge: 31 Hospital Course: This 83-year-old white female was seen in the emergency room at [facility] with complaints of possible dehydration, patient had been admitted to the hospital twice recently first with a urinary tract infection and then she was readmitted with hypokalemia and A-fib. Patient's family states that she has not been eating or drinking much and they noted that she had dry mucous membranes. Workup in the emergency room included a CBC which showed an elevated white blood cell count at 19.3, hemoglobin was 11.8, sodium was 131, potassium was 3, creatinine was 1.87, and BUN was 38. CT of the abdomen and pelvis was obtained, there were findings that were consistent with diffuse colitis. Patient was admitted to PCU for colitis and acute hypokalemia, patient's stool specimen was positive for C. difficile, she was treated for C. difficile colitis, patient was also seen by PT and OT and it was felt that she would benefit from [facility] a [facility]. On 09/14/2023, patient was seen and examined: On examination she appeared in good health and spirits, she does not appear to be in any distress. Vital signs as documented. Skin warm and dry and without overt rashes. Neck without JVD, thyroid appears normal, trachea is midline, neck is supple. Lungs clear, normal air movement was noted. Heart exam notable for irregular rhythm, normal sounds and absence of murmurs, rubs or gallops. Abdomen unremarkable and without evidence of organomegaly, masses, or abdominal aortic enlargement, bowel sounds are present in all 4 quadrants, no abdominal tenderness was noted. Extremities nonedematous, no cyanosis was noted, no clubbing was noted. Neuro: Cranial nerves II through XII are grossly intact, no focal motor deficits were noted, sensation to light touch and pinprick is intact, motor exam 5/5 throughout. Psych: Patient is alert and oriented x3, she does not appear anxious or depressed, she does not appear agitated. On 09/14/2023, patient appeared stable for transfer to an extended care facility for inpatient rehab services. Weight / BMI Weight Weight: 53.07 kg Body Mass Index (BMI) 20.7 ABG / Lab / Microbiology Data 09/14/23 07:40 09/14/23 07:40 Laboratory: Laboratory Results - last 24 hr 09/14/23 07:40: WBC 9.5, RBC 3.08 L, Hgb 9.3 L, Hct 29.2 L, MCV 94.8, MCH 30.2, MCHC 31.8 L, RDW Std Deviation 44.7 H, RDW Coeff of Baltazar 13.0, Plt Count 363, MPV 9.4, Immature Gran % (Auto) 2.900 H, Neut % (Auto) 74.5 H, Lymph % (Auto) 12.6 L, Rains % (Auto) 8.5, Eos % (Auto) 1.1, Baso % (Auto) 0.4, Absolute Neuts (auto) 7.1, Absolute Lymphs (auto) 1.19, Nucleated RBC % 0, Sodium 137, Potassium 3.5, Chloride 111 H, Carbon Dioxide 21.0, Anion Gap 5, BUN 15, Creatinine 0.86, Estim Creat Clear Calc 41.72, Est GFR (MDRD) Af Amer 81, Est GFR (MDRD) Non-Af 67, BUN/Creatinine Ratio 17.5, Glucose 136 H, Calcium 8.0 L Microbiology: Microbiology 09/14/23 13:20 Nasal Secretion SARS-CoV-2 Antigen (Rapid) - Final 09/12/23 02:50 Stool Enteric Bacteriology - Final 09/12/23 02:50 Stool C. difficile GDH Antigen & Toxins - Final Toxigenic C. difficile 09/12/23 02:50 Stool C. difficile DNA Amplification - Final Meaningful Use Info Meaningful Use Diagnoses (Choose all that apply): None applicable Discharge Plan Admission Admit Date/Time: 09/12/23 02:07 Primary Reason for Your Visit: C. difficile colitis Attending Provider: Michael Flores Primary Care Provider: Whitney Padilla Consulting Providers: Espinoza Garcia; Anai Ortega Instructions Additional Instructions / Restrictions: Stop date for p.o. vancomycin 09/25/2023 Discharge Orders/Prescriptions Prescriptions: New acetaminophen 325 mg Tablet 650 mg PO Q6H PRN PRN (Reason: Pain 1-10 Or Fever >100.7) Qty: 0 0RF vancomycin [Firvanq] 25 mg/mL Recon Soln 125 mg PO Q6 Qty: 10 0RF Rx Instructions: stop date 09/25/23 Continued Adult 50 Plus Probiotic 4 billion cell capsule 4,000 mmu cells PO DAILY Rx Instructions: administer with a meal calcium citrate-vitamin D3 [Citracal + D Maximum] 315 mg- 250 unit tablet 1 tab PO DAILY cholecalciferol (vitamin D3) 125 mcg (5,000 unit) tablet 125 mcg PO DAILY Eliquis 2.5 mg tablet 2.5 mg PO BID Qty: 180 3RF metoprolol succinate 50 mg tablet extended release 24 hr 50 mg PO DAILY Qty: 90 3RF cranberry extract [Cranberry Concentrate] 500 mg capsule 500 mg PO DAILY Rx Instructions: administer with meals ferrous sulfate 325 mg (65 mg iron) tablet 325 mg PO Q OTHER DAY Qty: 90 3RF levothyroxine [Synthroid] 75 mcg Tablet 75 mcg PO SUMOTUWETH levothyroxine [Synthroid] 75 mcg Tablet 37.5 mcg PO FRSA vitamin B complex Capsule 1 cap PO DAILY metoprolol succinate 25 mg Tablet Extended Release 24 Hr 25 mg PO QHS 30 Days Qty: 30 0RF Rx Instructions: In addition to daytime 50mg aripiprazole 2 mg Tablet 2 mg PO DAILY 7 Days Qty: 0 0RF Ensure Plus High Protein 0.08 gram-1.5 kcal/mL Liquid 120 ml PO TIDCM Qty: 0 0RF furosemide [Lasix] 40 mg tablet 40 mg PO BID Qty: 10 0RF Hold Instructions: Resume on 09/09/23. Would resume at 40 mg daily Discontinued levofloxacin 750 mg tablet 750 mg PO Q48H 5 Days Qty: 3 0RF Rx Instructions: Next dose 09/08 Referrals / Follow Up: Whitney Padilla MD [Primary Care Provider] - Disposition Disposition (needs filled in before D/C Order can be placed): Shelter Facility Charges/Coding Visit Charges Inpatient E&M: 23102 Disch Hosp >30min
--- NOTE | 2023-09-14 14:59 | PHA.DC.MR.R ---
Pharmacy [place] Med Reconciliation Pharmacy Service has performed discharge medication reconciliation for this patient. The patient's discharge medication list was reviewed for discrepancies and discrepancies were resolved. Medications at Discharge Home Medications calcium citrate 315 mg calcium-vitamin D3 6.25 mcg (250 unit) tablet (Citracal + Vitamin D Maximum) 1 tab PO DAILY supplement 12/21/19 lactobacillus combination no.9 4 billion cell capsule (Adult 50 Plus Probiotic) 4,000 mmu cells PO DAILY supplement 12/21/19 cholecalciferol (vitamin D3) 125 mcg (5,000 unit) tablet 125 mcg PO DAILY supplem 03/18/22 levothyroxine 75 mcg tablet (Synthroid) 37.5 mcg PO FRSA 05/25/22 levothyroxine 75 mcg tablet (Synthroid) 75 mcg PO SUMOTUWETH 05/25/22 vitamin B complex 1 cap PO DAILY supp 05/25/22 apixaban 2.5 mg tablet (Eliquis) 2.5 mg PO BID #180 tabs 06/02/23 metoprolol succinate 50 mg tablet,extended release 24 hr 50 mg PO DAILY #90 tabs 06/02/23 cranberry extract 500 mg capsule (Cranberry Concentrate) 500 mg PO DAILY supplement 06/22/23 ferrous sulfate 325 mg (65 mg iron) tablet 325 mg PO Q OTHER DAY #90 tabs 08/17/23 furosemide 40 mg tablet (Lasix) 40 mg PO BID #10 tabs 08/30/23 aripiprazole 2 mg tablet 2 mg PO DAILY 7 days #0 tabs 09/07/23 food supplemt, lactose-reduced 0.08 gram-1.5 kcal/mL oral liquid (Ensure Plus High Protein) 120 ml PO TIDCM #0 mL 09/07/23 metoprolol succinate 25 mg tablet,extended release 24 hr 25 mg PO QHS 30 days #30 tabs 09/07/23 acetaminophen 325 mg tablet 650 mg (2 x 325 mg) PO Q6H PRN PRN Pain 1-10 Or Fever >100.7 #0 tabs 09/14/23 vancomycin 25 mg/mL oral solution (Firvanq) 125 mg (5 mL) PO Q6 #10 mL 09/14/23
--- NOTE | 2023-09-14 16:18 | CASEMGMT ---
Discharge Planning Discharge orders, signed med list, covid results, and transport time sent to [facility] via [facility]. [facility] will transport patient by cot at 6:30p. Nursing and SW updated. A vm was left for patients daughter, Sydni. Jaida Davidson, Discharge Planning Asst.
--- NOTE | 2023-09-14 17:20 | NURSING ---
Called Report to Yissel Mcfarlane. All questions answered.
--- NOTE | 2023-09-14 18:41 | NURSING ---
Reviewed charting with Carey Bernardo RN
== END 2023-09-14 18:55 | disposition skilled nursing facility (03) | DRG 372 ==
LOC: ED 09-12 01:37 → PCU 09-12 02:59
PROVIDERS: Student in an Organized Health Care Education/Training Program; Emergency Provider Emergency Medicine; PCP Internal Medicine; Visit Provider Internal Medicine
DX: A04.72 Enterocolitis due to Clostridium difficile, not specified as recurrent (principal); I13.0 Hypertensive heart and chronic kidney disease with heart failure and stage 1 through stage 4 chronic kidney disease, or unspecified chronic kidney disease; N17.9 Acute kidney failure, unspecified; I50.32 Chronic diastolic (congestive) heart failure; I48.20 Chronic atrial fibrillation, unspecified; F03.90 Unspecified dementia, unspecified severity, without behavioral disturbance, psychotic disturbance, mood disturbance, and anxiety; E11.22 Type 2 diabetes mellitus with diabetic chronic kidney disease; E03.9 Hypothyroidism, unspecified; E86.0 Dehydration; E07.9 Disorder of thyroid, unspecified; N18.30 Chronic kidney disease, stage 3 unspecified; I25.10 Atherosclerotic heart disease of native coronary artery without angina pectoris; E87.6 Hypokalemia; Z95.5 Presence of coronary angioplasty implant and graft; Z82.3 Family history of stroke; Z79.01 Long term (current) use of anticoagulants; Z87.440 Personal history of urinary (tract) infections
CPT/HCPCS: 36415; 71045; 74176; 80048; 80053; 81001; 83605; 83735; 85025; 87426; 87493; 87506; 93005; 97110; 97162; 97166; 97530; 97535; 99285; J7030; J7040; P9612; A4216

== ENCOUNTER → 2023-10-14 | Outpatient (REF) | payer MEDICARE, SELFPAY ==
--- OUTSIDE RECORDS SUMMARY | 2023-10-14 23:12 | XMS RPT_ITS | CCD ---
Author Name Unknown Address [address] [place] [address] Organization [facility] Care Team Providers Care Tanning Solution Maker Name Role Phone Rubi Marie Unavailable Unavailable Rubi Marie Unavailable Unavailable Diaz PEACOCK, Savana Dawn Unavailable [phone] AYUSH Hernandez, Darshana Pendleton Unavailable Unavailable Allergies Allergy Classification Reported Allergen(s) Allergy Type Date of Onset Reaction(s) Facility (4 sources) Hmg-Coa Reductase Inhibitors (Statins) drug allergy 12-31-2015 [facility] Work Phone: (4 sources) penicillin Drug Allergy 03-03-2011 Rash [facility] Work Phone: Medications Completed/Discontinued Medications Medication Drug Class(es) Dates Sig (Normalized) Sig (Original) acetaminophen 325 mg oral tablet (2 sources) Start: 08-25-2017 TYLENOL 325 MG TABS as needed ACETAMINOPHEN [id number] Savana Leon PA-C amiodarone hydrochloride 200 mg oral tablet (8 sources) Antiarrhythmic Start: 12-05-2014 End: 03-05-2015 take 1 tablet by mouth once daily AMIODARONE HCL 200 MG TABS One tablet by mouth daily AMIODARONE HCL [id number] Marcus Malhotra MD amLODIPine 2.5 mg oral tablet (8 sources) Dihydropyridine Calcium Channel [facility] Start: 03-03-2011 End: 09-09-2011 take 1 tablet by mouth once daily NORVASC 2.5 MG TABS One tablet by mouth daily AMLODIPINE BESYLATE [id number] Shoshana Amaya ascorbic acid 100 mg oral tablet (16 sources) Start: 05-22-2014 End: 03-05-2015 take 1 tablet by mouth once daily VITAMIN C 100 MG TABS One tablet by mouth daily ASCORBIC ACID [id number] Marcus Malhotra MD Problems Active Problems Problem Classification Problem Date Documented Date Episodic/Chronic Cardiac dysrhythmias (20 sources) Permanent atrial fibrillation ; Translations: [Atrial fibrillation] Onset: 03-03-2011 12-31-2015 Chronic Conduction disorders (4 sources) Cardiac pacemaker in situ; Translations: [Presence of cardiac pacemaker] Onset: 04-15-2015 04-15-2015 Chronic Coronary atherosclerosis and other heart disease (8 sources) Atherosclerotic heart disease of [place] coronary artery without angina pectoris; Translations: [Atherosclerotic heart disease of [place] coronary artery without angina pectoris] Onset: 03-03-2011 06-17-2016 Chronic Diabetes mellitus without complication (4 sources) Diabetes mellitus; Translations: [Type 2 diabetes mellitus without complications] Onset: 03-03-2011 03-03-2011 Chronic Disorders of lipid metabolism (4 sources) Hyperlipidemia; Translations: [Hyperlipidemia, unspecified] Onset: 03-03-2011 03-03-2011 Chronic Essential hypertension (4 sources) Hypertensive disorder; Translations: [Essential (primary) hypertension] Onset: 03-03-2011 03-03-2011 Chronic Heart valve disorders (4 sources) Mitral valve disorder; Translations: [Other nonrheumatic mitral valve disorders] Onset: 03-03-2011 03-03-2011 Chronic Unclassified (4 sources) Preoperative cardiovascular examination ; Translations: [Encounter for preprocedural cardiovascular examination] Onset: 04-01-2015 04-01-2015 Unclassified (4 sources) Long-term drug therapy; Translations: [Other lobsterman (current) drug therapy] Onset: 03-03-2011 03-03-2011 Past or Other Problems Problem Classification Problem Date Documented Da te Episodic/Chronic Cardiac dysrhythmias (4 sources) Palpitations; Translations: [Palpitations] Onset: 03-03-2011 03-03-2011 Episodic Conditions associated with dizziness or vertigo (4 sources) Dizziness and giddiness; Translations: [Dizziness and giddiness] Onset: 03-05-2015 03-05-2015 Episodic Coronary atherosclerosis and other heart disease (4 sources) Coronary angioplasty status; Translations: [Coronary angioplasty status] Onset: 03-03-2011 03-03-2011 Episodic Nonspecific chest pain (4 sources) Chest pain, unspecified; Translations: [Chest pain, unspecified] Onset: 03-03-2011 03-03-2011 Episodic Unclassified (4 sources) Abnormal result of cardiovascular function study, unspecified; Translations: [Abnormal result of cardiovascular function study, unspecified] Onset: 03-03-2011 03-03-2011 Episodic Unclassified (8 sources) Family history of stroke; Translations: [FH: Hypertension] 11-21-2014 Episodic Results Test Name Value Interpretation Reference Range Facil ity Vital Signs Date Time Vital Sign Value Performing Clinician Ruma murray 08-25-2017 11:35-0500 BMI (Body Mass Index) 22.85 kg/m2 Rubi Frank [facility] Work Phone: 08-25-2017 11:35-0500 BP Diastolic 96 mm[Hg] Rubi Frank [facility] [employer] [facility] Work Phone: 08-25-2017 11:35-0500 BP Systolic 130 mm[Hg] Rubi Frank [facility] Work Phone: 08-25-2017 11:35-0500 Height 160.02 cm Rubi Frank [facility] [employer] [facility] Work Phone: 08-25-2017 11:35-0500 Pulse (Heart Rate) 80 /min Rubi Frank [facility] [employer] [facility] Work Phone: 08-25-2017 11:35-0500 Respiratory Rate 20 /min Rubi Frank [facility] [employer] [facility] Work Phone: 08-25-2017 11:35-0500 Weight 58.51 kg Rubi Frank [facility] [employer] [facility] Work Phone: 12-27-2016 10:05-0400 BMI (Body Mass Index) 23.73 kg/m2 AYUSH Meeks [facility] Work Phone: 12-27-2016 10:05-0400 BP Diastolic 82 mm[Hg] AYUSH M[facility]ks[facility] [employer] [facility] Work Phone: 12-27-2016 10:05-0400 BP Systolic 136 mm[Hg] AYUSH Meeksoster [facility] Work Phone: 12-27-2016 10:05-0400 Height 160.02 cm [facility] Work Phone: 12-27-2016 10:05-0400 Pulse (Heart Rate) 64 /min [facility] Work Phone: 12-27-2016 10:05-0400 Respiratory Rate 16 /min [facility] Work Phone: 12-27-2016 10:05-0400 Weight 60.78 kg AYUSH [facility] Work Phone: 06-28-2016 10:37-0400 BSA (Body Surface Area) 1.62 m2 AYUSH [facility] Work Phone: Procedures Date Procedure Procedure Detail Performing Clinician Start: 08-25-2017 End: 08-25-2017 Follow Up Appt 6 months Savana franco PA-C Work Phone: Start: 08-25-2017 End: 08-25-2017 [facility] Savana Leon PA-C Work Phone: Start: 08-01-2017 End: 08-24-2017 Follow Up Appt 3 months Marcus Malhotra MD Start: 08-01-2017 End: 08-24-2017 Pac[facility] Clinic Marcus Malhotra MD Start: 08-01-2017 End: 08-01-2017 Program eval implantable in persn dual ld pacer Marcus Malhotra MD Start: 04-04-2017 End: 08-24-2017 Follow Up Appt 3 months Marcus Malhotra MD Start: 04-04-2017 End: 08-24-2017 Pacer Clinic Marcus Malhotra MD Start: 04-04-2017 End: 04-04-2017 Program eval implantable in persn dual ld pacer Marcus Malhotra MD Start: 12-27-2016 End: 08-24-2017 Follow Up Appt 3 months Marcus Malhotra MD Start: 12-27-2016 End: 12-27-2016 Follow Up Appt 6 months Savana franco PA-C Work Phone: Start: 12-27-2016 End: 08-24-2017 Pacer Clinic Marcus Malhotra MD Start: 12-27-2016 End: 12-27-2016 PFM Savana Leon PA-C Work Phone: Start: 12-27-2016 End: 12-27-2016 Program eval implantable in persn dual ld pacer Marcus Malhotra MD Start: 09-22-2016 End: 12-22-2016 Follow Up Appt 3 months Marcus Malhotra MD Start: 09-22-2016 End: 12-22-2016 Pacer Clinic Marcus Malhotra MD Start: 09-22-2016 End: 09-22-2016 Program eval implantable in persn dual ld pacer Marcus Malhotra MD Start: 06-28-2016 End: 08-24-2017 *Hepatic Function Panel Marcus Malhotra MD Start: 06-28-2016 End: 06-28-2016 Follow Up Appt 6 months Marcus Malhotra MD Start: 06-28-2016 End: 12-22-2016 Follow Up Appt Other Marcus Malhotra MD Start: 06-28-2016 End: 08-24-2017 Lipid 1996 panel - Serum or Plasma Marcus Malhotra MD Start: 06-28-2016 End: 06-28-2016 MMM Marcus Malhotra MD Start: 06-17-2016 End: 12-22-2016 Follow Up Appt 3 months Savana franco PA-C Work Phone: Start: 06-17-2016 End: 12-22-2016 Pacer Clinic Savana Leon PA-C Work Phone: Start: 06-17-2016 End: 06-17-2016 Program eval implantable in persn dual ld pacer Savana Leon PA-C Work Phone: Start: 03-11-2016 End: 12-22-2016 Follow Up Appt 3 months Marcus Malhotra MD Start: 03-11-2016 End: 12-22-2016 Pacer Clinic Marcus Malhotra MD Start: 03-11-2016 End: 03-11-2016 Program eval implantable in persn dual ld pacer Marcus Malhotra MD Start: 01-12-2016 End: 01-13-2016 Patient referral to dietitian Marcus Malhotra MD Start: 12-31-2015 End: 01-06-2016 *Hepatic Function Panel Savana franco PA-C Work Phone: Start: 12-31-2015 End: 12-31-2015 Follow Up Appt 6 months Savana franco PA-C Work Phone: Start: 12-31-2015 End: 01-06-2016 Lipid 1996 panel - Serum or Plasma Savana Leon PA-C Work Phone: Start: 12-31-2015 End: 12-31-2015 PFM Savana Leon PA-C Work Phone: Start: 12-01-2015 End: 12-12-2015 Follow Up Appt 3 months Marcus Malhotra MD Start: 12-01-2015 End: 12-12-2015 Pacer Clinic Marcus Malhotra MD Start: 12-01-2015 End: 12-01-2015 Program eval implantable in persn dual ld pacer Marcus Malhotra MD Start: 08-26-2015 End: 12-12-2015 Follow Up Appt 3 months Savana franco PA-C Work Phone: Start: 08-26-2015 End: 12-12-2015 Pacer Clinic Savana Leon PA-C Work Phone: Start: 08-26-2015 End: 08-27-2015 Program eval implantable in persn dual ld pacer Savana Leon PA-C Work Phone: Start: 06-30-2015 End: 07-01-2015 Documentation of current medications Marcus Malhotra MD Start: 06-30-2015 End: 12-12-2015 Follow Up Appt 6 months Marcus Malhotra MD Start: 06-30-2015 End: 12-12-2015 MMM Marcus Malhotra MD Start: 06-30-2015 End: 07-01-2015 Pedal pulse taking Marcus Malhotra MD Start: 05-23-2015 End: 06-30-2015 Follow Up Appt 3 months Marcus Malhotra MD Start: 05-23-2015 End: 06-30-2015 Pacer Clinic Marcus Malhotra MD Start: 05-23-2015 End: 05-23-2015 Program eval implantable in persn dual ld pacer Marcus Malhotra MD Start: 04-15-2015 End: 06-30-2015 Follow Up Appt 1 month Antonio Viramontes MD Start: 04-15-2015 End: 04-15-2015 Nurse, Teaching, Wound Check (no charge) Antonio Viramontes MD Start: 04-15-2015 End: 06-30-2015 Pacer Clinic Antonio Viramontes MD Start: 04-01-2015 End: 04-02-2015 Documentation of current medications Savana Leon PA-C Work Phone: Start: 04-01-2015 End: 12-12-2015 Follow Up Appt Other Savana dawn PA-C Work Phone: Start: 04-01-2015 End: 04-02-2015 Pedal pulse taking Savana Leon PA-C Work Phone: Start: 03-28-2015 End: 04-01-2015 *KAYLEIGH Malhotra MD Start: 03-28-2015 End: 04-01-2015 *UA - Urinalysis w/o Micro Marcus anaya MD Start: 03-28-2015 End: 04-01-2015 CBC W Auto Differential panel - Blood Marcus Malhotra MD Start: 03-28-2015 End: 12-12-2015 Chest x-ray Marcus Malhotra MD Start: 03-28-2015 End: 12-12-2015 Ecg routine ecg w/least 12 lds w/i&r Marcus Malhotra MD Start: 03-28-2015 End: 04-01-2015 INR in Platelet poor plasma by Coagulation assay Marcus Malhotra MD Start: 03-28-2015 End: 12-12-2015 Pacemaker Primary Insertion Marcus dowell MD Start: 03-06-2015 End: 03-07-2015 *BMP Marcus Malhotra MD Start: 03-06-2015 End: 03-07-2015 CBC W Auto Differential panel - Blood Marcus Malhotra MD Start: 03-05-2015 End: 12-12-2015 Cardiovascular function eval w/tilt table w/mntr Marcus Malhotra MD Start: 03-05-2015 End: 03-06-2015 Documentation of current medications Marcus Malhotra MD Start: 03-05-2015 End: 12-12-2015 Follow Up Appt Other Marcus Malhotra MD Start: 03-05-2015 End: 12-12-2015 Xtrnl mobile cv telemetry w/i&report 30 days Marcus Malhotra MD Start: 12-05-2014 End: 12-16-2014 *Hepatic Function Panel Marcus Malhotra MD Start: 12-05-2014 End: 12-17-2014 Chest x-ray Marcus Malhotra MD Start: 12-05-2014 End: 12-12-2015 Pulmonary Function Test - complete Marcus Malhotra MD Start: 12-05-2014 End: 12-16-2014 Thyrotropin [Units/volume] in Serum or Plasma Marcus Malhotra MD Start: 12-05-2014 End: 12-16-2014 Thyroxine (T4) [Mass/volume] in Serum or Plasma Marcus Malhotra MD Start: 11-29-2014 End: 12-12-2015 24 hour holter monitor Marcus Malhotra MD Start: 11-21-2014 End: 11-22-2014 Documentation of current medications Savana Leon PA-C Work Phone: Start: 11-21-2014 End: 11-21-2014 Follow Up Appt 6 months Savana franco PA-C Work Phone: Start: 11-21-2014 End: 11-22-2014 Pedal pulse taking Savana Leon PA-C Work Phone: Start: 11-21-2014 End: 11-21-2014 PFM Savana Leon PA-C Work Phone: Start: 11-21-2014 End: 11-29-2014 Stress Echocardiogram - Dobutamine Savana Leon PA-C Work Phone: Start: 05-22-2014 End: 11-08-2014 Ecg routine ecg w/least 12 lds w/i&r Marcus Malhotra MD Start: 05-22-2014 End: 11-08-2014 Follow Up Appt 6 months Marcus Malhotra MD Start: 05-22-2014 End: 11-08-2014 MMM Marcus Malhotra MD Start: 12-13-2013 End: 11-08-2014 Follow Up Appt Other Savana dawn PA-C Work Phone: Start: 12-13-2013 End: 12-14-2013 Magnesium [Mass/volume] in Serum or Plasma Savana Leon PA-C Work Phone: Start: 11-07-2013 End: 11-21-2013 Ecg routine ecg w/least 12 lds w/i&r Marcus Malhotra MD Start: 10-16-2013 End: 10-17-2013 *BMP Savana Leon PA-C Work Phone: Start: 10-16-2013 End: 10-17-2013 *CBC with Differential Savana junior PA-C Work Phone: Start: 10-16-2013 End: 11-21-2013 24 hour holter monitor Savana junior PA-C Work Phone: Start: 10-16-2013 End: 10-16-2013 Ecg routine ecg w/least 12 lds w/i&r Savana Leon PA-C Work Phone: Start: 10-16-2013 End: 10-16-2013 Follow Up Appt 6 months Savana franco PA-C Work Phone: Start: 10-16-2013 End: 10-16-2013 Follow Up Appt 6 weeks Savana junior PA-C Work Phone: Start: 10-16-2013 End: 10-17-2013 Magnesium [Mass/volume] in Serum or Plasma Savana Leon PA-C Work Phone: Start: 10-16-2013 End: 10-16-2013 MMM Savana Leon PA-C Work Phone: Start: 10-16-2013 End: 10-16-2013 PFM Savana Leon PA-C Work Phone: Start: 10-16-2013 End: 10-17-2013 Thyrotropin [Units/volume] in Serum or Plasma Savana Leon PA-C Work Phone: Start: 04-09-2013 End: 04-09-2013 Follow Up Appt 6 months Marcus Malhotra MD Start: 04-09-2013 End: 04-09-2013 MMM Marcus Malhotra MD Start: 09-25-2012 End: 10-04-2013 Ecg routine ecg w/least 12 lds w/i&r Marcus Malhotra MD Start: 09-25-2012 End: 10-04-2013 Follow Up Appt 6 months Marcus Malhotra MD Start: 09-25-2012 End: 10-04-2013 Stress Echocardiogram (treadmill) Marcus Malhotra MD Start: 09-09-2011 End: 10-04-2013 *CPK Isoenzymes Marcus Malhotra MD Start: 09-09-2011 End: 10-04-2013 *Hepatic Function Panel Marcus Malhotra MD Start: 09-09-2011 End: 09-09-2011 Follow Up Appt 6 months Marcus Malhotra MD Start: 09-09-2011 End: 10-04-2013 Lipid 1996 panel - Serum or Plasma Marcus Malhotra MD Plan of Treatment Date Care Activity Detail Author Start: 06-05-2018 End: 06-05-2018 Appointment Appointment [facility] Work Phone: Start: 11-07-2017 End: 11-07-2017 Appointment Appointment [facility] Work Phone: Start: 08-25-2017 End: 08-25-2017 Follow Up Appt 6 months Follow Up Appt 6 months [facility] Work Phone: Start: 08-25-2017 End: 08-25-2017 PFM PFM [facility] Work Phone: Start: 08-23-2017 End: 08-23-2017 Appointment Appointment [facility] Work Phone: Start: 08-12-2017 End: 08-12-2017 Appointment Appointment [facility] Work Phone: Start: 08-01-2017 End: 08-24-2017 Follow Up Appt 3 months Follow Up Appt 3 months [facility] Work Phone: Start: 08-01-2017 End: 08-24-2017 Pacer Clinic Pacer Clinic [facility] Work Phone: Start: 04-04-2017 End: 08-24-2017 Follow Up Appt 3 months Follow Up Appt 3 months [facility] Work Phone: Start: 04-04-2017 End: 08-24-2017 Pacer Clinic Pacer Clinic [facility] Work Phone: Start: 12-27-2016 End: 08-24-2017 Follow Up Appt 3 months Follow Up Appt 3 months [facility] Work Phone: Start: 12-27-2016 End: 12-27-2016 Follow Up Appt 6 months Follow Up Appt 6 months [facility] Work Phone: Start: 12-27-2016 End: 08-24-2017 Pacer Clinic [facility] Work Phone: Start: 12-27-2016 End: 12-27-2016 PFM PFM [facility] Work Phone: Start: 09-22-2016 End: 12-22-2016 Follow Up Appt 3 months Follow Up Appt 3 months [facility] Work Phone: Start: 09-22-2016 End: 12-22-2016 Pacer Clinic [facility] Work Phone: Start: 06-28-2016 End: 08-24-2017 *Hepatic Function Panel *Hepatic Function Panel [facility] Work Phone: Start: 06-28-2016 End: 06-28-2016 Follow Up Appt 6 months Follow Up Appt 6 months [facility] Work Phone: Start: 06-28-2016 End: 12-22-2016 Follow Up Appt Other Follow Up Appt Other [facility] Work Phone: Start: 06-28-2016 End: 08-24-2017 Lipid panel [AGGREGATE] *Lipid Profile CC PCP [facility] Work Phone: Start: 06-28-2016 End: 06-28-2016 MMM MMM [facility] Work Phone: Start: 06-17-2016 End: 12-22-2016 Follow Up Appt 3 months Follow Up Appt 3 months [facility] Work Phone: Start: 06-17-2016 End: 12-22-2016 Pacer Clinic [facility] Work Phone: Start: 03-11-2016 End: 12-22-2016 Follow Up Appt 3 months Follow Up Appt 3 months [facility] Work Phone: Start: 03-11-2016 End: 12-22-2016 Pacer Clinic [facility] Work Phone: Start: 01-12-2016 End: 01-12-2016 Director Of Retention Director Of Retention [facility], [id number] [place], [id number] [facility] Work Phone: Start: 12-31-2015 End: 01-06-2016 *Hepatic Function Panel *Hepatic Function Panel [facility] Work Phone: Start: 12-31-2015 End: 12-31-2015 Follow Up Appt 6 months Follow Up Appt 6 months [facility] Work Phone: Start: 12-31-2015 End: 01-06-2016 Lipid panel [AGGREGATE] *Lipid Profile CC PCP [facility] Work Phone: Start: 12-31-2015 End: 12-31-2015 PFM PFM [facility] Work Phone: Start: 12-01-2015 End: 12-12-2015 Follow Up Appt 3 months Follow Up Appt 3 months [facility] Work Phone: Start: 12-01-2015 End: 12-12-2015 Pacer Clinic [facility] Work Phone: Start: 08-26-2015 End: 12-12-2015 Follow Up Appt 3 months Follow Up Appt 3 months [facility] Work Phone: Start: 08-26-2015 End: 12-12-2015 Pacer Clinic [facility] Work Phone: Start: 06-30-2015 End: 12-12-2015 Follow Up Appt 6 months Follow Up Appt 6 months [facility] Work Phone: Start: 06-30-2015 End: 12-12-2015 MMM MMM [facility] Work Phone: Start: 05-23-2015 End: 06-30-2015 Follow Up Appt 3 months Follow Up Appt 3 months [facility] Work Phone: Start: 05-23-2015 End: 06-30-2015 Pacer Clinic Pacer Clinic [facility] Work Phone: Start: 04-15-2015 End: 06-30-2015 Follow Up Appt 1 month Follow Up Appt 1 month [facility] Work Phone: Start: 04-15-2015 End: 06-30-2015 Pacer Clinic Pacer Clinic [facility] Work Phone: Start: 04-01-2015 End: 12-12-2015 Follow Up Appt Other Follow Up Appt Other [facility] Work Phone: Start: 03-28-2015 End: 04-01-2015 *BMP *BMP [facility] Work Phone: Start: 03-28-2015 End: 04-01-2015 *UA - Urinalysis w/o Micro *UA - Urinalysis w/o Micro [facility] Work Phone: Start: 03-28-2015 End: 04-01-2015 CBC W Auto Differential panel - Blood *CBC without Diff [facility] Work Phone: Start: 03-28-2015 End: 12-12-2015 Chest x-ray X-Ray, Chest, PA & Lateral [facility] Work Phone: Start: 03-28-2015 End: 12-12-2015 Ecg routine ecg w/least 12 lds w/i&r EKG (In office) [facility] Work Phone: Start: 03-28-2015 End: 04-01-2015 INR Coag RelTime (PPP) *PT/INR [facility] Work Phone: Start: 03-28-2015 End: 03-28-2015 Pacemaker Primary Insertion Pacemaker Primary Insertion [facility] Work Phone: Start: 03-06-2015 End: 03-07-2015 *BMP *BMP [facility] Work Phone: Start: 03-06-2015 End: 03-07-2015 CBC W Auto Differential panel - Blood *CBC without Diff [facility] Work Phone: Start: 03-05-2015 End: 03-06-2015 Cardiovascular function eval w/tilt table w/mntr Tilt Table Test [facility] Work Phone: Start: 03-05-2015 End: 12-12-2015 Follow Up Appt Other Follow Up Appt Other [facility] Work Phone: Start: 03-05-2015 End: 03-06-2015 Xtrnl mobile cv telemetry w/i&report 30 days 30 Day Holter Monitor [facility] Work Phone: Start: 12-05-2014 End: 12-16-2014 *Hepatic Function Panel *Hepatic Function Panel [facility] Work Phone: Start: 12-05-2014 End: 12-17-2014 Chest x-ray X-Ray, Chest, PA & Lateral [facility] Work Phone: Start: 12-05-2014 End: 12-05-2014 Pulmonary Function Test - complete Pulmonary Function Test - complete [facility] Work Phone: Start: 12-05-2014 End: 12-16-2014 Thyroid stimulating hormone (TSH) *TSH [facility] Work Phone: Start: 12-05-2014 End: 12-16-2014 Thyroxine (T4) *T4 (Total) [facility] Work Phone: Start: 11-29-2014 End: 12-12-2015 24 hour holter monitor 24 hour holter monitor [facility] Work Phone: Start: 11-21-2014 End: 11-21-2014 Follow Up Appt 6 months Follow Up Appt 6 months [facility] Work Phone: Start: 11-21-2014 End: 11-21-2014 PFM PFM [facility] Work Phone: Start: 11-21-2014 End: 11-21-2014 Stress Echocardiogram - Dobutamine Stress Echocardiogram - Dobutamine [facility] Work Phone: Start: 05-22-2014 End: 11-08-2014 Ecg routine ecg w/least 12 lds w/i&r EKG (In office) [facility] Work Phone: Start: 05-22-2014 End: 11-08-2014 Follow Up Appt 6 months Follow Up Appt 6 months [facility] Work Phone: Start: 05-22-2014 End: 11-08-2014 MMM MMM [facility] Work Phone: Start: 12-13-2013 End: 11-08-2014 Follow Up Appt Other Follow Up Appt Other [facility] Work Phone: Start: 12-13-2013 End: 12-13-2013 Magnesium *Magnesium [facility] Work Phone: Start: 11-07-2013 End: 11-21-2013 Ecg routine ecg w/least 12 lds w/i&r EKG (In office) [facility] Work Phone: Start: 10-16-2013 End: 10-16-2013 *BMP *BMP [facility] Work Phone: Start: 10-16-2013 End: 10-16-2013 *CBC with Differential *CBC with Differential [facility] Work Phone: Start: 10-16-2013 End: 10-16-2013 24 hour holter monitor 24 hour holter monitor [facility] Work Phone: Start: 10-16-2013 End: 10-16-2013 Ecg routine ecg w/least 12 lds w/i&r EKG (In office) [facility] Work Phone: Start: 10-16-2013 End: 10-16-2013 Follow Up Appt 6 months Follow Up Appt 6 months [facility] Work Phone: Start: 10-16-2013 End: 10-16-2013 Follow Up Appt 6 weeks Follow Up Appt 6 weeks [facility] Work Phone: Start: 10-16-2013 End: 10-16-2013 Magnesium *Magnesium [facility] Work Phone: Start: 10-16-2013 End: 10-16-2013 MMM MMM [facility] Work Phone: Start: 10-16-2013 End: 10-16-2013 PFM PFM [facility] Work Phone: Start: 10-16-2013 End: 10-16-2013 Thyroid stimulating hormone (TSH) *TSH [facility] Phone: Start: 04-09-2013 End: 04-09-2013 Follow Up Appt 6 months Follow Up Appt 6 months [facility] Work Phone: Start: 04-09-2013 End: 04-09-2013 MMM MMM [facility] Work Phone: Start: 09-25-2012 End: 10-04-2013 Ecg routine ecg w/least 12 lds w/i&r EKG (In office) [facility] Phone: Start: 09-25-2012 End: 10-04-2013 Follow Up Appt 6 months Follow Up Appt 6 months [facility] Phone: Start: 09-25-2012 End: 09-25-2012 Stress Echocardiogram (treadmill) Stress Echocardiogram (treadmill) [facility] Phone: Start: 09-09-2011 End: 10-04-2013 *CPK Isoenzymes *CPK Isoenzymes [facility] Phone: Start: 09-09-2011 End: 10-04-2013 *Hepatic Function Panel *Hepatic Function Panel [facility] Phone: Start: 09-09-2011 End: 09-09-2011 Follow Up Appt 6 months Follow Up Appt 6 months [facility] Phone: Start: 09-09-2011 End: 10-04-2013 Lipid panel [AGGREGATE] *Lipid Profile [facility] Phone: Additional Source Comments FOR RECORDS PERTAINING TO PATIENTS WHO ARE OR HAVE BEEN ENROLLED IN A CHEMICAL DEPENDENCY/SUBSTANCEABUSE PROGRAM, SOME INFORMATION MAY BE OMITTED. This clinical summary was aggregated from multiple sources. Caution should be exercised in using it in the provision of clinical care. This summary normalizes information from multiple sources, and as a consequence, information in this document may materially change the coding, format and clinical context of patient data. In addition, data may be omitted in some cases. CLINICAL DECISIONS SHOULD BE BASED ON THE PRIMARY CLINICAL RECORDS. [facility]. provides no warranty or guarantee of the accuracy or completeness of information in this document.
== END ==
LOC: OLS.WHLCAR 23:10
PROVIDERS: PCP Internal Medicine; Visit Provider Internal Medicine
DX: K58.0 Irritable bowel syndrome with diarrhea (principal)
CPT/HCPCS: 87493